=== PATIENT | male | born 1960 | race American Indian/Alaskan Native ===

== ENCOUNTER 2019-11-26 14:59 | Inpatient (IN) ==
[2019-11-26] MEDS ORDERED: cefTRIAXone 1 GM VIAL IV ONE (15:25)
[2019-11-26 15:35] LABS: POC Blood Urea Nitrogen 42 mg/dl (6-20); POC CO2 25 mmol/L (22-30); POC Calcium, Ionized 1.05 mmol/L (1.16-1.32); POC Chloride 92 mmol/L (96-108); POC Creatinine 1.2 mg/dl (0.7-1.2); POC Glucose, Random 384 mg/dL (70-105); POC Potassium 3.6 mmol/L (3.3-5.1); POC Sodium 131 mmol/L (133-145)
[2019-11-26] MEDS ORDERED: 0.9 % SODIUM CHLORIDE 1,000 ML IV ONE (15:43)
[2019-11-26] MEDS ORDERED: INSULIN REGULAR, HUMAN 1 UNIT/0.01 ML UNIT SQ ONE (16:25)
--- NOTE | 2019-11-26 16:46 | Emergency Department Note ---
Wound/Laceration HIP General Chief Complaint: Wound/Laceration Stated Complaint: "i have the chills" Time Seen by Provider: 11/26/19 15:11 Source: patient Mode of arrival: ambulatory Limitations: no limitations History of Present Illness HPI Narrative: Narrative: 59-year-old male presents with bilateral foot wounds. He was seen yesterday for the fever, chills, nausea, vomiting, and diarrhea since Tuesday, about 48 hours worth. States he has been off and on oral antibiotics without improvement. He has an appointment with Dr. deysi andino tomorrow at wound care but was feeling poor enough today that he thought he better come to ER. States the right foot is the worst and redness and swelling is getting worse and there is foul odor coming from the wounds to the palmar surface of his foot. States they are fairly new over the last couple of months but he has not been able to actually see his primary care provider in person because of COVID and so he is only been doing phone appointments and nothing is getting better. He is a diabetic. Reports his sugars have been running in the 300s which is high for him. Related Data Home Medications Medication Instructions Recorded Confirmed amlodipine 10 mg tablet 10 mg PO DAILY 11/02/18 11/26/19 aspirin 81 mg tablet,delayed 81 mg PO DAILY 11/02/18 11/26/19 release carvedilol 3.125 mg tablet 3.125 mg PO BID 11/02/18 11/26/19 duloxetine 30 mg capsule,delayed 30 mg PO BID 11/02/18 11/26/19 release lisinopril 40 mg tablet 40 mg PO BID tab 11/02/18 11/26/19 magnesium L-lactate 84 mg 84 mg PO DAILY 11/02/18 11/26/19 tablet,extended release meloxicam 15 mg tablet 7.5 mg PO BID tab 11/02/18 11/26/19 rosuvastatin 10 mg tablet 10 mg PO QHS tab 11/02/18 11/26/19 chlorthalidone 25 mg tablet 12.5 mg PO DAILY tab 11/07/18 11/26/19 insulin regular hum U-500 conc 1 dose SUB-Q TID 11/07/18 11/26/19 metformin 500 mg tablet,extended 500 mg PO BID tab 11/07/18 11/26/19 release 24 hr dorzolamide-timolol 10 ml OPHTHALMIC (EYE) BID 11/26/19 11/26/19 exenatide microspheres [Bydureon 2 mg SUBCUT Q7D 11/26/19 11/26/19 BCise] Previous Rx's Medication Instructions Recorded amoxicillin-pot clavulanate 1 tab PO Q12H #20 tab 11/25/19 [Augmentin] ciprofloxacin HCl 500 mg PO Q12H #20 tab 11/25/19 Allergies Allergy/AdvReac Type Severity Reaction Status Date / Time No Known Drug Allergies Allergy Verified 11/26/19 15:01 Review of Systems ROS ROS Narrative: Narrative: All systems ED: reviewed and negative except as stated. PFSH Narrative Patient History Narrative: Narrative: Medical/Surgical/Family History All Active Problems (Updated 11/26/19 @ 17:31 by EVERTON Marrero) Cellulitis (Acute) Phlebitis of right saphenous vein (Acute) Diabetic foot ulcer (Acute) Open wound of right foot (Acute) Diabetes (Acute) Nausea & vomiting (Acute) Myopia (Chronic) Ulcer of foot (Chronic) Hypertropia (Chronic) Macular degeneration (Chronic) Primary open angle glaucoma (Chronic) Senile cataracts of both eyes (Chronic) Regular astigmatism, bilateral (Chronic) Presbyopia (Chronic) Glaucoma (Chronic) Mild non proliferative diabetic retinopathy (Chronic) Diabetic macular edema (Chronic) Nuclear senile cataract (Chronic) Diabetic peripheral neuropathy (Chronic) Vitamin D deficiency (Chronic) Magnesium deficiency (Chronic) Diabetes mellitus type II, controlled (Chronic) Diabetic autonomic neuropathy (Chronic) Obesity (Chronic) Hypertensive disorder (Chronic) Sleep apnea (Chronic) Encounter for screening colonoscopy (Chronic) Medical History Diabetes mellitus type II, controlled (Chronic) Diabetic autonomic neuropathy (Chronic) Diabetic macular edema (Chronic) Diabetic peripheral neuropathy (Chronic) Encounter for screening colonoscopy (Chronic) Glaucoma (Chronic) Hypertensive disorder (Chronic) Hypertropia (Chronic) Macular degeneration (Chronic) Magnesium deficiency (Chronic) Mild non proliferative diabetic retinopathy (Chronic) Myopia (Chronic) Nuclear senile cataract (Chronic) Obesity (Chronic) Presbyopia (Chronic) Primary open angle glaucoma (Chronic) Regular astigmatism, bilateral (Chronic) Senile cataracts of both eyes (Chronic) Sleep apnea (Chronic) Ulcer of foot (Chronic) Vitamin D deficiency (Chronic) Surgical History History of surgery (Acute) 1998-Left knee scope No pertinent past surgical history (Inactive) Family History Brother Diabetes x2 Hypertension x2 Sister Diabetes x3 Hypertension x3 Mother Stroke Father Cancer colon cancer Social History Smoking Status: Never smoker Alcohol Intake Frequency: does not drink Substance Use: does not use Exam Narrative Narrative: Narrative: General Limitations: no limitations General appearance: alert Head Head: atraumatic and normocephalic Eye Eye: Present normal appearance; Absent conjunctival injection Chest Chest: Present normal inspection and symmetric chest wall rise Respiratory Respiratory: Present normal lung sounds bilaterally; Absent respiratory distress, rales/crackles, wheezes, stridor and accessory muscle use Extremities Extremities: Present normal capillary refill; Absent normal inspection (Palmar surfaces of feet with multiple wounds. Please see pictures uploaded to chart. Right foot is quite a bit worse than the left. There is significant edema and redness and warmth. Also purulent drainage with culture pending from the palmar surface of the right foot.) Neurological Neurological: Present alert and oriented X3 Psychiatric Psychiatric: Present normal affect and normal mood Skin Skin: Present warm and dry Course Course Course Narrative: At 1700 we did put a call into Dr. blood and are waiting for a call back. At 1730 I did speak with hospitalist, Dr. Ferreira about admitting this patient who agrees to accept. Vital Signs Vital signs: Vital Signs Temperature 98.6 F 11/26/19 14:59 Pulse Rate 108 H 11/26/19 14:59 Respiratory Rate 16 11/26/19 14:59 Blood Pressure 137/79 11/26/19 14:59 Pulse Oximetry (%) 94 11/26/19 14:59 Temperature 98.6 F 11/26/19 14:59 Pulse Rate 99 H 11/26/19 19:16 Respiratory Rate 33 H 11/26/19 19:16 Blood Pressure 103/77 11/26/19 19:16 Pulse Oximetry (%) 91 11/26/19 19:16 MDM MDM Narrative Medical decision making narrative: Narrative: Lab Data Result diagrams: 11/26/19 15:25 11/26/19 15:25 Labs: Lab Results 11/26/19 11/26/19 11/26/19 Range/Units 15:25 15:25 15:25 WBC 19.8 H (4.50-11.00) K/mcL RBC 6.08 (4.63-6.08) M/mcL Hgb 17.8 H (13.7-17.5) g/dL Hct 52.6 H (40.1-51.0) % POC Hct (41.0-55.0) % MCV 86.5 (80.0-100.0) fL MCH 29.3 (26.0-34.0) pg MCHC 33.8 (31.0-36.0) g/dL RDW 13.1 (11.5-14.5) % Plt Count 230 (140-440) K/mcL MPV 12.3 H (7.4-10.4) fL Total Counted 100 Seg Neutrophils % 89 H (38-78) % Band Neutrophils % Not Reportable Lymphocytes % 6 L (15-49) % Monocytes % (Manual) 5 (1-12) % Platelet Estimate Normal (NORMAL) RBC Morphology Normal (NORMAL) VBG Lactic Acid 2.4 H (0.5-2.0) mmol/L POC Sodium (133-145) mmol/L Sodium 129 L (133-145) mmol/L POC Potassium (3.3-5.1) mmol/L Potassium 3.6 (3.3-5.1) mmol/L POC Chloride (96-108) mmol/L Chloride 85 L (96-108) mmol/L Carbon Dioxide 24 (22-30) mmol/L POC Total CO2 (22-30) mmol/L Anion Gap 20.0 H (8-16) POC BUN (6-20) mg/dl BUN 40 H (6-20) mg/dl Creatinine 1.3 H (0.7-1.2) mg/dl POC Creatinine (0.7-1.2) mg/dl GFR Calculation 59 Glucose 396 H (70-105) mg/dL POC Glucose (70-105) mg/dL Calcium 9.6 (8.6-10.4) mg/dl POC WB Ioniz Calcium (1.16-1.32) mmol/L Total Bilirubin 1.4 H (0.0-1.0) mg/dL AST 20 (0-37) U/l ALT 17 (0-40) U/l Alkaline Phosphatase 99 (39-117) U/L Total Protein 7.9 (5.9-8.4) gm/dL Albumin 3.3 (3.2-5.2) gm/dL Globulin 4.6 H (2.2-3.7) gm/dL Albumin/Globulin Ratio 0.7 L (1.0-2.3) 11/26/19 Range/Units 15:25 WBC (4.50-11.00) K/mcL RBC (4.63-6.08) M/mcL Hgb (13.7-17.5) g/dL Hct (40.1-51.0) % POC Hct 59.0 H (41.0-55.0) % MCV (80.0-100.0) fL MCH (26.0-34.0) pg MCHC (31.0-36.0) g/dL RDW (11.5-14.5) % Plt Count (140-440) K/mcL MPV (7.4-10.4) fL Total Counted Seg Neutrophils % (38-78) % Band Neutrophils % Lymphocytes % (15-49) % Monocytes % (Manual) (1-12) % Platelet Estimate (NORMAL) RBC Morphology (NORMAL) VBG Lactic Acid (0.5-2.0) mmol/L POC Sodium 131 L (133-145) mmol/L Sodium (133-145) mmol/L POC Potassium 3.6 (3.3-5.1) mmol/L Potassium (3.3-5.1) mmol/L POC Chloride 92 L (96-108) mmol/L Chloride (96-108) mmol/L Carbon Dioxide (22-30) mmol/L POC Total CO2 25 (22-30) mmol/L Anion Gap (8-16) POC BUN 42 H (6-20) mg/dl BUN (6-20) mg/dl Creatinine (0.7-1.2) mg/dl POC Creatinine 1.2 (0.7-1.2) mg/dl GFR Calculation Glucose (70-105) mg/dL POC Glucose 384 H (70-105) mg/dL Calcium (8.6-10.4) mg/dl POC WB Ioniz Calcium 1.05 L (1.16-1.32) mmol/L Total Bilirubin (0.0-1.0) mg/dL AST (0-37) U/l ALT (0-40) U/l Alkaline Phosphatase (39-117) U/L Total Protein (5.9-8.4) gm/dL Albumin (3.2-5.2) gm/dL Globulin (2.2-3.7) gm/dL Albumin/Globulin Ratio (1.0-2.3) Discharge Plan Patient/Caregiver Discharge Instructions Pt seen by TRAINING DEVELOPMENT MANAGER/PA only: Yes Clinical Impression: Cellulitis, Open wound of right foot, Diabetes, Nausea & vomiting Patient Disposition: Xfer As Inpt ([facility]) Condition: Fair Discharge Date/Time: 11/26/19 19:20
[2019-11-26 16:53] LABS: Hematocrit 52.6 % (40.1-51.0); Hemoglobin 17.8 g/dL (13.7-17.5); Mean Cell Volume 86.5 fL (80.0-100.0); Mean Corpuscular HGB Conc 33.8 g/dL (31.0-36.0); Mean Platelet Volume 12.3 fL (7.4-10.4); Platelet Count 230 K/mcL (140-440); RBC 6.08 M/mcL (4.63-6.08); Red Cell Distribution Width 13.1 % (11.5-14.5); WBC 19.8 K/mcL (4.50-11.00)
[2019-11-26 17:11] LABS: Lymphocytes % 6 % (15-49); Monocytes % (Manual) 5 % (1-12); Platelet Estimate NORMAL (NORMAL); RBC Morphology NORMAL (NORMAL); Segmented Neutrophils % 89 % (38-78)
--- NOTE | 2019-11-26 17:11 | Magnetic Resonance Report ---
CLINICAL INFORMATION: Fifth digit wound with cellulitis and possible osteo COMPARISON: MRI 06/09/2019 TECHNIQUE: Axial T1-T2 proton-density coronal proton-density sagittal T1 bone density images were obtained of the right foot. FINDINGS: Severe diffuse cellulitis and fasciitis is seen throughout the entire foot. There are no marrow signal abnormalities just above osteomyelitis. Joint spaces are normal in width and alignment the exception of minimal degenerative change in the interphalangeal joints. Tendons and sheaths are unremarkable. IMPRESSION: Severe diffuse cellulitis and fasciitis. No evidence of osteomyelitis in the fifth toe nor the remainder foot Interpreted and Authenticated by: Smith Faye 11/26/19
[2019-11-26 17:13] LABS: ALT/SGPT 17 U/l (0-40); AST/SGOT 20 U/l (0-37); Albumin 3.3 gm/dL (3.2-5.2); Albumin/Globulin Ratio 0.7 (1.0-2.3); Alkaline Phosphatase 99 U/L (39-117); Bilirubin,Total 1.4 mg/dL (0.0-1.0); Blood Urea Nitrogen 40 mg/dl (6-20); Calcium 9.6 mg/dl (8.6-10.4); Carbon Dioxide 24 mmol/L (22-30); Chloride 85 mmol/L (96-108); Globulin 4.6 gm/dL (2.2-3.7); Glomerular Filtration Rate 59; Glucose 396 mg/dL (70-105)
[2019-11-26] MEDS ORDERED: ONDANSETRON 4 MG/2 ML VIAL IV ONE (17:29)
[2019-11-26] MEDS ORDERED: VANCOMYCIN PER PHARMACY IV ONE (17:29)
[2019-11-26] MEDS ORDERED: VANCOMYCIN 1,000 MG in 0.9 % SODIUM CHLORIDE 250 ML IV ONE (17:36)
--- NOTE | 2019-11-26 17:45 | Internal Med History&Physical ---
HPI History of Present Illness Patient information: Note initiated : 11/26/19 at 5:45 pm Service Date, if different from initiated Date: [] Patient: Navid Garcia a 59 y/o M admitted on for "I Have The Chills". Chief Complaint: [] History of present illness: Mr. Garcia is a 59 year old M who presents to the ER with increasing right lower extremity pain redness swelling over the last 48 hours. Patient has been following up with wound care for ulceration foot and has been on antibiotics recently for associated cellulitis. For the last 48 hours he has noted increasing redness, swelling and associated nausea. He was evaluated in the ER the day prior and was discharged on oral antibiotics for diabetic foot ulcer. However symptoms continued to deteriorate and he presents today. Initial work-up was consistent with white count 19.8 and elevated blood sugars at 396. Patient was started on antibiotic coverage after wound care was consulted. Cultures obtained Hospitalist service was consulted for admission At the time of my evaluation patient is alert and oriented. He was able to endorse history as above. He denies shaking chills, sweats, shortness of breath chest pain headache or photophobia. Denies diarrhea. Review of systems Negative except for as above PFSH PFSH All Active Problems (Updated 11/26/19 @ 17:31 by EVERTON Marrero) Cellulitis (Acute) Phlebitis of right saphenous vein (Acute) Diabetic foot ulcer (Acute) Open wound of right foot (Acute) Diabetes (Acute) Nausea & vomiting (Acute) Myopia (Chronic) Ulcer of foot (Chronic) Hypertropia (Chronic) Macular degeneration (Chronic) Primary open angle glaucoma (Chronic) Senile cataracts of both eyes (Chronic) Regular astigmatism, bilateral (Chronic) Presbyopia (Chronic) Glaucoma (Chronic) Mild non proliferative diabetic retinopathy (Chronic) Diabetic macular edema (Chronic) Nuclear senile cataract (Chronic) Diabetic peripheral neuropathy (Chronic) Vitamin D deficiency (Chronic) Magnesium deficiency (Chronic) Diabetes mellitus type II, controlled (Chronic) Diabetic autonomic neuropathy (Chronic) Obesity (Chronic) Hypertensive disorder (Chronic) Sleep apnea (Chronic) Encounter for screening colonoscopy (Chronic) Medical History Diabetes mellitus type II, controlled (Chronic) Diabetic autonomic neuropathy (Chronic) Diabetic macular edema (Chronic) Diabetic peripheral neuropathy (Chronic) Encounter for screening colonoscopy (Chronic) Glaucoma (Chronic) Hypertensive disorder (Chronic) Hypertropia (Chronic) Macular degeneration (Chronic) Magnesium deficiency (Chronic) Mild non proliferative diabetic retinopathy (Chronic) Myopia (Chronic) Nuclear senile cataract (Chronic) Obesity (Chronic) Presbyopia (Chronic) Primary open angle glaucoma (Chronic) Regular astigmatism, bilateral (Chronic) Senile cataracts of both eyes (Chronic) Sleep apnea (Chronic) Ulcer of foot (Chronic) Vitamin D deficiency (Chronic) Surgical History History of surgery (Acute) 1998-Left knee scope No pertinent past surgical history (Inactive) Family History Brother Diabetes x2 Hypertension x2 Sister Diabetes x3 Hypertension x3 Mother Stroke Father Cancer colon cancer Social History (Updated 11/08/18 @ 13:33 by Yao Coy MD) smoking status: Never smoker alcohol intake frequency: does not drink substance use type: does not use MEDS/ALLERGIES Home Medications and Allergies Home Medications Medication Instructions Recorded Confirmed Type amlodipine 10 mg tablet 10 mg PO DAILY 11/02/18 11/25/19 History aspirin 81 mg tablet,delayed 81 mg PO DAILY 11/02/18 11/25/19 History release carvedilol 3.125 mg tablet 3.125 mg PO BID 11/02/18 11/25/19 History duloxetine 30 mg capsule,delayed 30 mg PO BID 11/02/18 11/25/19 History release exenatide microspheres 2 mg 1 dose SUB-Q DAILY 11/02/18 11/25/19 History subcutaneous extended release suspension lisinopril 40 mg tablet 40 mg PO BID tab 11/02/18 11/25/19 History magnesium L-lactate 84 mg 84 mg PO DAILY 11/02/18 11/25/19 History tablet,extended release meloxicam 15 mg tablet 7.5 mg PO BID tab 11/02/18 11/25/19 History rosuvastatin 10 mg tablet 10 mg PO QHS tab 11/02/18 11/25/19 History chlorthalidone 25 mg tablet 25 mg PO DAILY tab 11/07/18 11/25/19 History insulin regular hum U-500 conc 1 dose SUB-Q TID 11/07/18 11/25/19 History metformin 500 mg tablet,extended 500 mg PO BID tab 11/07/18 11/25/19 History release 24 hr cephalexin 500 mg PO QID #40 cap 08/25/19 11/25/19 Rx sulfamethoxazole-trimethoprim 1 tab PO BID #20 tab 08/25/19 11/25/19 Rx amoxicillin-pot clavulanate 1 tab PO Q12H #20 tab 11/25/19 Rx [Augmentin] ciprofloxacin HCl 500 mg PO Q12H #20 tab 11/25/19 Rx Allergies Allergy/AdvReac Type Severity Reaction Status Date / Time No Known Drug Allergies Allergy Verified 11/26/19 15:01 EXAM Constitutional Vitals: Temp Pulse Resp BP Pulse Ox 98.6 F 103 H 24 H 104/63 88 L 11/26/19 14:59 11/26/19 17:17 11/26/19 17:17 11/26/19 17:16 11/26/19 17:17 Head normocephalic Oral cavity moist No ear nose discharge Eye movement symmetrical Neck supple no lymphadenopathy S1-S2 regular Nonlabored breathing Nondistended nontender abdomen Lower extremity right side redness noted from dorsum of the ankle up to medial right thigh. Ulceration at the ball of big toe 2 x 2 centimeter. No cyanosis clubbing or joint swelling Skin no suspicious lesion Psych anxious but alert cooperative Neuro normal higher function DATA Data Completed and Pending Labs: Labs from last 24 hours 11/26/19 11/26/19 11/26/19 15:25 15:25 15:25 WBC RBC Hgb Hct POC Hct 59.0 H MCV MCH MCHC RDW Plt Count MPV Total Counted Seg Neutrophils % Band Neutrophils % Lymphocytes % Monocytes % (Manual) Platelet Estimate RBC Morphology VBG Lactic Acid 2.4 H POC Sodium 131 L Sodium 129 L POC Potassium 3.6 Potassium 3.6 POC Chloride 92 L Chloride 85 L Carbon Dioxide 24 POC Total CO2 25 Anion Gap 20.0 H POC BUN 42 H BUN 40 H Creatinine 1.3 H POC Creatinine 1.2 GFR Calculation 59 Glucose 396 H POC Glucose 384 H Calcium 9.6 POC WB Ioniz Calcium 1.05 L Total Bilirubin 1.4 H AST 20 ALT 17 Alkaline Phosphatase 99 Total Protein 7.9 Albumin 3.3 Globulin 4.6 H Albumin/Globulin Ratio 0.7 L 11/26/19 15:25 WBC 19.8 H RBC 6.08 Hgb 17.8 H Hct 52.6 H POC Hct MCV 86.5 MCH 29.3 MCHC 33.8 RDW 13.1 Plt Count 230 MPV 12.3 H Total Counted 100 Seg Neutrophils % 89 H Band Neutrophils % Not Reportable Lymphocytes % 6 L Monocytes % (Manual) 5 Platelet Estimate Normal RBC Morphology Normal VBG Lactic Acid POC Sodium Sodium POC Potassium Potassium POC Chloride Chloride Carbon Dioxide POC Total CO2 Anion Gap POC BUN BUN Creatinine POC Creatinine GFR Calculation Glucose POC Glucose Calcium POC WB Ioniz Calcium Total Bilirubin AST ALT Alkaline Phosphatase Total Protein Albumin Globulin Albumin/Globulin Ratio A/P Narrative A/P Narrative: * Diabetic right lower extremity cellulitis-no evidence of osteomyelitis on imaging. Continue broad antibiotic coverage. Cultures drawn. Wound care consulted. * History of DM type II continue exenatide/prandial insulin/CC diet * History of hypertension continue amlodipine/Coreg/chlorthalidone * Anxiety disorder continue Cymbalta * Hyperlipidemia on statin * Full code Plan * Inpatient admission * Broad antibiotic coverage * Wound care consult * Pre-existing medical condition management as above * Nutrition support/PT OT Time Spent With Patient Time: Total time spent is greater than 50% in coordination of care (as documented) at patient's floor/unit and/or counseling patient:
[2019-11-26] MEDS ORDERED: POTASSIUM CHLORIDE 20 MEQ PACKET PO PRN (19:22)
[2019-11-26] MEDS ORDERED: ACETAMINOPHEN 650 MG/65 ML BOTTLE IV PRN (19:22)
[2019-11-26] MEDS ORDERED: DEXTROSE 31 GM ORAL.SUSP PO PRN (19:22)
[2019-11-26] MEDS ORDERED: ACETAMINOPHEN 325 MG TABLET PO PRN (19:22)
[2019-11-26] MEDS ORDERED: hydrALAZINE 20 MG/ML VIAL IV PRN (19:22)
[2019-11-26] MEDS ORDERED: ONDANSETRON 4 MG/2 ML VIAL IV PRN (19:22)
[2019-11-26] MEDS ORDERED: MAGNESIUM SULFATE 2 GM/50 ML BAG IV PRN (19:22)
[2019-11-26] MEDS ORDERED: VANCOMYCIN PER PHARMACY IV SCH (19:22)
[2019-11-26] MEDS ORDERED: METOPROLOL TARTRATE 5 MG/5 ML VIAL IV PRN (19:22)
[2019-11-26] MEDS ORDERED: POLYETHYLENE GLYCOL 3350 17 GM PACKET PO PRN (19:22)
[2019-11-26] MEDS ORDERED: ONDANSETRON 4 MG ODT TABLET SL PRN (19:22)
[2019-11-26] MEDS ORDERED: BISACODYL 10 MG SUPP.RECT PR PRN (19:22)
[2019-11-26] MEDS ORDERED: MELATONIN 3 MG TABLET PO PRN (19:22)
[2019-11-26] MEDS: 0.9 % SODIUM CHLORIDE 1,000 ML IV SCH (20:38)
--- NOTE | 2019-11-26 21:08 | Emergency Department Note ---
Wound/Laceration HIP General Chief Complaint: Wound/Laceration Stated Complaint: "i have the chills" Time Seen by Provider: 11/26/19 15:11 Source: patient Mode of arrival: ambulatory Limitations: no limitations History of Present Illness HPI Narrative: See dictated history and physical by EVERTON Browne. I a gree with her documentation and management. I briefly saw the patient myself and at the beginning. He did have swelling, redness and a necrotic ulcer on the plantar surface of his right foot that had dark tobar-brown necrotic strands that were adherent and did not seem to be painful to pull some of these out. Patient indicates he does have significant diabetic neuropathy but that he has had some additional discomforts suggesting that his infection has actually become more deep-seated and worse. Related Data Home Medications Medication Instructions Recorded Confirmed amlodipine 10 mg tablet 10 mg PO DAILY 11/02/18 11/26/19 aspirin 81 mg tablet,delayed 81 mg PO DAILY 11/02/18 11/26/19 release carvedilol 3.125 mg tablet 3.125 mg PO BID 11/02/18 11/26/19 duloxetine 30 mg capsule,delayed 30 mg PO BID 11/02/18 11/26/19 release lisinopril 40 mg tablet 40 mg PO BID tab 11/02/18 11/26/19 magnesium L-lactate 84 mg 84 mg PO DAILY 11/02/18 11/26/19 tablet,extended release meloxicam 15 mg tablet 7.5 mg PO BID tab 11/02/18 11/26/19 rosuvastatin 10 mg tablet 10 mg PO QHS tab 11/02/18 11/26/19 chlorthalidone 25 mg tablet 12.5 mg PO DAILY tab 11/07/18 11/26/19 insulin regular hum U-500 conc 1 dose SUB-Q TID 11/07/18 11/26/19 metformin 500 mg tablet,extended 500 mg PO BID tab 11/07/18 11/26/19 release 24 hr dorzolamide-timolol 10 ml OPHTHALMIC (EYE) BID 11/26/19 11/26/19 exenatide microspheres [Bydureon 2 mg SUBCUT Q7D 11/26/19 11/26/19 BCise] Previous Rx's Medication Instructions Recorded amoxicillin-pot clavulanate 1 tab PO Q12H #20 tab 11/25/19 [Augmentin] ciprofloxacin HCl 500 mg PO Q12H #20 tab 11/25/19 Allergies Allergy/AdvReac Type Severity Reaction Status Date / Time No Known Drug Allergies Allergy Verified 11/26/19 15:01 Review of Systems ROS ROS Narrative: Narrative: PFSH Narrative Patient History Narrative: Narrative: Medical/Surgical/Family History All Active Problems (Updated 11/26/19 @ 17:31 by EVERTON Marrero) Cellulitis (Acute) Phlebitis of right saphenous vein (Acute) Diabetic foot ulcer (Acute) Open wound of right foot (Acute) Diabetes (Acute) Nausea & vomiting (Acute) Myopia (Chronic) Ulcer of foot (Chronic) Hypertropia (Chronic) Macular degeneration (Chronic) Primary open angle glaucoma (Chronic) Senile cataracts of both eyes (Chronic) Regular astigmatism, bilateral (Chronic) Presbyopia (Chronic) Glaucoma (Chronic) Mild non proliferative diabetic retinopathy (Chronic) Diabetic macular edema (Chronic) Nuclear senile cataract (Chronic) Diabetic peripheral neuropathy (Chronic) Vitamin D deficiency (Chronic) Magnesium deficiency (Chronic) Diabetes mellitus type II, controlled (Chronic) Diabetic autonomic neuropathy (Chronic) Obesity (Chronic) Hypertensive disorder (Chronic) Sleep apnea (Chronic) Encounter for screening colonoscopy (Chronic) Medical History Diabetes mellitus type II, controlled (Chronic) Diabetic autonomic neuropathy (Chronic) Diabetic macular edema (Chronic) Diabetic peripheral neuropathy (Chronic) Encounter for screening colonoscopy (Chronic) Glaucoma (Chronic) Hypertensive disorder (Chronic) Hypertropia (Chronic) Macular degeneration (Chronic) Magnesium deficiency (Chronic) Mild non proliferative diabetic retinopathy (Chronic) Myopia (Chronic) Nuclear senile cataract (Chronic) Obesity (Chronic) Presbyopia (Chronic) Primary open angle glaucoma (Chronic) Regular astigmatism, bilateral (Chronic) Senile cataracts of both eyes (Chronic) Sleep apnea (Chronic) Ulcer of foot (Chronic) Vitamin D deficiency (Chronic) Surgical History History of surgery (Acute) 1998-Left knee scope No pertinent past surgical history (Inactive) Family History Brother Diabetes x2 Hypertension x2 Sister Diabetes x3 Hypertension x3 Mother Stroke Father Cancer colon cancer Social History Smoking Status: Never smoker Alcohol Intake Frequency: does not drink Substance Use: does not use Exam Narrative Narrative: Narrative: General Limitations: no limitations General appearance: alert Course Vital Signs Vital signs: Vital Signs Temperature 98.6 F 11/26/19 14:59 Pulse Rate 108 H 11/26/19 14:59 Respiratory Rate 16 11/26/19 14:59 Blood Pressure 137/79 11/26/19 14:59 Pulse Oximetry (%) 94 11/26/19 14:59 Temperature 98.6 F 11/26/19 14:59 Pulse Rate 99 H 11/26/19 19:16 Respiratory Rate 33 H 11/26/19 19:16 Blood Pressure 103/77 11/26/19 19:16 Pulse Oximetry (%) 91 11/26/19 19:16 MDM MDM Narrative Medical decision making narrative: Narrative: Lab Data Result diagrams: 11/26/19 15:25 11/26/19 15:25 Labs: Lab Results 11/26/19 11/26/19 11/26/19 Range/Units 15:25 15:25 15:25 WBC 19.8 H (4.50-11.00) K/mcL RBC 6.08 (4.63-6.08) M/mcL Hgb 17.8 H (13.7-17.5) g/dL Hct 52.6 H (40.1-51.0) % POC Hct (41.0-55.0) % MCV 86.5 (80.0-100.0) fL MCH 29.3 (26.0-34.0) pg MCHC 33.8 (31.0-36.0) g/dL RDW 13.1 (11.5-14.5) % Plt Count 230 (140-440) K/mcL MPV 12.3 H (7.4-10.4) fL Total Counted 100 Seg Neutrophils % 89 H (38-78) % Band Neutrophils % Not Reportable Lymphocytes % 6 L (15-49) % Monocytes % (Manual) 5 (1-12) % Platelet Estimate Normal (NORMAL) RBC Morphology Normal (NORMAL) VBG Lactic Acid 2.4 H (0.5-2.0) mmol/L POC Sodium (133-145) mmol/L Sodium 129 L (133-145) mmol/L POC Potassium (3.3-5.1) mmol/L Potassium 3.6 (3.3-5.1) mmol/L POC Chloride (96-108) mmol/L Chloride 85 L (96-108) mmol/L Carbon Dioxide 24 (22-30) mmol/L POC Total CO2 (22-30) mmol/L Anion Gap 20.0 H (8-16) POC BUN (6-20) mg/dl BUN 40 H (6-20) mg/dl Creatinine 1.3 H (0.7-1.2) mg/dl POC Creatinine (0.7-1.2) mg/dl GFR Calculation 59 Glucose 396 H (70-105) mg/dL POC Glucose (70-105) mg/dL Calcium 9.6 (8.6-10.4) mg/dl POC WB Ioniz Calcium (1.16-1.32) mmol/L Total Bilirubin 1.4 H (0.0-1.0) mg/dL AST 20 (0-37) U/l ALT 17 (0-40) U/l Alkaline Phosphatase 99 (39-117) U/L Total Protein 7.9 (5.9-8.4) gm/dL Albumin 3.3 (3.2-5.2) gm/dL Globulin 4.6 H (2.2-3.7) gm/dL Albumin/Globulin Ratio 0.7 L (1.0-2.3) 11/26/19 Range/Units 15:25 WBC (4.50-11.00) K/mcL RBC (4.63-6.08) M/mcL Hgb (13.7-17.5) g/dL Hct (40.1-51.0) % POC Hct 59.0 H (41.0-55.0) % MCV (80.0-100.0) fL MCH (26.0-34.0) pg MCHC (31.0-36.0) g/dL RDW (11.5-14.5) % Plt Count (140-440) K/mcL MPV (7.4-10.4) fL Total Counted Seg Neutrophils % (38-78) % Band Neutrophils % Lymphocytes % (15-49) % Monocytes % (Manual) (1-12) % Platelet Estimate (NORMAL) RBC Morphology (NORMAL) VBG Lactic Acid (0.5-2.0) mmol/L POC Sodium 131 L (133-145) mmol/L Sodium (133-145) mmol/L POC Potassium 3.6 (3.3-5.1) mmol/L Potassium (3.3-5.1) mmol/L POC Chloride 92 L (96-108) mmol/L Chloride (96-108) mmol/L Carbon Dioxide (22-30) mmol/L POC Total CO2 25 (22-30) mmol/L Anion Gap (8-16) POC BUN 42 H (6-20) mg/dl BUN (6-20) mg/dl Creatinine (0.7-1.2) mg/dl POC Creatinine 1.2 (0.7-1.2) mg/dl GFR Calculation Glucose (70-105) mg/dL POC Glucose 384 H (70-105) mg/dL Calcium (8.6-10.4) mg/dl POC WB Ioniz Calcium 1.05 L (1.16-1.32) mmol/L Total Bilirubin (0.0-1.0) mg/dL AST (0-37) U/l ALT (0-40) U/l Alkaline Phosphatase (39-117) U/L Total Protein (5.9-8.4) gm/dL Albumin (3.2-5.2) gm/dL Globulin (2.2-3.7) gm/dL Albumin/Globulin Ratio (1.0-2.3) Discharge Plan Patient/Caregiver Discharge Instructions Pt seen by SURGERY SPECIALIST/PA only: Yes Clinical Impression: Cellulitis, Open wound of right foot, Diabetes, Nausea & vomiting Patient Disposition: Xfer As Inpt ([facility]) Condition: Fair Discharge Date/Time: 11/26/19 19:20
[2019-11-26] MEDS: HEPARIN 5,000 UNIT/ML VIAL SQ SCH (22:09)
[2019-11-26] MEDS: SENNOSIDES/DOCUSATE SODIUM 1 TAB TABLET PO SCH (22:11)
[2019-11-26] MEDS: DOCUSATE SODIUM 100 MG CAPSULE PO SCH (22:11)
[2019-11-26] MEDS: 0.9 % SODIUM CHLORIDE 10 ML SYRINGE IV SCH (22:12)
[2019-11-26] MEDS: INSULIN LISPRO 1 UNIT/0.01 ML UNIT SQ SCH (22:17)
[2019-11-27] MEDS: INSULIN LISPRO 1 UNIT/0.01 ML UNIT SQ SCH ×6 (00:24→23:55)
[2019-11-27] MEDS: 0.9 % SODIUM CHLORIDE 10 ML SYRINGE IV SCH ×4 (04:24→22:49)
[2019-11-27 06:50] LABS: Hematocrit 47.1 % (40.1-51.0); Hemoglobin 15.7 g/dL (13.7-17.5); Mean Cell Volume 87.9 fL (80.0-100.0); Mean Corpuscular HGB Conc 33.3 g/dL (31.0-36.0); Mean Platelet Volume 11.9 fL (7.4-10.4); Platelet Count 204 K/mcL (140-440); RBC 5.36 M/mcL (4.63-6.08); Red Cell Distribution Width 12.9 % (11.5-14.5); WBC 19.2 K/mcL (4.50-11.00)
[2019-11-27 07:11] LABS: ALT/SGPT 17 U/l (0-40); Albumin 2.7 gm/dL (3.2-5.2); Alkaline Phosphatase 90 U/L (39-117); Bilirubin,Direct 0.4 mg/dL (0.0-0.3); Blood Urea Nitrogen 29 mg/dl (6-20); Calcium 8.5 mg/dl (8.6-10.4); Carbon Dioxide 24 mmol/L (22-30); Chloride 90 mmol/L (96-108); Glomerular Filtration Rate 65; Glucose 293 mg/dL (70-105); Lactate Dehydrogenase 147 U/L (94-250); Triglycerides 111 mg/dl (<150)
[2019-11-27 07:12] LABS: Albumin/Globulin Ratio 0.7 (1.0-2.3); Bilirubin,Total 0.8 mg/dL (0.0-1.0)
[2019-11-27 07:21] LABS: AST/SGOT 18 U/l (0-37); Phosphorous 2.7 mg/dL (2.7-4.5)
[2019-11-27] MEDS: cefTRIAXone 2 GM in DEXTROSE 5% IN WATER 50 ML IV SCH (08:02)
[2019-11-27] MEDS: MULTIVIT,THER IRON,CA,FA & MIN 1 TABLET PO SCH (08:05)
[2019-11-27] MEDS: sitaGLIPtin 100 MG TABLET PO SCH (08:05)
[2019-11-27] MEDS: HEPARIN 5,000 UNIT/ML VIAL SQ SCH ×2 (08:05→21:00)
[2019-11-27] MEDS: DOCUSATE SODIUM 100 MG CAPSULE PO SCH ×3 (08:06→21:03)
[2019-11-27 08:52] LABS: Band Neutrophils % 3 % (0-10); Eosinophils % (Manual) 2 % (0-7); Lymphocytes % 3 % (15-49); Metamyelocytes % 2 % (0-0); Monocytes % (Manual) 10 % (1-12); Platelet Estimate NORMAL (NORMAL); RBC Morphology NORMAL (NORMAL); Segmented Neutrophils % 80 % (38-78)
[2019-11-27] MEDS: VANCOMYCIN 1,000 MG in 0.9 % SODIUM CHLORIDE 250 ML IV SCH ×2 (09:05→21:00)
--- NOTE | 2019-11-27 09:56 | Internal Med History&Physical ---
HPI History of Present Illness Patient information: Note initiated : 11/26/19 at 22:51 pm Service Date, if different from initiated Date: [] Patient: Navid Garcia 59 y/o M admitted on 11/26/19 for "I Have The Chills". Chief Complaint: [] History of present illness: Mr. Garcia is a 59 year old M who presents to the ER with increasing right lower extremity redness swelling over the last 48 hours. Patient has been following up with wound care for ulceration Rt foot and has been on antibiotics recently for associated cellulitis. For the last 48 hours he has noted increasing redness, swelling, discharge at the fourth and fifth interphalanx face and associated nausea. He was evaluated in the ER the day prior and was discharged on oral antibiotics for diabetic foot ulcer. However symptoms continued to deteriorate and he presents today. Initial work-up was consistent with white count 19.8 and elevated blood sugars at 396. Patient was started on antibiotic coverage after wound care was consulted. Cultures obtained. At the time of my evaluation patient is alert and oriented. He was able to endorse history as above. He denies shaking chills, sweats, shortness of breath chest pain headache or photophobia. Denies diarrhea. Review of systems Negative except for as above History of present illness: Mr. Garcia is a 59 year old M [facility] All Active Problems (Updated 11/26/19 @ 17:31 by Georgia Welch, [facility]) Cellulitis (Acute) Phlebitis of right saphenous vein (Acute) Diabetic foot ulcer (Acute) Open wound of right foot (Acute) Diabetes (Acute) Nausea & vomiting (Acute) Myopia (Chronic) Ulcer of foot (Chronic) Hypertropia (Chronic) Macular degeneration (Chronic) Primary open angle glaucoma (Chronic) Senile cataracts of both eyes (Chronic) Regular astigmatism, bilateral (Chronic) Presbyopia (Chronic) Glaucoma (Chronic) Mild non proliferative diabetic retinopathy (Chronic) Diabetic macular edema (Chronic) Nuclear senile cataract (Chronic) Diabetic peripheral neuropathy (Chronic) Vitamin D deficiency (Chronic) Magnesium deficiency (Chronic) Diabetes mellitus type II, controlled (Chronic) Diabetic autonomic neuropathy (Chronic) Obesity (Chronic) Hypertensive disorder (Chronic) Sleep apnea (Chronic) Encounter for screening colonoscopy (Chronic) Medical History Diabetes mellitus type II, controlled (Chronic) Diabetic autonomic neuropathy (Chronic) Diabetic macular edema (Chronic) Diabetic peripheral neuropathy (Chronic) Encounter for screening colonoscopy (Chronic) Glaucoma (Chronic) Hypertensive disorder (Chronic) Hypertropia (Chronic) Macular degeneration (Chronic) Magnesium deficiency (Chronic) Mild non proliferative diabetic retinopathy (Chronic) Myopia (Chronic) Nuclear senile cataract (Chronic) Obesity (Chronic) Presbyopia (Chronic) Primary open angle glaucoma (Chronic) Regular astigmatism, bilateral (Chronic) Senile cataracts of both eyes (Chronic) Sleep apnea (Chronic) Ulcer of foot (Chronic) Vitamin D deficiency (Chronic) Surgical History History of surgery (Acute) 1998-Left knee scope No pertinent past surgical history (Inactive) Family History Brother Diabetes x2 Hypertension x2 Sister Diabetes x3 Hypertension x3 Mother Stroke Father Cancer colon cancer Social History (Updated 11/08/18 @ 13:33 by Yao Coy MD) smoking status: Never smoker alcohol intake frequency: does not drink substance use type: does not use MEDS/ALLERGIES Home Medications and Allergies Home Medications Medication Instructions Recorded Confirmed Type amlodipine 10 mg tablet 10 mg PO DAILY 11/02/18 11/26/19 History aspirin 81 mg tablet,delayed 81 mg PO DAILY 11/02/18 11/26/19 History release carvedilol 3.125 mg tablet 3.125 mg PO BID 11/02/18 11/26/19 History duloxetine 30 mg capsule,delayed 30 mg PO BID 11/02/18 11/26/19 History release lisinopril 40 mg tablet 40 mg PO BID tab 11/02/18 11/26/19 History magnesium L-lactate 84 mg 84 mg PO DAILY 11/02/18 11/26/19 History tablet,extended release meloxicam 15 mg tablet 7.5 mg PO BID tab 11/02/18 11/26/19 History rosuvastatin 10 mg tablet 10 mg PO QHS tab 11/02/18 11/26/19 History chlorthalidone 25 mg tablet 12.5 mg PO DAILY tab 11/07/18 11/26/19 History insulin regular hum U-500 conc 1 dose SUB-Q TID 11/07/18 11/26/19 History metformin 500 mg tablet,extended 500 mg PO BID tab 11/07/18 11/26/19 History release 24 hr amoxicillin-pot clavulanate 1 tab PO Q12H #20 tab 11/25/19 11/26/19 Rx [Augmentin] ciprofloxacin HCl 500 mg PO Q12H #20 tab 11/25/19 11/26/19 Rx dorzolamide-timolol 10 ml OPHTHALMIC (EYE) BID 11/26/19 11/26/19 History exenatide microspheres [Bydureon 2 mg SUBCUT Q7D 11/26/19 11/26/19 History BCise] Allergies Allergy/AdvReac Type Severity Reaction Status Date / Time No Known Drug Allergies Allergy Verified 11/26/19 15:01 EXAM Constitutional Vitals: Temp Pulse Resp BP Pulse Ox 99.0 F 90 20 117/73 90 11/27/19 07:24 11/27/19 07:24 11/27/19 07:24 11/27/19 07:24 11/27/19 07:24 Head normocephalic Oral cavity moist No ear nose discharge Eye movement symmetrical Neck supple no lymphadenopathy S1-S2 regular Nonlabored breathing Nondistended nontender abdomen Lower extremity right side redness noted from dorsum of the ankle up to medial right thigh. Ulceration at the ball of big toe 2 x 2 centimeter. No cyanosis clubbing or joint swelling Skin no suspicious lesion Psych anxious but alert cooperative Neuro normal higher function DATA Data Completed and Pending Labs: Labs from last 24 hours 11/27/19 11/27/19 11/26/19 05:20 05:20 15:25 WBC 19.2 H RBC 5.36 Hgb 15.7 Hct 47.1 POC Hct 59.0 H MCV 87.9 MCH 29.3 MCHC 33.3 RDW 12.9 Plt Count 204 MPV 11.9 H Total Counted 100 Seg Neutrophils % 80 H Band Neutrophils % 3 Lymphocytes % 3 L Monocytes % (Manual) 10 Eosinophils % (Manual) 2 Metamyelocytes % 2 H Platelet Estimate Normal RBC Morphology Normal VBG Lactic Acid POC Sodium 131 L Sodium 132 L POC Potassium 3.6 Potassium 3.6 POC Chloride 92 L Chloride 90 L Carbon Dioxide 24 POC Total CO2 25 Anion Gap 18.0 H POC BUN 42 H BUN 29 H Creatinine 1.2 POC Creatinine 1.2 GFR Calculation 65 Glucose 293 H POC Glucose 384 H Uric Acid 6.0 Calcium 8.5 L POC WB Ioniz Calcium 1.05 L Phosphorus 2.7 Magnesium 2.0 Total Bilirubin 0.8 Direct Bilirubin 0.4 H GGT 16 AST 18 ALT 17 Alkaline Phosphatase 90 Lactate Dehydrogenase 147 Total Protein 6.7 Albumin 2.7 L Globulin 4.0 H Albumin/Globulin Ratio 0.7 L Triglycerides 111 11/26/19 11/26/19 11/26/19 15:25 15:25 15:25 WBC 19.8 H RBC 6.08 Hgb 17.8 H Hct 52.6 H POC Hct MCV 86.5 MCH 29.3 MCHC 33.8 RDW 13.1 Plt Count 230 MPV 12.3 H Total Counted 100 Seg Neutrophils % 89 H Band Neutrophils % Not Reportable Lymphocytes % 6 L Monocytes % (Manual) 5 Eosinophils % (Manual) Metamyelocytes % Platelet Estimate Normal RBC Morphology Normal VBG Lactic Acid 2.4 H POC Sodium Sodium 129 L POC Potassium Potassium 3.6 POC Chloride Chloride 85 L Carbon Dioxide 24 POC Total CO2 Anion Gap 20.0 H POC BUN BUN 40 H Creatinine 1.3 H POC Creatinine GFR Calculation 59 Glucose 396 H POC Glucose Uric Acid Calcium 9.6 POC WB Ioniz Calcium Phosphorus Magnesium Total Bilirubin 1.4 H Direct Bilirubin GGT AST 20 ALT 17 Alkaline Phosphatase 99 Lactate Dehydrogenase Total Protein 7.9 Albumin 3.3 Globulin 4.6 H Albumin/Globulin Ratio 0.7 L Triglycerides A/P Narrative A/P Narrative: * Diabetic right lower extremity cellulitis-no evidence of osteomyelitis on imaging. Continue broad antibiotic coverage. Cultures drawn. Wound care consulted. * Sepsis secondary to above. White count 19.8. Continue broad antibiotic coverage include Rocephin/vancomycin. Continue management per guidelines. * History of DM type II continue exenatide/prandial insulin/CC diet * History of hypertension continue amlodipine/Coreg/chlorthalidone * Anxiety disorder continue Cymbalta * Hyperlipidemia on statin * Full code Plan * Inpatient admission * Broad antibiotic coverage * Wound care consult * Pre-existing medical conditions management on home medications *PT OT nutrition support Time Spent With Patient Time: Total time spent is greater than 50% in coordination of care (as documented) at patient's floor/unit and/or counseling patient: QUALITY VTE Deep Vein Thrombosis/Pulmonary Embolism Present on Admission: No
--- NOTE | 2019-11-27 10:01 | Internal Med Progress Note ---
SUBJECTIVE Subjective Patient information: Note initiated : 11/27/19 at 9:56 am Service Date, if different from initiated Date: [] Patient: Navid Garcia 59 y/o M admitted on 11/26/19 for "I Have The Chills". Chief Complaint: History of present illness: Mr. Garcia is a 59 year old M who presents to the ER with increasing right lower extremity redness swelling over the last 48 hours. Patient has been following up with wound care for ulceration Rt foot and has been on antibiotics recently for associated cellulitis. For the last 48 hours he has noted increasing redness, swelling, discharge at the fourth and fifth interphalanx face and associated nausea. He was evaluated in the ER the da y prior and was discharged on oral antibiotics for diabetic foot ulcer. However symptoms continued to deteriorate and he presents today. Initial work-up was consistent with white count 19.8 and elevated blood sugars at 396. Patient was started on antibiotic coverage after wound care was consulted. Cultures obtained. At the time of my evaluation patient is alert and oriented. He was able to endor se history as above. He denies shaking chills, sweats, shortness of breath chest pain headache or photophobia. Denies diarrhea. 11/26-worsening redness however denies pain but overnight fever at 104. White count 19.2. On Rocephin/vancomycin. Will undergo operative intervention today by wound care. Blood sugar gradually improving. Creatinine 1.2. Constitutional Vitals: Vital Signs Temp Pulse Resp BP Pulse Ox 99.0 F 90 20 117/73 90 11/27/19 07:24 11/27/19 07:24 11/27/19 07:24 11/27/19 07:24 11/27/19 07:24 Period Temp Pulse Resp BP Sys/Garcia Pulse Ox Last 24 Hr 98.2 F-100.5 F 76-108 12-37 100-137/62-90 88-98 Intake and Output 11/26/19 11/27/19 11/27/19 21:59 05:59 13:59 Intake Total 1370 1600 813 Balance 1370 1600 813 Weight 120.656 kg Morbidly obese Alert and oriented Right foot redness swelling extends up to the ankle with purulent discharge right fourth interphalangeal space Intake & Output: Intake & Output 11/26/19 11/27/19 11/27/19 21:59 05:59 13:59 Intake Total 1370 1600 813 Balance 1370 1600 813 Weight 120.656 kg Intake: IV 1250 573 Sodium Chloride 0.9% 1,000 ml @ 1000 573 50 mls/hr IV .Q20H [facility] Rx#: [id number] Vancomycin 1,000 mg In Sodium 250 Chloride 0.9% 250 ml @ 250 mls/ hr IV ONCE ONE Rx#:[id number] Oral 120 1600 240 Other: Meal Dinner Breakfast Percent of Meal Consumed 75% 50% # Voids 1 1 1 OBJ DATA Labs CBC & Chem 7: 11/27/19 05:20 11/27/19 05:20 Labs: Abnormal Lab Results 11/27/19 11/27/19 11/26/19 05:20 05:20 15:25 WBC 19.2 H Hgb Hct POC Hct 59.0 H MPV 11.9 H Seg Neutrophils % 80 H Lymphocytes % 3 L Metamyelocytes % 2 H VBG Lactic Acid POC Sodium 131 L Sodium 132 L POC Chloride 92 L Chloride 90 L Anion Gap 18.0 H POC BUN 42 H BUN 29 H Creatinine Glucose 293 H POC Glucose 384 H Calcium 8.5 L POC WB Ioniz Calcium 1.05 L Total Bilirubin Direct Bilirubin 0.4 H Albumin 2.7 L Globulin 4.0 H Albumin/Globulin Ratio 0.7 L 11/26/19 11/26/19 11/26/19 15:25 15:25 15:25 WBC 19.8 H Hgb 17.8 H Hct 52.6 H POC Hct MPV 12.3 H Seg Neutrophils % 89 H Lymphocytes % 6 L Metamyelocytes % VBG Lactic Acid 2.4 H POC Sodium Sodium 129 L POC Chloride Chloride 85 L Anion Gap 20.0 H POC BUN BUN 40 H Creatinine 1.3 H Glucose 396 H POC Glucose Calcium POC WB Ioniz Calcium Total Bilirubin 1.4 H Direct Bilirubin Albumin Globulin 4.6 H Albumin/Globulin Ratio 0.7 L Meds: Medications Acetaminophen (Tylenol) 650 mg PO Q4-6HP PRN; Protocol PRN Reason: Per Pain Protocol/Fever > 101 Last Admin: 11/27/19 03:36 Dose: 650 mg Documented by: Bisacodyl (Dulcolax) 10 mg SD Q2-3DAYS PRN PRN Reason: Constipation Dextrose (Dextrose 50%) 0 ml IV UD PRN PRN Reason: Hypoglycemia Diagnostic Test (Pha) (Accu-Chek) 1 each FS ACHS [facility] Last Admin: 11/27/19 07:28 Dose: 1 each Documented by: Docusate Sodium (Colace) 100 mg PO BID [facility] Last Admin: 11/27/19 08:06 Dose: Not Given Documented by: Glucose (Insta-Glucose) 15 gm PO PRN PRN PRN Reason: Hypoglycemia Heparin Sodium (Porcine) (Heparin) 5,000 unit SQ Q12 [facility] Last Admin: 11/27/19 08:05 Dose: 5,000 unit Documented by: Hydralazine HCl (Apresoline) 10 mg IV Q4-6HP PRN PRN Reason: Hypertension Sodium Chloride (Sodium Chloride 0.9%) 1,000 mls @ 50 mls/hr IV .Q20H [facility] Stop: 11/29/19 07:21 Last Infusion: 11/27/19 08:05 Dose: 0 mls/hr Documented by: Acetaminophen (Ofirmev) 650 mg in 65 mls @ 130 mls/hr IV Q6HP PRN; Protocol PRN Reason: Per Pain Protocol/Fever > 101 Magnesium Sulfate (Magnesium Sulfate) 2 gm in 50 mls @ 50 mls/hr IV UD PRN PRN Reason: MG = or < 1.7 Ceftriaxone Sodium 2 gm/ (Dextrose) 50 mls @ 100 mls/hr IV Q24H [facility]; Protocol Last Admin: 11/27/19 08:02 Dose: 100 mls/hr Documented by: Vancomycin HCl 1,000 mg/ (Sodium Chloride) 250 mls @ 250 mls/hr IV Q12H [facility] Last Admin: 11/27/19 09:05 Dose: 250 mls/hr Documented by: Insulin Human Lispro (Humalog) 0 unit SQ ACHS [facility]; Protocol Last Admin: 11/27/19 08:05 Dose: 4 units Documented by: Iron Carb/Multivit/[place]/Folic Acid (Multivitamin W/Minerals) 1 tab PO DAILY [facility] Last Admin: 11/27/19 08:05 Dose: 1 tab Documented by: Melatonin (Melatonin 3mg Tablet) 3 mg PO HSP PRN PRN Reason: Insomnia Metoprolol Tartrate (Lopressor) 5 mg IV Q5M PRN PRN Reason: Heart Rate > 140 bpm Ondansetron HCl (Zofran Odt) 4 mg SL Q4-6HP PRN; Protocol PRN Reason: Nausea And Vomiting Ondansetron HCl (Zofran) 4 mg IV Q4-6HP PRN; Protocol PRN Reason: Nausea And Vomiting Polyethylene Glycol (Miralax) 17 gm PO DAILYP PRN PRN Reason: Constipation Potassium Chloride (Klor-Con) 40 meq PO DAILYP PRN PRN Reason: K+ < 3.5 Senna/Docusate Sodium (Senna Plus Tablet) 1 tab PO HS [facility] Last Admin: 11/26/19 22:11 Dose: Not Given Documented by: Sitagliptin Phosphate (Januvia) 100 mg PO DAILY [facility] Last Admin: 11/27/19 08:05 Dose: 100 mg Documented by: Sodium Chloride (Saline Flush) 10 ml IV Q8 [facility] Last Admin: 11/27/19 04:24 Dose: Not Given Documented by: Vancomycin HCl (Vancomycin Per Pharmacy) 1 order IV UD [facility]; Protocol A/P Narrative A/P Narrative: * Diabetic right lower extremity cellulitis-on broad antibiotic coverage. Will undergo operative intervention today. Cultures drawn. Wound care consulted. * Sepsis secondary to above. White count improved to 19.2. Evidence of improved endorgan dysfunction. Continue broad antibiotic coverage include Rocephin/vancomycin. Continue management per guidelines. *CKD stage III. Monitor renal function * History of DM type II continue exenatide/prandial insulin/CC diet * History of hypertension continue amlodipine/Coreg/chlorthalidone * Anxiety disorder continue Cymbalta * Hyperlipidemia on statin * Full code Plan *Review postop *Continue broad antibiotic coverage * Wound care consult *Continue pre-existing medical conditions management on home medications *PT OT nutrition support Time Spent With Patient Time: Total time spent is greater than 50% in coordination of care (as documented) at patient's floor/unit and/or counseling patient: Total time spent with greater than 50% in coordination of care (as documented) at patient's floor/unit and/or counseling patient:: Greater than 35 minutes QUALITY VTE Deep Vein Thrombosis/Pulmonary Embolism Present on Admission: No
[2019-11-27] MEDS ORDERED: IPRATROPIUM/ALBUTEROL 3 ML AMPUL.NEB NEB PRN ×2 (10:16→16:02)
--- NOTE | 2019-11-27 10:37 | General Surgery Consult Note ---
HPI Data of Consult Consult date: 11/27/19 Requesting physician: Miguel Roberts Primary Care Provider: Zina Sue Family Provider: Patient seen in consultation with Cheli HE IN Patient wound care nurse. Case d/w Meryl HE I/C and Dr. Roberts hospitalist. I know this established patient at wound care center. Patient was admitted via ER last evening with SEPSIS, FEVER, CELLULITIS RIGHT FOOT and foul odorous drainage from neuropathic ulcer under RIGHT 5th toe MPJ. He has hyperglycemia, leucocytosis and lactic acidosis. He DENIES any other systemic symptoms. He knows his problem well and consents for surgery for debridement and 5th toe amputation. Consult Narrative Patient Information: Note initiated : 11/27/19 at 10:19 am Service Date, if different from initiated Date: [] Patient: Navid Garcia 59 y/o M admitted on 11/26/19 for "I Have The Chills". Chief Complaint: [] cc:: CC: Miguel Roberts Constitutional Constitutional: Present as per HPI, fever(s) and other Additional comments: Cellulitis RIGHT foot and infected neuropathic RIGHT p lantar ulcer under 5th toe MPJ with tissue necrosis and foul drainage. Endocrine Endocrine: Present as per HPI Additional comments: Hyperglycemia, thirst and h/o non bilious vomiting last evening. PFSH PFSH All Active Problems Cellulitis (Acute) Phlebitis of right saphenous vein (Acute) Diabetic foot ulcer (Acute) Open wound of right foot (Acute) Diabetes (Acute) Nausea & vomiting (Acute) Myopia (Chronic) Ulcer of foot (Chronic) Hypertropia (Chronic) Macular degeneration (Chronic) Primary open angle glaucoma (Chronic) Senile cataracts of both eyes (Chronic) Regular astigmatism, bilateral (Chronic) Presbyopia (Chronic) Glaucoma (Chronic) Mild non proliferative diabetic retinopathy (Chronic) Diabetic macular edema (Chronic) Nuclear senile cataract (Chronic) Diabetic peripheral neuropathy (Chronic) Vitamin D deficiency (Chronic) Magnesium deficiency (Chronic) Diabetes mellitus type II, controlled (Chronic) Diabetic autonomic neuropathy (Chronic) Obesity (Chronic) Hypertensive disorder (Chronic) Sleep apnea (Chronic) Encounter for screening colonoscopy (Chronic) Medical History Diabetes mellitus type II, controlled (Chronic) Diabetic autonomic neuropathy (Chronic) Diabetic macular edema (Chronic) Diabetic peripheral neuropathy (Chronic) Encounter for screening colonoscopy (Chronic) Glaucoma (Chronic) Hypertensive disorder (Chronic) Hypertropia (Chronic) Macular degeneration (Chronic) Magnesium deficiency (Chronic) Mild non proliferative diabetic retinopathy (Chronic) Myopia (Chronic) Nuclear senile cataract (Chronic) Obesity (Chronic) Presbyopia (Chronic) Primary open angle glaucoma (Chronic) Regular astigmatism, bilateral (Chronic) Senile cataracts of both eyes (Chronic) Sleep apnea (Chronic) Ulcer of foot (Chronic) Vitamin D deficiency (Chronic) Surgical History History of surgery (Acute) 1998-Left knee scope No pertinent past surgical history (Inactive) Family History Brother Diabetes x2 Hypertension x2 Sister Diabetes x3 Hypertension x3 Mother Stroke Father Cancer colon cancer Social History smoking status: Never smoker alcohol intake frequency: does not drink substance use type: does not use MEDS/ALLERGIES Home Medications and Allergies Home Medications Medication Instructions Recorded Confirmed Type amlodipine 10 mg tablet 10 mg PO DAILY 11/02/18 11/26/19 History aspirin 81 mg tablet,delayed 81 mg PO DAILY 11/02/18 11/26/19 History release carvedilol 3.125 mg tablet 3.125 mg PO BID 11/02/18 11/26/19 History duloxetine 30 mg capsule,delayed 30 mg PO BID 11/02/18 11/26/19 History release lisinopril 40 mg tablet 40 mg PO BID tab 11/02/18 11/26/19 History magnesium L-lactate 84 mg 84 mg PO DAILY 11/02/18 11/26/19 History tablet,extended release meloxicam 15 mg tablet 7.5 mg PO BID tab 11/02/18 11/26/19 History rosuvastatin 10 mg tablet 10 mg PO QHS tab 11/02/18 11/26/19 History chlorthalidone 25 mg tablet 12.5 mg PO DAILY tab 11/07/18 11/26/19 History insulin regular hum U-500 conc 1 dose SUB-Q TID 11/07/18 11/26/19 History metformin 500 mg tablet,extended 500 mg PO BID tab 11/07/18 11/26/19 History release 24 hr amoxicillin-pot clavulanate 1 tab PO Q12H #20 tab 11/25/19 11/26/19 Rx [Augmentin] ciprofloxacin HCl 500 mg PO Q12H #20 tab 11/25/19 11/26/19 Rx dorzolamide-timolol 10 ml OPHTHALMIC (EYE) BID 11/26/19 11/26/19 History exenatide microspheres [Bydureon 2 mg SUBCUT Q7D 11/26/19 11/26/19 History BCise] Allergies Allergy/AdvReac Type Severity Reaction Status Date / Time No Known Drug Allergies Allergy Verified 11/26/19 15:01 Physical Examination Vital Signs Vital signs: Temp Pulse Resp BP Pulse Ox 99.0 F 90 20 117/73 90 11/27/19 07:24 11/27/19 07:24 11/27/19 07:24 11/27/19 07:24 11/27/19 07:24 General physical appearance General physical exam: well developed, well nourished, no distress and no pain Eyes Eye exam: PERRL and normal ocular movement ENT ENT exam: normal pinna, normal nares, normal mucosa and no congestion Head Head exam IM: Present atraumatic and normocephalic Neck Neck exam: no masses, trachea midline and no venous distension Cardiovascular Cardiovascular exam IM: Present normal rate and rhythm Respiratory Respiratory exam: normal expansion and clear to percussion Abdomen Abdomen: Present soft, non tender and bowel sounds Genitourinary Genitourinary (Male): Present normal penis with no external lesions and testicles present Integumentary Integumentary: Present other (NECROTIC ULCERS PLANTAR UNDER GREAT TOE AND 5TH TOE RIGHT foot. necrotic fould drainage with undermining under 5th toe MPJ ex tending towards 4th interdigital space dorsally. Cellulitis extednding towards anterior ankle. ANKLE ROM are full. DP aplpable. Callus under LEFT foot 5th MPJ. DRY. ) Neurologic Neurologic: Present other (Diabetic peripheral neuropathy both feet. ) Musculoskeletal Musculoskeletal: Present other (Neuropathic ulcers under both feet with evolving changes of Charcot Arthropathy. ) Psychiatric Psychiatric: Present oriented to time, oriented to person, oriented to place, speech is normal and memory intact Results Labs Result diagrams: 11/27/19 05:20 11/27/19 05:20 Labs: Abnormal lab results 11/26/19 11/26/19 11/26/19 Range/Units 15:25 15:25 15:25 WBC 19.8 H (4.50-11.00) K/mcL Hgb 17.8 H (13.7-17.5) g/dL Hct 52.6 H (40.1-51.0) % POC Hct (41.0-55.0) % MPV 12.3 H (7.4-10.4) fL Seg Neutrophils % 89 H (38-78) % Lymphocytes % 6 L (15-49) % Metamyelocytes % (0-0) % VBG Lactic Acid 2.4 H (0.5-2.0) mmol/L POC Sodium (133-145) mmol/L Sodium 129 L (133-145) mmol/L POC Chloride (96-108) mmol/L Chloride 85 L (96-108) mmol/L Anion Gap 20.0 H (8-16) POC BUN (6-20) mg/dl BUN 40 H (6-20) mg/dl Creatinine 1.3 H (0.7-1.2) mg/dl Glucose 396 H (70-105) mg/dL POC Glucose (70-105) mg/dL Calcium (8.6-10.4) mg/dl POC WB Ioniz Calcium (1.16-1.32) mmol/L Total Bilirubin 1.4 H (0.0-1.0) mg/dL Direct Bilirubin (0.0-0.3) mg/dL Albumin (3.2-5.2) gm/dL Globulin 4.6 H (2.2-3.7) gm/dL Albumin/Globulin Ratio 0.7 L (1.0-2.3) 11/26/19 11/27/19 11/27/19 Range/Units 15:25 05:20 05:20 WBC 19.2 H (4.50-11.00) K/mcL Hgb (13.7-17.5) g/dL Hct (40.1-51.0) % POC Hct 59.0 H (41.0-55.0) % MPV 11.9 H (7.4-10.4) fL Seg Neutrophils % 80 H (38-78) % Lymphocytes % 3 L (15-49) % Metamyelocytes % 2 H (0-0) % VBG Lactic Acid (0.5-2.0) mmol/L POC Sodium 131 L (133-145) mmol/L Sodium 132 L (133-145) mmol/L POC Chloride 92 L (96-108) mmol/L Chloride 90 L (96-108) mmol/L Anion Gap 18.0 H (8-16) POC BUN 42 H (6-20) mg/dl BUN 29 H (6-20) mg/dl Creatinine (0.7-1.2) mg/dl Glucose 293 H (70-105) mg/dL POC Glucose 384 H (70-105) mg/dL Calcium 8.5 L (8.6-10.4) mg/dl POC WB Ioniz Calcium 1.05 L (1.16-1.32) mmol/L Total Bilirubin (0.0-1.0) mg/dL Direct Bilirubin 0.4 H (0.0-0.3) mg/dL Albumin 2.7 L (3.2-5.2) gm/dL Globulin 4.0 H (2.2-3.7) gm/dL Albumin/Globulin Ratio 0.7 L (1.0-2.3) Diabetes panel 11/26/19 11/27/19 Range/Units 15:25 05:20 Sodium 129 L 132 L (133-145) mmol/L Potassium 3.6 3.6 (3.3-5.1) mmol/L Chloride 85 L 90 L (96-108) mmol/L Carbon Dioxide 24 24 (22-30) mmol/L BUN 40 H 29 H (6-20) mg/dl Creatinine 1.3 H 1.2 (0.7-1.2) mg/dl Glucose 396 H 293 H (70-105) mg/dL Calcium 9.6 8.5 L (8.6-10.4) mg/dl AST 20 18 (0-37) U/l ALT 17 17 (0-40) U/l Alkaline Phosphatase 99 90 (39-117) U/L Total Protein 7.9 6.7 (5.9-8.4) gm/dL Albumin 3.3 2.7 L (3.2-5.2) gm/dL Triglycerides 111 (<150) mg/dl Calcium panel 11/26/19 11/27/19 Range/Units 15:25 05:20 Calcium 9.6 8.5 L (8.6-10.4) mg/dl Phosphorus 2.7 (2.7-4.5) mg/dL Albumin 3.3 2.7 L (3.2-5.2) gm/dL Pituitary panel 11/26/19 11/27/19 Range/Units 15:25 05:20 Sodium 129 L 132 L (133-145) mmol/L Potassium 3.6 3.6 (3.3-5.1) mmol/L Chloride 85 L 90 L (96-108) mmol/L Carbon Dioxide 24 24 (22-30) mmol/L BUN 40 H 29 H (6-20) mg/dl Creatinine 1.3 H 1.2 (0.7-1.2) mg/dl Glucose 396 H 293 H (70-105) mg/dL Calcium 9.6 8.5 L (8.6-10.4) mg/dl Adrenal panel 11/26/19 11/27/19 Range/Units 15:25 05:20 Sodium 129 L 132 L (133-145) mmol/L Potassium 3.6 3.6 (3.3-5.1) mmol/L Chloride 85 L 90 L (96-108) mmol/L Carbon Dioxide 24 24 (22-30) mmol/L BUN 40 H 29 H (6-20) mg/dl Creatinine 1.3 H 1.2 (0.7-1.2) mg/dl Glucose 396 H 293 H (70-105) mg/dL Calcium 9.6 8.5 L (8.6-10.4) mg/dl Total Bilirubin 1.4 H 0.8 (0.0-1.0) mg/dL AST 20 18 (0-37) U/l ALT 17 17 (0-40) U/l Alkaline Phosphatase 99 90 (39-117) U/L Total Protein 7.9 6.7 (5.9-8.4) gm/dL Albumin 3.3 2.7 L (3.2-5.2) gm/dL All other labs normal. A/P Narrative A/P Narrative: Assessment: Sepsis. CSSSI Source RIGHT foot 5th toe. See HPI above for details. Plan: Agree with ongoing pre operative treatment at this time. For OR today Debridement of ulcers both feet, RIGHT 5th toe amputation and deep tissue biopsies and cultures. Spoke with patient at length and answered all his question. He understands the plan of treatment and agrees to proceed with surgery . Time Spent With Patient Time: Total time spent is greater than 50% in coordination of care (as documented) at patient's floor/unit and/or counseling patient: Total time spent with greater than 50% in coordination of care (as documented) at patient's floor/unit and/or counseling patient:: Greater than 35 minutes
[2019-11-27] MEDS ORDERED: GENTAMICIN SULFATE 80 MG, CLINDAMYCIN 600 MG, BACITRACIN 50,000 UNIT in SODIUM CHLORIDE... IRR SCH ×2 (14:30→15:15)
[2019-11-27] MEDS ORDERED: PROPOFOL 200 MG/20 ML VIAL IV ONE (15:28)
[2019-11-27] MEDS ORDERED: GLYCOPYRROLATE 0.2 MG/ML VIAL IV ONE (15:28)
[2019-11-27] MEDS ORDERED: KETAMINE 100 MG/ML ML ONE (15:28)
[2019-11-27] MEDS ORDERED: LIDOCAINE HCL/PF 100 MG/5 ML SYRINGE IV ONE (15:28)
[2019-11-27] MEDS ORDERED: MIDAZOLAM 2 MG/2 ML VIAL ONE (15:28)
[2019-11-27] MEDS ORDERED: ONDANSETRON 4 MG/2 ML VIAL ONE (15:28)
[2019-11-27] MEDS ORDERED: DEXAMETHASONE 10 MG/ML VIAL ONE (15:28)
[2019-11-27] MEDS ORDERED: BENZOCAINE/MENTHOL 1 LOZENGE PO PRN (16:02)
[2019-11-27] MEDS ORDERED: METHOCARBAMOL 1,000 MG/10 ML VIAL IV PRN (16:02)
[2019-11-27] MEDS ORDERED: MEPERIDINE 25 MG/ML SYRINGE IV PRN (16:02)
[2019-11-27] MEDS ORDERED: fentaNYL 100 MCG/2 ML VIAL IV PRN (16:02)
[2019-11-27] MEDS ORDERED: ONDANSETRON 4 MG/2 ML VIAL IV PRN (16:02)
[2019-11-27] MEDS ORDERED: METOPROLOL TARTRATE 5 MG/5 ML VIAL IV PRN (16:02)
[2019-11-27] MEDS ORDERED: LACTATED RINGERS 1,000 ML IV SCH (16:15)
--- NOTE | 2019-11-27 16:35 | Brief Operative Note ---
Brief Operative Note Date of procedure: 11/27/19 Pre-op diagnosis: SEPSIS. Necrotizing CSSSI / Gangene Right 5th toe, Post-op diagnosis: other (SAME with Uncontrolled diabetes, Lactic acidosis, Fever) Procedure: RIGHT transmetatarsal 5th toe amputation / Open Packing. Grafts/Implants: No Anesthesia: MAC Findings: Necrotizing CSSSI RIGHT 5th toe with SEPSIS. Complications: none Surgeon: Serjio Sheffield Estimated blood loss (cc): 20 Specimens Removed/Pathology: other (Amputated toe, Necrotic tissue for aerobic and anaerobic culture, Proximal 5th metatarsal bone fragment for biopsy ) Condition: stable Disposition: PACU
[2019-11-27] MEDS ORDERED: DEXTROSE 5%-1/2NS 1,000 ML IV SCH (17:15)
[2019-11-27] MEDS ORDERED: oxyCODONE/APAP 5/325MG TABLET PO PRN (18:13)
[2019-11-27] MEDS ORDERED: ACETAMINOPHEN 1,000 MG/100 ML BOTTLE IV PRN (18:14)
[2019-11-27] MEDS: 0.9 % SODIUM CHLORIDE 1,000 ML IV SCH ×2 (20:55→21:05)
[2019-11-27] MEDS: SENNOSIDES/DOCUSATE SODIUM 1 TAB TABLET PO SCH (21:03)
[2019-11-28] MEDS ORDERED: INSULIN GLARGINE, HUMAN 1 UNIT/0.01 ML SQ ONE ×3 (02:27→17:45)
[2019-11-28] MEDS: INSULIN LISPRO 1 UNIT/0.01 ML UNIT SQ SCH ×10 (02:36→20:39)
[2019-11-28] MEDS: 0.9 % SODIUM CHLORIDE 10 ML SYRINGE IV SCH ×3 (05:56→22:20)
[2019-11-28 06:25] LABS: Mean Cell Volume 88.4 fL (80.0-100.0); Mean Corpuscular HGB Conc 32.7 g/dL (31.0-36.0); Mean Platelet Volume 11.7 fL (7.4-10.4); Platelet Count 216 K/mcL (140-440); RBC 5.54 M/mcL (4.63-6.08); Red Cell Distribution Width 12.9 % (11.5-14.5); WBC 18.1 K/mcL (4.50-11.00)
--- NOTE | 2019-11-28 06:28 | XRay Report ---
CLINICAL INFORMATION: Dyspnea COMPARISON: PA and lateral chest 11/23/2018 TECHNIQUE: PA and Lateral views FINDINGS: The heart size, mediastinum and pulmonary vessels are unremarkable. The lungs are clear. There are no effusions. The bones and soft tissues are within normal limits. IMPRESSION: Normal chest. Interpreted and Authenticated by: Smith Faye 11/28/19
[2019-11-28 06:51] LABS: C-Reactive Protein 33.6 mg/dl (0.0-0.8); Prealbumin 5.4 mg/dl (20-40)
[2019-11-28 06:55] LABS: ALT/SGPT 23 U/l (0-40); AST/SGOT 25 U/l (0-37); Albumin 2.4 gm/dL (3.2-5.2); Albumin/Globulin Ratio 0.5 (1.0-2.3); Alkaline Phosphatase 99 U/L (39-117); Bilirubin,Direct < 0.2 mg/dL (0.0-0.3); Bilirubin,Total 0.5 mg/dL (0.0-1.0); Blood Urea Nitrogen 29 mg/dl (6-20); Calcium 8.7 mg/dl (8.6-10.4); Carbon Dioxide 23 mmol/L (22-30); Chloride 92 mmol/L (96-108); Globulin 4.4 gm/dL (2.2-3.7); Glomerular Filtration Rate 73; Glucose 425 mg/dL (70-105); Lactate Dehydrogenase 175 U/L (94-250); Phosphorous 3.1 mg/dL (2.7-4.5); Triglycerides 131 mg/dl (<150); Uric Acid 6.6 mg/dL (2.5-8.0)
[2019-11-28 07:05] LABS: Estimated Average Glucose(eAG) 301 mg/dL; Hemoglobin A1C 12.1 % HGB (4.0-6.0)
--- NOTE | 2019-11-28 07:22 | Operative Note ---
DATE OF OPERATION: 11/27/2019 PREOPERATIVE DIAGNOSES: 1. Sepsis, necrotizing complicated skin and skin structure infection, gangrene, right fifth toe. 2. Uncontrolled diabetes, lactic acidosis, fever, tachycardia. POSTOPERATIVE DIAGNOSES: 1. Sepsis, necrotizing complicated skin and skin structure infection, gangrene, right fifth toe. 2. Uncontrolled diabetes, lactic acidosis, fever, tachycardia. PROCEDURE: Right transmetatarsal fifth toe amputation with open packing. ANESTHESIA: MAC. SURGEON: Serjio Sheffield MD. ESTIMATED BLOOD LOSS: 20 mL. INSTRUMENT COUNT: Count of swabs, instruments and needles was reported to be correct. SPECIMENS: Amputated toe, proximal bone fragment from the fifth metatarsal bone stump, intraoperative necrotic tissue for culture, aerobic and anaerobic bacteria. INDICATION FOR SURGERY: This patient was admitted from the emergency room with sepsis and source being a right fifth metatarsal bone infected diabetic foot ulcer. After preoperative imaging, evaluation and stabilization, he was taken to the operating room for examination under anesthesia and indicated surgical procedure. INTRAOPERATIVE FINDINGS: Necrotic skin and soft tissue infection originating at the diabetic foot ulcer plantar aspect right anterolateral, at the site of the fifth MP joint. There was foul necrotic odor with a tract extending from this ulcer to the interdigital space between the fourth and the fifth toes. There was proximal surrounding cellulitis up to the ankle region. PROCEDURE IN DETAIL: After obtaining informed consent, patient was taken to the operating room, and anesthetized uneventfully in supine position. Intravenous analgesia was given by the anesthesiologist. Under close hemodynamic monitoring and pulse oxygen saturation check, right lower extremity was widely cleaned, prepped and draped in the standard fashion. This patient has peripheral neuropathy and his foot is insensate. Pre operative photograph taken. Incision site was marked out incorporating the entire plantar ulcer, skin and subcutaneous tissue extending up to the interdigital space between the fourth and fifth toes and dorsally going beyond the obvious necrotic tissue. Incision was made with a scalpel blade and further dissection was carried out with Gutiérrez scissors. The necrotic tissue was sharply excised and the interdigital space was entered. Remnants of the necrotic fragments from the interosseous musculature were excised and separately sent for microbiology and pathology. The fifth metatarsal bone was identified and the periosteum was scored with a 15 scalpel blade and stripped proximally with the periosteal elevator. We obtained clearance of 1.5 to 2 cm of bone surface and transected the bone at this site with an oscillating saw. Additional piece of bone was obtained from the proximal bone of stump site. Step by step, all the necrotic tissue was excised down to the level of vascular pedicle between the fourth and fifth toes. This was securely ligated with [id number] sutures of 2-0 Vicryl. There were pockets extending between the plantar surface of skin and the proximal fascia and intraosseous tissues. Thorough irrigation of this field was carried out with pulse lavage irrigation using 3 liters of normal saline, 50,000 units of Bacitracin, 600 mg of gentamicin and 80 mg of gentamicin. Towards completion, the field was bright red and clean, and there was no further foul odor. We packed this wound open with Xeroform gauze placed over the wound surface and reinforced with Betadine soaked Kerlix gauze. Portions of gauze were placed between the toes and this was retained in place with a Kerlix bandage, 4 x 4 gauze, ABD pad, Coban and NAHOMI bandages respectively. Operation was well tolerated. He recovered from surgery uneventfully. He was taken to in stable condition. Postoperatively, I went out and spoke with patient's friend on med/surg floor. [id number]:[email or web address] Job ID: [id number] Doc ID: [id number] Serjio MURRAY
[2019-11-28 08:17] LABS: Lymphocytes % 11 % (15-49); Monocytes % (Manual) 6 % (1-12); Platelet Estimate NORMAL (NORMAL); RBC Morphology NORMAL (NORMAL); Segmented Neutrophils % 83 % (38-78)
[2019-11-28] MEDS ORDERED: INSULIN REGULAR HUM U SUB-Q SCH (09:00)
[2019-11-28] MEDS ORDERED: VANCOMYCIN 2,000 MG in 0.9 % SODIUM CHLORIDE 500 ML IV ONE (10:00)
--- NOTE | 2019-11-28 10:02 | Internal Med Progress Note ---
SUBJECTIVE Subjective Patient information: Note initiated : 11/28/19 at 9:57 am Service Date, if different from initiated Date: [] Patient: Navid Garcia 59 y/o M admitted on 11/26/19 for "I Have The Chills". Chief Complaint: [] Mr. Garcia is a 59 year old M who presents to the ER with increasing right lower extremity redness swelling over the last 48 hours. Patient has been following up with wound care for ulceration Rt foot and has been on antibiotics recently for associated cellulitis. For the last 48 hours he has noted increasing redness, swelling, discharge at the fourth and fifth interphalanx face and associated nausea. He was evaluated in the ER the day prior and was discharged on oral antibiotics for diabetic foot ulcer. However symptoms continued to deteriorate and he presents today. Initial work-up was consistent with white count 19.8 and elevated blood sugars at 396. Patient was started on antibiotic coverage after wound care was consulted. Cultures obtained. At the time of my evaluation patient is alert and oriented. He was able to endorse history as above. He denies shaking chills, sweats, shortness of breath chest pain headache or photophobia. Denies diarrhea. 11/26-worsening redness however denies pain but overnight fever at 104. White count 19.2. On Rocephin/vancomycin. Will undergo operative intervention today by wound care. Blood sugar gradually improving. Creatinine 1.2. 9/2-significantly elevated blood sugars over 350s overnight requiring basal prandial insulin. Uptitrate sliding scale. Continue diabetic diet. Postoperative day 1. On antibiotic coverage per ID now on Zosyn vancomycin. Cultures pending so far. White count down to 18.1 from 19.2. Creatinine downtrending from 1.2-1.1, A1c 12.1. No [facility] Constitutional Vitals: Vital Signs Temp Pulse Resp BP Pulse Ox 98.1 F 75 18 125/81 90 11/28/19 07:57 11/28/19 08:00 11/28/19 07:57 11/28/19 07:57 11/28/19 08:00 Period Temp Pulse Resp BP Sys/Garcia Pulse Ox Last 24 Hr 97.7 F-99.0 F 71-99 16-26 105-131/64-83 90-100 Intake and Output 11/27/19 11/28/19 11/28/19 21:59 05:59 13:59 Intake Total 3312 750 600 Output Total 720 1550 Balance 2592 -800 600 Weight 128.094 kg Obese Nonlabored breathing No anxiety Right foot covered in postoperative dressing, improved erythema/induration Intake & Output: Intake & Output 11/27/19 11/28/19 11/28/19 21:59 05:59 13:59 Intake Total 3312 750 600 Output Total 720 1550 Balance 2592 -800 600 Weight 128.094 kg Intake: IV 427 Sodium Chloride 0.9% 1,000 ml @ 427 50 mls/hr IV .Q20H [facility] Rx#: [id number] Oral 1785 750 600 IV - Manual Only 1100 Output: Void Amount 700 1550 Estimated Blood Loss 20 Other: Meal Dinner Percent of Meal Consumed 100% Urine Appearance Clear Clear Urine Color Bright Yellow Bright Yellow OBJ DATA Labs CBC & Chem 7: 11/28/19 05:15 11/28/19 05:15 Labs: Abnormal Lab Results 11/28/19 11/28/19 11/28/19 05:15 05:15 05:15 WBC 18.1 H Hgb Hct POC Hct MPV 11.7 H Seg Neutrophils % 83 H Lymphocytes % 11 L Metamyelocytes % VBG Lactic Acid POC Sodium Sodium 131 L POC Chloride Chloride 92 L Anion Gap POC BUN BUN 29 H Creatinine Glucose 425 H POC Glucose Hemoglobin A1c 12.1 H Calcium POC WB Ioniz Calcium Total Bilirubin Direct Bilirubin C-Reactive Protein 33.6 H Albumin 2.4 L Globulin 4.4 H Albumin/Globulin Ratio 0.5 L Prealbumin 5.4 L 11/27/19 11/27/19 11/26/19 05:20 05:20 15:25 WBC 19.2 H Hgb Hct POC Hct 59.0 H MPV 11.9 H Seg Neutrophils % 80 H Lymphocytes % 3 L Metamyelocytes % 2 H VBG Lactic Acid POC Sodium 131 L Sodium 132 L POC Chloride 92 L Chloride 90 L Anion Gap 18.0 H POC BUN 42 H BUN 29 H Creatinine Glucose 293 H POC Glucose 384 H Hemoglobin A1c Calcium 8.5 L POC WB Ioniz Calcium 1.05 L Total Bilirubin Direct Bilirubin 0.4 H C-Reactive Protein Albumin 2.7 L Globulin 4.0 H Albumin/Globulin Ratio 0.7 L Prealbumin 11/26/19 11/26/19 11/26/19 15:25 15:25 15:25 WBC 19.8 H Hgb 17.8 H Hct 52.6 H POC Hct MPV 12.3 H Seg Neutrophils % 89 H Lymphocytes % 6 L Metamyelocytes % VBG Lactic Acid 2.4 H POC Sodium Sodium 129 L POC Chloride Chloride 85 L Anion Gap 20.0 H POC BUN BUN 40 H Creatinine 1.3 H Glucose 396 H POC Glucose Hemoglobin A1c Calcium POC WB Ioniz Calcium Total Bilirubin 1.4 H Direct Bilirubin C-Reactive Protein Albumin Globulin 4.6 H Albumin/Globulin Ratio 0.7 L Prealbumin Meds: Medications Amlodipine Besylate (Norvasc) 10 mg PO DAILY [facility] Aspirin (Aspirin) 81 mg PO DAILY [facility] Atorvastatin Calcium (Lipitor) 20 mg PO HS [facility] Bisacodyl (Dulcolax) 10 mg AR Q2-3DAYS PRN PRN Reason: Constipation Carvedilol (Coreg) 3.125 mg PO BIDCC [facility] Chlorthalidone (Hygroton) 12.5 mg PO DAILY [facility] Dextrose (Dextrose 50%) 0 ml IV UD PRN PRN Reason: Hypoglycemia Diagnostic Test (Pha) (Accu-Chek) 1 each FS ACHS [facility] Last Admin: 11/28/19 06:46 Dose: 1 each Documented by: Docusate Sodium (Colace) 100 mg PO BID [facility] Last Admin: 11/27/19 21:03 Dose: Not Given Documented by: Duloxetine HCl (Cymbalta) 30 mg PO BID [facility] Glucose (Insta-Glucose) 15 gm PO PRN PRN PRN Reason: Hypoglycemia Heparin Sodium (Porcine) (Heparin) 5,000 unit SQ Q12 [facility] Last Admin: 11/27/19 21:00 Dose: 5,000 unit Documented by: Hydralazine HCl (Apresoline) 10 mg IV Q4-6HP PRN PRN Reason: Hypertension Sodium Chloride (Sodium Chloride 0.9%) 1,000 mls @ 50 mls/hr IV .Q20H [facility] Stop: 11/29/19 07:21 Last Admin: 11/27/19 21:05 Dose: 50 mls/hr Documented by: Acetaminophen (Ofirmev) 650 mg in 65 mls @ 130 mls/hr IV Q6HP PRN; Protocol PRN Reason: Per Pain Protocol/Fever > 101 Magnesium Sulfate (Magnesium Sulfate) 2 gm in 50 mls @ 50 mls/hr IV UD PRN PRN Reason: MG = or < 1.7 Vancomycin HCl 1,000 mg/ (Sodium Chloride) 250 mls @ 250 mls/hr IV Q12H [facility] Last Admin: 11/27/19 21:00 Dose: 250 mls/hr Documented by: Piperacillin Sod/Tazobactam (Sod 3.375 gm/ Dextrose) 50 mls @ 100 mls/hr IV Q6H [facility] Vancomycin HCl 2,000 mg/ (Sodium Chloride) 500 mls @ 250 mls/hr IV ONCE ONE Stop: 11/28/19 11:59 Vancomycin HCl 1,500 mg/ (Sodium Chloride) 500 mls @ 333.3 mls/hr IV Q12H [facility] Insulin Glargine (Lantus) 10 unit SQ HS [facility] Insulin Human Lispro (Humalog) 0 unit SQ ACHS [facility]; Protocol Last Admin: 11/28/19 07:41 Dose: 8 units Documented by: Iron Carb/Multivit/Bias Cutting Machine Operator/Folic Acid (Multivitamin W/Minerals) 1 tab PO DAILY [facility] Last Admin: 11/27/19 08:05 Dose: 1 tab Documented by: Lisinopril (Zestril) 40 mg PO BID [facility] Magnesium Oxide (Magnesium Oxide) 400 mg PO DAILY [facility] Melatonin (Melatonin 3mg Tablet) 3 mg PO HSP PRN PRN Reason: Insomnia Meloxicam (Mobic) 7.5 mg PO BID [facility] Metformin HCl (Glucophage) 500 mg PO BIDCC [facility] Metoprolol Tartrate (Lopressor) 5 mg IV Q5M PRN PRN Reason: Heart Rate > 140 bpm Non-Formulary Medication (Exenatide Microspheres [Bydureon Bcise]) 2 mg SUB-Q Q7D [facility] Non-Formulary Medication (Insulin Regular Hum U-500 Conc) 1 dose SUB-Q TID [facility] Ondansetron HCl (Zofran Odt) 4 mg SL Q4-6HP PRN; Protocol PRN Reason: Nausea And Vomiting Ondansetron HCl (Zofran) 4 mg IV Q4-6HP PRN; Protocol PRN Reason: Nausea And Vomiting Oxycodone/Acetaminophen (Percocet 5-325 Mg) 1 tab PO Q4HP PRN; Protocol PRN Reason: Per Pain Protocol Dorzolamide-Timolol (Eye Drops) 1 dose OU BID [facility] Polyethylene Glycol (Miralax) 17 gm PO DAILYP PRN PRN Reason: Constipation Potassium Chloride (Klor-Con) 40 meq PO DAILYP PRN PRN Reason: K+ < 3.5 Senna/Docusate Sodium (Senna Plus Tablet) 1 tab PO HS [facility] Last Admin: 11/27/19 21:03 Dose: Not Given Documented by: Sitagliptin Phosphate (Januvia) 100 mg PO DAILY [facility] Last Admin: 11/27/19 08:05 Dose: 100 mg Documented by: Sodium Chloride (Saline Flush) 10 ml IV Q8 [facility] Last Admin: 11/28/19 05:56 Dose: Not Given Documented by: Vancomycin HCl (Vancomycin Per Pharmacy) 1 order IV UD [facility]; Protocol A/P Narrative A/P Narrative: * Diabetic right lower extremity cellulitis-postoperative day 1. Continue antibiotic coverage per ID including Zosyn/vancomycin . Wound care on board * Sepsis secondary to above. White count gradually downtrending now at 18.1. Evidence of improved endorgan dysfunction. Continue broad antibiotic coverage include Zosyn/vancomycin. * JYOTHI secondary to sepsis endorgan dysfunction. Clinically improving. * History of DM type II continue exenatide/prandial insulin/CC diet, uptitrate sliding scale/basal insulin * History of hypertension continue amlodipine/Coreg/chlorthalidone * Anxiety disorder continue Cymbalta * Hyperlipidemia on statin * Full code Plan *Start basal insulin/uptitrate sliding scale *Zosyn/vancomycin per ID *Continue wound care per Dr. Sheffield *Continue pre-existing medical conditions management on home medications *PT OT nutrition support Time Spent With Patient Time: Total time spent is greater than 50% in coordination of care (as documented) at patient's floor/unit and/or counseling patient: Total time spent with greater than 50% in coordination of care (as documented) at patient's floor/unit and/or counseling patient:: Greater than 35 minutes QUALITY VTE Deep Vein Thrombosis/Pulmonary Embolism Present on Admission: No
[2019-11-28] MEDS: LISINOPRIL 20 MG TABLET PO SCH ×2 (10:16→20:36)
[2019-11-28] MEDS: DULoxetine 30 MG CAPSULE PO SCH ×2 (10:17→20:36)
[2019-11-28] MEDS: CARVEDILOL 3.125 MG TABLET PO SCH ×2 (10:17→16:56)
[2019-11-28] MEDS: sitaGLIPtin 100 MG TABLET PO SCH (10:17)
[2019-11-28] MEDS: amLODIPine 10 MG TABLET PO SCH (10:17)
[2019-11-28] MEDS: CHLORTHALIDONE 25 MG TABLET PO SCH (10:17)
[2019-11-28] MEDS: ASPIRIN 81 MG TAB.CHEW PO SCH (10:17)
[2019-11-28] MEDS: metFORMIN 500 MG TAB.XL.24H PO SCH ×2 (10:17→16:56)
[2019-11-28] MEDS: MULTIVIT,THER IRON,CA,FA & MIN 1 TABLET PO SCH (10:17)
[2019-11-28] MEDS: DOCUSATE SODIUM 100 MG CAPSULE PO SCH ×2 (10:18→20:41)
[2019-11-28] MEDS: HEPARIN 5,000 UNIT/ML VIAL SQ SCH ×2 (10:18→20:37)
[2019-11-28] MEDS: VANCOMYCIN 1,000 MG in 0.9 % SODIUM CHLORIDE 250 ML IV SCH (10:21)
[2019-11-28] MEDS: cefTRIAXone 2 GM in DEXTROSE 5% IN WATER 50 ML IV SCH (11:37)
[2019-11-28] MEDS: 0.9 % SODIUM CHLORIDE 1,000 ML IV SCH (11:37)
[2019-11-28] MEDS: PIPERACILLIN SODIUM/TAZOBACTAM 3.375 GM in DEXTROSE 5% IN WATER 50 ML IV SCH ×4 (14:38→23:24)
[2019-11-28 15:08] LABS: Appearance,Urine CLEAR; Bacteria,Urine 0 /hpf (0); Bilirubin,Urine NEG (NEG); Color,Urine YELLOW; Culture Indicated,Urine NO; Glucose,Urine (UA) >=500 mg/dL (NEG); Ketones,Urine NEG (NEG); Leukocyte Esterase,Urine NEG /uL (NEG); Mucus,Urine FEW /hpf (0); Nitrate,Urine NEG (NEG); Protein,Urine NEG (NEG); Specific Gravity,Urine 1.025 (1.000-1.035); Urine Blood 0.03 mg/dL (<0.03); Urine RBC < 1 /hpf (0-1); Urine Squamous Epithelial Cell 0 /hpf (0-4); Urine WBC < 1 /hpf (0-4); Urobilinogen,Urine NEG (NEG)
[2019-11-28] MEDS: INSULIN REGULAR, HUMAN 1 UNIT/0.01 ML UNIT SQ SCH (15:30)
--- NOTE | 2019-11-28 15:32 | General Surgery Progress Note ---
SUBJECTIVE Subjective Patient information: Note initiated : 11/28/19 at 3:28 pm Service Date, if different from initiated Date: [] Patient: Navid Garcia 59 y/o M admitted on 11/26/19 for "I Have The Chills". Chief Complaint: [] Additional PMFSH (Level 3 Only): POD # 1. Patient seen with Denise RN and Cheli RN. Wound Care Nurse. Dressing changed. Labs reviewed. Patient DENIES any specific systemic or constitutional complaints. Had an uneve ntful night. Constitutional Vitals: Vital Signs Temp Pulse Resp BP Pulse Ox 98.2 F 76 18 117/78 97 11/28/19 12:00 11/28/19 12:00 11/28/19 12:00 11/28/19 12:00 11/28/19 12:00 Period Temp Pulse Resp BP Sys/Garcia Pulse Ox Last 24 Hr 97.7 F-99.0 F 71-99 16-26 105-131/64-81 90-100 Intake and Output 11/28/19 11/28/19 11/28/19 05:59 13:59 21:59 Intake Total 1000 1390 Output Total 1550 200 Balance -550 1190 Weight 282 lb 6.4 oz Patient Weight 11/29/19 05:59 Weight 282 lb 6.4 oz Intake & Output: Intake & Output 11/28/19 11/28/19 11/28/19 05:59 13:59 21:59 Intake Total 1000 1390 Output Total 1550 200 Balance -550 1190 Weight 282 lb 6.4 oz Intake: IV 250 Vancomycin 1,000 mg In Sodium 250 Chloride 0.9% 250 ml @ 250 mls/ hr IV Q12H [facility] Rx#:[id number] Oral 750 1390 Output: Void Amount 1550 200 Other: Meal Lunch Percent of Meal Consumed 100% Feeding Ability Assist with Tray Set Up Urine Appearance Clear Urine Color Bright Yellow General appearance: cooperative and no acute distress Exam: AHBO 2.5 CARMEL x 90 minutes with air breaks per protocol - 20 treatments INDICATION; CRUSH INJURY with Compartment Syndrome s/p Decompression fasciotomy Extremities Exam Additional comments: L/E: RIGHT forefoot: Open wound with patches of necrosis surrounded by pink granulating tissue. NO crepitus. NO foul odor. Exposed tendon and muscle in wound bed. Labs reviewed. Downtrending WBC, Creatinine. Blood sugars elevation persists. A/P Narrative A/P Narrative: Assessment: Satisfactory post surgical progress. Small areas of demarcating necrosis <5% . Edematous tissues. Resolving post surgical changes. Concern for Necrosis. Plan: Continue current treatment. Adjuvant HBOT as soon as authorized by insurance, I D consult for antibiotic recommendations, Time Spent With Patient Time: Total time spent is greater than 50% in coordination of care (as docu mented) at patient's floor/unit and/or counseling patient: Total time spent with greater than 50% in coordination of care (as documented) at patient's floor/unit and/or counseling patient:: 25 - 35 minutes
[2019-11-28] MEDS: ATORVASTATIN 20 MG TABLET PO SCH (20:36)
[2019-11-28] MEDS: MELOXICAM 7.5 MG TABLET PO SCH (20:37)
[2019-11-28] MEDS: SENNOSIDES/DOCUSATE SODIUM 1 TAB TABLET PO SCH (20:40)
[2019-11-28] MEDS ORDERED: INSULIN GLARGINE, HUMAN 1 UNIT/0.01 ML SQ SCH (21:00)
[2019-11-28] MEDS: VANCOMYCIN 1,500 MG in 0.9 % SODIUM CHLORIDE 500 ML IV SCH (21:17)
[2019-11-29] MEDS: 0.9 % SODIUM CHLORIDE 10 ML SYRINGE IV SCH ×3 (05:48→21:28)
[2019-11-29] MEDS: PIPERACILLIN SODIUM/TAZOBACTAM 3.375 GM in DEXTROSE 5% IN WATER 50 ML IV SCH ×4 (05:48→23:42)
[2019-11-29 06:43] LABS: Hematocrit 46.4 % (40.1-51.0); Hemoglobin 15.3 g/dL (13.7-17.5); Mean Cell Volume 87.4 fL (80.0-100.0); Mean Platelet Volume 11.4 fL (7.4-10.4); Platelet Count 266 K/mcL (140-440); RBC 5.31 M/mcL (4.63-6.08); Red Cell Distribution Width 12.8 % (11.5-14.5); WBC 17.6 K/mcL (4.50-11.00)
[2019-11-29 07:08] LABS: ALT/SGPT 27 U/l (0-40); AST/SGOT 29 U/l (0-37); Albumin 2.5 gm/dL (3.2-5.2); Albumin/Globulin Ratio 0.7 (1.0-2.3); Alkaline Phosphatase 75 U/L (39-117); Bilirubin,Direct < 0.2 mg/dL (0.0-0.3); Bilirubin,Total 0.4 mg/dL (0.0-1.0); Blood Urea Nitrogen 29 mg/dl (6-20); Calcium 8.9 mg/dl (8.6-10.4); Carbon Dioxide 25 mmol/L (22-30); Chloride 96 mmol/L (96-108); Globulin 3.6 gm/dL (2.2-3.7); Glomerular Filtration Rate 97; Glucose 151 mg/dL (70-105); Lactate Dehydrogenase 159 U/L (94-250); Phosphorous 2.9 mg/dL (2.7-4.5); Triglycerides 154 mg/dl (<150)
[2019-11-29] MEDS ORDERED: INSULIN REGULAR, HUMAN 1 UNIT/0.01 ML UNIT SQ SCH ×2 (08:00→12:00)
[2019-11-29] MEDS: metFORMIN 500 MG TAB.XL.24H PO SCH ×2 (08:02→17:40)
[2019-11-29] MEDS: CARVEDILOL 3.125 MG TABLET PO SCH ×2 (08:02→17:40)
[2019-11-29] MEDS: INSULIN LISPRO 1 UNIT/0.01 ML UNIT SQ SCH ×4 (08:13→21:26)
[2019-11-29 08:50] LABS: Eosinophils % (Manual) 1 % (0-7); Lymphocytes % 14 % (15-49); Monocytes % (Manual) 6 % (1-12); Platelet Estimate NORMAL (NORMAL); RBC Morphology NORMAL (NORMAL); Segmented Neutrophils % 79 % (38-78)
[2019-11-29] MEDS: sitaGLIPtin 100 MG TABLET PO SCH (08:59)
[2019-11-29] MEDS: MAGNESIUM OXIDE 400 MG TABLET PO SCH (08:59)
[2019-11-29] MEDS: amLODIPine 10 MG TABLET PO SCH (09:00)
[2019-11-29] MEDS: LISINOPRIL 20 MG TABLET PO SCH ×2 (09:00→21:25)
[2019-11-29] MEDS: DULoxetine 30 MG CAPSULE PO SCH ×2 (09:01→21:25)
[2019-11-29] MEDS: MULTIVIT,THER IRON,CA,FA & MIN 1 TABLET PO SCH (09:01)
[2019-11-29] MEDS: CHLORTHALIDONE 25 MG TABLET PO SCH (09:01)
[2019-11-29] MEDS: MELOXICAM 7.5 MG TABLET PO SCH ×2 (09:01→21:25)
[2019-11-29] MEDS: DOCUSATE SODIUM 100 MG CAPSULE PO SCH ×2 (09:01→21:25)
[2019-11-29] MEDS: ASPIRIN 81 MG TAB.CHEW PO SCH (09:01)
[2019-11-29] MEDS: HEPARIN 5,000 UNIT/ML VIAL SQ SCH ×2 (09:02→21:24)
[2019-11-29] MEDS: VANCOMYCIN 1,500 MG in 0.9 % SODIUM CHLORIDE 500 ML IV SCH ×2 (10:12→21:27)
[2019-11-29] MEDS: GENTAMICIN SULFATE 40 MG, CLINDAMYCIN 300 MG, BACITRACIN 25,000 UNIT in SODIUM CHLORIDE... IRR SCH ×2 (15:08→21:26)
--- NOTE | 2019-11-29 16:54 | General Surgery Progress Note ---
SUBJECTIVE Subjective Patient information: Note initiated : 11/29/19 at 4:47 pm Service Date, if different from initiated Date: [] Patient: Navid Garcia 59 y/o M admitted on 11/26/19 for "I Have The Chills". Chief Complaint: [] Additional PMFSH (Level 3 Only): Patient seen several times during the day. RIGHT foot wound examined. Still NOT able to get authorization for HBOT. Constitutional Vitals: Vital Signs Temp Pulse Resp BP Pulse Ox 97.4 F 79 18 127/81 95 11/29/19 16:00 11/29/19 16:00 11/29/19 16:00 11/29/19 16:00 11/29/19 16:00 Period Temp Pulse Resp BP Sys/Garcia Pulse Ox Last 24 Hr 97.3 F-97.9 F 58-79 18-24 112-143/67-88 92-97 Intake and Output 11/29/19 11/29/19 11/29/19 05:59 13:59 21:59 Intake Total 1375 1530 Output Total 2100 1325 Balance -725 205 Weight 285 lb Intake & Output: Intake & Output 11/29/19 11/29/19 11/29/19 05:59 13:59 21:59 Intake Total 1375 1530 Output Total 2100 1325 Balance -725 205 Weight 285 lb Intake: IV 550 550 Zosyn 3.375 gm In Dextrose 5% 50 50 in Water 50 ml @ 100 mls/hr IV Q6H [facility] Rx#:[id number] Vancomycin 1,500 mg In Sodium 500 500 Chloride 0.9% 500 ml @ 333.3 mls/hr IV Q12H [facility] Rx#: [id number] Oral 825 980 Output: Void Amount 2100 1325 Other: Meal Lunch Percent of Meal Consumed 100% Feeding Ability Independent Urine Appearance Clear Clear Urine Color Pale Pale Urine Odor Normal General appearance: cooperative and no acute distress Exam: AVSS. No changes ANGELA. Right foot wound with pocket of purulence washed out at bed side. MIST treatment given. Labs reviewed. Creatinine normal WBC still elevated but trending down. Local wound care is ongoing. A/P Narrative A/P Narrative: Assessment: No changes ANGELA. On going demarcation of viable tissue vs necrosis. LOCAL wound care is ongoing. IV antibiotics per ID. Plan: Monitor wound status closely. Possible repeat OR debridement if indicated. NOT ready for wound VAC at this time. Time Spent With Patient Time: Total time spent is greater than 50% in coordination of care (as documented) at patient's floor/unit and/or counseling patient: Total time spent with greater than 50% in coordination of care (as documented) at patient's floor/unit and/or counseling patient:: 25 - 35 minutes
[2019-11-29] MEDS: INSULIN REGULAR, HUMAN 1 UNIT/0.01 ML UNIT SQ SCH (17:40)
--- NOTE | 2019-11-29 20:00 | Internal Med Progress Note ---
SUBJECTIVE Subjective Patient information: Note initiated : 11/29/19 at 7:58 pm Service Date, if different from initiated Date: [] Patient: Navid Garcia 59 y/o M admitted on 11/26/19 for "I Have The Chills". Chief Complaint: Mr. Garcia is a 59 year old M who presents to the ER with increasing right lower extremity redness swelling over the last 48 hours. Patient has been following up with wound care for ulceration Rt foot and has been on antibiotics recently for associated cellulitis. For the last 48 hours he has noted increasing redness, swelling, discharge at the fourth and fifth interphalanx face and associated nausea. He was evaluated in the ER the day prior and was discharged on oral antibiotics for diabetic foot ulcer. However symptoms continued to deteriorate and he presents today. Initial work-up was consistent with white count 19.8 and elevated blood sugars at 396. Patient was started on antibiotic coverage after wound care was consulted. Cultures obtained. At the time of my evaluation patient is alert and oriented. He was able to endorse history as above. He denies shaking chills, sweats, shortness of breath chest pain headache or photophobia. Denies diarrhea. 11/26-worsening redness however denies pain but overnight fever at 104. White count 19.2. On Rocephin/vancomycin. Will undergo operative intervention today by wound care. Blood sugar gradually improving. Creatinine 1.2. 2-significantly elevated blood sugars over 350s overnight requiring basal prandial insulin. Uptitrate sliding scale. Continue diabetic diet. Postoperative day 1. On antibiotic coverage per ID now on Zosyn vancomycin. Cultures pending so far. White count down to 18.1 from 19.2. Creatinine downtrending from 1.2-1.1, A1c 12.1. No overnight events or concerns per nu ing staff. 11/28-White count gradually downtrending now at 17.6. Improving blood sugars now at goal. No overnight fever chills. Postop day 2. Wound care on board will likely undergo wound VAC placement. Stable hemodynamics. On antibiotic coverage per ID. Constitutional Vitals: Vital Signs Temp Pulse Resp BP Pulse Ox 97.7 F 80 24 H 126/78 94 11/29/19 19:20 11/29/19 19:20 11/29/19 19:20 11/29/19 19:20 11/29/19 19:20 Period Temp Pulse Resp BP Sys/Garcia Pulse Ox Last 24 Hr 97.3 F-97.9 F 58-80 18-24 112-143/67-88 92-97 Intake and Output 11/29/19 11/29/19 11/29/19 05:59 13:59 21:59 Intake Total 1375 1580 480 Output Total 2100 1325 Balance -725 255 480 Weight 129.274 kg Alert and respond to commands No anxiety Nonlabored breathing Right foot wound covered in dressing Intake & Output: Intake & Output 11/29/19 11/29/19 11/29/19 05:59 13:59 21:59 Intake Total 1375 1580 480 Output Total 2100 1325 Balance -725 255 480 Weight 129.274 kg Intake: IV 550 600 Zosyn 3.375 gm In Dextrose 5% 50 100 in Water 50 ml @ 100 mls/hr IV Q6H [facility] Rx#:[id number] Vancomycin 1,500 mg In Sodium 500 500 Chloride 0.9% 500 ml @ 333.3 mls/hr IV Q12H [facility] Rx#: [id number] Oral 825 980 480 Output: Void Amount 2100 1325 Other: Meal Lunch Dinner Percent of Meal Consumed 100% 100% Feeding Ability Independent Independent Urine Appearance Clear Clear Urine Color Pale Pale Urine Odor Normal OBJ DATA Labs CBC & Chem 7: 11/30/19 05:50 11/30/19 05:50 Labs: Abnormal Lab Results 11/29/19 11/29/19 11/28/19 05:30 05:30 13:16 WBC 17.6 H MPV 11.4 H Seg Neutrophils % 79 H Lymphocytes % 14 L Metamyelocytes % Sodium 132 L Chloride Anion Gap BUN 29 H Glucose 151 H Hemoglobin A1c Calcium Direct Bilirubin C-Reactive Protein Albumin 2.5 L Globulin Albumin/Globulin Ratio 0.7 L Prealbumin Triglycerides 154 H Urine Glucose (UA) >=500 A Urine Occult Blood 0.03 A 11/28/19 11/28/19 11/28/19 05:15 05:15 05:15 WBC 18.1 H MPV 11.7 H Seg Neutrophils % 83 H Lymphocytes % 11 L Metamyelocytes % Sodium 131 L Chloride 92 L Anion Gap BUN 29 H Glucose 425 H Hemoglobin A1c 12.1 H Calcium Direct Bilirubin C-Reactive Protein 33.6 H Albumin 2.4 L Globulin 4.4 H Albumin/Globulin Ratio 0.5 L Prealbumin 5.4 L Triglycerides Urine Glucose (UA) Urine Occult Blood 11/27/19 11/27/19 05:20 05:20 WBC 19.2 H MPV 11.9 H Seg Neutrophils % 80 H Lymphocytes % 3 L Metamyelocytes % 2 H Sodium 132 L Chloride 90 L Anion Gap 18.0 H BUN 29 H Glucose 293 H Hemoglobin A1c Calcium 8.5 L Direct Bilirubin 0.4 H C-Reactive Protein Albumin 2.7 L Globulin 4.0 H Albumin/Globulin Ratio 0.7 L Prealbumin Triglycerides Urine Glucose (UA) Urine Occult Blood Meds: Medications Amlodipine Besylate (Norvasc) 10 mg PO DAILY [facility] Last Admin: 11/29/19 09:00 Dose: 10 mg Documented by: Aspirin (Aspirin) 81 mg PO DAILY [facility] Last Admin: 11/29/19 09:01 Dose: 81 mg Documented by: Atorvastatin Calcium (Lipitor) 20 mg PO HS [facility] Last Admin: 11/28/19 20:36 Dose: 20 mg Documented by: Bisacodyl (Dulcolax) 10 mg GA Q2-3DAYS PRN PRN Reason: Constipation Carvedilol (Coreg) 3.125 mg PO BIDCC [facility] Last Admin: 11/29/19 17:40 Dose: 3.125 mg Documented by: Chlorthalidone (Hygroton) 12.5 mg PO DAILY [facility] Last Admin: 11/29/19 09:01 Dose: 12.5 mg Documented by: Dextrose (Dextrose 50%) 0 ml IV UD PRN PRN Reason: Hypoglycemia Diagnostic Test (Pha) (Accu-Chek) 1 each FS ACHS [facility] Last Admin: 11/29/19 16:55 Dose: 1 each Documented by: Docusate Sodium (Colace) 100 mg PO BID [facility] Last Admin: 11/29/19 09:01 Dose: 100 mg Documented by: Duloxetine HCl (Cymbalta) 30 mg PO BID [facility] Last Admin: 11/29/19 09:01 Dose: 30 mg Documented by: Glucose (Insta-Glucose) 15 gm PO PRN PRN PRN Reason: Hypoglycemia Heparin Sodium (Porcine) (Heparin) 5,000 unit SQ Q12 [facility] Last Admin: 11/29/19 09:02 Dose: 5,000 unit Documented by: Hydralazine HCl (Apresoline) 10 mg IV Q4-6HP PRN PRN Reason: Hypertension Acetaminophen (Ofirmev) 650 mg in 65 mls @ 130 mls/hr IV Q6HP PRN; Protocol PRN Reason: Per Pain Protocol/Fever > 101 Magnesium Sulfate (Magnesium Sulfate) 2 gm in 50 mls @ 50 mls/hr IV UD PRN PRN Reason: MG = or < 1.7 Piperacillin Sod/Tazobactam (Sod 3.375 gm/ Dextrose) 50 mls @ 100 mls/hr IV Q6H [facility] Last Admin: 11/29/19 17:40 Dose: 100 mls/hr Documented by: Vancomycin HCl 1,500 mg/ (Sodium Chloride) 500 mls @ 333.3 mls/hr IV Q12H [facility] Last Infusion: 11/29/19 11:43 Dose: Infused Documented by: Gentamicin Sulfate 40 mg/Clindamycin Phosphate 300 mg/Bacitracin 25,000 unit/ Sodium Chloride 503 mls @ 0 mls/hr IRR QSHIFT [facility] Last Admin: 11/29/19 15:08 Dose: 250 mls/hr Documented by: Insulin Human Lispro (Humalog) 0 unit SQ ACHS [facility]; Protocol Last Admin: 11/29/19 17:31 Dose: Not Given Documented by: Insulin Human Regular (Humulin R) 40 unit SQ QACBREAK [facility] Last Admin: 11/29/19 09:02 Dose: 40 units Documented by: Insulin Human Regular (Humulin R) 50 unit SQ QACLUNCH [facility] Last Admin: 11/29/19 12:17 Dose: 50 units Documented by: Insulin Human Regular (Humulin R) 70 unit SQ QACDINNER [facility] Last Admin: 11/29/19 17:40 Dose: 70 units Documented by: Iron Carb/Multivit/Front End Application [employer]/Folic Acid (Multivitamin W/Minerals) 1 tab PO DAILY [facility] Last Admin: 11/29/19 09:01 Dose: 1 tab Documented by: Lisinopril (Zestril) 40 mg PO BID [facility] Last Admin: 11/29/19 09:00 Dose: 40 mg Documented by: Magnesium Oxide (Magnesium Oxide) 400 mg PO DAILY [facility] Last Admin: 11/29/19 08:59 Dose: 400 mg Documented by: Melatonin (Melatonin 3mg Tablet) 3 mg PO HSP PRN PRN Reason: Insomnia Meloxicam (Mobic) 7.5 mg PO BID [facility] Last Admin: 11/29/19 09:01 Dose: 7.5 mg Documented by: Metformin HCl (Glucophage) 500 mg PO BIDCC [facility] Last Admin: 11/29/19 17:40 Dose: 500 mg Documented by: Metoprolol Tartrate (Lopressor) 5 mg IV Q5M PRN PRN Reason: Heart Rate > 140 bpm Ondansetron HCl (Zofran Odt) 4 mg SL Q4-6HP PRN; Protocol PRN Reason: Nausea And Vomiting Ondansetron HCl (Zofran) 4 mg IV Q4-6HP PRN; Protocol PRN Reason: Nausea And Vomiting Oxycodone/Acetaminophen (Percocet 5-325 Mg) 1 tab PO Q4HP PRN; Protocol PRN Reason: Per Pain Protocol Dorzolamide-Timolol (Eye Drops) 1 dose OU BID [facility] Last Admin: 11/29/19 09:09 Dose: Not Given Documented by: Exenatide Microspheres [ Phil Rasheed] 2 Mg Syringe 1 dose SUB-Q Meyers@0900 [facility] Polyethylene Glycol (Miralax) 17 gm PO DAILYP PRN PRN Reason: Constipation Potassium Chloride (Klor-Con) 40 meq PO DAILYP PRN PRN Reason: K+ < 3.5 Senna/Docusate Sodium (Senna Plus Tablet) 1 tab PO HS [facility] Last Admin: 11/28/19 20:40 Dose: Not Given Documented by: Sitagliptin Phosphate (Januvia) 100 mg PO DAILY [facility] Last Admin: 11/29/19 08:59 Dose: 100 mg Documented by: Sodium Chloride (Saline Flush) 10 ml IV Q8 [facility] Last Admin: 11/29/19 15:08 Dose: Not Given Documented by: Vancomycin HCl (Vancomycin Per Pharmacy) 1 order IV UD [facility]; Protocol A/P Narrative A/P Narrative: * Diabetic right lower extremity gangrenous cellulitis-postoperative day 2. Ongoing care per wound care physician. On Zosyn/vancomycin per ID recommendations. Wound care on board * Sepsis secondary to above. White count gradually downtrending now at 17.6. Improving endorgan dysfunction. On Zosyn/vancomycin. * JYOTHI secondary to sepsis endorgan dysfunction. Creatinine now at baseline 0.8 * History of DM type II continue exenatide/prandial insulin/CC diet, uptitrate sliding scale/basal insulin * History of hypertension continue amlodipine/Coreg/chlorthalidone * Anxiety disorder continue Cymbalta * Hyperlipidemia on statin * Full code Plan *Continue wound care per Dr. Sheffield *Zosyn/vancomycin per ID *Continue pre-existing medical conditions management on home medications *PT OT nutrition support *Discharge planning per case management* Time Spent With Patient Time: Total time spent is greater than 50% in coordination of care (as documented) at patient's floor/unit and/or counseling patient: QUALITY VTE Deep Vein Thrombosis/Pulmonary Embolism Present on Admission: No
[2019-11-29] MEDS: ATORVASTATIN 20 MG TABLET PO SCH (21:25)
[2019-11-29] MEDS: SENNOSIDES/DOCUSATE SODIUM 1 TAB TABLET PO SCH (21:25)
[2019-11-29] MEDS: DEXTROSE 50% 50 ML VIAL IV PRN (23:54)
[2019-11-30] MEDS: PIPERACILLIN SODIUM/TAZOBACTAM 3.375 GM in DEXTROSE 5% IN WATER 50 ML IV SCH ×4 (05:33→23:26)
[2019-11-30] MEDS: 0.9 % SODIUM CHLORIDE 10 ML SYRINGE IV SCH ×3 (05:34→20:58)
[2019-11-30 06:36] LABS: Hematocrit 47.4 % (40.1-51.0); Hemoglobin 15.8 g/dL (13.7-17.5); Mean Cell Volume 86.5 fL (80.0-100.0); Mean Corpuscular HGB Conc 33.3 g/dL (31.0-36.0); Mean Platelet Volume 11.2 fL (7.4-10.4); Platelet Count 298 K/mcL (140-440); RBC 5.48 M/mcL (4.63-6.08); Red Cell Distribution Width 12.9 % (11.5-14.5); WBC 14.5 K/mcL (4.50-11.00)
[2019-11-30 06:53] LABS: ALT/SGPT 40 U/l (0-40); AST/SGOT 40 U/l (0-37); Albumin 2.5 gm/dL (3.2-5.2); Albumin/Globulin Ratio 0.7 (1.0-2.3); Alkaline Phosphatase 65 U/L (39-117); Bilirubin,Direct < 0.2 mg/dL (0.0-0.3); Bilirubin,Total 0.3 mg/dL (0.0-1.0); Blood Urea Nitrogen 21 mg/dl (6-20); Carbon Dioxide 27 mmol/L (22-30); Chloride 95 mmol/L (96-108); Globulin 3.8 gm/dL (2.2-3.7); Glomerular Filtration Rate 97; Glucose 72 mg/dL (70-105); Lactate Dehydrogenase 140 U/L (94-250); Phosphorous 4.2 mg/dL (2.7-4.5); Triglycerides 118 mg/dl (<150); Uric Acid 2.9 mg/dL (2.5-8.0)
[2019-11-30] MEDS: INSULIN LISPRO 1 UNIT/0.01 ML UNIT SQ SCH ×4 (07:23→20:57)
[2019-11-30] MEDS: LISINOPRIL 20 MG TABLET PO SCH ×2 (08:18→20:57)
[2019-11-30] MEDS: CARVEDILOL 3.125 MG TABLET PO SCH ×2 (08:18→16:48)
[2019-11-30] MEDS: HEPARIN 5,000 UNIT/ML VIAL SQ SCH ×2 (08:18→20:57)
[2019-11-30] MEDS: ASPIRIN 81 MG TAB.CHEW PO SCH (08:19)
[2019-11-30] MEDS: sitaGLIPtin 100 MG TABLET PO SCH (08:19)
[2019-11-30] MEDS: MELOXICAM 7.5 MG TABLET PO SCH ×2 (08:19→20:56)
[2019-11-30] MEDS: MAGNESIUM OXIDE 400 MG TABLET PO SCH (08:19)
[2019-11-30] MEDS: metFORMIN 500 MG TAB.XL.24H PO SCH ×2 (08:20→16:48)
[2019-11-30] MEDS: amLODIPine 10 MG TABLET PO SCH (08:20)
[2019-11-30] MEDS: MULTIVIT,THER IRON,CA,FA & MIN 1 TABLET PO SCH (08:20)
[2019-11-30] MEDS: CHLORTHALIDONE 25 MG TABLET PO SCH (08:20)
[2019-11-30] MEDS: DULoxetine 30 MG CAPSULE PO SCH ×2 (08:20→20:57)
[2019-11-30] MEDS: DOCUSATE SODIUM 100 MG CAPSULE PO SCH ×2 (08:20→20:56)
[2019-11-30] MEDS: VANCOMYCIN 1,500 MG in 0.9 % SODIUM CHLORIDE 500 ML IV SCH ×2 (08:21→20:57)
[2019-11-30 09:42] LABS: Eosinophils % (Manual) 1 % (0-7); Lymphocytes % 26 % (15-49); Monocytes % (Manual) 14 % (1-12); Platelet Estimate NORMAL (NORMAL); RBC Morphology NORMAL (NORMAL); Segmented Neutrophils % 59 % (38-78)
[2019-11-30] MEDS: GENTAMICIN SULFATE 40 MG, CLINDAMYCIN 300 MG, BACITRACIN 25,000 UNIT in SODIUM CHLORIDE... IRR SCH ×2 (11:03→20:56)
--- NOTE | 2019-11-30 11:11 | Internal Med Progress Note ---
SUBJECTIVE Subjective Patient information: Note initiated : 11/30/19 at 11:08 am Service Date, if different from initiated Date: [] Patient: Navid Garcia 59 y/o M admitted on 11/26/19 for "I Have The Chills". Chief Complaint: [] Mr. Garcia is a 59 year old M who presents to the ER with increasing right lower extremity redness swelling over the last 48 hours. Patient has been following up with wound care for ulceration Rt foot and has been on antibiotics recently for associated cellulitis. For the last 48 hours he has noted increasing redness, swelling, discharge at the fourth and fifth interphalanx face and associated nausea. He was evaluated in the ER the day prior and was discharged on oral antibiotics for diabetic foot ulcer. However symptoms continued to deteriorate and he presents today. Initial work-up was consistent with white count 19.8 and elevated blood sugars at 396. Patient was started on antibiotic coverage after wound care was consulted. Cultures obtained. At the time of my evaluation patient is alert and oriented. He was able to endorse history as above. He denies shaking chills, sweats, shortness of breath chest pain headache or photophobia. Denies diarrhea. 11/26-worsening redness however denies pain but overnight fever at 104. White count 19.2. On Rocephin/vancomycin. Will undergo operative intervention today by wound care. Blood sugar gradually improving. Creatinine 1.2. 11/27-significantly elevated blood sugars over 350s overnight requiring basal prandial insulin. Uptitrate sliding scale. Continue diabetic diet. Postoperative day 1. On antibiotic coverage per ID now on Zosyn vancomycin. Cultures pending so far. White count down to 18.1 from 19.2. Creatinine downtrending from 1.2-1.1, A1c 12.1. No overnight events or concerns per nursing staff. 11/28-White count gradually downtrending now at 17.6. Improving blood sugars now at goal. No overnight fever chills. Postop day 2. Wound care on board will likely undergo wound VAC placement. Stable hemodynamics. On antibiotic coverage per ID. 11/29-patient clinically improving. Improved redness swelling erythema. Postop day 3. Ongoing antibiotic coverage. Blood sugars down to 60s. Discontinue basal insulin. Continue patient is on home regime/CC diet. Weightbearing as per wound care physician recommendations. Ongoing PT OT. Constitutional Vitals: Vital Signs Temp Pulse Resp BP Pulse Ox 98.4 F 74 16 123/76 97 11/30/19 07:31 11/30/19 08:00 11/30/19 08:00 11/30/19 07:31 11/30/19 08:00 Period Temp Pulse Resp BP Sys/Garcia Pulse Ox Last 24 Hr 97.4 F-98.4 F 65-80 16-24 105-143/58-88 92-97 Intake and Output 11/29/19 11/30/19 11/30/19 21:59 05:59 13:59 Intake Total 530 1190 290 Output Total 400 3000 1500 Balance 130 -1810 -1210 Weight 127.641 kg Alert nonlabored breathing No anxiety Improving redness and erythema around right lower extremity operative site Intake & Output: Intake & Output 11/29/19 11/30/19 11/30/19 21:59 05:59 13:59 Intake Total 530 1190 290 Output Total 400 3000 1500 Balance 130 -1810 -1210 Weight 127.641 kg Intake: IV 50 550 50 Zosyn 3.375 gm In Dextrose 5% 50 50 50 in Water 50 ml @ 100 mls/hr IV Q6H [facility] Rx#:[id number] Vancomycin 1,500 mg In Sodium 500 Chloride 0.9% 500 ml @ 333.3 mls/hr IV Q12H [facility] Rx#: [id number] Oral 480 640 240 Output: Void Amount 400 3000 1500 Other: Meal Dinner Breakfast Percent of Meal Consumed 100% 100% Feeding Ability Independent Independent Urine Appearance Clear Clear Urine Color Bright Yellow Pale Pale Urine Odor Normal Normal Stool Size Small Moderate Stool Color Brown Brown Stool Consistency [place] Soft Formed # Bowel Movements 1 OBJ DATA Labs CBC & Chem 7: 11/30/19 05:50 11/30/19 05:50 Labs: Abnormal Lab Results 11/30/19 11/30/19 11/29/19 05:50 05:50 05:30 WBC 14.5 H MPV 11.2 H Seg Neutrophils % Lymphocytes % Monocytes % (Manual) 14 H Sodium 132 L Potassium 3.2 L Chloride 95 L BUN 21 H 29 H Glucose 151 H Hemoglobin A1c AST 40 H C-Reactive Protein Albumin 2.5 L 2.5 L Globulin 3.8 H Albumin/Globulin Ratio 0.7 L 0.7 L Prealbumin Triglycerides 154 H Urine Glucose (UA) Urine Occult Blood 11/29/19 11/28/19 11/28/19 05:30 13:16 05:15 WBC 17.6 H MPV 11.4 H Seg Neutrophils % 79 H Lymphocytes % 14 L Monocytes % (Manual) Sodium Potassium Chloride BUN Glucose Hemoglobin A1c 12.1 H AST C-Reactive Protein 33.6 H Albumin Globulin Albumin/Globulin Ratio Prealbumin 5.4 L Triglycerides Urine Glucose (UA) >=500 A Urine Occult Blood 0.03 A 11/28/19 11/28/19 05:15 05:15 WBC 18.1 H MPV 11.7 H Seg Neutrophils % 83 H Lymphocytes % 11 L Monocytes % (Manual) Sodium 131 L Potassium Chloride 92 L BUN 29 H Glucose 425 H Hemoglobin A1c AST C-Reactive Protein Albumin 2.4 L Globulin 4.4 H Albumin/Globulin Ratio 0.5 L Prealbumin Triglycerides Urine Glucose (UA) Urine Occult Blood Meds: Medications Amlodipine Besylate (Norvasc) 10 mg PO DAILY [facility] Last Admin: 11/30/19 08:20 Dose: 10 mg Documented by: Aspirin (Aspirin) 81 mg PO DAILY [facility] Last Admin: 11/30/19 08:19 Dose: 81 mg Documented by: Atorvastatin Calcium (Lipitor) 20 mg PO [facility] Last Admin: 11/29/19 21:25 Dose: 20 mg Documented by: Bisacodyl (Dulcolax) 10 mg RI Q2-3DAYS PRN PRN Reason: Constipation [facility] Admin: 11/30/19 08:18 Dose: 3.125 mg Documented by: Chlorthalidone (Hygroton) 12.5 mg PO DAILY [facility] Last Admin: 11/30/19 08:20 Dose: 12.5 mg Documented by: Dextrose (Dextrose 50%) 0 ml IV UD PRN PRN Reason: Hypoglycemia Last Admin: 11/29/19 23:54 Dose: 50 ml Documented by: Diagnostic Test (Pha) (Accu-Chek) 1 each FS ACHS [facility] Last Admin: 11/30/19 11:04 Dose: 1 each Documented by: Docusate Sodium (Colace) 100 mg PO BID [facility] Last Admin: 11/30/19 08:20 Dose: 100 mg Documented by: Duloxetine HCl (Cymbalta) 30 mg PO BID [facility] Last Admin: 11/30/19 08:20 Dose: 30 mg Documented by: Glucose (Insta-Glucose) 15 gm PO PRN PRN PRN Reason: Hypoglycemia Last Admin: 11/29/19 23:53 Dose: 15 gm Documented by: Heparin Sodium (Porcine) (Heparin) 5,000 unit SQ Q12 [facility] Last Admin: 11/30/19 08:18 Dose: 5,000 unit Documented by: Hydralazine HCl (Apresoline) 10 mg IV Q4-6HP PRN PRN Reason: Hypertension Acetaminophen (Ofirmev) 650 mg in 65 mls @ 130 mls/hr IV Q6HP PRN; Protocol PRN Reason: Per Pain Protocol/Fever > 101 Magnesium Sulfate (Magnesium Sulfate) 2 gm in 50 mls @ 50 mls/hr IV UD PRN PRN Reason: MG = or < 1.7 Piperacillin Sod/Tazobactam (Sod 3.375 gm/ Dextrose) 50 mls @ 100 mls/hr IV Q6H [facility] Last Infusion: 11/30/19 06:15 Dose: Infused Documented by: Vancomycin HCl 1,500 mg/ (Sodium Chloride) 500 mls @ 333.3 mls/hr IV Q12H [facility] Last Admin: 11/30/19 08:21 Dose: 333 mls/hr Documented by: Gentamicin Sulfate 40 mg/Clindamycin Phosphate 300 mg/Bacitracin 25,000 unit/ Sodium Chloride 503 mls @ 0 mls/hr IRR QSHIFT [facility] Last Admin: 11/30/19 11:03 Dose: 250 mls/hr Documented by: Insulin Human Lispro (Humalog) 0 unit SQ ACHS [facility]; Protocol Last Admin: 11/30/19 07:23 Dose: Not Given Documented by: Insulin Human Regular (Humulin R) 40 unit SQ QACBREAK [facility] Last Admin: 11/29/19 09:02 Dose: 40 units Documented by: Insulin Human Regular (Humulin R) 50 unit SQ QACLUNCH [facility] Last Admin: 11/29/19 12:17 Dose: 50 units Documented by: Insulin Human Regular (Humulin R) 70 unit SQ QACDINNER [facility] Last Admin: 11/29/19 17:40 Dose: 70 units Documented by: Iron Carb/Multivit/[place]/Folic Acid (Multivitamin W/Minerals) 1 tab PO DAILY [facility] Last Admin: 11/30/19 08:20 Dose: 1 tab Documented by: Lisinopril (Zestril) 40 mg PO BID [facility] Last Admin: 11/30/19 08:18 Dose: 40 mg Documented by: Magnesium Oxide (Magnesium Oxide) 400 mg PO DAILY [facility] Last Admin: 11/30/19 08:19 Dose: 400 mg Documented by: Melatonin (Melatonin 3mg Tablet) 3 mg PO HSP PRN PRN Reason: Insomnia Meloxicam (Mobic) 7.5 mg PO BID [facility] Last Admin: 11/30/19 08:19 Dose: 7.5 mg Documented by: [facility] Admin: 11/30/19 08:20 Dose: 500 mg Documented by: Metoprolol Tartrate (Lopressor) 5 mg IV Q5M PRN PRN Reason: Heart Rate > 140 bpm Ondansetron HCl (Zofran Odt) 4 mg SL Q4-6HP PRN; Protocol PRN Reason: Nausea And Vomiting Ondansetron HCl (Zofran) 4 mg IV Q4-6HP PRN; Protocol PRN Reason: Nausea And Vomiting Oxycodone/Acetaminophen (Percocet 5-325 Mg) 1 tab PO Q4HP PRN; Protocol PRN Reason: Per Pain Protocol Dorzolamide-Timolol (Eye Drops) 1 dose OU BID [facility] Last Admin: 11/30/19 08:21 Dose: Not Given Documented by: Exenatide Microspheres [ [place] Rasheed] 2 Mg Syringe 1 dose SUB-Q Meyers@0900 [facility] Polyethylene Glycol (Miralax) 17 gm PO DAILYP PRN PRN Reason: Constipation Potassium Chloride (Klor-Con) 40 meq PO DAILYP PRN PRN Reason: K+ < 3.5 Senna/Docusate Sodium (Senna Plus Tablet) 1 tab PO HS [facility] Last Admin: 11/29/19 21:25 Dose: 1 tab Documented by: Sitagliptin Phosphate (Januvia) 100 mg PO DAILY [facility] Last Admin: 11/30/19 08:19 Dose: 100 mg Documented by: Sodium Chloride (Saline Flush) 10 ml IV Q8 [facility] Last Admin: 11/30/19 05:34 Dose: 10 ml Documented by: Vancomycin HCl (Vancomycin Per Pharmacy) 1 order IV UD [facility]; Protocol A/P Narrative A/P Narrative: * Diabetic right lower extremity gangrenous cellulitis-POD 3. Continue wound care per Dr. Sheffield. On Zosyn/vancomycin per ID recommendations. * Sepsis secondary to above. WBC down to 14. Improving endorgan dysfunction. Continue Zosyn/vancomycin. * JYOTHI secondary to sepsis endorgan dysfunction. Creatinine now at baseline 0.8 * History of DM type II continue exenatide/prandial insulin/CC diet, uptitrate sliding scale/basal insulin * History of hypertension continue amlodipine/Coreg/chlorthalidone * Anxiety disorder continue Cymbalta * Hyperlipidemia on statin * Full code Plan *Continue wound care per Dr. Sheffield *Continue Zosyn/vancomycin per ID *Continue pre-existing medical conditions management on home medications *PT OT nutrition support *Discharge planning per case management likely Tuesday Time Spent With Patient Time: Total time spent is greater than 50% in coordination of care (as documented) at patient's floor/unit and/or counseling patient: QUALITY VTE Deep Vein Thrombosis/Pulmonary Embolism Present on Admission: No
--- NOTE | 2019-11-30 13:47 | Internal Med Progress Note ---
SUBJECTIVE Subjective Patient information: Note initiated : 11/30/19 at 1:43 pm Service Date, if different from initiated Date: [] Patient: Navid Garcia 59 y/o M admitted on 11/26/19 for "I Have The Chills". Chief Complaint: [] Interval history: Mr. Garcia is a 59 year old M who presents to the ER with increasing right lower extremity redness swelling over the last 48 hours. Patient has been following up with wound care for ulceration Rt foot and has been on antibiotics recently for associated cellulitis. For the last 48 hours he has noted increasing redness, swelling, discharge at the fourth and fifth interphalanx face and associated nausea. He was evaluated in the ER the day prior and was discharged on oral antibiotics for diabetic foot ulcer. However symptoms continued to deteriorate and he presents today. Initial work-up was consistent with white count 19.8 and elevated blood sugars at 396. Patient was started on antibiotic coverage after wound care was consulted. Cultures obtained. At the time of my evaluation patient is alert and oriented. He was able to endorse history as above. He denies shaking chills, sweats, shortness of breath chest pain headache or photophobia. Denies diarrhea. 11/26-worsening redness however denies pain but overnight fever at 104. White count 19.2. On Rocephin/vancomycin. Will undergo operative intervention today by wound care. Blood sugar gradually improving. Creatinine 1.2. 11/27-significantly elevated blood sugars over 350s overnight requiring basal prandial insulin. Uptitrate sliding scale. Continue diabetic diet. Postoperative day 1. On antibiotic coverage per ID now on Zosyn vancomycin. Cultures pending so far. White count down to 18.1 from 19.2. Creatinine downtrending from 1.2-1.1, A1c 12.1. No overnight events or concerns per nursing staff. 11/28-White count gradually downtrending now at 17.6. Improving blood sugars now at goal. No overnight fever chills. Postop day 2. Wound care on board will likely undergo wound VAC placement. Stable hemodynamics. On antibiotic coverage per ID. 11/29-patient clinically improving. Improved redness swelling erythema. Postop day 3. Ongoing antibiotic coverage. Blood sugars down to 60s. Discontinue basal insulin. Continue patient is on home regime/CC diet. Weightbearing as per wound care physician recommendations. Ongoing PT OT. 11/30 Constitutional Vitals: Vital Signs Temp Pulse Resp BP Pulse Ox 98.4 F 80 16 132/73 94 11/30/19 12:00 11/30/19 12:00 11/30/19 12:00 11/30/19 12:00 11/30/19 12:00 Period Temp Pulse Resp BP Sys/Garcia Pulse Ox Last 24 Hr 97.4 F-98.4 F 65-80 16-24 105-132/58-87 92-97 Intake and Output 11/29/19 11/30/19 11/30/19 21:59 05:59 13:59 Intake Total 530 1190 290 Output Total 400 3000 2075 Balance 130 -1810 -1785 Weight 127.641 kg Intake & Output: Intake & Output 11/29/19 11/30/19 11/30/19 21:59 05:59 13:59 Intake Total 530 1190 290 Output Total 400 3000 2075 Balance 130 -1810 -1785 Weight 127.641 kg Intake: IV 50 550 50 Zosyn 3.375 gm In Dextrose 5% 50 50 50 in Water 50 ml @ 100 mls/hr IV Q6H [facility] Rx#:[id number] Vancomycin 1,500 mg In Sodium 500 Chloride 0.9% 500 ml @ 333.3 mls/hr IV Q12H [facility] Rx#: [id number] Oral 480 640 240 Output: Void Amount 400 3000 2075 Other: Meal Dinner Breakfast Percent of Meal Consumed 100% 100% Feeding Ability Independent Independent Urine Appearance Clear Clear Urine Color Bright Yellow Pale Bright Yellow Urine Odor Normal Normal Stool Size Small Moderate Stool Color Brown Brown Stool Consistency [place] Soft Formed # Bowel Movements 1 Exam: General: Alert, Awake, No acute Distress, obese Eyes/N/T: EOMI, Head/Neck: neck supple, CV: RRR, No murmurs, Pulm: Clear b/l, no wheezing/rhonchi/rales Abd: soft, nontender, +BS x4 Ext: no clubbing/cyanosis/edema with exception of RLE -erythema and edema Neuro: Alert, no focal deficits, moves all extremities, Skin: warm/dry OBJ DATA Labs CBC & Chem 7: 11/30/19 05:50 11/30/19 05:50 Labs: Abnormal Lab Results 11/30/19 11/30/19 11/29/19 05:50 05:50 05:30 WBC 14.5 H MPV 11.2 H Seg Neutrophils % Lymphocytes % Monocytes % (Manual) 14 H Sodium 132 L Potassium 3.2 L Chloride 95 L BUN 21 H 29 H Glucose 151 H Hemoglobin A1c AST 40 H C-Reactive Protein Albumin 2.5 L 2.5 L Globulin 3.8 H Albumin/Globulin Ratio 0.7 L 0.7 L Prealbumin Triglycerides 154 H Urine Glucose (UA) Urine Occult Blood 11/29/19 11/28/19 11/28/19 05:30 13:16 05:15 WBC 17.6 H MPV 11.4 H Seg Neutrophils % 79 H Lymphocytes % 14 L Monocytes % (Manual) Sodium Potassium Chloride BUN Glucose Hemoglobin A1c 12.1 H AST C-Reactive Protein 33.6 H Albumin Globulin Albumin/Globulin Ratio Prealbumin 5.4 L Triglycerides Urine Glucose (UA) >=500 A Urine Occult Blood 0.03 A 11/28/19 11/28/19 05:15 05:15 WBC 18.1 H MPV 11.7 H Seg Neutrophils % 83 H Lymphocytes % 11 L Monocytes % (Manual) Sodium 131 L Potassium Chloride 92 L BUN 29 H Glucose 425 H Hemoglobin A1c AST C-Reactive Protein Albumin 2.4 L Globulin 4.4 H Albumin/Globulin Ratio 0.5 L Prealbumin Triglycerides Urine Glucose (UA) Urine Occult Blood Meds: Medications Amlodipine Besylate (Norvasc) 10 mg PO DAILY [facility] Last Admin: 11/30/19 08:20 Dose: 10 mg Documented by: Aspirin (Aspirin) 81 mg PO DAILY [facility] Last Admin: 11/30/19 08:19 Dose: 81 mg Documented by: Atorvastatin Calcium (Lipitor) 20 mg PO [facility] Last Admin: 11/29/19 21:25 Dose: 20 mg Documented by: Bisacodyl (Dulcolax) 10 mg VA Q2-3DAYS PRN PRN Reason: Constipation [facility] ([facility]) [facility] Last Admin: 11/30/19 08:18 Dose: 3.125 mg Documented by: Chlorthalidone (Hygroton) 12.5 mg PO DAILY [facility] Last Admin: 11/30/19 08:20 Dose: 12.5 mg Documented by: Dextrose (Dextrose 50%) 0 ml IV UD PRN PRN Reason: Hypoglycemia Last Admin: 11/29/19 23:54 Dose: 50 ml Documented by: Diagnostic Test (Pha) (Accu-Chek) 1 each FS ACHS [facility] Last Admin: 11/30/19 11:04 Dose: 1 each Documented by: Docusate Sodium (Colace) 100 mg PO BID [facility] Last Admin: 11/30/19 08:20 Dose: 100 mg Documented by: Duloxetine HCl (Cymbalta) 30 mg PO BID [facility] Last Admin: 11/30/19 08:20 Dose: 30 mg Documented by: Glucose (Insta-Glucose) 15 gm PO PRN PRN PRN Reason: Hypoglycemia Last Admin: 11/29/19 23:53 Dose: 15 gm Documented by: Heparin Sodium (Porcine) (Heparin) 5,000 unit SQ Q12 [facility] Last Admin: 11/30/19 08:18 Dose: 5,000 unit Documented by: Hydralazine HCl (Apresoline) 10 mg IV Q4-6HP PRN PRN Reason: Hypertension Acetaminophen (Ofirmev) 650 mg in 65 mls @ 130 mls/hr IV Q6HP PRN; Protocol PRN Reason: Per Pain Protocol/Fever > 101 Magnesium Sulfate (Magnesium Sulfate) 2 gm in 50 mls @ 50 mls/hr IV UD PRN PRN Reason: MG = or < 1.7 Piperacillin Sod/Tazobactam (Sod 3.375 gm/ Dextrose) 50 mls @ 100 mls/hr IV Q6H [facility] Last Admin: 11/30/19 13:16 Dose: 100 mls/hr Documented by: Vancomycin HCl 1,500 mg/ (Sodium Chloride) 500 mls @ 333.3 mls/hr IV Q12H [facility] Last Admin: 11/30/19 08:21 Dose: 333 mls/hr Documented by: Gentamicin Sulfate 40 mg/Clindamycin Phosphate 300 mg/Bacitracin 25,000 unit/ Sodium Chloride 503 mls @ 0 mls/hr IRR QSHIFT [facility] Last Admin: 11/30/19 11:03 Dose: 250 mls/hr Documented by: Insulin Human Lispro (Humalog) 0 unit SQ ACHS [facility]; Protocol Last Admin: 11/30/19 07:23 Dose: Not Given Documented by: Insulin Human Regular (Humulin R) 40 unit SQ QACBREAK [facility] Last Admin: 11/29/19 09:02 Dose: 40 units Documented by: Insulin Human Regular (Humulin R) 50 unit SQ QACLUNCH [facility] Last Admin: 11/29/19 12:17 Dose: 50 units Documented by: Insulin Human Regular (Humulin R) 70 unit SQ QACDINNER [facility] Last Admin: 11/29/19 17:40 Dose: 70 units Documented by: Iron Carb/Multivit/[place]/Folic Acid (Multivitamin W/Minerals) 1 tab PO DAILY [facility] Last Admin: 11/30/19 08:20 Dose: 1 tab Documented by: Lisinopril (Zestril) 40 mg PO BID [facility] Last Admin: 11/30/19 08:18 Dose: 40 mg Documented by: Magnesium Oxide (Magnesium Oxide) 400 mg PO DAILY [facility] Last Admin: 11/30/19 08:19 Dose: 400 mg Documented by: Melatonin (Melatonin 3mg Tablet) 3 mg PO HSP PRN PRN Reason: Insomnia Meloxicam (Mobic) 7.5 mg PO BID [facility] Last Admin: 11/30/19 08:19 Dose: 7.5 mg Documented by: Metformin HCl (Glucophage) 500 mg PO BIDCC [facility] Last Admin: 11/30/19 08:20 Dose: 500 mg Documented by: Metoprolol Tartrate (Lopressor) 5 mg IV Q5M PRN PRN Reason: Heart Rate > 140 bpm Ondansetron HCl (Zofran Odt) 4 mg SL Q4-6HP PRN; Protocol PRN Reason: Nausea And Vomiting Ondansetron HCl (Zofran) 4 mg IV Q4-6HP PRN; Protocol PRN Reason: Nausea And Vomiting Oxycodone/Acetaminophen (Percocet 5-325 Mg) 1 tab PO Q4HP PRN; Protocol PRN Reason: Per Pain Protocol Dorzolamide-Timolol (Eye Drops) 1 dose OU BID [facility] Last Admin: 11/30/19 08:21 Dose: Not Given Documented by: Exenatide Microspheres [ Byrohanredamaris Bci] 2 Mg Syringe 1 dose SUB-Q Meyers@0900 [facility] Polyethylene Glycol (Miralax) 17 gm PO DAILYP PRN PRN Reason: Constipation Potassium Chloride (Klor-Con) 40 meq PO DAILYP PRN PRN Reason: K+ < 3.5 Senna/Docusate Sodium (Senna Plus Tablet) 1 tab PO HS [facility] Last Admin: 11/29/19 21:25 Dose: 1 tab Documented by: Sitagliptin Phosphate (Januvia) 100 mg PO DAILY [facility] Last Admin: 11/30/19 08:19 Dose: 100 mg Documented by: Sodium Chloride (Saline Flush) 10 ml IV Q8 [facility] Last Admin: 11/30/19 05:34 Dose: 10 ml Documented by: Vancomycin HCl (Vancomycin Per Pharmacy) 1 order IV UD [facility]; Protocol A/P Narrative A/P Narrative: A: *Diabetic RLE gangrenous cellulitis: s/p I&D (11/27) *Sepsis: 2/2 above *JYOTHI: 2/2 above *DM type II: *HTN: home meds amlodipine/Coreg/chlorthalidone *Anxiety disorder: continue Cymbalta *HLD: on statin *Obesity: Plan: -Continue wound care per Dr. Sheffield -Continue Zosyn/vancomycin per ID -continue exenatide/prandial insulin/CC diet, uptitrate sliding scale/basal insulin -PT OT nutrition support -Discharge planning per case management likely Tuesday -ppx: heparin Full code Time Spent With Patient Time: Total time spent is greater than 50% in coordination of care (as documented) at patient's floor/unit and/or counseling patient: QUALITY VTE Deep Vein Thrombosis/Pulmonary Embolism Present on Admission: No
--- NOTE | 2019-11-30 14:34 | Surgical Pathology Report ---
HISTOLOGY SPECIMEN MICROSCOPIC DIAGNOSIS SPECIMEN A - EXTREMITY, RIGHT LATERAL FOOT AND RIGHT FIFTH TOE, AMPUTATION: -- GANGRENOUS ULCER WITH UNDERLYING ABSCESS AND ACUTE OSTEOMYELITIS. -- NECROTIC SOFT TISSUE EXTENDS TO THE MEDIAL RESECTION MARGIN. -- BONE MARGIN FREE OF OSTEOMYELITIS. SPECIMEN B - BONE, RIGHT PROXIMAL FRAGMENT, BIOPSY: -- FRAGMENT OF VIABLE BONE AND SOFT TISSUE WITHOUT ASSOCIATED OSTEOMYELITIS. (DMT:adj) PROCEDURAL IMPRESSION Gangrene. GROSS DESCRIPTION Specimen A: Received in formalin labeled right fifth toe gangrene, is a 7.5 x 4.5 x 3.9 cm skin and soft tissue fragment with an attached 3 x 2 x 1.7 cm digit corresponding to the lateral aspect of the foot with fifth toe. The toenail is intact, 0.7 x 0.4 cm and up to 0.3 cm thick. On the plantar aspect, 0.3 cm from the nearest soft tissue margin, is a 2 x 1.4 cm ulceration with associated red-brown underlying tissue. The nearest bone margin to the ulcer is 2 cm. The medial margin opposite the area of ulceration appears necrotic. Priest sections are submitted following decalcification as follows: A1-A2 - composite cross section of ulcer with underlying bone and medial and lateral soft tissue margins; A3 - additional cross section of ulcer; A4 - bone margin. Specimen B: Received in formalin labeled right proximal bone fragment, are two jha-white gritty fragments of possible bone, 0.3 and 0.6 cm in greatest dimension. Entirely submitted in one cassette following decalcification. (DMT:sln) Electronically Signed by: Raza Tang M.D.
--- NOTE | 2019-11-30 15:56 | General Surgery Progress Note ---
SUBJECTIVE Subjective Patient information: Note initiated : 11/30/19 at 3:53 pm Service Date, if different from initiated Date: [] Patient: Navid Garcia 59 y/o M admitted on 11/26/19 for "I Have The Chills". Chief Complaint: [] Additional PMFSH (Level 3 Only): Patient seen multiple times during the day. Bedside repeat debridement carried out. Constitutional Vitals: Vital Signs Temp Pulse Resp BP Pulse Ox 98.5 F 78 20 142/86 94 11/30/19 15:33 11/30/19 15:33 11/30/19 15:33 11/30/19 15:33 11/30/19 15:33 Period Temp Pulse Resp BP Sys/Garcia Pulse Ox Last 24 Hr 97.4 F-98.5 F 65-80 16-24 105-142/58-87 92-97 Intake and Output 11/30/19 11/30/19 11/30/19 05:59 13:59 21:59 Intake Total 1190 340 Output Total 3000 2075 Balance -1810 -1735 Intake & Output: Intake & Output 11/30/19 11/30/19 11/30/19 05:59 13:59 21:59 Intake Total 1190 340 Output Total 3000 2075 Balance -1810 -1735 Intake: IV 550 100 Zosyn 3.375 gm In Dextrose 5% 50 100 in Water 50 ml @ 100 mls/hr IV Q6H [facility] Rx#:[id number] Vancomycin 1,500 mg In Sodium 500 Chloride 0.9% 500 ml @ 333.3 mls/hr IV Q12H [facility] Rx#: [id number] Oral 640 240 Output: Void Amount 3000 2075 Other: Meal Breakfast Percent of Meal Consumed 100% Feeding Ability Independent Urine Appearance Clear Clear Urine Color Pale Bright Yellow Urine Odor Normal Normal Stool Size Moderate Stool Color Brown Stool Consistency Soft Formed Exam: AVSS. No changes ANGELA. Blood sugars improving. Downtrending WBC. Creatinine is normal. Pathology report noted. ACUTE osteomyelitis. Proximal bone biopsy free of osteomyelitis. Further demarcation of necrosis of wound surface. Debrided at bedside. A/P Narrative A/P Narrative: Assessment: Gradual improvement. Local wound care ongoing. NO word about HBOT authorization. Plan: Await developments and continue ongoing treatment. Time Spent With Patient Time: Total time spent is greater than 50% in coordination of care (as documented) at patient's floor/unit and/or counseling patient: Total time spent with greater than 50% in coordination of care (as documented) at patient's floor/unit and/or counseling patient:: Greater than 35 minutes
--- NOTE | 2019-11-30 16:11 | Brief Operative Note ---
Brief Operative Note Date of procedure: 11/30/19 Pre-op diagnosis: Open post surgical wound RIGHT foot. s/p 5th toe amputation Post-op diagnosis: same Procedure: Bedside wound debridement on Med Surg floor. Grafts/Implants: No Anesthesia: none Findings: Gradual improvement. Demarcating necrotic eschar excision. Complications: none Surgeon: Serjio Sheffield Estimated blood loss (cc): 0 Specimens Removed/Pathology: none sent Condition: stable Disposition: floor
[2019-11-30] MEDS: INSULIN REGULAR, HUMAN 1 UNIT/0.01 ML UNIT SQ SCH (17:00)
[2019-11-30] MEDS: SENNOSIDES/DOCUSATE SODIUM 1 TAB TABLET PO SCH (20:57)
[2019-11-30] MEDS: ATORVASTATIN 20 MG TABLET PO SCH (20:57)
[2019-12-01] MEDS: PIPERACILLIN SODIUM/TAZOBACTAM 3.375 GM in DEXTROSE 5% IN WATER 50 ML IV SCH ×3 (06:01→17:22)
[2019-12-01] MEDS: 0.9 % SODIUM CHLORIDE 10 ML SYRINGE IV SCH ×3 (06:06→21:23)
[2019-12-01 06:44] LABS: Hematocrit 48.6 % (40.1-51.0); Hemoglobin 16.3 g/dL (13.7-17.5); Mean Cell Volume 86.9 fL (80.0-100.0); Mean Corpuscular HGB Conc 33.5 g/dL (31.0-36.0); Mean Platelet Volume 11.1 fL (7.4-10.4); Platelet Count 302 K/mcL (140-440); RBC 5.59 M/mcL (4.63-6.08); WBC 14.9 K/mcL (4.50-11.00)
[2019-12-01 07:01] LABS: Bilirubin,Direct < 0.2 mg/dL (0.0-0.3)
[2019-12-01 07:04] LABS: ALT/SGPT 35 U/l (0-40); AST/SGOT 29 U/l (0-37); Albumin 2.5 gm/dL (3.2-5.2); Albumin/Globulin Ratio 0.6 (1.0-2.3); Alkaline Phosphatase 68 U/L (39-117); Bilirubin,Total 0.5 mg/dL (0.0-1.0); Blood Urea Nitrogen 19 mg/dl (6-20); Calcium 9.4 mg/dl (8.6-10.4); Carbon Dioxide 28 mmol/L (22-30); Chloride 93 mmol/L (96-108); Globulin 4.1 gm/dL (2.2-3.7); Glomerular Filtration Rate 103; Glucose 152 mg/dL (70-105); Lactate Dehydrogenase 216 U/L (94-250); Phosphorous 4.2 mg/dL (2.7-4.5); Triglycerides 90 mg/dl (<150); Uric Acid 3.1 mg/dL (2.5-8.0)
[2019-12-01] MEDS: VANCOMYCIN 1,500 MG in 0.9 % SODIUM CHLORIDE 500 ML IV SCH (08:00)
[2019-12-01] MEDS: metFORMIN 500 MG TAB.XL.24H PO SCH ×2 (08:02→16:58)
[2019-12-01] MEDS: CARVEDILOL 3.125 MG TABLET PO SCH ×2 (08:02→16:58)
[2019-12-01] MEDS: INSULIN REGULAR, HUMAN 1 UNIT/0.01 ML UNIT SQ SCH ×3 (08:11→17:01)
[2019-12-01] MEDS: INSULIN LISPRO 1 UNIT/0.01 ML UNIT SQ SCH ×4 (08:12→21:21)
[2019-12-01] MEDS: ASPIRIN 81 MG TAB.CHEW PO SCH (08:13)
[2019-12-01] MEDS: DOCUSATE SODIUM 100 MG CAPSULE PO SCH ×2 (08:13→21:22)
[2019-12-01] MEDS: MULTIVIT,THER IRON,CA,FA & MIN 1 TABLET PO SCH (08:13)
[2019-12-01] MEDS: DULoxetine 30 MG CAPSULE PO SCH ×2 (08:14→21:22)
[2019-12-01] MEDS: amLODIPine 10 MG TABLET PO SCH (08:14)
[2019-12-01] MEDS: sitaGLIPtin 100 MG TABLET PO SCH (08:14)
[2019-12-01] MEDS: MELOXICAM 7.5 MG TABLET PO SCH ×2 (08:14→21:22)
[2019-12-01] MEDS: MAGNESIUM OXIDE 400 MG TABLET PO SCH (08:14)
[2019-12-01] MEDS: CHLORTHALIDONE 25 MG TABLET PO SCH (08:15)
[2019-12-01] MEDS: LISINOPRIL 20 MG TABLET PO SCH ×2 (08:16→21:21)
[2019-12-01] MEDS: HEPARIN 5,000 UNIT/ML VIAL SQ SCH ×2 (08:17→21:22)
--- NOTE | 2019-12-01 08:43 | Internal Med Progress Note ---
SUBJECTIVE Subjective Patient information: Note initiated : 12/01/19 at 8:39 am Service Date, if different from initiated Date: [] Patient: Navid Garcia 59 y/o M admitted on 11/26/19 for "I Have The Chills". Chief Complaint: [] Interval history: Mr. Garcia is a 59 year old M who presents to the ER with increasing right lower extremity redness swelling over the last 48 hours. Patient has been following up with wound care for ulceration Rt foot and has been on antibiotics recently for associated cellulitis. For the last 48 hours he has noted increasing redness, swelling, discharge at the fourth and fifth interphalanx face and associated nausea. He was evaluated in the ER the day prior and was discharged on oral antibiotics for diabetic foot ulcer. However symptoms continued to deteriorate and he presents today. Initial work-up was consistent with white count 19.8 and elevated blood sugars at 396. Patient was started on antibiotic coverage after wound care was consulted. Cultures obtained. At the time of my evaluation patient is alert and oriented. He was able to endorse history as above. He denies shaking chills, sweats, shortness of breath chest pain headache or photophobia. Denies diarrhea. 11/26-worsening redness however denies pain but overnight fever at 104. White count 19.2. On Rocephin/vancomycin. Will undergo operative intervention today by wound care. Blood sugar gradually improving. Creatinine 1.2. 11/27-significantly elevated blood sugars over 350s overnight requiring basal prandial insulin. Uptitrate sliding scale. Continue diabetic diet. Postoperative day 1. On antibiotic coverage per ID now on Zosyn vancomycin. Cultures pending so far. White count down to 18.1 from 19.2. Creatinine downtrending from 1.2-1.1, A1c 12.1. No overnight events or concerns per nursing staff. 11/28-White count gradually downtrending now at 17.6. Improving blood sugars now at goal. No overnight fever chills. Postop day 2. Wound care on board will likely undergo wound VAC placement. Stable hemodynamics. On antibiotic coverage per ID. 11/29-patient clinically improving. Improved redness swelling erythema. Postop day 3. Ongoing antibiotic coverage. Blood sugars down to 60s. Discontinue basal insulin. Continue patient is on home regime/CC diet. Weightbearing as per wound care physician recommendations. Ongoing PT OT. 11/30 No overnight event or new complaints. Patient doing well. Per discussion with wound care surgeon, patient will likely go further I&D on Tuesday. Review of Systems: denies headache/fever/chills/nausea/vomiting/chest or abdominal pain/cough/dyspnea/diarrhea. Otherwise see above. Constitutional Vitals: Vital Signs Temp Pulse Resp BP Pulse Ox 98.0 F 73 16 117/79 97 12/01/19 07:20 12/01/19 07:20 12/01/19 07:20 12/01/19 07:20 12/01/19 07:20 Period Temp Pulse Resp BP Sys/Garcia Pulse Ox Last 24 Hr 97.8 F-99.1 F 73-89 16-20 116-155/73-88 92-99 Intake and Output 11/30/19 12/01/19 12/01/19 21:59 05:59 13:59 Intake Total 1660 600 50 Output Total 2425 1200 825 Balance -765 -600 -775 Weight 124.919 kg Intake & Output: Intake & Output 11/30/19 12/01/19 12/01/19 21:59 05:59 13:59 Intake Total 1660 600 50 Output Total 2425 1200 825 Balance -765 -600 -775 Weight 124.919 kg Intake: IV 600 50 Zosyn 3.375 gm In Dextrose 5% 100 50 in Water 50 ml @ 100 mls/hr IV Q6H [facility] Rx#:[id number] Vancomycin 1,500 mg In Sodium 500 Chloride 0.9% 500 ml @ 333.3 mls/hr IV Q12H [facility] Rx#: [id number] Oral 1660 Output: Void Amount 2425 1200 825 Other: Meal Dinner Percent of Meal Consumed 100% Urine Appearance Clear Clear Clear Urine Color Pale Pale Urine Odor Normal Exam: General: Alert, Awake, No acute Distress, obese Eyes/N/T: EOMI, Head/Neck: neck supple, CV: RRR, No murmurs, Pulm: Clear b/l, no wheezing/rhonchi/rales Abd: soft, nontender, +BS x4 Ext: no clubbing/cyanosis/edema with exception of RLE which is in dressings Neuro: Alert, no focal deficits, moves all extremities, chronic b/l LE decreased sensations Skin: warm/dry OBJ DATA Labs CBC & Chem 7: 12/01/19 05:30 12/01/19 05:30 Labs: Abnormal Lab Results 12/01/19 12/01/19 11/30/19 05:30 05:30 05:50 WBC 14.9 H MPV 11.1 H Seg Neutrophils % Lymphocytes % Monocytes % (Manual) Sodium Potassium 3.2 L Chloride 93 L 95 L BUN 21 H Glucose 152 H AST 40 H Albumin 2.5 L 2.5 L Globulin 4.1 H 3.8 H Albumin/Globulin Ratio 0.6 L 0.7 L Triglycerides Urine Glucose (UA) Urine Occult Blood 11/30/19 11/29/19 11/29/19 05:50 05:30 05:30 WBC 14.5 H 17.6 H MPV 11.2 H 11.4 H Seg Neutrophils % 79 H Lymphocytes % 14 L Monocytes % (Manual) 14 H Sodium 132 L Potassium Chloride BUN 29 H Glucose 151 H AST Albumin 2.5 L Globulin Albumin/Globulin Ratio 0.7 L Triglycerides 154 H Urine Glucose (UA) Urine Occult Blood 11/28/19 13:16 WBC MPV Seg Neutrophils % Lymphocytes % Monocytes % (Manual) Sodium Potassium Chloride BUN Glucose AST Albumin Globulin Albumin/Globulin Ratio Triglycerides Urine Glucose (UA) >=500 A Urine Occult Blood 0.03 A Meds: Medications Amlodipine Besylate (Norvasc) 10 mg PO DAILY [facility] Last Admin: 12/01/19 08:14 Dose: 10 mg Documented by: Aspirin (Aspirin) 81 mg PO DAILY [facility] Last Admin: 12/01/19 08:13 Dose: 81 mg Documented by: Atorvastatin Calcium (Lipitor) 20 mg PO [facility] Last Admin: 11/30/19 20:57 Dose: 20 mg Documented by: Bisacodyl (Dulcolax) 10 mg ME Q2-3DAYS PRN PRN Reason: Constipation [facility] Last Admin: 12/01/19 08:02 Dose: 3.125 mg Documented by: Chlorthalidone (Hygroton) 12.5 mg PO DAILY [facility] Last Admin: 12/01/19 08:15 Dose: 12.5 mg Documented by: Dextrose (Dextrose 50%) 0 ml IV UD PRN PRN Reason: Hypoglycemia Last Admin: 11/29/19 23:54 Dose: 50 ml Documented by: Diagnostic Test (Pha) (Accu-Chek) 1 each FS ACHS [facility] Last Admin: 12/01/19 08:10 Dose: 1 each Documented by: Docusate Sodium (Colace) 100 mg PO BID [facility] Last Admin: 12/01/19 08:13 Dose: 100 mg Documented by: Duloxetine HCl (Cymbalta) 30 mg PO BID [facility] Last Admin: 12/01/19 08:14 Dose: 30 mg Documented by: Glucose (Insta-Glucose) 15 gm PO PRN PRN PRN Reason: Hypoglycemia Last Admin: 11/29/19 23:53 Dose: 15 gm Documented by: Heparin Sodium (Porcine) (Heparin) 5,000 unit SQ Q12 [facility] Last Admin: 12/01/19 08:17 Dose: 5,000 unit Documented by: Hydralazine HCl (Apresoline) 10 mg IV Q4-6HP PRN PRN Reason: Hypertension Acetaminophen (Ofirmev) 650 mg in 65 mls @ 130 mls/hr IV Q6HP PRN; Protocol PRN Reason: Per Pain Protocol/Fever > 101 Magnesium Sulfate (Magnesium Sulfate) 2 gm in 50 mls @ 50 mls/hr IV UD PRN PRN Reason: MG = or < 1.7 Piperacillin Sod/Tazobactam (Sod 3.375 gm/ Dextrose) 50 mls @ 100 mls/hr IV Q6H [facility] Last Infusion: 12/01/19 06:35 Dose: Infused Documented by: Vancomycin HCl 1,500 mg/ (Sodium Chloride) 500 mls @ 333.3 mls/hr IV Q12H [facility] Last Admin: 12/01/19 08:00 Dose: 333.3 mls/hr Documented by: Gentamicin Sulfate 40 mg/Clindamycin Phosphate 300 mg/Bacitracin 25,000 unit/ Sodium Chloride 503 mls @ 0 mls/hr IRR QSHIFT [facility] Last Admin: 11/30/19 20:56 Dose: Not Given Documented by: Insulin Human Lispro (Humalog) 0 unit SQ ACHS [facility]; Protocol Last Admin: 12/01/19 08:12 Dose: Not Given Documented by: Insulin Human Regular (Humulin R) 0 unit SQ TIDAC [facility] Last Admin: 09/05/20 08:11 Dose: 50 units Documented by: Iron Carb/Multivit/[place]/Folic Acid (Multivitamin W/Minerals) 1 tab PO DAILY [facility] Last Admin: 12/01/19 08:13 Dose: 1 tab Documented by: Lisinopril (Zestril) 40 mg PO BID [facility] Last Admin: 12/01/19 08:16 Dose: 40 mg Documented by: Magnesium Oxide (Magnesium Oxide) 400 mg PO DAILY [facility] Last Admin: 12/01/19 08:14 Dose: 400 mg Documented by: Melatonin (Melatonin 3mg Tablet) 3 mg PO HSP PRN PRN Reason: Insomnia Meloxicam (Mobic) 7.5 mg PO BID [facility] Last Admin: 12/01/19 08:14 Dose: 7.5 mg Documented by: Metformin HCl (Glucophage) 500 mg PO BIDCC [facility] Last Admin: 12/01/19 08:02 Dose: 500 mg Documented by: Metoprolol Tartrate (Lopressor) 5 mg IV Q5M PRN PRN Reason: Heart Rate > 140 bpm Ondansetron HCl (Zofran Odt) 4 mg SL Q4-6HP PRN; Protocol PRN Reason: Nausea And Vomiting Ondansetron HCl (Zofran) 4 mg IV Q4-6HP PRN; Protocol PRN Reason: Nausea And Vomiting Oxycodone/Acetaminophen (Percocet 5-325 Mg) 1 tab PO Q4HP PRN; Protocol PRN Reason: Per Pain Protocol Dorzolamide-Timolol (Eye Drops) 1 dose OU BID [facility] Last Admin: 12/01/19 08:18 Dose: Not Given Documented by: Exenatide Microspheres [ Phil Rasheed] 2 Mg Syringe 1 dose SUB-Q Meyers@0900 [facility] Polyethylene Glycol (Miralax) 17 gm PO DAILYP PRN PRN Reason: Constipation Potassium Chloride (Klor-Con) 40 meq PO DAILYP PRN PRN Reason: K+ < 3.5 Senna/Docusate Sodium (Senna Plus Tablet) 1 tab PO HS [facility] Last Admin: 11/30/19 20:57 Dose: 1 tab Documented by: Sitagliptin Phosphate (Januvia) 100 mg PO DAILY [facility] Last Admin: 12/01/19 08:14 Dose: 100 mg Documented by: Sodium Chloride (Saline Flush) 10 ml IV Q8 [facility] Last Admin: 12/01/19 06:06 Dose: 10 ml Documented by: Vancomycin HCl (Vancomycin Per Pharmacy) 1 order IV UD [facility]; Protocol A/P Narrative A/P Narrative: A: *Diabetic RLE gangrenous cellulitis: s/p I&D (11/27) -wound cx with Strep constellatus & E. coli *Sepsis: 2/2 above -leukocytosis persistent, no bandemia -BC neg *JYOTHI: 2/2 above *DM type II: *HTN: home meds amlodipine/Coreg/chlorthalidone *Anxiety disorder: continue Cymbalta *HLD: on statin *Obesity: Plan: -Continue wound care per Dr. Sheffield, likely repeat I&D on Tuesday -Continue Zosyn/vancomycin(d/c) -deescalate pending final cx -continue exenatide/prandial insulin/CC diet, sliding scale/basal insulin -PT OT nutrition support -Discharge planning per case management likely Tuesday -ppx: heparin Full code Time Spent With Patient Time: Total time spent is greater than 50% in coordination of care (as documented) at patient's floor/unit and/or counseling patient: QUALITY VTE Deep Vein Thrombosis/Pulmonary Embolism Present on Admission: No
[2019-12-01 09:27] LABS: Basophils % (Manual) 1 % (0-2); Eosinophils % (Manual) 2 % (0-7); Lymphocytes % 13 % (15-49); Metamyelocytes % 2 % (0-0); Monocytes % (Manual) 4 % (1-12); Platelet Estimate NORMAL (NORMAL); RBC Morphology NORMAL (NORMAL); Reactive Lymphocytes 13 % (0-2); Segmented Neutrophils % 65 % (38-78)
[2019-12-01] MEDS: GENTAMICIN SULFATE 40 MG, CLINDAMYCIN 300 MG, BACITRACIN 25,000 UNIT in SODIUM CHLORIDE... IRR SCH ×2 (10:53→19:51)
--- NOTE | 2019-12-01 11:17 | General Surgery Progress Note ---
SUBJECTIVE Subjective Patient information: Note initiated : 12/01/19 at 11:07 am Service Date, if different from initiated Date: [] Patient: Navid Garcia 59 y/o M admitted on 11/26/19 for "I Have The Chills". Chief Complaint: [] Additional PMFSH (Level 3 Only): Patient seen on rounds with nursing staff. RIGHT foot wound examined. Constitutional Vitals: Vital Signs Temp Pulse Resp BP Pulse Ox 98.0 F 73 16 117/79 97 12/01/19 07:20 12/01/19 07:20 12/01/19 07:20 12/01/19 07:20 12/01/19 07:20 Period Temp Pulse Resp BP Sys/Garcia Pulse Ox Last 24 Hr 97.8 F-99.1 F 73-89 16-20 116-155/73-88 92-99 Intake and Output 11/30/19 12/01/19 12/01/19 21:59 05:59 13:59 Intake Total 5808 513 3317 Output Total 2425 1200 1700 Balance -765 -600 -170 Weight 275 lb 6.4 oz Intake & Output: Intake & Output 11/30/19 12/01/19 12/01/19 21:59 05:59 13:59 Intake Total 3126 965 6453 Output Total 2425 1200 1700 Balance -765 -600 -170 Weight 275 lb 6.4 oz Intake: IV 600 550 Zosyn 3.375 gm In Dextrose 5% 100 50 in Water 50 ml @ 100 mls/hr IV Q6H [facility] Rx#:[id number] Vancomycin 1,500 mg In Sodium 500 500 Chloride 0.9% 500 ml @ 333.3 mls/hr IV Q12H [facility] Rx#: [id number] Oral 1660 980 Output: Void Amount 2425 1200 1700 Other: Meal Dinner Breakfast Percent of Meal Consumed 100% 100% Urine Appearance Clear Clear Clear Urine Color Pale Pale Bright Yellow Urine Odor Normal Exam: AVSS. No changes in ANGELA. RIGHT foot open surgical wound: Gradual separation / demarcation of non viable debris around edges and under plantar flap. NEEDS repeat surgical debridement and pulse lavage irrigation in OR . Planning same for Tuesday12/03/2019 @ 9 AM. Discussed with Alta HE, Mechanical Designer. Labs: HPYO proteinemia ( Prealbumin of < 6 ) Start patient on OXANDRIN at 5 mg P O BID. Wound c/s E Coli Alvarez sensitive. Patient on CIPRO at this time. WILL continue. Topical GCB solution dressings to continue. A/P Narrative A/P Narrative: Assessment: OPEN post surgical wound RIGHT foot. E Coli Sepsis with CSSSI, improving. Hypo proteinemia ( Pre Albumin < 6 ) Demarcating slough from wound surface and edges, NEEDS repeat surgical debridement and pulse lavage irrigation. Plan: Reviewed with Dr. Lu. Hospitalist Physician. Time Spent With Patient Time: Total time spent is greater than 50% in coordination of care (as documented) at patient's floor/unit and/or counseling patient: Total time spent with greater than 50% in coordination of care (as documented) at patient's floor/unit and/or counseling patient:: 25 - 35 minutes
[2019-12-01] MEDS ORDERED: OXANDROLONE 2.5 MG TABLET PO SCH (21:00)
[2019-12-01] MEDS: LACTOBACILLUS 1 CAPSULE PO SCH (21:21)
[2019-12-01] MEDS: OXANDROLONE 2.5 MG TABLET PO SCH (21:21)
[2019-12-01] MEDS: SENNOSIDES/DOCUSATE SODIUM 1 TAB TABLET PO SCH (21:21)
[2019-12-01] MEDS: ATORVASTATIN 20 MG TABLET PO SCH (21:22)
[2019-12-02] MEDS: PIPERACILLIN SODIUM/TAZOBACTAM 3.375 GM in DEXTROSE 5% IN WATER 50 ML IV SCH ×5 (00:56→23:33)
[2019-12-02] MEDS: 0.9 % SODIUM CHLORIDE 10 ML SYRINGE IV SCH ×3 (05:26→21:25)
[2019-12-02 06:54] LABS: Basophils # (Auto) 0.17 K/mcL (0.00-0.30); Basophils % (Auto) 0.9 % (0.0-2.0); Eosinophils # (Auto) 0.47 K/mcL (0.00-0.70); Eosinophils % (Auto) 2.4 % (0.0-7.0); Granulocytes % (Auto) 76.8 % (38.0-78.0); Hematocrit 52.3 % (40.1-51.0); Hemoglobin 16.8 g/dL (13.7-17.5); Lymphocytes # (Auto) 2.63 K/mcL (1.50-4.80); Lymphocytes % (Auto) 13.5 % (15.5-49.0); Mean Cell Volume 89.6 fL (80.0-100.0); Mean Corpuscular HGB Conc 32.1 g/dL (31.0-36.0); Monocytes # (Auto) 1.25 K/mcL (0.10-0.90); Monocytes % (Auto) 6.4 % (1.0-12.0); Platelet Count 343 K/mcL (140-440); RBC 5.84 M/mcL (4.63-6.08); Red Cell Distribution Width 13.2 % (11.5-14.5); WBC 19.5 K/mcL (4.50-11.00)
[2019-12-02 07:18] LABS: Blood Urea Nitrogen 20 mg/dl (6-20); C-Reactive Protein 11.4 mg/dl (0.0-0.8); Calcium 9.7 mg/dl (8.6-10.4); Carbon Dioxide 30 mmol/L (22-30); Chloride 96 mmol/L (96-108); Glomerular Filtration Rate 81; Glucose 51 mg/dL (70-105)
[2019-12-02] MEDS: INSULIN LISPRO 1 UNIT/0.01 ML UNIT SQ SCH ×4 (07:34→21:23)
[2019-12-02] MEDS: INSULIN REGULAR, HUMAN 1 UNIT/0.01 ML UNIT SQ SCH ×3 (07:35→17:10)
--- NOTE | 2019-12-02 07:55 | Internal Med Progress Note ---
SUBJECTIVE Subjective Patient information: Note initiated : 12/02/19 at 7:54 am Service Date, if different from initiated Date: [] Patient: Navid Garcia 59 y/o M admitted on 11/26/19 for "I Have The Chills". Chief Complaint: [] Interval history: Mr. Garcia is a 59 year old M who presents to the ER with increasing right lower extremity redness swelling over the last 48 hours. Patient has been following up with wound care for ulceration Rt foot and has been on antibiotics recently for associated cellulitis. For the last 48 hours he has noted increasing redness, swelling, discharge at the fourth and fifth interphalanx face and associated nausea. He was evaluated in the ER the day prior and was discharged on oral antibiotics for diabetic foot ulcer. However symptoms continued to deteriorate and he presents today. Initial work-up was consistent with white count 19.8 and elevated blood sugars at 396. Patient was started on antibiotic coverage after wound care was consulted. Cultures obtained. At the time of my evaluation patient is alert and oriented. He was able to endorse history as above. He denies shaking chills, sweats, shortness of breath chest pain headache or photophobia. Denies diarrhea. 11/26-worsening redness however denies pain but overnight fever at 104. White count 19.2. On Rocephin/vancomycin. Will undergo operative intervention today by wound care. Blood sugar gradually improving. Creatinine 1.2. 11/27-significantly elevated blood sugars over 350s overnight requiring basal prandial insulin. Uptitrate sliding scale. Continue diabetic diet. Postoperative day 1. On antibiotic coverage per ID now on Zosyn vancomycin. Cultures pending so far. White count down to 18.1 from 19.2. Creatinine downtrending from 1.2-1.1, A1c 12.1. No overnight events or concerns per nursing staff. 11/28-White count gradually downtrending now at 17.6. Improving blood sugars now at goal. No overnight fever chills. Postop day 2. Wound care on board will likely undergo wound VAC placement. Stable hemodynamics. On antibiotic coverage per ID. 11/29-patient clinically improving. Improved redness swelling erythema. Postop day 3. Ongoing antibiotic coverage. Blood sugars down to 60s. Discontinue basal insulin. Continue patient is on home regime/CC diet. Weightbearing as per wound care physician recommendations. Ongoing PT OT. 11/30 No overnight event or new complaints. Patient doing well. Per discussion with wound care surgeon, patient will likely go further I&D on Tuesday. 12/01 White blood cell count did elevate overnight without bandemia. He is afebrile. Patient does not appear toxic or feel any worse. Scheduled to undergo further I&D tomorrow. Review of Systems: denies headache/fever/chills/nausea/vomiting/chest or abdominal pain/cough/dyspnea/diarrhea. Otherwise see above. Constitutional Vitals: Vital Signs Temp Pulse Resp BP Pulse Ox 98.2 F 61 16 119/77 96 12/02/19 03:44 12/02/19 03:44 12/02/19 03:44 12/02/19 03:44 12/02/19 03:44 Period Temp Pulse Resp BP Sys/Garcia Pulse Ox Last 24 Hr 97.4 F-98.6 F 61-94 16-18 119-148/75-97 92-97 Intake and Output 12/01/19 12/02/19 12/02/19 21:59 05:59 13:59 Intake Total 1300 100 Output Total 1725 2400 Balance -425 -2300 Weight 124.284 kg Intake & Output: Intake & Output 12/01/19 12/02/19 12/02/19 21:59 05:59 13:59 Intake Total 1300 100 Output Total 1725 2400 Balance -425 -2300 Weight 124.284 kg Intake: IV 100 50 Zosyn 3.375 gm In Dextrose 5% 50 50 in Water 50 ml @ 100 mls/hr IV Q6H [facility] Rx#:[id number] Oral 1200 50 Output: Void Amount 1725 2400 Other: Urine Appearance Clear Urine Color Bright Yellow Urine Odor Normal Stool Size Large Stool Color Brown Green Black Stool Consistency Formed Exam: General: Alert, Awake, No acute Distress, obese Eyes/N/T: EOMI, Head/Neck: neck supple, CV: RRR, No murmurs, Pulm: Clear b/l, no wheezing/rhonchi/rales Abd: soft, nontender, +BS x4 Ext: no clubbing/cyanosis/edema with exception of RLE which is in dressings Neuro: Alert, no focal deficits, moves all extremities, chronic b/l LE decreased sensations Skin: warm/dry OBJ DATA Labs CBC & Chem 7: 12/02/19 05:30 12/02/19 05:30 Labs: Abnormal Lab Results 12/02/19 12/02/19 12/01/19 05:30 05:30 05:30 WBC 19.5 H Hct 52.3 H MPV 11.0 H Lymph % (Auto) 13.5 L Gran # 14.96 H Mclennan # (Auto) 1.25 H Seg Neutrophils % Lymphocytes % Monocytes % (Manual) Metamyelocytes % Reactive Lymphocytes Potassium Chloride 93 L BUN Glucose 51 L 152 H AST C-Reactive Protein 11.4 H Albumin 2.5 L Globulin 4.1 H Albumin/Globulin Ratio 0.6 L 12/01/19 11/30/19 11/30/19 05:30 05:50 05:50 WBC 14.9 H 14.5 H Hct MPV 11.1 H 11.2 H Lymph % (Auto) Gran # Mclennan # (Auto) Seg Neutrophils % Lymphocytes % 13 L Monocytes % (Manual) 14 H Metamyelocytes % 2 H Reactive Lymphocytes 13 H Potassium 3.2 L Chloride 95 L BUN 21 H Glucose AST 40 H C-Reactive Protein Albumin 2.5 L Globulin 3.8 H Albumin/Globulin Ratio 0.7 L 11/29/19 05:30 WBC Hct MPV Lymph % (Auto) Gran # Mclennan # (Auto) Seg Neutrophils % 79 H Lymphocytes % 14 L Monocytes % (Manual) Metamyelocytes % Reactive Lymphocytes Potassium Chloride BUN Glucose AST C-Reactive Protein Albumin Globulin Albumin/Globulin Ratio Meds: Medications Amlodipine Besylate (Norvasc) 10 mg PO DAILY [facility] Last Admin: 12/01/19 08:14 Dose: 10 mg Documented by: Aspirin (Aspirin) 81 mg PO DAILY [facility] Last Admin: 12/01/19 08:13 Dose: 81 mg Documented by: Atorvastatin Calcium (Lipitor) 20 mg PO HS [facility] Last Admin: 12/01/19 21:22 Dose: 20 mg Documented by: Bisacodyl (Dulcolax) 10 mg MT Q2-3DAYS PRN PRN Reason: Constipation Carvedilol (Coreg) 3.125 mg PO BIDCC [facility] Last Admin: 12/01/19 16:58 Dose: 3.125 mg Documented by: Chlorthalidone (Hygroton) 12.5 mg PO DAILY [facility] Last Admin: 12/01/19 08:15 Dose: 12.5 mg Documented by: Dextrose (Dextrose 50%) 0 ml IV UD PRN PRN Reason: Hypoglycemia Last Admin: 11/29/19 23:54 Dose: 50 ml Documented by: Diagnostic Test (Pha) (Accu-Chek) 1 each FS ACHS [facility] Last Admin: 12/02/19 07:32 Dose: 1 each Documented by: Docusate Sodium (Colace) 100 mg PO BID [facility] Last Admin: 12/01/19 21:22 Dose: 100 mg Documented by: Duloxetine HCl (Cymbalta) 30 mg PO BID [facility] Last Admin: 12/01/19 21:22 Dose: 30 mg Documented by: Glucose (Insta-Glucose) 15 gm PO PRN PRN PRN Reason: Hypoglycemia Last Admin: 11/29/19 23:53 Dose: 15 gm Documented by: Heparin Sodium (Porcine) (Heparin) 5,000 unit SQ Q12 [facility] Last Admin: 12/01/19 21:22 Dose: 5,000 unit Documented by: Hydralazine HCl (Apresoline) 10 mg IV Q4-6HP PRN PRN Reason: Hypertension Acetaminophen (Ofirmev) 650 mg in 65 mls @ 130 mls/hr IV Q6HP PRN; Protocol PRN Reason: Per Pain Protocol/Fever > 101 Magnesium Sulfate (Magnesium Sulfate) 2 gm in 50 mls @ 50 mls/hr IV UD PRN PRN Reason: MG = or < 1.7 Last Infusion: 12/01/19 21:00 Dose: Infused Documented by: Piperacillin Sod/Tazobactam (Sod 3.375 gm/ Dextrose) 50 mls @ 100 mls/hr IV Q6H [facility] Last Admin: 12/02/19 05:26 Dose: 100 mls/hr Documented by: Gentamicin Sulfate 40 mg/Clindamycin Phosphate 300 mg/Bacitracin 25,000 unit/ Sodium Chloride 503 mls @ 0 mls/hr IRR QSHIFT [facility] Last Admin: 12/01/19 19:51 Dose: Not Given Documented by: Insulin Human Lispro (Humalog) 0 unit SQ ACHS [facility]; Protocol Last Admin: 12/02/19 07:34 Dose: Not Given Documented by: Insulin Human Regular (Humulin R) 0 unit SQ TIDAC [facility] Last Admin: 12/02/19 07:35 Dose: Not Given Documented by: Iron Carb/Multivit/[place]/Folic Acid (Multivitamin W/Minerals) 1 tab PO DAILY [facility] Last Admin: 12/01/19 08:13 Dose: 1 tab Documented by: Lactobacillus Rhamnosus (Culturelle) 1 cap PO BID [facility] Last Admin: 12/01/19 21:21 Dose: 1 cap Documented by: Lisinopril (Zestril) 40 mg PO BID [facility] Last Admin: 12/01/19 21:21 Dose: 40 mg Documented by: Magnesium Oxide (Magnesium Oxide) 400 mg PO DAILY [facility] Last Admin: 12/01/19 08:14 Dose: 400 mg Documented by: Melatonin (Melatonin 3mg Tablet) 3 mg PO HSP PRN PRN Reason: Insomnia Meloxicam (Mobic) 7.5 mg PO BID [facility] Last Admin: 12/01/19 21:22 Dose: 7.5 mg Documented by: [facility] Last Admin: 12/01/19 16:58 Dose: 500 mg Documented by: Metoprolol Tartrate (Lopressor) 5 mg IV Q5M PRN PRN Reason: Heart Rate > 140 bpm Ondansetron HCl (Zofran Odt) 4 mg SL Q4-6HP PRN; Protocol PRN Reason: Nausea And Vomiting Ondansetron HCl (Zofran) 4 mg IV Q4-6HP PRN; Protocol PRN Reason: Nausea And Vomiting Oxandrolone (Oxandrin) 5 mg PO BID [facility] Last Admin: 12/01/19 21:21 Dose: 5 mg Documented by: Oxycodone/Acetaminophen (Percocet 5-325 Mg) 1 tab PO Q4HP PRN; Protocol PRN Reason: Per Pain Protocol Dorzolamide-Timolol (Eye Drops) 1 dose OU BID [facility] Last Admin: 12/01/19 21:23 Dose: Not Given Documented by: Exenatide Microspheres [ [place] Rasheed] 2 Mg Syringe 1 dose SUB-Q Meyers@0900 [facility] Polyethylene Glycol (Miralax) 17 gm PO DAILYP PRN PRN Reason: Constipation Potassium Chloride (Klor-Con) 40 meq PO DAILYP PRN PRN Reason: K+ < 3.5 Senna/Docusate Sodium (Senna Plus Tablet) 1 tab PO HS [facility] Last Admin: 12/01/19 21:21 Dose: 1 tab Documented by: Sitagliptin Phosphate (Januvia) 100 mg PO DAILY [facility] Last Admin: 12/01/19 08:14 Dose: 100 mg Documented by: Sodium Chloride (Saline Flush) 10 ml IV Q8 [facility] Last Admin: 12/02/19 05:26 Dose: 10 ml Documented by: A/P Narrative A/P Narrative: A: *Diabetic RLE gangrenous cellulitis: s/p I&D (11/27) -wound cx with Strep constellatus & E. coli *Sepsis: 2/2 above -leukocytosis persistent, no bandemia, afebrile -BC neg *JYOTHI: 2/2 above *DM type II: *HTN: home meds amlodipine/Coreg/chlorthalidone *Anxiety disorder: continue Cymbalta *HLD: on statin *Obesity: Plan: -Continue wound care per Dr. Sheffield, I&D on Tuesday -Continue Zosyn/vancomycin(d/c) -deescalate pending final cx -continue exenatide/prandial insulin/CC diet, sliding scale/basal insulin -peripheral smear -PT OT nutrition support -Discharge planning per case management likely Tuesday -ppx: heparin Full code Time Spent With Patient Time: Total time spent is greater than 50% in coordination of care (as documented) at patient's floor/unit and/or counseling patient: QUALITY VTE Deep Vein Thrombosis/Pulmonary Embolism Present on Admission: No
[2019-12-02] MEDS: metFORMIN 500 MG TAB.XL.24H PO SCH ×2 (08:49→17:56)
[2019-12-02] MEDS: MAGNESIUM OXIDE 400 MG TABLET PO SCH (08:49)
[2019-12-02] MEDS: LACTOBACILLUS 1 CAPSULE PO SCH ×2 (08:49→21:23)
[2019-12-02] MEDS: DULoxetine 30 MG CAPSULE PO SCH ×2 (08:49→21:24)
[2019-12-02] MEDS: amLODIPine 10 MG TABLET PO SCH (08:50)
[2019-12-02] MEDS: MULTIVIT,THER IRON,CA,FA & MIN 1 TABLET PO SCH (08:50)
[2019-12-02] MEDS: CARVEDILOL 3.125 MG TABLET PO SCH ×2 (08:50→17:56)
[2019-12-02] MEDS: ASPIRIN 81 MG TAB.CHEW PO SCH (08:50)
[2019-12-02] MEDS: CHLORTHALIDONE 25 MG TABLET PO SCH (08:50)
[2019-12-02] MEDS: sitaGLIPtin 100 MG TABLET PO SCH (08:50)
[2019-12-02] MEDS: MELOXICAM 7.5 MG TABLET PO SCH ×2 (08:50→21:23)
[2019-12-02] MEDS: DOCUSATE SODIUM 100 MG CAPSULE PO SCH ×2 (08:50→21:24)
[2019-12-02] MEDS: LISINOPRIL 20 MG TABLET PO SCH ×2 (08:51→21:23)
[2019-12-02] MEDS: HEPARIN 5,000 UNIT/ML VIAL SQ SCH ×2 (08:54→21:24)
[2019-12-02] MEDS ORDERED: EXENATIDE MICROSPHERES 2 MG SUB-Q SCH (09:00)
[2019-12-02] MEDS: OXANDROLONE 2.5 MG TABLET PO SCH ×2 (09:05→21:23)
[2019-12-02 09:19] LABS: Basophils % (Manual) 1 % (0-2); Eosinophils % (Manual) 3 % (0-7); Lymphocytes % 12 % (15-49); Metamyelocytes % 2 % (0-0); Monocytes % (Manual) 7 % (1-12); Platelet Estimate NORMAL (NORMAL); RBC Morphology NORMAL (NORMAL); Reactive Lymphocytes 3 % (0-2); Segmented Neutrophils % 72 % (38-78)
[2019-12-02 10:03] LABS: Erythrocyte Sedimentation Rate 33 mm/hr (0-15)
--- NOTE | 2019-12-02 11:45 | General Surgery Progress Note ---
SUBJECTIVE Subjective Patient information: Note initiated : 12/02/19 at 11:40 am Service Date, if different from initiated Date: [] Patient: Navid Garcia 59 y/o M admitted on 11/26/19 for "I Have The Chills". Chief Complaint: [] Additional PMFSH (Level 3 Only): No changes ANGELA. Patient had an uneventful night. Constitutional Vitals: Vital Signs Temp Pulse Resp BP Pulse Ox 97.9 F 72 18 124/89 95 12/02/19 08:00 12/02/19 08:00 12/02/19 08:00 12/02/19 08:00 12/02/19 08:00 Period Temp Pulse Resp BP Sys/Garcia Pulse Ox Last 24 Hr 97.4 F-98.6 F 61-94 16-18 119-148/75-97 92-97 Intake and Output 12/01/19 12/02/19 12/02/19 21:59 05:59 13:59 Intake Total 1300 100 50 Output Total 1725 2400 Balance -425 -2300 50 Weight 274 lb Intake & Output: Intake & Output 12/01/19 12/02/19 12/02/19 21:59 05:59 13:59 Intake Total 1300 100 50 Output Total 1725 2400 Balance -425 -2300 50 Weight 274 lb Intake: IV 100 50 50 Zosyn 3.375 gm In Dextrose 5% 50 50 50 in Water 50 ml @ 100 mls/hr IV Q6H [facility] Rx#:[id number] Oral 1200 50 Output: Void Amount 1725 2400 Other: Urine Appearance Clear Clear Urine Color Bright Yellow Bright Yellow Urine Odor Normal Normal Stool Size Large Stool Color Brown Green Black Stool Consistency Formed Exam: AVSS. No changes ANGELA Local wound care is ongoing. WBC trending up. CRP is downtrending. On Oxandrin for hypoproteinemia. Will order REPEAT MRI of right foot for interval changes. Provisionally on schedule for REPEAT debridement on 12/03/2019 A/P Narrative A/P Narrative: Assessment: Post surgical open wound RIGHT foot. NEEDS repeat debridement. plan: On schedule for surgery tomorrow. Will await REPEAT MRI of foot . Time Spent With Patient Time: Total time spent is greater than 50% in coordination of care (as documented) at patient's floor/unit and/or counseling patient: Total time spent with greater than 50% in coordination of care (as documented) at patient's floor/unit and/or counseling patient:: less than 15 minutes
[2019-12-02] MEDS: GENTAMICIN SULFATE 40 MG, CLINDAMYCIN 300 MG, BACITRACIN 25,000 UNIT in SODIUM CHLORIDE... IRR SCH ×2 (17:32→21:22)
--- NOTE | 2019-12-02 17:36 | Cat Scan Report ---
CLINICAL INFORMATION: Preop. Evaluate for osteomyelitis. TECHNIQUE: 0.625 mm helical slices were obtained through the right foot and ankle. Following reconstruction, 2.5 m sagittal, axial coronal reformatted images were processed and reviewed in bone and soft tissue windows. COMPARISON: Right foot MRI 11/26/2019 FINDINGS: Since the foot MRI exam, one week prior the right fifth ray has been resected at the mid metatarsal diaphyseal level. Typical postoperative appearance. There is no CT evidence for osteomyelitis throughout throughout the foot or ankle. Three a 5 mm remote avulsion fracture off the plantar surface of the second proximal phalangeal base. Minor spurring projecting from the dorsal neck of the talus and the adjacent anterior tibial plafond may predispose to anterior impingement dorsiflexion. Minor ossification of plantar and Achilles tendon insertion on the calcaneus. There is marked diffuse cellulitis and fasciitis and/or edema. No evidence of abscess. The joint spaces are normal in width and alignment without arthritic change IMPRESSION: 1. Status post fifth ray resection at the mid metatarsal level. Typical postoperative appearance. 2. No CT evidence for osteomyelitis. 3. Moderate diffuse edema and/or fasciitis and cellulitis. 4. 5 mm remote avulsion fracture second proximal phalangeal base. Interpreted and Authenticated by: Smith Faye 12/02/19
[2019-12-02] MEDS: ATORVASTATIN 20 MG TABLET PO SCH (21:24)
[2019-12-02] MEDS: SENNOSIDES/DOCUSATE SODIUM 1 TAB TABLET PO SCH (21:24)
[2019-12-03] MEDS: DEXTROSE 50% 50 ML VIAL IV PRN ×2 (03:21→05:38)
[2019-12-03] MEDS: PIPERACILLIN SODIUM/TAZOBACTAM 3.375 GM in DEXTROSE 5% IN WATER 50 ML IV SCH ×4 (05:39→23:41)
[2019-12-03] MEDS: 0.9 % SODIUM CHLORIDE 10 ML SYRINGE IV SCH ×3 (05:39→21:58)
[2019-12-03] MEDS ORDERED: IPRATROPIUM/ALBUTEROL 3 ML AMPUL.NEB NEB PRN ×2 (07:00→09:11)
[2019-12-03] MEDS ORDERED: SCOPOLAMINE 1 PATCH PATCH TOPICAL PRN (07:00)
[2019-12-03] MEDS: INSULIN LISPRO 1 UNIT/0.01 ML UNIT SQ SCH ×4 (07:09→21:56)
[2019-12-03] MEDS: CARVEDILOL 3.125 MG TABLET PO SCH ×2 (07:23→17:18)
[2019-12-03] MEDS: CHLORTHALIDONE 25 MG TABLET PO SCH (07:23)
[2019-12-03] MEDS: DULoxetine 30 MG CAPSULE PO SCH ×2 (07:24→21:54)
[2019-12-03] MEDS: amLODIPine 10 MG TABLET PO SCH (07:25)
[2019-12-03] MEDS: LISINOPRIL 20 MG TABLET PO SCH ×2 (07:25→21:54)
[2019-12-03] MEDS: INSULIN REGULAR, HUMAN 1 UNIT/0.01 ML UNIT SQ SCH ×3 (07:28→17:20)
[2019-12-03] MEDS ORDERED: DEXTROSE 50% 50 ML VIAL IV ONE (08:51)
[2019-12-03] MEDS ORDERED: KETAMINE 100 MG/ML ML ONE (08:58)
[2019-12-03] MEDS ORDERED: DEXAMETHASONE 10 MG/ML VIAL ONE (08:58)
[2019-12-03] MEDS ORDERED: ONDANSETRON 4 MG/2 ML VIAL ONE (08:58)
[2019-12-03] MEDS ORDERED: PROPOFOL 200 MG/20 ML VIAL IV ONE (08:58)
[2019-12-03] MEDS ORDERED: MIDAZOLAM 2 MG/2 ML VIAL ONE (08:58)
[2019-12-03] MEDS ORDERED: GLYCOPYRROLATE 0.2 MG/ML VIAL IV ONE (08:58)
[2019-12-03] MEDS ORDERED: LIDOCAINE HCL/PF 100 MG/5 ML SYRINGE IV ONE (08:58)
[2019-12-03] MEDS ORDERED: fentaNYL 100 MCG/2 ML VIAL IV ONE (08:58)
[2019-12-03] MEDS ORDERED: PHENYLEPHRINE 10 MG/ML VIAL ONE (08:58)
[2019-12-03] MEDS ORDERED: EXENATIDE MICROSPHERES 2 MG SUB-Q SCH (09:00)
--- NOTE | 2019-12-03 09:03 | Internal Med Progress Note ---
SUBJECTIVE Subjective Patient information: Note initiated : 12/03/19 at 9:00 am Service Date, if different from initiated Date: [] Patient: Navid Garcia 59 y/o M admitted on 11/26/19 for "I Have The Chills". Chief Complaint: [] Interval history: Mr. Garcia is a 59 year old M who presents to the ER with increasing right lower extremity redness swelling over the last 48 hours. Patient has been following up with wound care for ulceration Rt foot and has been on antibiotics recently for associated cellulitis. For the last 48 hours he has noted increasing redness, swelling, discharge at the fourth and fifth interphalanx face and associated nausea. He was evaluated in the ER the day prior and was discharged on oral antibiotics for diabetic foot ulcer. However symptoms continued to deteriorate and he presents today. Initial work-up was consistent with white count 19.8 and elevated blood sugars at 396. Patient was started on antibiotic coverage after wound care was consulted. Cultures obtained. At the time of my evaluation patient is alert and oriented. He was able to endorse history as above. He denies shaking chills, sweats, shortness of breath chest pain headache or photophobia. Denies diarrhea. 11/26-worsening redness however denies pain but overnight fever at 104. White count 19.2. On Rocephin/vancomycin. Will undergo operative intervention today by wound care. Blood sugar gradually improving. Creatinine 1.2. 11/27-significantly elevated blood sugars over 350s overnight requiring basal prandial insulin. Uptitrate sliding scale. Continue diabetic diet. Postoperative day 1. On antibiotic coverage per ID now on Zosyn vancomycin. Cultures pending so far. White count down to 18.1 from 19.2. Creatinine downtrending from 1.2-1.1, A1c 12.1. No overnight events or concerns per nursing staff. 11/28-White count gradually downtrending now at 17.6. Improving blood sugars now at goal. No overnight fever chills. Postop day 2. Wound care on board will likely undergo wound VAC placement. Stable hemodynamics. On antibiotic coverage per ID. 11/29-patient clinically improving. Improved redness swelling erythema. Postop day 3. Ongoing antibiotic coverage. Blood sugars down to 60s. Discontinue basal insulin. Continue patient is on home regime/CC diet. Weightbearing as per wound care physician recommendations. Ongoing PT OT. 11/30 No overnight event or new complaints. Patient doing well. Per discussion with wound care surgeon, patient will likely go further I&D on Tuesday. 12/01 White blood cell count did elevate overnight without bandemia. He is afebrile. Patient does not appear toxic or feel any worse. Scheduled to undergo further I&D tomorrow. 12/02 Well and he had further I&D this morning with Dr. poole. Review of Systems: denies headache/fever/chills/nausea/vomiting/chest or abdominal pain/cough/dyspnea/diarrhea. Otherwise see above. Constitutional Vitals: Vital Signs Temp Pulse Resp BP Pulse Ox 97.9 F 70 18 126/83 94 12/03/19 06:56 12/03/19 06:56 12/03/19 06:56 12/03/19 06:56 12/03/19 06:56 Period Temp Pulse Resp BP Sys/Garcia Pulse Ox Last 24 Hr 97.8 F-98.3 F 70-86 16-18 116-136/76-90 94-96 Intake and Output 12/02/19 12/03/19 12/03/19 21:59 05:59 13:59 Intake Total 290 750 50 Output Total 2200 Balance 290 -1450 50 Weight 121.761 kg Intake & Output: Intake & Output 12/02/19 12/03/19 12/03/19 21:59 05:59 13:59 Intake Total 290 750 50 Output Total 2200 Balance 290 -1450 50 Weight 121.761 kg Intake: IV 50 50 50 Zosyn 3.375 gm In Dextrose 5% 50 50 50 in Water 50 ml @ 100 mls/hr IV Q6H [facility] Rx#:[id number] Oral 240 700 Output: Void Amount 2200 Other: Meal Lunch Percent of Meal Consumed 100% Urine Appearance Clear Urine Color Pale Bright Yellow Urine Odor Normal Stool Size Large Stool Color Brown Stool Consistency Formed # Voids 4 # Bowel Movements 1 Exam: General: Alert, Awake, No acute Distress, obese Eyes/N/T: EOMI, Head/Neck: neck supple, CV: RRR, No murmurs, Pulm: Clear b/l, no wheezing/rhonchi/rales Abd: soft, nontender, +BS x4 Ext: no clubbing/cyanosis/edema with exception of RLE which is in dressings Neuro: Alert, no focal deficits, moves all extremities, chronic b/l LE decreased sensations Skin: warm/dry OBJ DATA Labs CBC & Chem 7: 12/03/19 10:33 12/02/19 05:30 Labs: Abnormal Lab Results 12/02/19 12/02/19 12/02/19 05:30 05:30 05:30 WBC 19.5 H Hct 52.3 H MPV 11.0 H Lymph % (Auto) 13.5 L Gran # 14.96 H [place] # (Auto) 1.25 H Lymphocytes % 12 L Monocytes % (Manual) Metamyelocytes % 2 H Reactive Lymphocytes 3 H ESR 33 H Chloride Glucose 51 L C-Reactive Protein 11.4 H Albumin Globulin Albumin/Globulin Ratio 12/01/19 12/01/19 11/30/19 05:30 05:30 05:50 WBC 14.9 H Hct MPV 11.1 H Lymph % (Auto) Gran # [place] # (Auto) Lymphocytes % 13 L Monocytes % (Manual) 14 H Metamyelocytes % 2 H Reactive Lymphocytes 13 H ESR Chloride 93 L Glucose 152 H C-Reactive Protein Albumin 2.5 L Globulin 4.1 H Albumin/Globulin Ratio 0.6 L Meds: Medications Albuterol/Ipratropium (Duoneb) 3 ml NEB ONCE PRN PRN Reason: Shortness Of Breath Stop: 12/03/19 13:00 Amlodipine Besylate (Norvasc) 10 mg PO DAILY [facility] Last Admin: 12/03/19 07:25 Dose: 10 mg Documented by: Aspirin (Aspirin) 81 mg PO DAILY [facility] Last Admin: 12/02/19 08:50 Dose: 81 mg Documented by: Atorvastatin Calcium (Lipitor) 20 mg PO HS [facility] Last Admin: 12/02/19 21:24 Dose: 20 mg Documented by: Bisacodyl (Dulcolax) 10 mg DC Q2-3DAYS PRN PRN Reason: Constipation [facility] Last Admin: 12/03/19 07:23 Dose: 3.125 mg Documented by: Chlorthalidone (Hygroton) 12.5 mg PO DAILY [facility] Last Admin: 12/03/19 07:23 Dose: 12.5 mg Documented by: Dextrose (Dextrose 50%) 0 ml IV UD PRN PRN Reason: Hypoglycemia Last Admin: 12/03/19 05:38 Dose: 25 ml Documented by: Diagnostic Test (Pha) (Accu-Chek) 1 each FS ACHS [facility] Last Admin: 12/03/19 07:20 Dose: 1 each Documented by: Docusate Sodium (Colace) 100 mg PO BID [facility] Last Admin: 12/02/19 21:24 Dose: 100 mg Documented by: Duloxetine HCl (Cymbalta) 30 mg PO BID [facility] Last Admin: 12/03/19 07:24 Dose: 30 mg Documented by: Glucose (Insta-Glucose) 15 gm PO PRN PRN PRN Reason: Hypoglycemia Last Admin: 11/29/19 23:53 Dose: 15 gm Documented by: Heparin Sodium (Porcine) (Heparin) 5,000 unit SQ Q12 [facility] Last Admin: 12/02/19 21:24 Dose: 5,000 unit Documented by: Hydralazine HCl (Apresoline) 10 mg IV Q4-6HP PRN PRN Reason: Hypertension Acetaminophen (Ofirmev) 650 mg in 65 mls @ 130 mls/hr IV Q6HP PRN; Protocol PRN Reason: Per Pain Protocol/Fever > 101 Magnesium Sulfate (Magnesium Sulfate) 2 gm in 50 mls @ 50 mls/hr IV UD PRN PRN Reason: MG = or < 1.7 Last Infusion: 12/01/19 21:00 Dose: Infused Documented by: Piperacillin Sod/Tazobactam (Sod 3.375 gm/ Dextrose) 50 mls @ 100 mls/hr IV Q6H [facility] Last Infusion: 12/03/19 06:10 Dose: Infused Documented by: Gentamicin Sulfate 40 mg/Clindamycin Phosphate 300 mg/Bacitracin 25,000 unit/ Sodium Chloride 503 mls @ 0 mls/hr IRR QSHIFT [facility] Last Admin: 12/02/19 21:22 Dose: 1 mls/hr Documented by: Insulin Human Lispro (Humalog) 0 unit SQ ACHS [facility]; Protocol Last Admin: 12/03/19 07:09 Dose: Not Given Documented by: Insulin Human Regular (Humulin R) 0 unit SQ TIDAC [facility] Last Admin: 12/03/19 07:28 Dose: Not Given Documented by: Iron Carb/Multivit/[employer] Machine Feeder/Folic Acid (Multivitamin W/Minerals) 1 tab PO DAILY [facility] Last Admin: 12/02/19 08:50 Dose: 1 tab Documented by: Lactobacillus Rhamnosus (Culturelle) 1 cap PO BID [facility] Last Admin: 12/02/19 21:23 Dose: 1 cap Documented by: Lisinopril (Zestril) 40 mg PO BID [facility] Last Admin: 12/03/19 07:25 Dose: 40 mg Documented by: Magnesium Oxide (Magnesium Oxide) 400 mg PO DAILY [facility] Last Admin: 12/02/19 08:49 Dose: 400 mg Documented by: Melatonin (Melatonin 3mg Tablet) 3 mg PO HSP PRN PRN Reason: Insomnia Meloxicam (Mobic) 7.5 mg PO BID [facility] Last Admin: 12/02/19 21:23 Dose: 7.5 mg Documented by: Metformin [facility] (Glucophage) [facility] Last Admin: 12/02/19 17:56 Dose: 500 mg Documented by: Metoprolol Tartrate (Lopressor) 5 mg IV Q5M PRN PRN Reason: Heart Rate > 140 bpm Ondansetron HCl (Zofran Odt) 4 mg SL Q4-6HP PRN; Protocol PRN Reason: Nausea And Vomiting Ondansetron HCl (Zofran) 4 mg IV Q4-6HP PRN; Protocol PRN Reason: Nausea And Vomiting Oxandrolone (Oxandrin) 5 mg PO BID [facility] Last Admin: 12/02/19 21:23 Dose: 5 mg Documented by: Oxycodone/Acetaminophen (Percocet 5-325 Mg) 1 tab PO Q4HP PRN; Protocol PRN Reason: Per Pain Protocol Dorzolamide-Timolol (Eye Drops) 1 dose OU BID [facility] Last Admin: 12/02/19 21:24 Dose: Not Given Documented by: Exenatide Microspheres [ Bydureon Bci] 2 Mg Syringe 1 dose SUB-Q Mo@0900 [facility] Polyethylene Glycol (Miralax) 17 gm PO DAILYP PRN PRN Reason: Constipation Potassium Chloride (Klor-Con) 40 meq PO DAILYP PRN PRN Reason: K+ < 3.5 Scopolamine (Transderm-Scop) 1 patch TOPICAL PREOP PRN PRN Reason: Nausea And Vomiting Stop: 12/03/19 13:00 Senna/Docusate Sodium (Senna Plus Tablet) 1 tab PO HS [facility] Last Admin: 12/02/19 21:24 Dose: 1 tab Documented by: Sitagliptin Phosphate (Januvia) 100 mg PO DAILY [facility] Last Admin: 12/02/19 08:50 Dose: 100 mg Documented by: Sodium Chloride (Saline Flush) 10 ml IV Q8 [facility] Last Admin: 12/03/19 05:39 Dose: 10 ml Documented by: A/P Narrative A/P Narrative: A: *Diabetic RLE gangrenous cellulitis: s/p I&D (11/27) -wound cx with Strep constellatus & E. coli *Sepsis: 2/2 above -leukocytosis persistent, no bandemia, afebrile -old labs wiht persitent leukocytosis as well, smear nonspecific, did have further I&D to for necrotic pocket - perhaps with improve now -BC neg *JYOTHI: 2/2 above *DM type II: *HTN: home meds amlodipine/Coreg/chlorthalidone *Anxiety disorder: continue Cymbalta *HLD: on statin *Obesity: Plan: -Continue wound care per Dr. Sheffield, I&D today -Continue Zosyn -deescalate pending final cx -continue exenatide/prandial insulin/CC diet, sliding scale/basal insulin -PT OT nutrition support -Discharge planning per case management -ppx: heparin Full code Time Spent With Patient Time: Total time spent is greater than 50% in coordination of care (as documented) at patient's floor/unit and/or counseling patient: QUALITY VTE Deep Vein Thrombosis/Pulmonary Embolism Present on Admission: No
[2019-12-03] MEDS ORDERED: fentaNYL 100 MCG/2 ML VIAL IV PRN (09:11)
[2019-12-03] MEDS ORDERED: ONDANSETRON 4 MG/2 ML VIAL IV PRN (09:11)
[2019-12-03] MEDS ORDERED: MEPERIDINE 25 MG/ML SYRINGE IV PRN (09:11)
[2019-12-03] MEDS ORDERED: LACTATED RINGERS 1,000 ML IV SCH (09:15)
[2019-12-03] MEDS ORDERED: GENTAMICIN SULFATE 800 MG/20 ML VIAL IR ONE (09:18)
--- NOTE | 2019-12-03 09:45 | Brief Operative Note ---
Brief Operative Note Date of procedure: 12/03/19 Pre-op diagnosis: open post surgical wound RIGHT lateral foot Post-op diagnosis: same Procedure: Surgical debridement, Tissue for culture, Mattress sutures to stabilize wound edges. Wound dimension 7 x 5 x 2.5 CM Undermining 1 to 4 [place] for 2.5 CM. Grafts/Implants: No Anesthesia: GLMA Findings: Plantar pocket between the skin, sub q fat and the overlying muscles around metatarsal bone. NO odor and NO abscesses/ loculated collections. Complications: none Surgeon: Serjio Sheffield Estimated blood loss (cc): 15 Specimens Removed/Pathology: other (Tissue for c/s) Condition: stable Disposition: PACU
[2019-12-03] MEDS: GENTAMICIN SULFATE 40 MG, CLINDAMYCIN 300 MG, BACITRACIN 25,000 UNIT in SODIUM CHLORIDE... IRR SCH ×2 (10:16→21:56)
[2019-12-03 11:02] LABS: Hematocrit 47.8 % (40.1-51.0); Hemoglobin 15.4 g/dL (13.7-17.5); Mean Cell Volume 89.7 fL (80.0-100.0); Mean Corpuscular HGB Conc 32.2 g/dL (31.0-36.0); Mean Platelet Volume 10.5 fL (7.4-10.4); Platelet Count 343 K/mcL (140-440); RBC 5.33 M/mcL (4.63-6.08); Red Cell Distribution Width 13.4 % (11.5-14.5)
[2019-12-03 11:23] LABS: Blood Urea Nitrogen 18 mg/dl (6-20); Calcium 9.5 mg/dl (8.6-10.4); Carbon Dioxide 31 mmol/L (22-30); Chloride 98 mmol/L (96-108); Glomerular Filtration Rate 73; Glucose 95 mg/dL (70-105)
[2019-12-03] MEDS: MELOXICAM 7.5 MG TABLET PO SCH ×2 (11:30→21:54)
[2019-12-03] MEDS: MULTIVIT,THER IRON,CA,FA & MIN 1 TABLET PO SCH (11:30)
[2019-12-03] MEDS: LACTOBACILLUS 1 CAPSULE PO SCH ×2 (11:31→21:54)
[2019-12-03] MEDS: ASPIRIN 81 MG TAB.CHEW PO SCH (11:32)
[2019-12-03] MEDS: sitaGLIPtin 100 MG TABLET PO SCH (11:32)
[2019-12-03] MEDS: metFORMIN 500 MG TAB.XL.24H PO SCH ×2 (11:32→17:22)
[2019-12-03] MEDS: DOCUSATE SODIUM 100 MG CAPSULE PO SCH ×2 (11:32→21:54)
[2019-12-03] MEDS: MAGNESIUM OXIDE 400 MG TABLET PO SCH (11:33)
[2019-12-03] MEDS: HEPARIN 5,000 UNIT/ML VIAL SQ SCH ×2 (11:34→21:58)
[2019-12-03] MEDS: OXANDROLONE 2.5 MG TABLET PO SCH ×2 (11:47→23:44)
[2019-12-03 12:08] LABS: Eosinophils % (Manual) 1 % (0-7); Lymphocytes % 8 % (15-49); Metamyelocytes % 1 % (0-0); Monocytes % (Manual) 3 % (1-12); Myelocytes % 1 % (0-0); Platelet Estimate NORMAL (NORMAL); RBC Morphology NORMAL (NORMAL); Reactive Lymphocytes 2 % (0-2); Segmented Neutrophils % 84 % (38-78)
[2019-12-03] MEDS: SENNOSIDES/DOCUSATE SODIUM 1 TAB TABLET PO SCH (21:54)
[2019-12-03] MEDS: ATORVASTATIN 20 MG TABLET PO SCH (21:54)
[2019-12-04] MEDS: PIPERACILLIN SODIUM/TAZOBACTAM 3.375 GM in DEXTROSE 5% IN WATER 50 ML IV SCH (05:55)
[2019-12-04] MEDS: 0.9 % SODIUM CHLORIDE 10 ML SYRINGE IV SCH ×2 (05:55→12:14)
[2019-12-04 06:57] LABS: Basophils # (Auto) 0.05 K/mcL (0.00-0.30); Basophils % (Auto) 0.3 % (0.0-2.0); Eosinophils # (Auto) 0.02 K/mcL (0.00-0.70); Eosinophils % (Auto) 0.1 % (0.0-7.0); Granulocytes % (Auto) 84.1 % (38.0-78.0); Hematocrit 49.8 % (40.1-51.0); Lymphocytes # (Auto) 1.98 K/mcL (1.50-4.80); Lymphocytes % (Auto) 11.1 % (15.5-49.0); Mean Cell Volume 88.5 fL (80.0-100.0); Mean Corpuscular HGB Conc 32.1 g/dL (31.0-36.0); Mean Platelet Volume 10.9 fL (7.4-10.4); Monocytes # (Auto) 0.79 K/mcL (0.10-0.90); Monocytes % (Auto) 4.4 % (1.0-12.0); Platelet Count 370 K/mcL (140-440); RBC 5.63 M/mcL (4.63-6.08); Red Cell Distribution Width 13.3 % (11.5-14.5); WBC 17.9 K/mcL (4.50-11.00)
[2019-12-04] MEDS: INSULIN LISPRO 1 UNIT/0.01 ML UNIT SQ SCH ×2 (07:25→12:14)
[2019-12-04] MEDS: INSULIN REGULAR, HUMAN 1 UNIT/0.01 ML UNIT SQ SCH ×2 (07:26→12:14)
[2019-12-04 07:36] LABS: ALT/SGPT 31 U/l (0-40); AST/SGOT 21 U/l (0-37); Albumin/Globulin Ratio 0.7 (1.0-2.3); Alkaline Phosphatase 52 U/L (39-117); Bilirubin,Direct < 0.2 mg/dL (0.0-0.3); Bilirubin,Total 0.3 mg/dL (0.0-1.0); Calcium 9.3 mg/dl (8.6-10.4); Carbon Dioxide 27 mmol/L (22-30); Chloride 96 mmol/L (96-108); Globulin 4.4 gm/dL (2.2-3.7); Glomerular Filtration Rate 73; Glucose 222 mg/dL (70-105); Lactate Dehydrogenase 166 U/L (94-250); Phosphorous 3.2 mg/dL (2.7-4.5); Triglycerides 105 mg/dl (<150); Uric Acid 3.9 mg/dL (2.5-8.0)
[2019-12-04 07:39] LABS: Blood Urea Nitrogen 27 mg/dl (6-20)
--- NOTE | 2019-12-04 07:43 | Internal Med Progress Note ---
SUBJECTIVE Subjective Patient information: Note initiated : 12/04/19 at 7:39 am Service Date, if different from initiated Date: [] Patient: Navid Garcia 59 y/o M admitted on 11/26/19 for "I Have The Chills". Chief Complaint: [] Interval history: Mr. Garcia is a 59 year old M who presents to the ER with increasing right lower extremity redness swelling over the last 48 hours. Patient has been following up with wound care for ulceration Rt foot and has been on antibiotics recently for associated cellulitis. For the last 48 hours he has noted increasing redness, swelling, discharge at the fourth and fifth interphalanx face and associated nausea. He was evaluated in the ER the day prior and was discharged on oral antibiotics for diabetic foot ulcer. However symptoms continued to deteriorate and he presents today. Initial work-up was consistent with white count 19.8 and elevated blood sugars at 396. Patient was started on antibiotic coverage after wound care was consulted. Cultures obtained. At the time of my evaluation patient is alert and oriented. He was able to endorse history as above. He denies shaking chills, sweats, shortness of breath chest pain headache or photophobia. Denies diarrhea. 11/26-worsening redness however denies pain but overnight fever at 104. White count 19.2. On Rocephin/vancomycin. Will undergo operative intervention today by wound care. Blood sugar gradually improving. Creatinine 1.2. 11/27-significantly elevated blood sugars over 350s overnight requiring basal prandial insulin. Uptitrate sliding scale. Continue diabetic diet. Postoperative day 1. On antibiotic coverage per ID now on Zosyn vancomycin. Cultures pending so far. White count down to 18.1 from 19.2. Creatinine downtrending from 1.2-1.1, A1c 12.1. No overnight events or concerns per nursing staff. 11/28-White count gradually downtrending now at 17.6. Improving blood sugars now at goal. No overnight fever chills. Postop day 2. Wound care on board will likely undergo wound VAC placement. Stable hemodynamics. On antibiotic coverage per ID. 11/29-patient clinically improving. Improved redness swelling erythema. Postop day 3. Ongoing antibiotic coverage. Blood sugars down to 60s. Discontinue basal insulin. Continue patient is on home regime/CC diet. Weightbearing as per wound care physician recommendations. Ongoing PT OT. 11/30 No overnight event or new complaints. Patient doing well. Per discussion with wound care surgeon, patient will likely go further I&D on Tuesday. 12/01 White blood cell count did elevate overnight without bandemia. He is afebrile. Patient does not appear toxic or feel any worse. Scheduled to undergo further I&D tomorrow. 12/02 Well and he had further I&D this morning with Dr. poole. 12/03 Doing well. I&D yesterday. Awaiting wound VAC and then discharge. Review of Systems: denies headache/fever/chills/nausea/vomiting/chest or abdominal pain/cough/dyspnea/diarrhea. Otherwise see above. Constitutional Vitals: Vital Signs Temp Pulse Resp BP Pulse Ox 97.5 F 80 20 131/87 95 12/04/19 04:08 12/04/19 04:08 12/04/19 04:08 12/04/19 04:08 12/04/19 04:08 Period Temp Pulse Resp BP Sys/Garcia Pulse Ox Last 24 Hr 97.3 F-98.0 F 64-92 14-24 84-147/53-87 91-100 Intake and Output 12/03/19 12/04/19 12/04/19 21:59 05:59 13:59 Intake Total 290 1025 50 Output Total 1025 2325 Balance -735 -1300 50 Weight 125.101 kg Intake & Output: Intake & Output 12/03/19 12/04/19 12/04/19 21:59 05:59 13:59 Intake Total 290 1025 50 Output Total 1025 2325 Balance -735 -1300 50 Weight 125.101 kg Intake: IV 50 50 50 Zosyn 3.375 gm In Dextrose 5% 50 50 50 in Water 50 ml @ 100 mls/hr IV Q6H [facility] Rx#:[id number] Oral 240 975 Output: Void Amount 1025 2325 Other: Urine Appearance Clear Urine Color Straw Pale Urine Odor Normal Exam: General: Alert, Awake, No acute Distress, obese Eyes/N/T: EOMI, Head/Neck: neck supple, CV: RRR, No murmurs, Pulm: Clear b/l, no wheezing/rhonchi/rales Abd: soft, nontender, +BS x4 Ext: no clubbing/cyanosis/edema with exception of RLE which is in dressings Neuro: Alert, no focal deficits, moves all extremities, chronic b/l LE decreased sensations Skin: warm/dry OBJ DATA Labs CBC & Chem 7: 12/04/19 05:53 12/04/19 05:53 Labs: Abnormal Lab Results 12/04/19 12/04/19 12/03/19 05:53 05:53 10:33 WBC 17.9 H Hct MPV 10.9 H Gran % 84.1 H Lymph % (Auto) 11.1 L Gran # 15.03 H [place] # (Auto) Seg Neutrophils % Lymphocytes % Metamyelocytes % Myelocytes % Reactive Lymphocytes ESR Carbon Dioxide 31 H Glucose 222 H C-Reactive Protein Albumin 3.0 L Globulin 4.4 H Albumin/Globulin Ratio 0.7 L 12/03/19 12/02/19 12/02/19 10:33 05:30 05:30 WBC 17.0 H Hct MPV 10.5 H Gran % Lymph % (Auto) Gran # [place] # (Auto) Seg Neutrophils % 84 H Lymphocytes % 8 L 12 L Metamyelocytes % 1 H 2 H Myelocytes % 1 H Reactive Lymphocytes 3 H ESR 33 H Carbon Dioxide Glucose 51 L C-Reactive Protein 11.4 H Albumin Globulin Albumin/Globulin Ratio 12/02/19 12/01/19 05:30 05:30 WBC 19.5 H Hct 52.3 H MPV 11.0 H Gran % Lymph % (Auto) 13.5 L Gran # 14.96 H [place] # (Auto) 1.25 H Seg Neutrophils % Lymphocytes % 13 L Metamyelocytes % 2 H Myelocytes % Reactive Lymphocytes 13 H ESR Carbon Dioxide Glucose C-Reactive Protein Albumin Globulin Albumin/Globulin Ratio Meds: Medications Amlodipine Besylate (Norvasc) 10 mg PO DAILY [facility] Last Admin: 12/03/19 07:25 Dose: 10 mg Documented by: Aspirin (Aspirin) 81 mg PO DAILY [facility] Last Admin: 12/03/19 11:32 Dose: 81 mg Documented by: Atorvastatin Calcium (Lipitor) 20 mg PO HS [facility] Last Admin: 12/03/19 21:54 Dose: 20 mg Documented by: Bisacodyl (Dulcolax) 10 mg SD Q2-3DAYS PRN PRN Reason: Constipation [facility] Last Admin: 12/03/19 17:18 Dose: 3.125 mg Documented by: Chlorthalidone (Hygroton) 12.5 mg PO DAILY [facility] Last Admin: 12/03/19 07:23 Dose: 12.5 mg Documented by: Dextrose (Dextrose 50%) 0 ml IV UD PRN PRN Reason: Hypoglycemia Last Admin: 12/03/19 05:38 Dose: 25 ml Documented by: Diagnostic Test (Pha) (Accu-Chek) 1 each FS ACHS [facility] Last Admin: 12/04/19 07:24 Dose: 1 each Documented by: Docusate Sodium (Colace) 100 mg PO BID [facility] Last Admin: 12/03/19 21:54 Dose: 100 mg Documented by: Duloxetine HCl (Cymbalta) 30 mg PO BID [facility] Last Admin: 12/03/19 21:54 Dose: 30 mg Documented by: Glucose (Insta-Glucose) 15 gm PO PRN PRN PRN Reason: Hypoglycemia Last Admin: 11/29/19 23:53 Dose: 15 gm Documented by: Heparin Sodium (Porcine) (Heparin) 5,000 unit SQ Q12 [facility] Last Admin: 12/03/19 21:58 Dose: 5,000 unit Documented by: Hydralazine HCl (Apresoline) 10 mg IV Q4-6HP PRN PRN Reason: Hypertension Acetaminophen (Ofirmev) 650 mg in 65 mls @ 130 mls/hr IV Q6HP PRN; Protocol PRN Reason: Per Pain Protocol/Fever > 101 Magnesium Sulfate (Magnesium Sulfate) 2 gm in 50 mls @ 50 mls/hr IV UD PRN PRN Reason: MG = or < 1.7 Last Infusion: 12/01/19 21:00 Dose: Infused Documented by: Piperacillin Sod/Tazobactam (Sod 3.375 gm/ Dextrose) 50 mls @ 100 mls/hr IV Q6H [facility] Last Infusion: 12/04/19 06:25 Dose: Infused Documented by: Gentamicin Sulfate 40 mg/Clindamycin Phosphate 300 mg/Bacitracin 25,000 unit/ Sodium Chloride 503 mls @ 0 mls/hr IRR QSHIFT [facility] Last Admin: 12/03/19 21:56 Dose: Not Given Documented by: Insulin Human Lispro (Humalog) 0 unit SQ ACHS [facility]; Protocol Last Admin: 12/04/19 07:25 Dose: Not Given Documented by: Insulin Human Regular (Humulin R) 0 unit SQ TIDAC [facility] Last Admin: 12/04/19 07:26 Dose: 55 units Documented by: Iron Carb/Multivit/Pulp Beater/Folic Acid (Multivitamin W/Minerals) 1 tab PO DAILY [facility] Last Admin: 12/03/19 11:30 Dose: 1 tab Documented by: Lactobacillus Rhamnosus (Culturelle) 1 cap PO BID [facility] Last Admin: 12/03/19 21:54 Dose: 1 cap Documented by: Lisinopril (Zestril) 40 mg PO BID [facility] Last Admin: 12/03/19 21:54 Dose: 40 mg Documented by: Magnesium Oxide (Magnesium Oxide) 400 mg PO DAILY [facility] Last Admin: 12/03/19 11:33 Dose: 400 mg Documented by: Melatonin (Melatonin 3mg Tablet) 3 mg PO HSP PRN PRN Reason: Insomnia Meloxicam (Mobic) 7.5 mg PO BID [facility] Last Admin: 12/03/19 21:54 Dose: 7.5 mg Documented by: Metformin HCl (Glucophage) 500 mg PO BIDCC [facility] Last Admin: 12/03/19 17:22 Dose: 500 mg Documented by: Metoprolol Tartrate (Lopressor) 5 mg IV Q5M PRN PRN Reason: Heart Rate > 140 bpm Ondansetron HCl (Zofran Odt) 4 mg SL Q4-6HP PRN; Protocol PRN Reason: Nausea And Vomiting Ondansetron HCl (Zofran) 4 mg IV Q4-6HP PRN; Protocol PRN Reason: Nausea And Vomiting Oxandrolone (Oxandrin) 5 mg PO BID [facility] Last Admin: 12/03/19 23:44 Dose: 5 mg Documented by: Oxycodone/Acetaminophen (Percocet 5-325 Mg) 1 tab PO Q4HP PRN; Protocol PRN Reason: Per Pain Protocol Dorzolamide-Timolol (Eye Drops) 1 dose OU BID [facility] Last Admin: 12/03/19 21:58 Dose: Not Given Documented by: Exenatide Microspheres [ Bydureon Bci] 2 Mg Syringe 1 dose SUB-Q Mo@0900 [facility] Last Admin: 12/03/19 12:00 Dose: 1 dose Documented by: Polyethylene Glycol (Miralax) 17 gm PO DAILYP PRN PRN Reason: Constipation Potassium Chloride (Klor-Con) 40 meq PO DAILYP PRN PRN Reason: K+ < 3.5 Senna/Docusate Sodium (Senna Plus Tablet) 1 tab PO HS [facility] Last Admin: 12/03/19 21:54 Dose: 1 tab Documented by: Sitagliptin Phosphate (Januvia) 100 mg PO DAILY [facility] Last Admin: 12/03/19 11:32 Dose: 100 mg Documented by: Sodium Chloride (Saline Flush) 10 ml IV Q8 [facility] Last Admin: 12/04/19 05:55 Dose: 10 ml Documented by: A/P Narrative A/P Narrative: A: *Diabetic RLE gangrenous cellulitis: s/p I&D (11/27) with repeat I&D (12/02) -wound cx with Strep constellatus & E. coli *Sepsis: 2/2 above -leukocytosis persistent, no bandemia, afebrile, not at all toxic appearing -BC neg *JYOTHI: 2/2 above, resolved *DM type II: *HTN: home meds amlodipine/Coreg/chlorthalidone *Anxiety disorder: continue Cymbalta *HLD: on statin *Obesity: Plan: -Continue wound care per Dr. Sheffield, -Continue Zosyn - deescalate to levaquin -continue exenatide/prandial insulin/CC diet, sliding scale/basal insulin -PT OT nutrition support -Discharge planning per case management -ppx: heparin Full code Time Spent With Patient Time: Total time spent is greater than 50% in coordination of care (as documented) at patient's floor/unit and/or counseling patient: QUALITY VTE Deep Vein Thrombosis/Pulmonary Embolism Present on Admission: No
--- NOTE | 2019-12-04 07:55 | Operative Note ---
DATE OF OPERATION: 11/30/2019 PREOPERATIVE DIAGNOSES: 1. Open postsurgical wound, right anterior lateral foot. 2. 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 POSTOPERATIVE DIAGNOSIS: Same. OPERATION: Bedside debridement of necrotic eschar. ESTIMATED BLOOD LOSS: 0 mL. INSTRUMENT COUNT: Count of all swabs, instruments and needles were reported to be correct. PROCEDURE IN DETAIL: This is an ongoing wound care management at the bedside. After obtaining verbal consent, the right foot was widely cleaned, prepped and draped in a standard fashion. The wound site was copiously washed and cleaned with wash solution. Using pickup and scissors, the necrotic surface around the margins and all the skin flap was sharply excised. A limited digital exploration of the wound and spaces between the flap and the bone was carried out. No further operations were noted. The wound was again cleaned thoroughly with normal saline and washed solution. MIST treatment was given. The wound surface was treated with antibiotic soaked GCB wet dry dressings. VD:gonsalo Job ID: [id number] Doc ID: [id number] Serjio MURRAY
--- NOTE | 2019-12-04 09:25 | Operative Note ---
DATE OF OPERATION: 12/03/2019 PREOPERATIVE DIAGNOSIS: Open postsurgical wound, right lateral foot. POSTOPERATIVE DIAGNOSIS: Open postsurgical wound, right lateral foot. OPERATION: 1. Repeat surgical debridement. 2. Tissue for culture. 3. Mattress sutures to stabilize the wound edges. SURGEON: Serjio Sheffield M.D. FINAL WOUND DIMENSIONS: 7 x 5 x 2.5 cm. Undermining between 1 o'clock and 4 o'clock for 2.5 cm. ANESTHESIA: General laryngeal mask airway. ANESTHESIOLOGIST: Yolanda Henderson M.D. BLOOD LOSS: About 15 mL. COUNTS: Count of swabs, instruments, and needles was reported to be correct. INDICATION FOR SURGERY: This patient has been in the hospital since initial operation on 11/27/2019. He underwent emergency ray amputation of the right fifth toe for complicated skin and skin structure infection, sepsis, and gangrene. Postoperatively, the patient's wound has stalled, and there was evidence of an elevated white count yesterday with necrosis around the skin edges. It was, therefore, decided to take him to the operating room for repeat excision debridement and other indicated procedure. PROCEDURE NOTE IN DETAIL: After obtaining informed consent, patient was taken to the operating room and anesthetized uneventfully in supine position using laryngeal mask airway. Time out was called. He was already on intravenous antibiotics. Preoperative photograph was taken. The right foot, heel, and leg was cleaned, prepped, and draped in a standard fashion. First, digital exploration of the wound was carried out. The retaining sutures were removed. There was no evidence of any loculated collection. However, there was undermining between 1 o'clock and 4 o'clock for 2.5 cm. This was a space between the skin and subcutaneous fat and the overlying soft tissue surrounding the bones. Necrotic tissue from this site was further sharply debrided and specimen sent for cultures and sensitivity. The wound edges were excised and refreshed. Copious irrigation of the field was carried out initially with 3 liters of normal saline using pulse lavage irrigation. The second bag of irrigation consisted of 3 liters of normal saline with 800 mg of gentamicin. Towards completion, the wound field was clean, pink, and there was no further evidence of any bleeding or drainage. I stabilized the wound edges with mattress sutures of #1 nylon. This was carried out to obliterate the space between the muscle component and plantar skin and subcutaneous region. The wound itself was covered with Betadine-soaked gauze, retained in place with Xeroform gauze and reinforced with 4 x 4 gauze, Kerlix, Coban, and Blu respectively. Operation was well tolerated. He recovered from anesthesia. He was taken to PACU and then to MED/SURG floor in stable condition. VD:naomi Job ID: [id number] Doc ID: [id number] Serjio MURRAY
[2019-12-04] MEDS ORDERED: cefTRIAXone 2 GM in DEXTROSE 5% IN WATER 50 ML IV SCH (09:30)
[2019-12-04] MEDS: metFORMIN 500 MG TAB.XL.24H PO SCH (09:47)
[2019-12-04] MEDS: MAGNESIUM OXIDE 400 MG TABLET PO SCH (09:48)
[2019-12-04] MEDS: amLODIPine 10 MG TABLET PO SCH (09:48)
[2019-12-04] MEDS: LACTOBACILLUS 1 CAPSULE PO SCH (09:48)
[2019-12-04] MEDS: sitaGLIPtin 100 MG TABLET PO SCH (09:48)
[2019-12-04] MEDS: MELOXICAM 7.5 MG TABLET PO SCH (09:48)
[2019-12-04] MEDS: DULoxetine 30 MG CAPSULE PO SCH (09:49)
[2019-12-04] MEDS: CHLORTHALIDONE 25 MG TABLET PO SCH (09:49)
[2019-12-04] MEDS: LISINOPRIL 20 MG TABLET PO SCH (09:49)
[2019-12-04] MEDS: DOCUSATE SODIUM 100 MG CAPSULE PO SCH (09:50)
[2019-12-04] MEDS: ASPIRIN 81 MG TAB.CHEW PO SCH (09:50)
[2019-12-04] MEDS: CARVEDILOL 3.125 MG TABLET PO SCH (09:50)
[2019-12-04] MEDS: HEPARIN 5,000 UNIT/ML VIAL SQ SCH ×3 (09:51→10:16)
[2019-12-04] MEDS: MULTIVIT,THER IRON,CA,FA & MIN 1 TABLET PO SCH (09:51)
[2019-12-04] MEDS: GENTAMICIN SULFATE 40 MG, CLINDAMYCIN 300 MG, BACITRACIN 25,000 UNIT in SODIUM CHLORIDE... IRR SCH (09:53)
[2019-12-04] MEDS: OXANDROLONE 2.5 MG TABLET PO SCH (10:03)
--- NOTE | 2019-12-04 11:33 | Discharge Summary ---
Discharge Provider Provider Patient information: Note initiated : 12/04/19 at 11:31 am Service Date, if different from initiated Date: [] Patient: Navid Garcia 59 y/o M admitted on 11/26/19 for "I Have The Chills". Chief Complaint: [] Date of admission: 11/26/19 19:20 Discharge date: 12/04/19 Primary care physician: Zina Sue Consults: 11/26/19 Consult to Physician [CONS] Stat Comment: Consulting Provider: Miguel oRberts Reason For Exam: Physician to Consult 11/27/19 08:06 Consult to Physician [CONS] Routine Comment: Consulting Provider: Serjio Sheffield Reason For Exam: Physician to Consult 11/29/19 13:15 Consult to Physician [CONS] Routine Comment: Consulting Provider: Smith Darnell Reason For Exam: Physician to Consult Discharge Meds Discharge Medications Home Medications amlodipine 10 mg tablet 10 mg PO DAILY 11/02/18 [History Confirmed 11/26/19 Last Taken Unknown] aspirin 81 mg tablet,delayed release 81 mg PO DAILY 11/02/18 [History Confirmed 11/26/19 Last Taken 08/24/19 81 mg] carvedilol 3.125 mg tablet 3.125 mg PO BID 11/02/18 [History Confirmed 11/26/19 Last Taken 08/24/19 3.125 mg] duloxetine 30 mg capsule,delayed release 30 mg PO BID 11/02/18 [History Confirmed 11/26/19 Last Taken 08/24/19 30 mg] lisinopril 40 mg tablet 40 mg PO BID tab 11/02/18 [History Confirmed 11/26/19 Last Taken 08/24/19 40 mg] magnesium L-lactate 84 mg tablet,extended release 84 mg PO DAILY 11/02/18 [History Confirmed 11/26/19 Last Taken 08/24/19 84 mg] meloxicam 15 mg tablet 7.5 mg PO BID tab 11/02/18 [History Confirmed 11/26/19 Last Taken 08/24/19 7.5 mg] rosuvastatin 10 mg tablet 10 mg PO QHS tab 11/02/18 [History Confirmed 11/26/19 Last Taken 08/24/19 10 mg] chlorthalidone 25 mg tablet 12.5 mg PO DAILY tab 11/07/18 [History Confirmed 11/26/19 Last Taken 08/24/19 25 mg] insulin regular hum U-500 conc 1 dose SUB-Q TID 11/07/18 [History Confirmed 11/26/19 Last Taken 08/24/19 Sliding Scale] metformin 500 mg tablet,extended release 24 hr 500 mg PO BID tab 11/07/18 [History Confirmed 11/26/19 Last Taken 08/24/19 500 mg] Bydureon BCise 2 mg SUBCUT Q7D 11/26/19 [History Confirmed 11/26/19 Last Taken Unknown] dorzolamide-timolol 10 ml OPHTHALMIC (EYE) BID 11/26/19 [History Confirmed 11/26/19 Last Taken Unknown] ceftriaxone 2 g IV DAILY #1 each 12/04/19 [Rx Last Taken Unknown] COURSE Hospital Course [facility] [address] [place] [address] AvenueDOB: 1960 [address]Service Date:11/26/19 Admit Date: 11/26/19 [place], [place] [id number] # [id number] Denny Lu D.O. MR #: [id number] Internal Med Progress Note Signed with Addenda ADDENDUM Discussed case with Dr. Renteria. Will discharge on IV ceftriaxone. He will need a total of 2 weeks of antibiotics. He may finish course with oral antibiotics (augmentin) the last 7 days but this can be determined by surgeon. Amended By: Denny Lu D.O. 12/04/19 1131 1131 12/04/19 1131 SUBJECTIVE Subjective Patient information: Note initiated : 12/04/19 at 7:39 am Service Date, if different from initiated Date: [] Patient: Navid Garcia 59 y/o M admitted on 11/26/19 for "I Have The Chills". Chief Complaint: [] Interval history: Mr. Garcia is a 59 year old M who presents to the ER with increasing right lower extremity redness swelling over the last 48 hours. Patient has been following up with wound care for ulceration Rt foot and has been on antibiotics recently for associated cellulitis. For the last 48 hours he has noted increasing redness, swelling, discharge at the fourth and fifth interphalanx face and associated nausea. He was evaluated in the ER the day prior and was discharged on oral antibiotics for diabetic foot ulcer. However symptoms continued to deteriorate and he presents today. Initial work-up was consistent with white count 19.8 and elevated blood sugars at 396. Patient was started on antibiotic coverage after wound care was consulted. Cultures obtained. At the time of my evaluation patient is alert and oriented. He was able to endor se history as above. He denies shaking chills, sweats, shortness of breath chest pain headache or photophobia. Denies diarrhea. 11/26-worsening redness however denies pain but overnight fever at 104. White count 19.2. On Rocephin/vancomycin. Will undergo operative intervention today by wound care. Blood sugar gradually improving. Creatinine 1.2. 11/27-significantly elevated blood sugars over 350s overnight requiring basal prandial insulin. Uptitrate sliding scale. Continue diabetic diet. Postoperative day 1. On antibiotic coverage per ID now on Zosyn vancomycin. Cultures pending so far. White count down to 18.1 from 19.2. Creatinine downtrending from 1.2-1.1, A1c 12.1. No overnight events or concerns per nursing staff. 11/28-White count gradually downtrending now at 17.6. Improving blood sugars now at goal. No overnight fever chills. Postop day 2. Wound care on board will likely undergo wound VAC placement. Stable hemodynamics. On antibiotic coverage per ID. 11/29-patient clinically improving. Improved redness swelling erythema. Postop day 3. Ongoing antibiotic coverage. Blood sugars down to 60s. Discontinue basal insulin. Continue patient is on home regime/CC diet. Weightbearing as per wound care physician recommendations. Ongoing PT OT. 11/30 No overnight event or new complaints. Patient doing well. Per discussion with wound care surgeon, patient will likely go further I&D on Tuesday. 12/01 White blood cell count did elevate overnight without bandemia. He is afebrile. Patient does not appear toxic or feel any worse. Scheduled to undergo further I&D tomorrow. 12/02 Well and he had further I&D this morning with Dr. poole. 12/03 Doing well. I&D yesterday. Awaiting wound VAC and then discharge. *Discussed case with Dr. Renteria. Will discharge on IV ceftriaxone. He will need a total of 2 weeks of antibiotics. He may finish course with oral antibiotics (augmentin) the last 7 days but this can be determined by surgeon. A: *Diabetic RLE gangrenous cellulitis: s/p I&D (11/27) with repeat I&D (12/02) -wound cx with Strep constellatus & E. coli *Sepsis: 2/2 above -leukocytosis persistent, no bandemia, afebrile, not at all toxic appearing -BC neg *JYOTHI: 2/2 above, resolved *DM type II: *HTN: home meds amlodipine/Coreg/chlorthalidone *Anxiety disorder: continue Cymbalta *HLD: on statin *Obesity: Discharge diagnosis: Diabetic wound cellulitis and gangrenous E. coli and Streptococcus Secondary discharge diagnosis: Sepsis acute kidney injury diabetes hypertension anxiety obesity upper lipidemia Time Spent with Patient Time attestation: Total time spent providing and/or coordinating discharge services: Time spent: Greater than 30 minutes EXAM Constitutional Vitals: Temp Pulse Resp BP Pulse Ox 97.3 F 74 20 121/75 90 12/04/19 07:54 12/04/19 07:54 12/04/19 07:54 12/04/19 07:54 12/04/19 07:54 Discharge Data Data Completed and Pending Labs on day of discharge: Labs from last 24 hours 12/04/19 12/04/19 12/03/19 05:53 05:53 10:33 WBC 17.9 H RBC 5.63 Hgb 16.0 Hct 49.8 MCV 88.5 MCH 28.4 MCHC 32.1 RDW 13.3 Plt Count 370 MPV 10.9 H Gran % 84.1 H Lymph % (Auto) 11.1 L Preston % (Auto) 4.4 Eos % (Auto) 0.1 Baso % (Auto) 0.3 Gran # 15.03 H Lymph # (Auto) 1.98 Preston # (Auto) 0.79 Eos # (Auto) 0.02 Baso # (Auto) 0.05 Total Counted 100 Seg Neutrophils % 84 H Lymphocytes % 8 L Monocytes % (Manual) 3 Eosinophils % (Manual) 1 Metamyelocytes % 1 H Myelocytes % 1 H Reactive Lymphocytes 2 Platelet Estimate Normal RBC Morphology Normal Sodium 134 Potassium 4.1 Chloride 96 Carbon Dioxide 27 Anion Gap 11.0 BUN 27 H Creatinine 1.1 GFR Calculation 73 Glucose 222 H Uric Acid 3.9 Calcium 9.3 Phosphorus 3.2 Magnesium 2.0 Total Bilirubin 0.3 Direct Bilirubin < 0.2 GGT 15 AST 21 ALT 31 Alkaline Phosphatase 52 Lactate Dehydrogenase 166 Total Protein 7.4 Albumin 3.0 L Globulin 4.4 H Albumin/Globulin Ratio 0.7 L Triglycerides 105 Preliminary micro results at discharge 12/03/19 11:06 Wound Culture - Preliminary Foot - Right Discharge Plan Patient/Caregiver Discharge Instructions Activity: increase activity as tolerated Diet: Consistent Carbohydrate Prescriptions: New ceftriaxone 2 gram Recon Soln 2 g IV DAILY Qty: 1 RF: 0 Continued amlodipine 10 mg tablet 10 mg PO DAILY RF: 0 aspirin 81 mg tablet,delayed release (DR/EC) 81 mg PO DAILY RF: 0 carvedilol 3.125 mg tablet 3.125 mg PO BID RF: 0 duloxetine 30 mg capsule,delayed release(DR/EC) 30 mg PO BID RF: 0 lisinopril 40 mg tablet 40 mg PO BID RF: 0 magnesium L-lactate 84 mg tablet extended release 84 mg PO DAILY RF: 0 meloxicam 15 mg tablet 7.5 mg PO BID RF: 0 rosuvastatin 10 mg tablet 10 mg PO QHS RF: 0 chlorthalidone 25 mg tablet 12.5 mg PO DAILY RF: 0 metformin 500 mg tablet extended release 24 hr 500 mg PO BID RF: 0 insulin regular hum U-500 conc 1 dose SUB-Q TID RF: 0 dorzolamide-timolol 22.3-6.8 mg/mL Drops 10 ml OPHTHALMIC (EYE) BID RF: 0 Bydureon BCise 2 mg/0.85 mL Auto-Injector 2 mg SUBCUT Q7D RF: 0 Discontinued amoxicillin-pot clavulanate [Augmentin] 875-125 mg tablet 1 tab PO Q12H Qty: 20 RF: 0 ciprofloxacin HCl 500 mg tablet 500 mg PO Q12H Qty: 20 RF: 0 Other Ambulatory Orders: Complete Blood Count (Routine) Timeframe: 1 Week Facility: [facility] - Location: Laboratory Ordered By: Denny Lu Comprehensive Metabolic Panel (Routine) Timeframe: 1 Week Facility: [facility] - Location: Laboratory Ordered By: Denny Nathaniel K[place]oth C-Reactive Protein (Routine) Timeframe: 1 Week Facility: [facility] - Location: Laboratory Ordered By: Denny Lu Erythrocyte Sedimentation Rate (Routine) Timeframe: 1 Week Facility: [facility] - Location: Laboratory Ordered By: Denny Lu Follow Up Plan Follow up with: Serjio Sheffield MD [Physician] - Zina Sue MD [Primary Care Provider] - Patient Disposition: Xfer SNF Prognosis: Fair Rehab Potential: Fair I certify that the patient requires SNF services: Yes Overall status at discharge: patient is progressing back to baseline Discharge Orders: Discharge Order (Routine); Ordered 12/04/19 Ordered By: Denny Lu QUALITY VTE Deep Vein Thrombosis/Pulmonary Embolism Present on Admission: No
[2019-12-04] MEDS ORDERED: FLU VACC QS2020-21(6MOS UP)/PF 60 MCG/0.5 ML SYRINGE IM ONE (16:31)
== END 2019-12-04 17:20 | DRG 853 ==
LOC: ED 14:59 → MEDSUR 19:20
PROVIDERS: ADMIT Internal Medicine; ATTEND Internal Medicine

== ENCOUNTER 2020-05-12 10:21 | Inpatient (IN) ==
[2020-05-12] MEDS ORDERED: PIPERACILLIN SODIUM/TAZOBACTAM 3.375 GM in DEXTROSE 5% IN WATER 50 ML IV SCH (10:45)
--- NOTE | 2020-05-12 11:09 | Emergency Department Note ---
HPI General Chief complaint: Wound/Laceration Stated complaint: right foot wound, worsening Time Seen by Provider: 05/12/20 10:28 Source: patient Mode of arrival: ambulatory Limitations: no limitations History of Present Illness HPI Narrative: This is a 59-year-old male patient of Dr. Sheffield (wound clinic) who underwent a right lateral foot full-thickness skin graft on 04/23/2020 with a left upper arm donor site. He did well up until last Tuesday (05/09) when he developed a fever to 101 Fahrenheit. He presented to the emergency department and was given IV ceftriaxone and sent home with oral Keflex. He has not had any fevers or chills since then, but woke up this morning with a red, hot and swollen foot including his toes of which was a new presentation. He is also having some serosanguineous weeping from the wound. He was seen in the wound clinic this morning and Dr. Sheffield has asked us to evaluate him for wound infection and sepsis, and is planning for admission for IV antibiotics and an I&D of the wound. Patient's vital signs are within normal limits. He is not tachycardic. Last Covid test was prior to his procedure on 04/23. He denies viral symptoms. He is a diabetic currently on Trulicity and regular insulin 3 times a day. Last A1c was 7.3. Wound cultures from 05/09 show staph aureus and gram-negative bacilli. Sensitivities are still pending. Related Data Home Medications Medication Instructions Recorded Confirmed amlodipine 10 mg tablet 10 mg PO DAILY 11/02/18 05/12/20 aspirin 81 mg tablet,delayed 81 mg PO DAILY 11/02/18 05/12/20 release carvedilol 3.125 mg tablet 3.125 mg PO BID 11/02/18 05/12/20 duloxetine 30 mg capsule,delayed 30 mg PO BID 11/02/18 05/12/20 release lisinopril 40 mg tablet 40 mg PO BID tab 11/02/18 05/12/20 magnesium L-lactate 84 mg 84 mg PO DAILY 11/02/18 05/12/20 tablet,extended release meloxicam 15 mg tablet 7.5 mg PO BID tab 11/02/18 05/12/20 rosuvastatin 10 mg tablet 10 mg PO QHS tab 11/02/18 05/12/20 chlorthalidone 25 mg tablet 12.5 mg PO DAILY tab 11/07/18 05/12/20 metformin 500 mg tablet,extended 500 mg PO BID tab 11/07/18 05/12/20 release 24 hr dulaglutide [Trulicity] 0.75 mg SUBCUT WEEKLY 04/17/20 05/12/20 insulin regular hum U-500 conc 100 unit SUBCUT TID 04/17/20 05/12/20 [Humulin R U-500 (Conc) Kwikpen] Allergies Allergy/AdvReac Type Severity Reaction Status Date / Time hydrocodone AdvReac Mild Vomiting Verified 05/09/20 22:20 Review of Systems ROS ROS Narrative: Narrative: All systems ED: reviewed and negative except as stated. PFS Narrative Patient History Narrative: Narrative: Medical/Surgical/Family History All Active Problems (Updated 05/12/20 @ 14:43 by Georgia Cárdenas PA-C) Diabetic foot infection (Acute) Osteomyelitis (Acute) Status post full thickness skin graft (Acute) Wound cellulitis after surgery (Acute) Cellulitis (Acute) Phlebitis of right saphenous vein (Acute) Diabetic foot ulcer (Acute) Open wound of right foot (Acute) Diabetes (Acute) Nausea & vomiting (Acute) Myopia (Chronic) Ulcer of foot (Chronic) Hypertropia (Chronic) Macular degeneration (Chronic) Primary open angle glaucoma (Chronic) Senile cataracts of both eyes (Chronic) Regular astigmatism, bilateral (Chronic) Presbyopia (Chronic) Glaucoma (Chronic) Mild non proliferative diabetic retinopathy (Chronic) Diabetic macular edema (Chronic) Nuclear senile cataract (Chronic) Diabetic peripheral neuropathy (Chronic) Vitamin D deficiency (Chronic) Magnesium deficiency (Chronic) Diabetes mellitus type II, controlled (Chronic) Diabetic autonomic neuropathy (Chronic) Obesity (Chronic) Hypertensive disorder (Chronic) Sleep apnea (Chronic) Encounter for screening colonoscopy (Chronic) Medical History Diabetes mellitus type II, controlled (Chronic) Diabetic autonomic neuropathy (Chronic) Diabetic macular edema (Chronic) Diabetic peripheral neuropathy (Chronic) Encounter for screening colonoscopy (Chronic) Glaucoma (Chronic) Hypertensive disorder (Chronic) Hypertropia (Chronic) Macular degeneration (Chronic) Magnesium deficiency (Chronic) Mild non proliferative diabetic retinopathy (Chronic) Myopia (Chronic) Nuclear senile cataract (Chronic) Obesity (Chronic) Presbyopia (Chronic) Primary open angle glaucoma (Chronic) Regular astigmatism, bilateral (Chronic) Senile cataracts of both eyes (Chronic) Sleep apnea (Chronic) Ulcer of foot (Chronic) Vitamin D deficiency (Chronic) Surgical History History of surgery (Acute) 1998-Left knee scope No pertinent past surgical history (Inactive) Family History Brother Diabetes x2 Hypertension x2 Sister Diabetes x3 Hypertension x3 Mother Stroke Father Cancer colon cancer Social History Smoking Status: Never smoker Alcohol Intake Frequency: does not drink Substance Use: does not use Exam Narrative Narrative: General: AOx3, NAD, nontoxic appearing. Pleasant and conversant. HEENT: PERRLA, EOMI, normocephalic. Moist mucous membranes. Normal facies and normal dentition. Chest: Symmetric, no pain to palpation Respiratory: Lungs clear to auscultation bilaterally. No respiratory distress. Unlabored breathing. Heart: Regular rate and rhythm, no murmurs/clicks/rubs. Abdomen: Non-tender, Non distended Extremities: Warm and well perfused. No edema. Neuro: No focal deficits. Cranial nerves II-XII normal. Skin: Warm dry, no rashes or lesions, no cyanosis. Psych: Normal mood and affect Heme/Lymph: No bruising General Limitations: no limitations Expanded Upper Extremity Arm: Present other (There is a healing approximately 4 inch wound closure noted to the medial aspect of the right upper extremity. There is no erythema, no fluctuance, no drainage.) Expanded Lower Extremity Foot/toe: Present swelling and erythema (Noted along the dorsum of the foot up to the talus joint. Extends to the remaining 4 toes. No fluctuance. There is serosanguineous drainage from the wound site. The skin graft appears to be well-healed.) Top foot image: 1. Course Course Course Narrative: 59-year-old diabetic male presents with infected full- thickness skin graft wound to the right foot after an FTSG on 04/23/[address] Yarbrough. Reevaluation(s) Reevaluation #1: Obtain basic labs, CBC with manual differential, CRP, CMP, lactic acid Per Dr. Rivera's request order MRI without contrast of the foot/ankle/foot right lower extremity Start broad-spectrum antibiotics with Zosyn, will cover for Pseudomonas in the setting of GNB Patient does not appear septic or with SIRS at this time as his vital signs are within normal limits and he is nontoxic-appearing. He has been on antibiotics for over a week, and I think blood cultures will yield little value and will not obtain at this time. Reevaluation #2: CBC with white blood cell count of 12.4, CRP is significantly elevated at 12.8, lactic acid is normal, CMP with elevated blood glucose of 231. MRI of the right lower extremity shows osteomyelitis of the fourth metatarsal. Vital Signs Vital signs: Vital Signs Temperature 97.2 F 05/12/20 10:22 Pulse Rate 84 05/12/20 10:22 Respiratory Rate 20 05/12/20 10:22 Blood Pressure 129/80 05/12/20 10:22 Pulse Oximetry (%) 97 05/12/20 10:22 Temperature 97.2 F 05/12/20 10:22 Pulse Rate 72 05/12/20 14:31 Respiratory Rate 20 05/12/20 13:21 Blood Pressure 125/85 05/12/20 14:31 Pulse Oximetry (%) 94 05/12/20 14:31 MDM MDM Narrative Medical decision making narrative: Diabetic foot wound infection Osteomyelitis of the fourth metatarsal Status post full-thickness skin graft to the right foot Diabetes Patient is being admitted after failure of outpatient antibiotic therapies for diabetic wound infection and osteomyelitis of the fourth metatarsal status post FTSG to the right foot. He will likely need debridement and we will keep him n.p.o. for now. Patient has been signed out to Dr. Lu, hospitalist. Dr. Sheffield's office has been made aware of the results of the MRI. Lab Data Result diagrams: 05/12/20 10:56 05/12/20 10:56 Labs: Lab Results 05/12/20 05/12/20 05/12/20 Range/Units 10:56 10:56 10:56 WBC 12.4 H (4.5-11.0) K/mcL RBC 5.55 (4.50-5.90) M/mcL Hgb 16.0 (13.5-16.5) g/dL Hct 48.0 (41.0-55.0) % MCV 86.5 (80.0-100.0) fL MCH 28.8 (26.0-34.0) pg MCHC 33.3 (31.0-36.0) g/dL RDW 12.9 (11.5-14.5) % Plt Count 226 (140-440) K/mcL MPV 11.8 H (7.4-10.4) fL Seg Neutrophils % 70 (38-78) % Lymphocytes % 19 (15-49) % Monocytes % (Manual) 6 (1-12) % Eosinophils % (Manual) 3 (0-7) % Basophils % (Manual) 2 (0-2) % Platelet Estimate Normal (Normal) RBC Morphology Normal (Normal) ESR 36 H (0-15) mm/hr VBG Lactic Acid 1.6 (0.5-2.0) mmol/L Sodium 134 (133-145) mmol/L Potassium 3.9 (3.3-5.1) mmol/L Chloride 96 (96-108) mmol/L Carbon Dioxide 28 (22-30) mmol/L Anion Gap 10.0 (8.0-16.0) BUN 23 H (6-20) mg/dL Creatinine 1.1 (0.7-1.2) mg/dL GFR Calculation 72 Glucose 231 H (70-105) mg/dL Calcium 8.9 (8.6-10.4) mg/dL Total Bilirubin 0.6 (0.1-1.0) mg/dL AST 18 (<40) U/L ALT 17 (<40) U/L Alkaline Phosphatase 65 (39-117) U/L C-Reactive Protein 12.80 H (0.03-0.80) mg/dL Total Protein 7.7 (5.9-8.4) gm/dL Albumin 3.6 (3.2-5.2) gm/dL Globulin 4.1 H (2.2-3.7) gm/dL Albumin/Globulin Ratio 0.9 L (1.0-2.3) Discharge Plan Patient/Caregiver Discharge Instructions Pt seen by CONTROL SYSTEMS TECHNICIAN/PA only: Yes Clinical Impression: Diabetic foot infection, Osteomyelitis, Status post full thickness skin graft Patient Disposition: Xfer As Inpt ([facility]) Condition: Fair Follow up with: Kaushik Coy MD [Primary Care Provider] - Prescriptions: No Action amlodipine 10 mg tablet 10 mg PO DAILY RF: 0 aspirin 81 mg tablet,delayed release (DR/EC) 81 mg PO DAILY RF: 0 carvedilol 3.125 mg tablet 3.125 mg PO BID RF: 0 duloxetine 30 mg capsule,delayed release(DR/EC) 30 mg PO BID RF: 0 lisinopril 40 mg tablet 40 mg PO BID RF: 0 magnesium L-lactate 84 mg tablet extended release 84 mg PO DAILY RF: 0 meloxicam 15 mg tablet 7.5 mg PO BID RF: 0 rosuvastatin 10 mg tablet 10 mg PO QHS RF: 0 chlorthalidone 25 mg tablet 12.5 mg PO DAILY RF: 0 metformin 500 mg tablet extended release 24 hr 500 mg PO BID RF: 0 Trulicity 0.75 mg/0.5 mL Pen Injector 0.75 mg SUBCUT WEEKLY RF: 0 Humulin R U-500 (Conc) Kwikpen 500 unit/mL (3 mL) Insulin Pen 100 unit SUBCUT TID RF: 0
[2020-05-12 11:54] LABS: Mean Cell Volume 86.5 fL (80.0-100.0); Mean Corpuscular HGB Conc 33.3 g/dL (31.0-36.0); Mean Platelet Volume 11.8 fL (7.4-10.4); Platelet Count 226 K/mcL (140-440); RBC 5.55 M/mcL (4.50-5.90); Red Cell Distribution Width 12.9 % (11.5-14.5); WBC 12.4 K/mcL (4.5-11.0)
[2020-05-12 12:12] LABS: ALT/SGPT 17 U/L (<40); AST/SGOT 18 U/L (<40); Albumin 3.6 gm/dL (3.2-5.2); Albumin/Globulin Ratio 0.9 (1.0-2.3); Alkaline Phosphatase 65 U/L (39-117); Bilirubin,Total 0.6 mg/dL (0.1-1.0); Blood Urea Nitrogen 23 mg/dL (6-20); Calcium 8.9 mg/dL (8.6-10.4); Carbon Dioxide 28 mmol/L (22-30); Chloride 96 mmol/L (96-108); Globulin 4.1 gm/dL (2.2-3.7); Glomerular Filtration Rate 72; Glucose 231 mg/dL (70-105)
[2020-05-12 12:31] LABS: Basophils % (Manual) 2 % (0-2); Eosinophils % (Manual) 3 % (0-7); Lymphocytes % 19 % (15-49); Monocytes % (Manual) 6 % (1-12); Platelet Estimate NORMAL (Normal); RBC Morphology NORMAL (Normal); Segmented Neutrophils % 70 % (38-78)
[2020-05-12 13:05] LABS: Erythrocyte Sedimentation Rate 36 mm/hr (0-15)
--- NOTE | 2020-05-12 13:59 | Magnetic Resonance Report ---
CLINICAL INFORMATION: History of diabetes and right lateral foot pain. Fever and redness. COMPARISON: 11/26/2019 TECHNIQUE: Axial T1-T2 proton-density, coronal proton density and sagittal T1 proton-density images were acquired FINDINGS: Fifth ray amputation at the mid metatarsal level is appreciated. No abnormality seen within the metatarsal stump. There is, however, an 11 mm region of increased signal in the fourth metatarsal head extending into the distal fourth metatarsal metaphysis and diaphysis which is new from the prior MRI. It is compatible with osteomyelitis. Vague increased signal in the adjacent fourth proximal phalangeal base is also compatible with mild osteomyelitis. No other marrow signal abnormalities. Joint spaces are normal in width and alignment without arthritic change. Tendons and sheaths are normal. There is diffuse fasciitis throughout the forefoot and midfoot - most severe in the plantar midfoot region. No evidence of soft tissue abscess. Diffuse cellulitis in the subcutaneous fat noted in the midfoot IMPRESSION: 1. 11 mm region of osteomyelitis in the fourth metatarsal head with extension into the metatarsal neck. There is also increased signal in the adjacent fourth proximal phalangeal base compatible with osteomyelitis. 2. Marked fasciitis throughout the forefoot and midfoot - most prominent in the plantar midfoot region. No evidence of soft tissue abscess. Diffuse cellulitis and subcutaneous fat noted within the midfoot and forefoot 3. 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 Interpreted and Authenticated by: Smith Faye 05/12/20
--- NOTE | 2020-05-12 14:25 | Internal Med History&Physical ---
HPI History of Present Illness Patient information: Note initiated : 05/12/20 at 2:21 pm Service Date, if different from initiated Date: [] Patient: Navid Garcia a 59 y/o M admitted on for right foot wound, worsening. Chief Complaint: [] History of present illness: Mr. Garcia is a 59 year old M Presents to the ED with infection of a right foot with recent skin grafting to that foot. He was seen in the wound care clinic today and sent over the ED for admission as he needed IV antibiotics and debridement. He states that since Tuesday is at increased and redness but no pain as he does have neuropathy in the feet. He denies any swelling but does say he has had a drainage of a clearish yellow fluid. Did go to the ER 3 days ago and the him some IV antibiotics and cultured it and it is growing Enterobacter and Staphylococcus. Did have a temperature of 101.5 at the ED visit but has not had any fever since then. Feels relatively well. He has a mild leukocytosis. No other pains or complaints. Has been on oral antibiotics recently. Review of Systems: Pertinent positives as above. Denies headache/chills/nausea/vomiting/chest or abdominal pain/cough/dyspnea/diarrhea. Many 10 point review of system reviewed negative PFSH PFSH All Active Problems Wound cellulitis after surgery (Acute) Cellulitis (Acute) Phlebitis of right saphenous vein (Acute) Diabetic foot ulcer (Acute) Open wound of right foot (Acute) Diabetes (Acute) Nausea & vomiting (Acute) Myopia (Chronic) Ulcer of foot (Chronic) Hypertropia (Chronic) Macular degeneration (Chronic) Primary open angle glaucoma (Chronic) Senile cataracts of both eyes (Chronic) Regular astigmatism, bilateral (Chronic) Presbyopia (Chronic) Glaucoma (Chronic) Mild non proliferative diabetic retinopathy (Chronic) Diabetic macular edema (Chronic) Nuclear senile cataract (Chronic) Diabetic peripheral neuropathy (Chronic) Vitamin D deficiency (Chronic) Magnesium deficiency (Chronic) Diabetes mellitus type II, controlled (Chronic) Diabetic autonomic neuropathy (Chronic) Obesity (Chronic) Hypertensive disorder (Chronic) Sleep apnea (Chronic) Encounter for screening colonoscopy (Chronic) Medical History Diabetes mellitus type II, controlled (Chronic) Diabetic autonomic neuropathy (Chronic) Diabetic macular edema (Chronic) Diabetic peripheral neuropathy (Chronic) Encounter for screening colonoscopy (Chronic) Glaucoma (Chronic) Hypertensive disorder (Chronic) Hypertropia (Chronic) Macular degeneration (Chronic) Magnesium deficiency (Chronic) Mild non proliferative diabetic retinopathy (Chronic) Myopia (Chronic) Nuclear senile cataract (Chronic) Obesity (Chronic) Presbyopia (Chronic) Primary open angle glaucoma (Chronic) Regular astigmatism, bilateral (Chronic) Senile cataracts of both eyes (Chronic) Sleep apnea (Chronic) Ulcer of foot (Chronic) Vitamin D deficiency (Chronic) Surgical History History of surgery (Acute) 1998-Left knee scope No pertinent past surgical history (Inactive) Family History Brother Diabetes x2 Hypertension x2 Sister Diabetes x3 Hypertension x3 Mother Stroke Father Cancer colon cancer Social History smoking status: Never smoker alcohol intake frequency: does not drink substance use type: does not use MEDS/ALLERGIES Home Medications and Allergies Home Medications Medication Instructions Recorded Confirmed Type amlodipine 10 mg tablet 10 mg PO DAILY 11/02/18 05/12/20 History aspirin 81 mg tablet,delayed 81 mg PO DAILY 11/02/18 05/12/20 History release carvedilol 3.125 mg tablet 3.125 mg PO BID 11/02/18 05/12/20 History duloxetine 30 mg capsule,delayed 30 mg PO BID 11/02/18 05/12/20 History release lisinopril 40 mg tablet 40 mg PO BID tab 11/02/18 05/12/20 History magnesium L-lactate 84 mg 84 mg PO DAILY 11/02/18 05/12/20 History tablet,extended release meloxicam 15 mg tablet 7.5 mg PO BID tab 11/02/18 05/12/20 History rosuvastatin 10 mg tablet 10 mg PO QHS tab 11/02/18 05/12/20 History chlorthalidone 25 mg tablet 12.5 mg PO DAILY tab 11/07/18 05/12/20 History metformin 500 mg tablet,extended 500 mg PO BID tab 11/07/18 05/12/20 History release 24 hr dulaglutide [Trulicity] 0.75 mg SUBCUT WEEKLY 04/17/20 05/12/20 History insulin regular hum U-500 conc 100 unit SUBCUT TID 04/17/20 05/12/20 History [Humulin R U-500 (Conc) Kwikpen] Allergies Allergy/AdvReac Type Severity Reaction Status Date / Time hydrocodone AdvReac Mild Vomiting Verified 05/09/20 22:20 EXAM Constitutional Vitals: Temp Pulse Resp BP Pulse Ox 97.2 F 70 20 132/83 93 05/12/20 10:22 05/12/20 14:01 05/12/20 13:21 05/12/20 14:01 05/12/20 14:01 Exam: General: Alert, Awake, No acute Distress, obese Eyes/N/T: EOMI, PERRL, Head/Neck: neck supple, normocephalic atraumatic CV: RRR, No murmurs, normal s1/s2 Pulm: Clear b/l, no wheezing/rhonchi/rales Abd: soft, nontender, +BS x4 Ext: no clubbing/cyanosis/edema exception of right foot which is erythematous/serosanguineous drainage Neuro: Alert, no focal deficits, moves all extremities, CN 2-12 grossly intact, symmetrical strength b/l upper/lower, chronic b/l LE decreased sensations Skin: warm/dry DATA Data Completed and Pending Labs: Labs from last 24 hours 05/12/20 05/12/20 05/12/20 10:56 10:56 10:56 WBC 12.4 H RBC 5.55 Hgb 16.0 Hct 48.0 MCV 86.5 MCH 28.8 MCHC 33.3 RDW 12.9 Plt Count 226 MPV 11.8 H Seg Neutrophils % 70 Lymphocytes % 19 Monocytes % (Manual) 6 Eosinophils % (Manual) 3 Basophils % (Manual) 2 Platelet Estimate Normal RBC Morphology Normal ESR 36 H VBG Lactic Acid 1.6 Sodium 134 Potassium 3.9 Chloride 96 Carbon Dioxide 28 Anion Gap 10.0 BUN 23 H Creatinine 1.1 GFR Calculation 72 Glucose 231 H Calcium 8.9 Total Bilirubin 0.6 AST 18 ALT 17 Alkaline Phosphatase 65 C-Reactive Protein 12.80 H Total Protein 7.7 Albumin 3.6 Globulin 4.1 H Albumin/Globulin Ratio 0.9 L A/P Narrative A/P Narrative: A: *Diabetic Right Foot infection w/recent grafting & Osteo 4th MT: -recent wound cx with Staph aureus and Enterobacter *SIRS: 2/2 above *DM II w/neuropathy: *CKD II: *HTN: home meds amlodipine/Coreg/chlorthalidone *Obesity: Plan: -Continue wound care per Dr. Sheffield -Continue Zosyn/vanco -final WC pending -continue exenatide/prandial insulin/CC diet, sliding scale/basal insulin -PT OT nutrition support -Discharge planning per case management -ppx: heparin full code Time Spent With Patient Time: Total time spent is greater than 50% in coordination of care (as documented) at patient's floor/unit and/or counseling patient:
[2020-05-12] MEDS ORDERED: ACETAMINOPHEN 325 MG TABLET PO PRN (15:43)
[2020-05-12] MEDS ORDERED: MAGNESIUM SULFATE 2 GM/50 ML BAG IV PRN (15:43)
[2020-05-12] MEDS ORDERED: POLYETHYLENE GLYCOL 3350 17 GM PACKET PO PRN (15:43)
[2020-05-12] MEDS ORDERED: SENNOSIDES 1 TABLET PO PRN (15:43)
[2020-05-12] MEDS ORDERED: HYDROcodone/APAP 5/325MG TABLET PO PRN (15:43)
[2020-05-12] MEDS ORDERED: POTASSIUM CHLORIDE 20 MEQ TABLET PO PRN ×2 (15:43)
[2020-05-12] MEDS ORDERED: ONDANSETRON 4 MG/2 ML VIAL IV PRN (15:43)
[2020-05-12] MEDS ORDERED: POTASSIUM CHLORIDE 40 MEQ in DEXTROSE 5% IN WATER 500 ML IV PRN (15:43)
[2020-05-12] MEDS ORDERED: VANCOMYCIN PER PHARMACY IV SCH (15:43)
[2020-05-12] MEDS ORDERED: INSULIN REGULAR HUM U SUB-Q SCH (15:43)
[2020-05-12] MEDS ORDERED: MELOXICAM 7.5 MG TABLET PO PRN (16:11)
--- NOTE | 2020-05-12 16:52 | General Surgery Consult Note ---
HPI Data of Consult Consult date: 05/12/20 Requesting physician: Denny Lu Primary Care Provider: Kaushik Talamantes Provider: 05/12/2020 59 / M patient admitted from the emergency room with sepsis, cellulitis, soft tissue necrosis infection and osteomyelitis fourth toe bones adjacent to the amputated fifth toe sites. Consult Narrative Patient Information: Note initiated : 05/12/20 at 4:42 pm Service Date, if different from initiated Date: [] Patient: Navid Garcia 59 y/o M admitted on 05/12/20 for right foot wound, worsening. Chief Complaint: [] Reason for consult: This is an established patient to the wound care center. He has longstanding history of peripheral neuropathy and insensate feet. He underwent right fifth toe amputation. Subsequently he required skin graft. Wound had shown improvement but again there was an area of skin grafted site which had loss of graft. He needed repeat debridement and skin grafting undercover of antibiotics. Subsequently treated with adjuvant hyperbaric oxygen therapy. There was interval change in his wound over the last 3 days. He developed sepsis and increased signs of infection with osteomyelitis involving the adjacent fourth toe metatarsal and phalangeal bones. cc:: CC: [facility] All Active Problems Diabetic foot infection (Acute) Osteomyelitis (Acute) Status post full thickness skin graft (Acute) Wound cellulitis after surgery (Acute) Cellulitis (Acute) Phlebitis of right saphenous vein (Acute) Diabetic foot ulcer (Acute) Open wound of right foot (Acute) Diabetes (Acute) Nausea & vomiting (Acute) Myopia (Chronic) Ulcer of foot (Chronic) Hypertropia (Chronic) Macular degeneration (Chronic) Primary open angle glaucoma (Chronic) Senile cataracts of both eyes (Chronic) Regular astigmatism, bilateral (Chronic) Presbyopia (Chronic) Glaucoma (Chronic) Mild non proliferative diabetic retinopathy (Chronic) Diabetic macular edema (Chronic) Nuclear senile cataract (Chronic) Diabetic peripheral neuropathy (Chronic) Vitamin D deficiency (Chronic) Magnesium deficiency (Chronic) Diabetes mellitus type II, controlled (Chronic) Diabetic autonomic neuropathy (Chronic) Obesity (Chronic) Hypertensive disorder (Chronic) Sleep apnea (Chronic) Encounter for screening colonoscopy (Chronic) Medical History Diabetes mellitus type II, controlled (Chronic) Diabetic autonomic neuropathy (Chronic) Diabetic macular edema (Chronic) Diabetic peripheral neuropathy (Chronic) Encounter for screening colonoscopy (Chronic) Glaucoma (Chronic) Hypertensive disorder (Chronic) Hypertropia (Chronic) Macular degeneration (Chronic) Magnesium deficiency (Chronic) Mild non proliferative diabetic retinopathy (Chronic) Myopia (Chronic) Nuclear senile cataract (Chronic) Obesity (Chronic) Presbyopia (Chronic) Primary open angle glaucoma (Chronic) Regular astigmatism, bilateral (Chronic) Senile cataracts of both eyes (Chronic) Sleep apnea (Chronic) Ulcer of foot (Chronic) Vitamin D deficiency (Chronic) Surgical History History of surgery (Acute) 1999-Left knee scope No pertinent past surgical history (Inactive) Family History Brother Diabetes x2 Hypertension x2 Sister Diabetes x3 Hypertension x3 Mother Stroke Father Cancer colon cancer Social History smoking status: Never smoker alcohol intake frequency: does not drink substance use type: does not use MEDS/ALLERGIES Home Medications and Allergies Home Medications Medication Instructions Recorded Confirmed Type amlodipine 10 mg tablet 10 mg PO DAILY 11/02/18 05/12/20 History aspirin 81 mg tablet,delayed 81 mg PO DAILY 11/02/18 05/12/20 History release carvedilol 3.125 mg tablet 3.125 mg PO BID 11/02/18 05/12/20 History duloxetine 30 mg capsule,delayed 30 mg PO BID 11/02/18 05/12/20 History release lisinopril 40 mg tablet 40 mg PO BID tab 11/02/18 05/12/20 History magnesium L-lactate 84 mg 84 mg PO DAILY 11/02/18 05/12/20 History tablet,extended release meloxicam 15 mg tablet 7.5 mg PO BID tab 11/02/18 05/12/20 History rosuvastatin 10 mg tablet 10 mg PO QHS tab 11/02/18 05/12/20 History chlorthalidone 25 mg tablet 12.5 mg PO DAILY tab 11/07/18 05/12/20 History metformin 500 mg tablet,extended 500 mg PO BID tab 11/07/18 05/12/20 History release 24 hr dulaglutide [Trulicity] 0.75 mg SUBCUT WEEKLY 04/17/20 05/12/20 History insulin regular hum U-500 conc 100 unit SUBCUT TID 04/17/20 05/12/20 History [Humulin R U-500 (Conc) Kwikpen] Allergies Allergy/AdvReac Type Severity Reaction Status Date / Time hydrocodone AdvReac Mild Vomiting Verified 05/09/20 22:20 Physical Examination Vital Signs Vital signs: Temp Pulse Resp BP Pulse Ox 97.5 F 74 20 129/84 91 05/12/20 15:40 05/12/20 15:40 05/12/20 15:40 05/12/20 15:40 05/12/20 15:40 General physical appearance General physical exam: well developed, well nourished and no distress Eyes Eye exam: PERRL and normal ocular movement ENT ENT exam: normal pinna, normal nares, normal mucosa and no congestion Head Head exam IM: Present atraumatic, normal inspection and normocephalic Neck Neck exam: no masses and no venous distension Cardiovascular Cardiovascular exam IM: Present normal rate and rhythm Respiratory Respiratory exam: normal expansion, normal respiratory effort and clear to auscultation Abdomen Abdomen: Present soft, non tender and bowel sounds Integumentary Integumentary: Present other (Skin graft site has opened again. The graft has come off its base. There is purulent drainage and 2 open areas which probes to the underlying bone. There is surrounding periwound edema and erythema acute inflammation cellulitis extending up to the anterior ankle region.) Neurologic Neurologic: Present other (Peripheral diabetic neuropathy of both feet ankles and lower legs.) Musculoskeletal Musculoskeletal: Present other (Status post right fifth toe amputation. He has onychomycosis of toenails both feet.) Psychiatric Psychiatric: Present oriented to time, oriented to person, oriented to place, speech is normal and memory intact Results Labs Result diagrams: 05/13/20 05:31 05/13/20 05:31 Labs: Abnormal lab results 05/12/20 05/12/20 Range/Units 10:56 10:56 WBC 12.4 H (4.5-11.0) K/mcL MPV 11.8 H (7.4-10.4) fL ESR 36 H (0-15) mm/hr BUN 23 H (6-20) mg/dL Glucose 231 H (70-105) mg/dL C-Reactive Protein 12.80 H (0.03-0.80) mg/dL Globulin 4.1 H (2.2-3.7) gm/dL Albumin/Globulin Ratio 0.9 L (1.0-2.3) Diabetes panel 05/12/20 Range/Units 10:56 Sodium 134 (133-145) mmol/L Potassium 3.9 (3.3-5.1) mmol/L Chloride 96 (96-108) mmol/L Carbon Dioxide 28 (22-30) mmol/L BUN 23 H (6-20) mg/dL Creatinine 1.1 (0.7-1.2) mg/dL Glucose 231 H (70-105) mg/dL Calcium 8.9 (8.6-10.4) mg/dL AST 18 (<40) U/L ALT 17 (<40) U/L Alkaline Phosphatase 65 (39-117) U/L Total Protein 7.7 (5.9-8.4) gm/dL Albumin 3.6 (3.2-5.2) gm/dL Calcium panel 05/12/20 Range/Units 10:56 Calcium 8.9 (8.6-10.4) mg/dL Albumin 3.6 (3.2-5.2) gm/dL Pituitary panel 05/12/20 Range/Units 10:56 Sodium 134 (133-145) mmol/L Potassium 3.9 (3.3-5.1) mmol/L Chloride 96 (96-108) mmol/L Carbon Dioxide 28 (22-30) mmol/L BUN 23 H (6-20) mg/dL Creatinine 1.1 (0.7-1.2) mg/dL Glucose 231 H (70-105) mg/dL Calcium 8.9 (8.6-10.4) mg/dL Adrenal panel 05/12/20 Range/Units 10:56 Sodium 134 (133-145) mmol/L Potassium 3.9 (3.3-5.1) mmol/L Chloride 96 (96-108) mmol/L Carbon Dioxide 28 (22-30) mmol/L BUN 23 H (6-20) mg/dL Creatinine 1.1 (0.7-1.2) mg/dL Glucose 231 H (70-105) mg/dL Calcium 8.9 (8.6-10.4) mg/dL Total Bilirubin 0.6 (0.1-1.0) mg/dL AST 18 (<40) U/L ALT 17 (<40) U/L Alkaline Phosphatase 65 (39-117) U/L Total Protein 7.7 (5.9-8.4) gm/dL Albumin 3.6 (3.2-5.2) gm/dL All other labs normal. A/P Narrative A/P Narrative: Assessment: sepsis syndrome. #1 Necrotizing soft tissue infection right fifth toe amputation site. #2 osteomyelitis right fourth toe meta tarsal and proximal phalangeal regions. Plan: Await input from Dr. Raza romeo infectious disease specialist. Patient will need IV antibiotics and aggressive local wound care with missed debridement and topical GCB solution wet-to-dry dressing changes. I will reassess his progress and later schedule operating room surgical de bridement as necessary. Spoke with patient at length about the underlying problems and plan of tr eatment. He has clear understanding and agrees with ongoing management. Time Spent With Patient Time: Total time spent is greater than 50% in coordination of care (as documented) at patient's floor/unit and/or counseling patient: Total time spent with greater than 50% in coordination of care (as documented) at patient's floor/unit and/or counseling patient:: Greater than 35 minutes
[2020-05-12] MEDS ORDERED: VANCOMYCIN 2,000 MG in 0.9 % SODIUM CHLORIDE 500 ML IV ONE (17:00)
[2020-05-12] MEDS: INSULIN LISPRO 1 UNIT/0.01 ML UNIT SQ SCH ×2 (17:35→20:53)
[2020-05-12] MEDS: PIPERACILLIN SODIUM/TAZOBACTAM 3.375 GM in DEXTROSE 5% IN WATER 50 ML IV SCH ×2 (17:36→23:35)
[2020-05-12] MEDS: CARVEDILOL 3.125 MG TABLET PO SCH (17:37)
[2020-05-12] MEDS: metFORMIN 500 MG TAB.XL.24H PO SCH (17:37)
[2020-05-12] MEDS: GENTAMICIN SULFATE 40 MG, CLINDAMYCIN 300 MG, BACITRACIN 25,000 UNIT in SODIUM CHLORIDE... IRR SCH (19:04)
[2020-05-12] MEDS: LISINOPRIL 20 MG TABLET PO SCH (20:51)
[2020-05-12] MEDS: DULoxetine 30 MG CAPSULE PO SCH (20:51)
[2020-05-12] MEDS: ATORVASTATIN 20 MG TABLET PO SCH (20:51)
[2020-05-12] MEDS: HEPARIN 5,000 UNIT/ML VIAL SQ SCH (20:51)
[2020-05-12] MEDS: DOCUSATE SODIUM 100 MG CAPSULE PO SCH (20:53)
[2020-05-12] MEDS: 0.9 % SODIUM CHLORIDE 10 ML SYRINGE IV SCH (21:17)
[2020-05-13] MEDS: 0.9 % SODIUM CHLORIDE 10 ML SYRINGE IV SCH ×3 (05:28→21:07)
[2020-05-13] MEDS: PIPERACILLIN SODIUM/TAZOBACTAM 3.375 GM in DEXTROSE 5% IN WATER 50 ML IV SCH ×4 (05:28→23:31)
[2020-05-13 06:58] LABS: Basophils # (Auto) 0.06 K/mcL (0.00-0.20); Basophils % (Auto) 0.6 % (0.0-2.0); Eosinophils # (Auto) 0.52 K/mcL (0.00-0.70); Hematocrit 47.1 % (41.0-55.0); Hemoglobin 15.6 g/dL (13.5-16.5); Lymphocytes # (Auto) 2.19 K/mcL (1.50-4.80); Lymphocytes % (Auto) 21.2 % (15.0-49.0); Mean Cell Volume 85.6 fL (80.0-100.0); Mean Corpuscular HGB Conc 33.1 g/dL (31.0-36.0); Mean Platelet Volume 11.5 fL (7.4-10.4); Monocytes # (Auto) 0.74 K/mcL (0.10-0.90); Monocytes % (Auto) 7.2 % (1.0-12.0); Platelet Count 269 K/mcL (140-440); Red Cell Distribution Width 12.6 % (11.5-14.5); WBC 10.3 K/mcL (4.5-11.0)
[2020-05-13 07:09] LABS: ALT/SGPT 14 U/L (<40); AST/SGOT 16 U/L (<40); Albumin 3.1 gm/dL (3.2-5.2); Albumin/Globulin Ratio 0.7 (1.0-2.3); Alkaline Phosphatase 63 U/L (39-117); Bilirubin,Direct < 0.2 mg/dL (<0.3); Bilirubin,Total 0.5 mg/dL (0.1-1.0); Blood Urea Nitrogen 15 mg/dL (6-20); Calcium 9.3 mg/dL (8.6-10.4); Carbon Dioxide 29 mmol/L (22-30); Chloride 97 mmol/L (96-108); Globulin 4.6 gm/dL (2.2-3.7); Glomerular Filtration Rate 92; Glucose 86 mg/dL (70-105); Lactate Dehydrogenase 176 U/L (135-225); Triglycerides 93 mg/dL (<150); Uric Acid 4.9 mg/dL (2.5-8.0)
[2020-05-13] MEDS ORDERED: PATIENTS OWN MEDICATION 1 DOSE MISCELL SC SCH (07:30)
--- NOTE | 2020-05-13 07:40 | Internal Med Progress Note ---
SUBJECTIVE Subjective Patient information: Note initiated : 05/13/20 at 7:33 am Service Date, if different from initiated Date: [] Patient: Navid Garcia 59 y/o M admitted on 05/12/20 for right foot wound, worsening. Chief Complaint: [] Interval history: Mr. Garcia is a 59 year old M Presents to the ED with infection of a right foot with recent skin grafting to that foot. He was seen in the wound care clinic today and sent over the ED for admission as he needed IV antibiotics and debridement. He states that since Tuesday is at increased and redness but no pain as he does have neuropathy in the feet. He denies any swelling but does say he has had a drainage of a clearish yellow fluid. Did go to the ER 3 days ago and the him some IV antibiotics and cultured it and it is growing Enterobacter and Staphylococcus. Did have a temperature of 101.5 at the ED visit but has not had any fever since then. Feels relatively well. He has a mild leukocytosis. No other pains or complaints. Has been on oral antibiotics recently. 05/13 No overnight event or new complaints. Patient feeling well. Continue IV antibiotics and will likely undergo debridement by Dr. Stuart soon. Review of Systems: denies headache/fever/chills/nausea/vomiting/chest or abdominal pain/cough/dyspnea/diarrhea. Otherwise see above. Constitutional Vitals: Vital Signs Temp Pulse Resp BP Pulse Ox 98.2 F 73 18 123/78 93 05/13/20 06:35 05/13/20 06:35 05/13/20 06:35 05/13/20 06:35 05/13/20 06:35 Period Temp Pulse Resp BP Sys/Garcia Pulse Ox Last 24 Hr 97.2 F-99.4 F 64-87 16-20 116-148/77-91 91-99 Intake and Output 05/12/20 05/13/20 05/13/20 21:59 05:59 13:59 Intake Total 50 840 Output Total 1625 1550 Balance -1575 -710 Weight 126.008 kg Intake & Output: Intake & Output 05/12/20 05/13/20 05/13/20 21:59 05:59 13:59 Intake Total 50 840 Output Total 1625 1550 Balance -1575 -710 Weight 126.008 kg Intake: IV 50 600 Zosyn 3.375 gm In Dextrose 5% 50 100 in Water 50 ml @ 100 mls/hr IV Q6H [facility] Rx#:[id number] Vancomycin 2,000 mg In Sodium 500 Chloride 0.9% 500 ml @ 250 mls/ hr IV ONCE ONE Rx#:[id number] Oral 240 Output: Void Amount 1625 1550 Other: Meal Cheese stick, OJx2 Percent of Meal Consumed 100% Feeding Ability Independent Urine Appearance Clear Clear Urine Color Bright Yellow Pale Urine Odor Normal Exam: General: Alert, Awake, No acute Distress, obese Eyes/N/T: EOMI,, Head/Neck: neck supple, CV: RRR, No murmurs, Pulm: Clear b/l, no wheezing/rhonchi/rales Abd: soft, nontender, +BS x4 Ext: no clubbing/cyanosis/edema exception of right foot which is erythematous/serosanguineous drainage Neuro: Alert, no focal deficits, moves all extremities, Skin: warm/dry OBJ DATA Labs CBC & Chem 7: 05/13/20 05:31 05/13/20 05:31 Labs: Abnormal Lab Results 05/13/20 05/13/20 05/12/20 05:31 05:31 10:56 WBC 12.4 H MPV 11.5 H 11.8 H ESR 36 H BUN Glucose C-Reactive Protein Albumin 3.1 L Globulin 4.6 H Albumin/Globulin Ratio 0.7 L 05/12/20 10:56 WBC MPV ESR BUN 23 H Glucose 231 H C-Reactive Protein 12.80 H Albumin Globulin 4.1 H Albumin/Globulin Ratio 0.9 L Meds: Medications Acetaminophen (Tylenol) 650 mg PO Q6HP PRN PRN Reason: PAIN/FEVER > 101 Hydrocodone Bitart/Acetaminophen ([place] 5/325mg) 1 tab PO Q4HP PRN PRN Reason: PAIN LEVEL 3-6 Amlodipine Besylate (Norvasc) 10 mg PO DAILY [facility] Aspirin (Aspirin) 81 mg PO DAILY [facility] Atorvastatin Calcium (Lipitor) 20 mg PO HS [facility] Last Admin: 05/12/20 20:51 Dose: 20 mg Documented by: Carvedilol (Coreg) 3.125 mg PO BIDCC [facility] Last Admin: 05/12/20 17:37 Dose: 3.125 mg Documented by: Chlorthalidone (Hygroton) 12.5 mg PO DAILY [facility] Diagnostic Test (Pha) (Accu-Chek) 1 each FS ACHS [facility] Last Admin: 05/13/20 04:06 Dose: 1 each Documented by: Docusate Sodium (Colace) 100 mg PO BID [facility] Last Admin: 05/12/20 20:53 Dose: Not Given Documented by: Duloxetine HCl (Cymbalta) 30 mg PO BID [facility] Last Admin: 05/12/20 20:51 Dose: 30 mg Documented by: Heparin Sodium (Porcine) (Heparin) 5,000 unit SQ Q12 [facility] Last Admin: 05/12/20 20:51 Dose: 5,000 unit Documented by: Potassium Chloride 40 meq/ (Dextrose) 520 mls @ 130 mls/hr IV UD PRN PRN Reason: Potassium < 3 Magnesium Sulfate (Magnesium Sulfate) 2 gm in 50 mls @ 50 mls/hr IV UD PRN PRN Reason: Magnesium </= 1.6 Piperacillin Sod/Tazobactam (Sod 3.375 gm/ Dextrose) 50 mls @ 100 mls/hr IV Q6H [facility]; Protocol Last Infusion: 05/13/20 05:58 Dose: Infused Documented by: Vancomycin HCl 1,500 mg/ (Sodium Chloride) 500 mls @ 333.3 mls/hr IV Q12H [facility] Gentamicin Sulfate 40 mg/Clindamycin Phosphate 300 mg/Bacitracin 25,000 unit/ Sodium Chloride 503 mls @ 0 mls/hr IRR BID [facility] Last Admin: 05/12/20 19:04 Dose: 1 mls/hr Documented by: Lisinopril (Zestril) 40 mg PO BID [facility] Last Admin: 05/12/20 20:51 Dose: 40 mg Documented by: Magnesium Oxide (Magnesium Oxide) 400 mg PO DAILY [facility] Meloxicam (Mobic) 7.5 mg PO BIDP PRN PRN Reason: pain Metformin HCl (Glucophage) 500 mg PO BIDCC [facility] Last Admin: 05/12/20 17:37 Dose: 500 mg Documented by: Ondansetron HCl (Zofran) 4 mg IV Q4HP PRN PRN Reason: Nausea And Vomiting Dulaglutide [ Trulicity] 0.75 Mg Injection 1 dose SUB-Q Meyers@0900 [facility] Patient Own Medication () 1 dose SC TIDAC [facility] Polyethylene Glycol (Miralax) 17 gm PO DAILYP PRN PRN Reason: Constipation Potassium Chloride (Kdur) 40 meq PO UD PRN PRN Reason: Potssium is 3-3.5 Potassium Chloride (Kdur) 40 meq PO UD PRN PRN Reason: Potassium < 3 Senna (Senokot) 2 tab PO DAILYP PRN PRN Reason: Constipation Sodium Chloride (Saline Flush) 10 ml IV Q8 [facility] Last Admin: 05/13/20 05:28 Dose: 10 ml Documented by: Vancomycin HCl (Vancomycin Per Pharmacy) 1 order IV UD [facility]; Protocol A/P Narrative A/P Narrative: A: *Diabetic Right Foot cellulitis/Osteo 4th MT w/recent grafting: -recent wound cx (05/09) with MSSA & Enterobacter Cloacae *SIRS: 2/2 above, improved. 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 Sheffield -Continue Zosyn pending final WC, d/c vanco -continue exenatide/prandial insulin/CC diet, sliding scale/basal insulin -PT OT nutrition support -Discharge planning per case management -ppx: heparin full code Time Spent With Patient Time: Total time spent is greater than 50% in coordination of care (as docu mented) at patient's floor/unit and/or counseling patient:
[2020-05-13] MEDS: metFORMIN 500 MG TAB.XL.24H PO SCH ×2 (07:58→18:04)
[2020-05-13] MEDS: DOCUSATE SODIUM 100 MG CAPSULE PO SCH ×2 (07:59→21:03)
[2020-05-13] MEDS: HEPARIN 5,000 UNIT/ML VIAL SQ SCH ×2 (07:59→21:05)
[2020-05-13] MEDS: LISINOPRIL 20 MG TABLET PO SCH ×2 (07:59→21:04)
[2020-05-13] MEDS: VANCOMYCIN 1,500 MG in 0.9 % SODIUM CHLORIDE 500 ML IV SCH ×2 (07:59→16:17)
[2020-05-13] MEDS: CARVEDILOL 3.125 MG TABLET PO SCH ×2 (07:59→18:04)
[2020-05-13] MEDS: ASPIRIN 81 MG TAB.CHEW PO SCH (07:59)
[2020-05-13] MEDS: amLODIPine 10 MG TABLET PO SCH (07:59)
[2020-05-13] MEDS: DULoxetine 30 MG CAPSULE PO SCH ×2 (07:59→21:04)
[2020-05-13] MEDS: CHLORTHALIDONE 25 MG TABLET PO SCH (07:59)
[2020-05-13] MEDS: MAGNESIUM OXIDE 400 MG TABLET PO SCH (07:59)
[2020-05-13] MEDS: INSULIN REGULAR, HUMAN 1 UNIT/0.01 ML UNIT SQ SCH ×3 (09:48→17:54)
[2020-05-13] MEDS: GENTAMICIN SULFATE 40 MG, CLINDAMYCIN 300 MG, BACITRACIN 25,000 UNIT in SODIUM CHLORIDE... IRR SCH ×2 (09:49→21:04)
[2020-05-13] MEDS ORDERED: 0.9 % SODIUM CHLORIDE 10 ML SYRINGE IV PRN (11:57)
--- NOTE | 2020-05-13 12:09 | Infectious Disease Consult ---
HPI Data of Consult Primary Care Provider: Kaushik Coy Consult Narrative Patient Information: Note initiated : 05/13/20 at 12:03 pm Service Date, if different from initiated Date: [] Patient: Navid Garcia 59 y/o M admitted on 05/12/20 for right foot wound, worsening. Chief Complaint: [Randy is a 59-year-old man whom I previously seen in consultation. I last saw on March 31. He has a previous history of right fifth toe partial ray resection approximately 5 months ago. At my last visit on March 31 he was off antibiotics. I did not recommend any further antibiotics at that time. I have not seen him since then. He has a previous history of wound cultures positive for Enterobacter and MRSE. He has a previous history of skin grafting. He visited the emergency department on May 09. He was provided a dose of Rocephin followed by oral Keflex for wound cellulitis. He recently had skin grafting completed April 23. A wound culture April 25 revealed MSSA. May 02, anaerobic gram-positive cocci, and May 09 the most recent culture a Clinda resistant MSSA and and Enterobacter. Sensitivities on Enterobacter pending. He was admitted in the hospital yesterday. He is currently on IV Vanco and Zosyn. MRI has shown fourth metatarsal and proximal phalangeal osteomyelitis. I have reviewed with Dr. Rasheed who confirms osteomyelitis. He plans to take him to the operating room tomorrow for further debridement. Yesterday, white count 12.4 with a sed rate of 36 and creatinine 1.1. Today white count 10.3 and creatinine 0.9. He has been completing hyperbaric oxygen for the past 10 days as well. He felt like he recently had a fever to 101.5. Increased redness over this past weekend on his right foot. He recognized that the skin graft did not take from the . It was taken from his left arm. Dr. Smas asked for consultation to assist with antibiotic recommendations. No history of MRSA.] cc:: CC: Denny Lu Review of Systems Review of systems: Generally: 1 recorded temperature 1-1.5. No current fevers or chills. HEENT: No headaches or sore throat. No neck complaints. Pulmonary: No cough or shortness of breath. Cardiac: No chest pain. GI: No abdominal pain or diarrhea. no dysuria. Skin no complaints of rash. Musculoskeletal: No complaints of joint pain. Extremities: He denies right foot pain. He feels that redness has improved from Tuesday. PFSH PFSH All Active Problems (Updated 05/13/20 @ 12:20 by Raza Bentley MD) Diabetic foot infection (Acute) Osteomyelitis (Acute) Status post full thickness skin graft (Acute) Wound cellulitis after surgery (Acute) Cellulitis (Acute) Phlebitis of right saphenous vein (Acute) Diabetic foot ulcer (Acute) Open wound of right foot (Acute) Diabetes (Acute) Nausea & vomiting (Acute) Myopia (Chronic) Ulcer of foot (Chronic) Hypertropia (Chronic) Macular degeneration (Chronic) Primary open angle glaucoma (Chronic) Senile cataracts of both eyes (Chronic) Regular astigmatism, bilateral (Chronic) Presbyopia (Chronic) Glaucoma (Chronic) Mild non proliferative diabetic retinopathy (Chronic) Diabetic macular edema (Chronic) Nuclear senile cataract (Chronic) Diabetic peripheral neuropathy (Chronic) Vitamin D deficiency (Chronic) Magnesium deficiency (Chronic) Diabetes mellitus type II, controlled (Chronic) Diabetic autonomic neuropathy (Chronic) Obesity (Chronic) Hypertensive disorder (Chronic) Sleep apnea (Chronic) Encounter for screening colonoscopy (Chronic) Medical History Diabetes mellitus type II, controlled (Chronic) Diabetic autonomic neuropathy (Chronic) Diabetic macular edema (Chronic) Diabetic peripheral neuropathy (Chronic) Encounter for screening colonoscopy (Chronic) Glaucoma (Chronic) Hypertensive disorder (Chronic) Hypertropia (Chronic) Macular degeneration (Chronic) Magnesium deficiency (Chronic) Mild non proliferative diabetic retinopathy (Chronic) Myopia (Chronic) Nuclear senile cataract (Chronic) Obesity (Chronic) Presbyopia (Chronic) Primary open angle glaucoma (Chronic) Regular astigmatism, bilateral (Chronic) Senile cataracts of both eyes (Chronic) Sleep apnea (Chronic) Ulcer of foot (Chronic) Vitamin D deficiency (Chronic) Surgical History History of surgery (Acute) 1999-Left knee scope No pertinent past surgical history (Inactive) Family History Brother Diabetes x2 Hypertension x2 Sister Diabetes x3 Hypertension x3 Mother Stroke Father Cancer colon cancer Social History smoking status: Never smoker alcohol intake frequency: does not drink substance use type: does not use MEDS/ALLERGIES Home Medications and Allergies Home Medications Medication Instructions Recorded Confirmed Type amlodipine 10 mg tablet 10 mg PO DAILY 11/02/18 05/12/20 History aspirin 81 mg tablet,delayed 81 mg PO DAILY 11/02/18 05/12/20 History release carvedilol 3.125 mg tablet 3.125 mg PO BID 11/02/18 05/12/20 History duloxetine 30 mg capsule,delayed 30 mg PO BID 11/02/18 05/12/20 History release lisinopril 40 mg tablet 40 mg PO BID tab 11/02/18 05/12/20 History magnesium L-lactate 84 mg 84 mg PO DAILY 11/02/18 05/12/20 History tablet,extended release meloxicam 15 mg tablet 7.5 mg PO BID tab 11/02/18 05/12/20 History rosuvastatin 10 mg tablet 10 mg PO QHS tab 11/02/18 05/12/20 History chlorthalidone 25 mg tablet 12.5 mg PO DAILY tab 11/07/18 05/12/20 History metformin 500 mg tablet,extended 500 mg PO BID tab 11/07/18 05/12/20 History release 24 hr dulaglutide [Trulicity] 0.75 mg SUBCUT WEEKLY 04/17/20 05/12/20 History insulin regular hum U-500 conc 100 unit SUBCUT TID 04/17/20 05/12/20 History [Humulin R U-500 (Conc) Kwikpen] Allergies Allergy/AdvReac Type Severity Reaction Status Date / Time hydrocodone AdvReac Mild Vomiting Verified 05/09/20 22:20 Physical Examination Vital Signs Vital signs: Temp Pulse Resp BP Pulse Ox 98.2 F 73 18 123/78 93 05/13/20 06:35 05/13/20 06:35 05/13/20 06:35 05/13/20 06:35 05/13/20 06:35 Additional Exam Additional exam: General: He is laying comfortably in bed. Talkative. No acute distress. HEENT: EOMI PERRL sclera anicteric. Neck is supple. Lungs: Without wheezing. Heart regular. Abdomen: Soft nontender obese. Extremities: Right foot 1+ edema. Erythema over second third and fourth toes. Nontender. I did not completely remove the dressing. Skin without rash. Results Laboratory Findings CBC and BMP: 05/13/20 05:31 05/13/20 05:31 Abnormal lab findings: Abnormal Labs 05/12/20 05/12/20 05/13/20 10:56 10:56 05:31 WBC 12.4 H MPV 11.8 H 11.5 H ESR 36 H BUN 23 H Glucose 231 H C-Reactive Protein 12.80 H Albumin Globulin 4.1 H Albumin/Globulin Ratio 0.9 L 05/13/20 05:31 WBC MPV ESR BUN Glucose C-Reactive Protein Albumin 3.1 L Globulin 4.6 H Albumin/Globulin Ratio 0.7 L A/P Assessment and plan (1) Osteomyelitis: Status: Acute Comment: Randy is a 59-year old man with diabetes and peripheral neuropathy. He has a previous history of right fifth toe amputation. He recently had skin graft for chronic wound on the right lateral fifth toe amputation site. It did not take. He now has findings consistent with osteomyelitis of the right fourth metatarsal head and right fourth proximal phalanx. His most recent cultures obtained May 09 reveal Enterobacter and a Clinda resistant MSSA. Zosyn should be sufficient. DC vancomycin. Follow-up on sensitivities of the Enterobacter. Dr. Rasheed plans to take him to the operating room tomorrow for further fourth metatarsal wound debridement. I am expecting 4 to 6 weeks of IV antibiotic therapy. (2) Open wound of right foot: Status: Acute Comment: Nonhealing wound of the right foot over previous operative site of fifth toe amputation. (3) Diabetes: Status: Acute Comment: Creatinine today 0.9. (4) Diabetic peripheral neuropathy: Status: Chronic Comment: Patient denies pain in the right foot. Recommendations: #1. Place PICC line. 2. DC Vanco. 3. Continue Zosyn. 4. Follow-up on Enterobacter susceptibilities. 5. Follow-up on intraoperative cultures for tomorrow's debridement. 6. I would be happy to see him in follow-up in clinic. Weekly labs anticipated to include CBC CMP sed rate and CRP. Antibiotic may be adjusted based on intraoperative specimen obtained tomorrow. Thank you very much For allowing me to be involved in his consultative care. Time Spent With Patient Time: Total time spent is greater than 50% in coordination of care (as documented) at patient's floor/unit and/or counseling patient:
--- NOTE | 2020-05-13 13:12 | General Surgery Progress Note ---
SUBJECTIVE Subjective Patient information: Note initiated : 05/13/20 at 1:08 pm Service Date, if different from initiated Date: [] Patient: Navid Garcia 59 y/o M admitted on 05/12/20 for right foot wound, worsening. Chief Complaint: [] Additional PMFSH (Level 3 Only): Patient seen with Judy HE this morning. WOUND examined. Patient had an uneventful night. Reviewed ID input. Appreciate recommendations. Constitutional Vitals: Vital Signs Temp Pulse Resp BP Pulse Ox 97.7 F 82 20 116/79 93 05/13/20 12:00 05/13/20 12:00 05/13/20 12:00 05/13/20 12:00 05/13/20 12:00 Period Temp Pulse Resp BP Sys/Garcia Pulse Ox Last 24 Hr 97.2 F-99.4 F 64-87 16-20 116-148/78-91 91-96 Intake and Output 05/12/20 05/13/20 05/13/20 21:59 05:59 13:59 Intake Total 50 840 240 Output Total 1625 1550 975 Balance -1575 710 -735 Weight 277 lb 12.8 oz Intake & Output: Intake & Output 05/12/20 05/13/20 05/13/20 21:59 05:59 13:59 Intake Total 50 840 240 Output Total 1625 1550 975 Balance -1575 -710 -735 Weight 277 lb 12.8 oz Intake: IV 50 600 Zosyn 3.375 gm In Dextrose 5% 50 100 in Water 50 ml @ 100 mls/hr IV Q6H [facility] Rx#:[id number] Vancomycin 2,000 mg In Sodium 500 Chloride 0.9% 500 ml @ 250 mls/ hr IV ONCE ONE Rx#:[id number] Oral 240 240 Output: Void Amount 1625 1550 975 Other: Meal Cheese stick, OJx2 Breakfast Percent of Meal Consumed 100% 100% Feeding Ability Independent Independent Urine Appearance Clear Clear Clear Urine Color Bright Yellow Pale Bright Yellow Urine Odor Normal Normal Exam: AVSS. No changes ANGELA. L/E: Improving / Resolving soft tissue edema, erythema and acute inflammatory changes. NO crepitus. NO huyen purulence. RESPONDING to local wound care. MIST / GCB. MONITOR for now. Hold off on OR debridement for now. Reassess agin this evening and tomorrow AM. A/P Narrative A/P Narrative: Assessment: Acute inflammatory changes RIGHT forefoot and osteomyelitis of adjacent 4th toe bones. 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 Will do debridement at bedside tomorrow for tissue c/s Await PICC line and IV antibiotics. Time Spent With Patient Time: Total time spent is greater than 50% in coordination of care (as documented) at patient's floor/unit and/or counseling patient: Total time spent with greater than 50% in coordination of care (as documented) at patient's floor/unit and/or counseling patient:: Greater than 35 minutes
--- NOTE | 2020-05-13 17:39 | XRay Report ---
CLINICAL INFORMATION: PICC PLACEMENT COMPARISON: 04/17/2020 FINDINGS: Right PICC line tip overlies the SVC. The heart is normal for portable technique and position. Mediastinum and pulmonary vessels are unremarkable. Lungs are clear. No effusion. IMPRESSION: No acute disease. PICC line tip overlies the SVC left brachiocephalic junction. The nurses were instructed to advance the line 5 cm. Interpreted and Authenticated by: Smith Faye 05/13/20
[2020-05-13] MEDS: ATORVASTATIN 20 MG TABLET PO SCH (21:04)
[2020-05-14] MEDS: 0.9 % SODIUM CHLORIDE 10 ML SYRINGE IV SCH ×6 (01:44→21:17)
[2020-05-14] MEDS: PIPERACILLIN SODIUM/TAZOBACTAM 3.375 GM in DEXTROSE 5% IN WATER 50 ML IV SCH ×4 (05:45→23:38)
--- NOTE | 2020-05-14 06:49 | Internal Med Progress Note ---
SUBJECTIVE Subjective Patient information: Note initiated : 05/14/20 at 6:46 am Service Date, if different from initiated Date: [] Patient: Navid Garcia 59 y/o M admitted on 05/12/20 for right foot wound, worsening. Chief Complaint: [] Interval history: Mr. Garcia is a 59 year old M Presents to the ED with infection of a right foot with recent skin grafting to that foot. He was seen in the wound care clinic today and sent over the ED for admission as he needed IV antibiotics and debridement. He states that since Tuesday is at increased and redness but no pain as he does have neuropathy in the feet. He denies any swelling but does say he has had a drainage of a clearish yellow fluid. Did go to the ER 3 days ago and the him some IV antibiotics and cultured it and it is growing Enterobacter and Staphylococcus. Did have a temperature of 101.5 at the ED visit but has not had any fever since then. Feels relatively well. He has a mild leukocytosis. No other pains or complaints. Has been on oral antibiotics recently. 05/13 No overnight event or new complaints. Patient feeling well. Continue IV antibiotics and will likely undergo debridement by Dr. Narciso montero. 05/14 No new complaints or issues overnight. Seen by Dr. Bentley. Likely to undergo debridement by Dr. Stuart soon. Leukocytosis improved and CRP improved Review of Systems: denies headache/fever/chills/nausea/vomiting/chest or abdominal pain/cough/dyspnea/diarrhea. Otherwise see above. Constitutional Vitals: Vital Signs Temp Pulse Resp BP Pulse Ox 98.5 F 68 16 126/85 96 05/14/20 04:00 05/14/20 04:00 05/14/20 04:00 05/14/20 04:00 05/14/20 04:00 Period Temp Pulse Resp BP Sys/Garcia Pulse Ox Last 24 Hr 97.2 F-98.5 F 68-88 16-20 104-152/67-85 93-97 Intake and Output 05/13/20 05/14/20 05/14/20 21:59 05:59 13:59 Intake Total 2250 540 50 Output Total 800 1225 325 Balance 1450 -755 -275 Weight 126.507 kg Intake & Output: Intake & Output 05/13/20 05/14/2005/14/21 21:59 05:59 13:59 Intake Total 2250 540 50 Output Total 800 1225 325 Balance 3065 -174 -420 Weight 126.507 kg Intake: IV 100 50 Zosyn 3.375 gm In Dextrose 5% 100 50 in Water 50 ml @ 100 mls/hr IV Q6H [facility] Rx#:[id number] Oral 2250 440 Output: Urine Catheter Amount 400 Void Amount 400 1225 325 Other: Meal HS Snack-fruit,2 cheese sticks,grahams 1 pk Snack Percent of Meal Consumed 100% 100% Feeding Ability Independent Independent Nourishment/Supplement name 2 OJ,2 cheese sticks,2 pks Grahams after his own Accu-check of 94 Urine Appearance Clear Clear Clear Urine Color Bright Yellow Bright Yellow Bright Yellow Urine Odor Normal Normal Normal Stool Size Moderate Stool Color Brown Stool Consistency Dry and Hard # Bowel Movements 1 Exam: General: Alert, Awake, No acute Distress, obese Eyes/N/T: EOMI,, Head/Neck: neck supple, CV: RRR, No murmurs, Pulm: Clear b/l, no wheezing/rhonchi/rales Abd: soft, nontender, +BS x4 Ext: no clubbing/cyanosis/edema exception of right foot which is dressings Neuro: Alert, no focal deficits, moves all extremities, Skin: warm/dry OBJ DATA Labs CBC & Chem 7: 05/13/20 05:31 05/14/20 05:24 Labs: Abnormal Lab Results 05/13/20 05/13/20 05/12/20 05:31 05:31 10:56 WBC 12.4 H MPV 11.5 H 11.8 H ESR 36 H BUN Glucose C-Reactive Protein Albumin 3.1 L Globulin 4.6 H Albumin/Globulin Ratio 0.7 L 05/12/20 10:56 WBC MPV ESR BUN 23 H Glucose 231 H C-Reactive Protein 12.80 H Albumin Globulin 4.1 H Albumin/Globulin Ratio 0.9 L Meds: Medications Acetaminophen (Tylenol) 650 mg PO Q6HP PRN PRN Reason: PAIN/FEVER > 101 Hydrocodone Bitart/Acetaminophen ([employer] 5/325mg) 1 tab PO Q4HP PRN PRN Reason: PAIN LEVEL 3-6 Amlodipine Besylate (Norvasc) 10 mg PO DAILY [facility] Last Admin: 05/13/20 07:59 Dose: 10 mg Documented by: Aspirin (Aspirin) 81 mg PO DAILY [facility] Last Admin: 05/13/20 07:59 Dose: 81 mg Documented by: Atorvastatin Calcium (Lipitor) 20 mg PO HS [facility] Last Admin: 05/13/20 21:04 Dose: 20 mg Documented by: Carvedilol (Coreg) 3.125 mg PO BIDCC [facility] Last Admin: 05/13/20 18:04 Dose: 3.125 mg Documented by: Chlorthalidone (Hygroton) 12.5 mg PO DAILY [facility] Last Admin: 05/13/20 07:59 Dose: 12.5 mg Documented by: Diagnostic Test (Pha) (Accu-Chek) 1 each FS ACHS [facility] Last Admin: 05/13/20 21:03 Dose: 1 each Documented by: Docusate Sodium (Colace) 100 mg PO BID [facility] Last Admin: 05/13/20 21:03 Dose: 100 mg Documented by: Duloxetine HCl (Cymbalta) 30 mg PO BID [facility] Last Admin: 05/13/20 21:04 Dose: 30 mg Documented by: Heparin Sodium (Porcine) (Heparin) 5,000 unit SQ Q12 [facility] Last Admin: 05/13/20 21:05 Dose: 5,000 unit Documented by: Heparin Sodium (Porcine) (Heparin 10 Units/Ml Flush) 2 ml IV Q12 [facility] Last Admin: 05/13/20 21:06 Dose: 2 ml Documented by: Potassium Chloride 40 meq/ (Dextrose) 520 mls @ 130 mls/hr IV UD PRN PRN Reason: Potassium < 3 Magnesium Sulfate (Magnesium Sulfate) 2 gm in 50 mls @ 50 mls/hr IV UD PRN PRN Reason: Magnesium </= 1.6 Piperacillin Sod/Tazobactam (Sod 3.375 gm/ Dextrose) 50 mls @ 100 mls/hr IV Q6H [facility]; Protocol Last Infusion: 05/14/20 06:19 Dose: Infused Documented by: Gentamicin Sulfate 40 mg/Clindamycin Phosphate 300 mg/Bacitracin 25,000 unit/ Sodium Chloride 503 mls @ 0 mls/hr IRR BID [facility] Last Admin: 05/13/20 21:04 Dose: 10 mls/hr Documented by: Insulin Human Regular (Humulin R) 0 unit SQ TIDAC [facility] Last Admin: 05/13/20 17:54 Dose: Not Given Documented by: Lisinopril (Zestril) 40 mg PO BID [facility] Last Admin: 05/13/20 21:04 Dose: 40 mg Documented by: Magnesium Oxide (Magnesium Oxide) 400 mg PO DAILY [facility] Last Admin: 05/13/20 07:59 Dose: 400 mg Documented by: Meloxicam (Mobic) 7.5 mg PO BIDP PRN PRN Reason: pain Metformin HCl (Glucophage) 500 mg PO BIDCC [facility] Last Admin: 05/13/20 18:04 Dose: 500 mg Documented by: Ondansetron HCl (Zofran) 4 mg IV Q4HP PRN PRN Reason: Nausea And Vomiting Dulaglutide [ Trulicity] 0.75 Mg Injection 1 dose SUB-Q Meyers@0900 [facility] Polyethylene Glycol (Miralax) 17 gm PO DAILYP PRN PRN Reason: Constipation Potassium Chloride (Kdur) 40 meq PO UD PRN PRN Reason: Potssium is 3-3.5 Potassium Chloride (Kdur) 40 meq PO UD PRN PRN Reason: Potassium < 3 Senna (Senokot) 2 tab PO DAILYP PRN PRN Reason: Constipation Sodium Chloride (Saline Flush) 10 ml IV Q8 [facility] Last Admin: 05/14/20 05:45 Dose: 10 ml Documented by: Sodium Chloride (Saline Flush) 10 ml IV UD PRN PRN Reason: FLUSH Sodium Chloride (Saline Flush) 10 ml IV Q12 [facility] Last Admin: 05/13/20 21:07 Dose: Not Given Documented by: A/P Narrative A/P Narrative: A: *Diabetic Right Foot cellulitis/Osteo 4th MT w/recent grafting: -recent wound cx (05/09) with MSSA & Enterobacter Cloacae *SIRS: 2/2 above, improved. 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 Sheffield, pending debridement -Continue Zosyn pending final WC -continue exenatide/prandial insulin/CC diet, sliding scale/basal insulin -PT OT nutrition support -Discharge planning per case management -ppx: heparin full code Time Spent With Patient Time: Total time spent is greater than 50% in coordination of care (as documented) at patient's floor/unit and/or counseling patient:
[2020-05-14 06:56] LABS: Blood Urea Nitrogen 19 mg/dL (6-20); Calcium 9.2 mg/dL (8.6-10.4); Carbon Dioxide 26 mmol/L (22-30); Chloride 98 mmol/L (96-108); Glomerular Filtration Rate 92; Glucose 141 mg/dL (70-105)
[2020-05-14] MEDS: INSULIN REGULAR, HUMAN 1 UNIT/0.01 ML UNIT SQ SCH ×4 (07:22→17:12)
[2020-05-14] MEDS: metFORMIN 500 MG TAB.XL.24H PO SCH ×3 (09:05→17:06)
[2020-05-14] MEDS: DULoxetine 30 MG CAPSULE PO SCH ×2 (10:32→21:15)
[2020-05-14] MEDS: DOCUSATE SODIUM 100 MG CAPSULE PO SCH ×2 (10:32→21:15)
[2020-05-14] MEDS: HEPARIN 5,000 UNIT/ML VIAL SQ SCH ×2 (10:32→21:15)
[2020-05-14] MEDS: LISINOPRIL 20 MG TABLET PO SCH ×2 (10:33→21:15)
[2020-05-14] MEDS: amLODIPine 10 MG TABLET PO SCH (10:34)
[2020-05-14] MEDS: MAGNESIUM OXIDE 400 MG TABLET PO SCH (10:34)
[2020-05-14] MEDS: CHLORTHALIDONE 25 MG TABLET PO SCH (10:34)
[2020-05-14] MEDS: ASPIRIN 81 MG TAB.CHEW PO SCH (10:34)
[2020-05-14] MEDS: CARVEDILOL 3.125 MG TABLET PO SCH ×2 (10:34→17:06)
--- NOTE | 2020-05-14 10:35 | Discharge Summary ---
Discharge Provider Provider Patient information: Note initiated : 05/14/20 at 10:33 am Service Date, if different from initiated Date: [] Patient: Navid Garcia 59 y/o M admitted on 05/12/20 for right foot wound, worsening. Chief Complaint: [] Date of admission: 05/12/20 15:11 Discharge date: 05/15/20 Primary care physician: Kaushik Coy Consults: 05/12/20 15:43 Consult to Physician [CONS] Urgent Comment: Consulting Provider: Serjio Sheffield Reason For Exam: Physician to Consult 05/13/20 07:34 Consult to Physician [CONS] Routine Comment: Consulting Provider: Denny Lu Reason For Exam: Physician to Consult 05/13/20 11:21 Consult to Physician [CONS] Routine Comment: Consulting Provider: Raza Bentley Reason For Exam: Physician to Consult Discharge Meds Discharge Medications Home Medications amlodipine 10 mg tablet 10 mg PO DAILY 11/02/18 [History Confirmed 05/12/20 Last Taken 05/12/20 08:00] aspirin 81 mg tablet,delayed release 81 mg PO DAILY 11/02/18 [History Confirmed 05/12/20 Last Taken 05/11/20 21:00] carvedilol 3.125 mg tablet 3.125 mg PO BID 11/02/18 [History Confirmed 05/12/20 Last Taken 05/12/20 08:00] duloxetine 30 mg capsule,delayed release 30 mg PO BID 11/02/18 [History Confirmed 05/12/20 Last Taken 05/12/20 08:00] lisinopril 40 mg tablet 40 mg PO BID tab 11/02/18 [History Confirmed 05/12/20 Last Taken 05/12/20 08:00] magnesium L-lactate 84 mg tablet,extended release 84 mg PO DAILY 11/02/18 [History Confirmed 05/12/20 Last Taken 05/12/20 08:00] meloxicam 15 mg tablet 7.5 mg PO BID tab 11/02/18 [History Confirmed 05/12/20 Last Taken 05/12/20 08:00] rosuvastatin 10 mg tablet 10 mg PO QHS tab 11/02/18 [History Confirmed 05/12/20 Last Taken 05/11/20 21:00] chlorthalidone 25 mg tablet 12.5 mg PO DAILY tab 11/07/18 [History Confirmed 05/12/20 Last Taken 05/12/20 08:00] metformin 500 mg tablet,extended release 24 hr 500 mg PO BID tab 11/07/18 [History Confirmed 05/12/20 Last Taken 05/12/20 08:00] Humulin R U-500 (Conc) Kwikpen 100 unit SUBCUT TID 04/17/20 [History Confirmed 05/12/20 Last Taken 05/11/20 21:00] Trulicity 0.75 mg SUBCUT WEEKLY 04/17/20 [History Confirmed 05/12/20 Last Taken 05/11/20] ertapenem 1 g IM Q24H #39 each 05/15/20 [Rx Last Taken Unknown] COURSE Hospital Course Hospital course: Mr. Garcia is a 59 year old M Presents to the ED with infection of a right foot with recent skin grafting to that foot. He was seen in the wound care clinic today and sent over the ED for admission as he needed IV antibiotics and debridement. He states that since Tuesday is at increased and redness but no pain as he does have neuropathy in the feet. He denies any swelling but does say he has had a drainage of a clearish yellow fluid. Did go to the ER 3 days ago and the him some IV antibiotics and cultured it and it is growing Enterobacter and Staphylococcus. Did have a temperature of 101.5 at the ED visit but has not had any fever since then. Feels relatively well. He has a mild leukocytosis. No other pains or complaints. Has been on oral antibiotics recently. 05/13 No overnight event or new complaints. Patient feeling well. Continue IV antibiotics and will likely undergo debridement by Dr. Stuart soon. 05/14 No new complaints or issues overnight. Seen by Dr. Bentley. Likely to undergo debridement by Dr. Stuart soon. Leukocytosis improved and CRP improved 05/15 Doing well. No overnight event or new complaints. Underwent bedside debridement yesterday by Dr. Sheffield. Patient will go home on Invanz and will be followed by Dr. Bentley. A: *Diabetic Right Foot cellulitis/Osteo 4th MT w/recent grafting: -recent wound cx (05/09) with MSSA & Enterobacter Cloacae *SIRS: 2/2 above, improved. 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 *CKD II: *HTN: home meds amlodipine/Coreg/chlorthalidone *Obesity: Discharge diagnosis: Diabetic right foot cellulitis and osteo Secondary discharge diagnosis: Diabetes chronic kidney disease hypertension obesity Time Spent with Patient Time attestation: Total time spent providing and/or coordinating discharge services: Time spent: Greater than 30 minutes EXAM Constitutional Vitals: Temp Pulse Resp BP Pulse Ox 98.0 F 77 18 110/78 95 05/14/20 08:00 05/14/20 08:00 05/14/20 08:00 05/14/20 08:00 05/14/20 08:00 Discharge Data Data Completed and Pending Labs on day of discharge: Labs from last 24 hours 05/14/20 05:24 Sodium 136 Potassium 3.6 Chloride 98 Carbon Dioxide 26 Anion Gap 12.0 BUN 19 Creatinine 0.9 GFR Calculation 92 Glucose 141 H Calcium 9.2 C-Reactive Protein 4.90 H Discharge Plan Patient/Caregiver Discharge Instructions Activity: increase activity as tolerated Diet: Consistent Carbohydrate Activity Restrictions/Additional Instructions: weekly cbc/cmp/esr/crp while on IV Abx, send to Dr. Bentley. PICC line care until antibiotics finished on 06/23/2020. 6-week course of Invanz stop date 06/23/2020 Prescriptions: New ertapenem 1 gram recon soln 1 g IM Q24H Qty: 39 RF: 0 Continued amlodipine 10 mg tablet 10 mg PO DAILY RF: 0 aspirin 81 mg tablet,delayed release (DR/EC) 81 mg PO DAILY RF: 0 carvedilol 3.125 mg tablet 3.125 mg PO BID RF: 0 duloxetine 30 mg capsule,delayed release(DR/EC) 30 mg PO BID RF: 0 lisinopril 40 mg tablet 40 mg PO BID RF: 0 magnesium L-lactate 84 mg tablet extended release 84 mg PO DAILY RF: 0 meloxicam 15 mg tablet 7.5 mg PO BID RF: 0 rosuvastatin 10 mg tablet 10 mg PO QHS RF: 0 chlorthalidone 25 mg tablet 12.5 mg PO DAILY RF: 0 metformin 500 mg tablet extended release 24 hr 500 mg PO BID RF: 0 Trulicity 0.75 mg/0.5 mL Pen Injector 0.75 mg SUBCUT WEEKLY RF: 0 Humulin R U-500 (Conc) Kwikpen 500 unit/mL (3 mL) Insulin Pen 100 unit SUBCUT TID RF: 0 Follow Up Plan Follow up with: Serjio Sheffield MD [Physician] - Kaushik Coy MD [Primary Care Provider] - Raza Bentley MD [Physician] - Patient Disposition: Home, Self-Care Prognosis: Fair Overall status at discharge: patient is progressing back to baseline Discharge Orders: Discharge Order (Routine); Ordered 05/15/20 Ordered By: Denny Lu
[2020-05-14] MEDS: GENTAMICIN SULFATE 40 MG, CLINDAMYCIN 300 MG, BACITRACIN 25,000 UNIT in SODIUM CHLORIDE... IRR SCH ×2 (10:38→21:16)
--- NOTE | 2020-05-14 12:47 | General Surgery Progress Note ---
SUBJECTIVE Subjective Patient information: Note initiated : 05/14/20 at 12:40 pm Service Date, if different from initiated Date: [] Patient: Navid Garcia 59 y/o M admitted on 05/12/20 for right foot wound, worsening. Chief Complaint: [] Additional PMFSH (Level 3 Only): Patient seen on morning rounds with [facility]. Wound Care Nurse. DENIES any new symptoms. Had an uneventful night. PICC line inserted. Constitutional Vitals: Vital Signs Temp Pulse Resp BP Pulse Ox 98.5 F 76 18 117/79 95 05/14/20 12:00 05/14/20 12:00 05/14/20 12:00 05/14/20 12:00 05/14/20 12:00 Period Temp Pulse Resp BP Sys/Garcia Pulse Ox Last 24 Hr 97.2 F-98.5 F 68-88 16-18 104-152/67-85 93-97 Intake and Output 05/13/20 05/14/20 05/14/20 21:59 05:59 13:59 Intake Total 2250 540 340 Output Total 800 1225 850 Balance 1450 -685 -510 Weight 278 lb 14.4 oz Intake & Output: Intake & Output 05/13/20 05/14/20 05/14/20 21:59 05:59 13:59 Intake Total 2250 540 340 Output Total 800 1225 850 Balance 1450 -685 -510 Weight 278 lb 14.4 oz Intake: IV 100 100 Zosyn 3.375 gm In Dextrose 5% 100 100 in Water 50 ml @ 100 mls/hr IV Q6H [facility] Rx#:[id number] Oral 2250 440 240 Output: Urine Catheter Amount 400 Void Amount 400 1225 850 Other: Meal HS Snack-fruit,2 cheese sticks,grahams 1 pk Snack breakfast/lunch had late Percent of Meal Consumed 100% 100% 100% Feeding Ability Independent Independent Independent Nourishment/Supplement name 2 OJ,2 cheese sticks,2 pks Grahams after his own Accu-check of 94 Urine Appearance Clear Clear Clear Urine Color Bright Yellow Bright Yellow Light Yaa Urine Odor Normal Normal Strong Stool Size Moderate Moderate Stool Color Brown Brown Stool Consistency Dry and Hard Formed # Bowel Movements 1 1 General appearance: cooperative and no acute distress Exam: AVSS. Comfortable. Had regular BM. Labs reviewed. RIGHT lateral foot wound examined. Proceeded to carry out beside debridement . Specimen obtained for C/S. Discharge planning discussed with patient and Dr. Lu, Hospitalist. Patient wants to be home with his daughter in [facility]. He wants to come to Hospital daily for IV antibiotics and MIST treatment. He has tested NEGATIVE for Covid. He does NOT want to be vaccinated for COVID at this time. A/P Narrative A/P Narrative: Assessment: Satisfactory post surgical progress and resolution of cellulitis. Acute osteomyelitis of RIGHT 4th metatarsal bone and proximal phalanx. On Local wound care and IV antibiotics. Plan: Continue present treatment. If D/C follow up at wound center. Time Spent With Patient Time: Total time spent is greater than 50% in coordination of care (as d ocumented) at patient's floor/unit and/or counseling patient: Total time spent with greater than 50% in coordination of care (as documented) at patient's floor/unit and/or counseling patient:: Greater than 35 minutes
--- NOTE | 2020-05-14 12:49 | Brief Operative Note ---
Brief Operative Note Date of procedure: 05/14/20 Pre-op diagnosis: Open wound Right lateral foot : 5th Toe amputation site. Post-op diagnosis: same Procedure: Bedside debridement and deep soft tissue specimen for c/s. Grafts/Implants: No Anesthesia: none Findings: Beth 4 DFU. Probes to bone. Complications: none Surgeon: Serjio Sheffield Estimated blood loss (cc): 0 Specimens Removed/Pathology: other (Wound bse tissue for c/s Aerobic and Anaerobic. ) Condition: stable Disposition: floor
--- NOTE | 2020-05-14 13:13 | Operative Note ---
DATE OF OPERATION: 05/14/2020 PREOPERATIVE DIAGNOSES: 1. Open wound, right anterior lateral status post previous ray amputation of fifth toe. 2. Osteomyelitis of a distant fourth metatarsal bone and proximal phalanx. POSTOPERATIVE DIAGNOSES: 1. Open wound, right anterior lateral status post previous ray amputation of fifth toe. 2. Osteomyelitis of a distant fourth metatarsal bone and proximal phalanx. OPERATION: 1. Local wound care with MIST treatment and GCB application. 2. Bedside debridement of wound and wound base tissue specimen for culture and sensitivity. SURGEON: Serjio Sheffield M.D. WOUND DIMENSIONS: 2.5 x 2 x 0.5 cm wound. PROCEDURE NOTE: After obtaining verbal informed consent, I proceeded to clean this patient's wound with the help of nursing staff. Using sterile precautions, the area was cleaned with chlorhexidine swab. The patient is insensate at this site due to diabetic neuropathy. A #5 sharp curette was used. The wound was selectively, carefully debrided. Deep tissue specimen obtained for culture and sensitivity. Hemostasis achieved with pressure and elevation. Dressings consisted of GCB soaked wet-to-dry dressings reinforced with a Kerlix bandage, Coban, and Blu. Procedure was well tolerated. VD:naomi Job ID: [id number] Doc ID: [id number] Serjio Sheffield MD
[2020-05-14] MEDS: ATORVASTATIN 20 MG TABLET PO SCH (21:15)
[2020-05-15] MEDS: PIPERACILLIN SODIUM/TAZOBACTAM 3.375 GM in DEXTROSE 5% IN WATER 50 ML IV SCH ×2 (05:47→11:59)
[2020-05-15] MEDS: 0.9 % SODIUM CHLORIDE 10 ML SYRINGE IV SCH ×3 (05:47→11:59)
--- NOTE | 2020-05-15 07:33 | Internal Med Progress Note ---
SUBJECTIVE Subjective Patient information: Note initiated : 05/15/20 at 7:31 am Service Date, if different from initiated Date: [] Patient: Navid Garcia 59 y/o M admitted on 05/12/20 for right foot wound, worsening. Chief Complaint: [] Interval history: Mr. Garcia is a 59 year old M Presents to the ED with infection of a right foot with recent skin grafting to that foot. He was seen in the wound care clinic today and sent over the ED for admission as he needed IV antibiotics and debridement. He states that since Tuesday is at increased and redness but no pain as he does have neuropathy in the feet. He denies any swelling but does say he has had a drainage of a clearish yellow fluid. Did go to the ER 3 days ago and the him some IV antibiotics and cultured it and it is growing Enterobacter and Staphylococcus. Did have a temperature of 101.5 at the ED visit but has not had any fever since then. Feels relatively well. He has a mild leukocytosis. No other pains or complaints. Has been on oral antibiotics recently. 05/13 No overnight event or new complaints. Patient feeling well. Continue IV antibiotics and will likely undergo debridement by Dr. Stuart soon. 05/14 No new complaints or issues overnight. Seen by Dr. Bentley. Likely to undergo debridement by Dr. Stuart soon. Leukocytosis improved and CRP improved 05/15 Doing well. No overnight event or new complaints. Underwent bedside debridement yesterday by Dr. Sheffield. Awaiting final cultures. Review of Systems: denies headache/fever/chills/nausea/vomiting/chest or abdominal pain/cough/dyspnea/diarrhea. Otherwise see above. Constitutional Vitals: Vital Signs Temp Pulse Resp BP Pulse Ox 97.8 F 70 15 115/75 97 05/15/20 03:40 05/15/20 03:40 05/15/20 03:40 05/15/20 03:40 05/15/20 03:40 Period Temp Pulse Resp BP Sys/Garcia Pulse Ox Last 24 Hr 97.8 F-98.8 F 68-89 15-20 110-130/75-85 92-97 Intake and Output 05/14/20 05/15/20 05/15/20 21:59 05:59 13:59 Intake Total 990 1750 Output Total 1700 1400 Balance -710 350 Weight 125.781 kg Intake & Output: Intake & Output 05/14/20 05/15/20 05/15/20 21:59 05:59 13:59 Intake Total 990 1750 Output Total 1700 1400 Balance -710 350 Weight 125.781 kg Intake: IV 50 50 Zosyn 3.375 gm In Dextrose 5% 50 50 in Water 50 ml @ 100 mls/hr IV Q6H [facility] Rx#:[id number] Oral 940 1700 Output: Void Amount 1700 1400 Other: Meal Lunch 2 cheese sticks, orange juice, tuna salad dip Percent of Meal Consumed 100% 100% Feeding Ability Independent Independent Urine Appearance Clear Clear Urine Color Bright Yellow Bright Yellow Urine Odor Normal Normal Exam: General: Alert, Awake, No acute Distress, obese Eyes/N/T: EOMI,, Head/Neck: neck supple, CV: RRR, No murmurs, Pulm: Clear b/l, no wheezing/rhonchi/rales Abd: soft, nontender, +BS x4 Ext: no clubbing/cyanosis/edema exception of right foot which is dressings Neuro: Alert, no focal deficits, moves all extremities, Skin: warm/dry OBJ DATA Labs CBC & Chem 7: 05/13/20 05:31 05/14/20 05:24 Labs: Abnormal Lab Results 05/14/20 05/13/20 05/13/20 05:24 05:31 05:31 WBC MPV 11.5 H ESR BUN Glucose 141 H C-Reactive Protein 4.90 H Albumin 3.1 L Globulin 4.6 H Albumin/Globulin Ratio 0.7 L 05/12/20 05/12/20 10:56 10:56 WBC 12.4 H MPV 11.8 H ESR 36 H BUN 23 H Glucose 231 H C-Reactive Protein 12.80 H Albumin Globulin 4.1 H Albumin/Globulin Ratio 0.9 L Meds: Medications Acetaminophen (Tylenol) 650 mg PO Q6HP PRN PRN Reason: PAIN/FEVER > 101 Hydrocodone Bitart/Acetaminophen ([place] 5/325mg) 1 tab PO Q4HP PRN PRN Reason: PAIN LEVEL 3-6 Amlodipine Besylate (Norvasc) 10 mg PO DAILY [facility] Last Admin: 05/14/20 10:34 Dose: 10 mg Documented by: Aspirin (Aspirin) 81 mg PO DAILY [facility] Last Admin: 05/14/20 10:34 Dose: 81 mg Documented by: Atorvastatin Calcium (Lipitor) 20 mg PO HS [facility] Last Admin: 05/14/20 21:15 Dose: 20 mg Documented by: Carvedilol (Coreg) 3.125 mg PO BIDCC [facility] Last Admin: 05/14/20 17:06 Dose: 3.125 mg Documented by: Chlorthalidone (Hygroton) 12.5 mg PO DAILY [facility] Last Admin: 05/14/20 10:34 Dose: 12.5 mg Documented by: Diagnostic Test (Pha) (Accu-Chek) 1 each FS ACHS [facility] Last Admin: 05/15/20 07:12 Dose: 1 each Documented by: Docusate Sodium (Colace) 100 mg PO BID [facility] Last Admin: 05/14/20 21:15 Dose: 100 mg Documented by: Duloxetine HCl (Cymbalta) 30 mg PO BID [facility] Last Admin: 05/14/20 21:15 Dose: 30 mg Documented by: Heparin Sodium (Porcine) (Heparin) 5,000 unit SQ Q12 [facility] Last Admin: 05/14/20 21:15 Dose: 5,000 unit Documented by: Heparin Sodium (Porcine) (Heparin 10 Units/Ml Flush) 2 ml IV Q12 [facility] Last Admin: 05/14/20 21:16 Dose: 2 ml Documented by: Potassium Chloride 40 meq/ (Dextrose) 520 mls @ 130 mls/hr IV UD PRN PRN Reason: Potassium < 3 Magnesium Sulfate (Magnesium Sulfate) 2 gm in 50 mls @ 50 mls/hr IV UD PRN PRN Reason: Magnesium </= 1.6 Piperacillin Sod/Tazobactam (Sod 3.375 gm/ Dextrose) 50 mls @ 100 mls/hr IV Q6H [facility]; Protocol Last Admin: 05/15/20 05:47 Dose: 100 mls/hr Documented by: Gentamicin Sulfate 40 mg/Clindamycin Phosphate 300 mg/Bacitracin 25,000 unit/ Sodium Chloride 503 mls @ 0 mls/hr IRR BID [facility] Last Admin: 05/14/20 21:16 Dose: 10 mls/hr Documented by: Insulin Human Regular (Humulin R) 0 unit SQ TIDAC [facility] Last Admin: 05/14/20 17:12 Dose: 35 unit Documented by: Lisinopril (Zestril) 40 mg PO BID [facility] Last Admin: 05/14/20 21:15 Dose: 40 mg Documented by: Magnesium Oxide (Magnesium Oxide) 400 mg PO DAILY [facility] Last Admin: 05/14/20 10:34 Dose: 400 mg Documented by: Meloxicam (Mobic) 7.5 mg PO BIDP PRN PRN Reason: pain Metformin HCl (Glucophage) 500 mg PO BIDCC [facility] Last Admin: 05/14/20 17:06 Dose: 500 mg Documented by: Ondansetron HCl (Zofran) 4 mg IV Q4HP PRN PRN Reason: Nausea And Vomiting Dulaglutide [ Trulicity] 0.75 Mg Injection 1 dose SUB-Q Meyers@0900 [facility] Polyethylene Glycol (Miralax) 17 gm PO DAILYP PRN PRN Reason: Constipation Potassium Chloride (Kdur) 40 meq PO UD PRN PRN Reason: Potssium is 3-3.5 Potassium Chloride (Kdur) 40 meq PO UD PRN PRN Reason: Potassium < 3 Senna (Senokot) 2 tab PO DAILYP PRN PRN Reason: Constipation Sodium Chloride (Saline Flush) 10 ml IV Q8 [facility] Last Admin: 05/15/20 05:47 Dose: 10 ml Documented by: Sodium Chloride (Saline Flush) 10 ml IV UD PRN PRN Reason: FLUSH Sodium Chloride (Saline Flush) 10 ml IV Q12 [facility] Last Admin: 05/14/20 21:17 Dose: 10 ml Documented by: A/P Narrative A/P Narrative: A: *Diabetic Right Foot cellulitis/Osteo 4th MT w/recent grafting: s/p beside maria isabel ridement (05/14) -recent wound cx (05/09) with MSSA & Enterobacter Cloacae *SIRS: 2/2 above, improved. 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 Sheffield -Continue Zosyn per ID, final recs pending -continue exenatide/prandial insulin/CC diet, sliding scale/basal insulin -PT OT nutrition support -Discharge planning per case management -ppx: heparin full code Time Spent With Patient Time: Total time spent is greater than 50% in coordination of care (as documented) at patient's floor/unit and/or counseling patient:
[2020-05-15] MEDS: HEPARIN 5,000 UNIT/ML VIAL SQ SCH (07:56)
[2020-05-15] MEDS: CHLORTHALIDONE 25 MG TABLET PO SCH (07:57)
[2020-05-15] MEDS: metFORMIN 500 MG TAB.XL.24H PO SCH (07:57)
[2020-05-15] MEDS: ASPIRIN 81 MG TAB.CHEW PO SCH (07:57)
[2020-05-15] MEDS: MAGNESIUM OXIDE 400 MG TABLET PO SCH (07:57)
[2020-05-15] MEDS: LISINOPRIL 20 MG TABLET PO SCH (07:57)
[2020-05-15] MEDS: CARVEDILOL 3.125 MG TABLET PO SCH (07:57)
[2020-05-15] MEDS: DULoxetine 30 MG CAPSULE PO SCH (07:58)
[2020-05-15] MEDS: INSULIN REGULAR, HUMAN 1 UNIT/0.01 ML UNIT SQ SCH ×2 (07:58→11:59)
[2020-05-15] MEDS: amLODIPine 10 MG TABLET PO SCH (07:58)
[2020-05-15] MEDS: DOCUSATE SODIUM 100 MG CAPSULE PO SCH (07:58)
[2020-05-15] MEDS: GENTAMICIN SULFATE 40 MG, CLINDAMYCIN 300 MG, BACITRACIN 25,000 UNIT in SODIUM CHLORIDE... IRR SCH (11:21)
[2020-05-18] MEDS ORDERED: DULAGLUTIDE 0.75 MG SUB-Q SCH (09:00)
== END 2020-05-15 16:15 | disposition home or self-care (01) | DRG 637 ==
LOC: ED 10:21 → MEDSUR 15:11
PROVIDERS: ADMIT Internal Medicine; ATTEND Internal Medicine

== ENCOUNTER 2022-01-20 14:21 | Inpatient (IN) ==
[2022-01-20] MEDS ORDERED: 0.9 % SODIUM CHLORIDE 1,000 ML IV ONE (14:30)
[2022-01-20 14:53] LABS: POC Calcium, Ionized 0.97 (1.16-1.32); POC Creatinine 1.3 (0.6-1.2)
[2022-01-20] MEDS ORDERED: SODIUM CHLORIDE IV ONE (15:11)
[2022-01-20] MEDS ORDERED: PIPERACILLIN SODIUM/TAZOBACTAM 3.375 GM in DEXTROSE 5% IN WATER 50 ML IV ONE (15:22)
[2022-01-20] MEDS ORDERED: VANCOMYCIN PER PHARMACY IV ONE (15:22)
--- NOTE | 2022-01-20 15:24 | XRay Report ---
INDICATION: tachycardia TECHNIQUE: AP portable semiupright chest x-ray COMPARISON: Previous chest x-rays dated 05/14/2021, 04/29/2021, 10/31/2020 FINDINGS: Lungs:Lungs are negative. No focal pulmonary parenchymal infiltrate or mass Heart, vascular:No significant cardiomegaly. Pulmonary vascularity is normal. No pulmonary edema or pulmonary congestion Mediastinum, lavelle:No mediastinal widening. No hilar mass Pleura:No pleural fluid. No pleural-based mass or calcification Skeletal:Negative. IMPRESSION: Negative AP chest x-ray Interpreted and Authenticated by: Smith Michelle 01/20/22
--- NOTE | 2022-01-20 15:26 | Emergency Department Note ---
Wound/Laceration HIP General Chief Complaint: Wound/Laceration Stated Complaint: Weakness Time Seen by Provider: 01/20/22 14:23 Source: patient Mode of arrival: ambulatory Limitations: no limitations History of Present Illness HPI Narrative: Narrative: Patient presents ED with complaints of worsening right foot wound infection over the past 3 days. He states that the areas become more red and he has noticed more drainage. He also reports fever T-max of 103. He states is also felt weak. He feels like he is septic. Patient denies nausea, vomiting, diarrhea, cardiac chest pain, shortness of breath, hemoptysis, hematemesis. Patient states he has neuropathy in his feet and he cannot feel them. He denies any other alleviating or aggravating factors. Related Data Home Medications Medication Instructions Recorded Confirmed amlodipine 10 mg tablet 10 mg PO DAILY 11/02/18 05/28/21 aspirin 81 mg tablet,delayed 81 mg PO HS 11/02/18 05/28/21 release carvedilol 3.125 mg tablet 3.125 mg PO BID 11/02/18 05/28/21 duloxetine 30 mg capsule,delayed 30 mg PO BID 11/02/18 05/28/21 release lisinopril 40 mg tablet 40 mg PO BID 11/02/18 05/28/21 magnesium L-lactate 84 mg 84 mg PO DAILY 11/02/18 05/28/21 tablet,extended release meloxicam 15 mg tablet 7.5 mg PO BID 11/02/18 05/28/21 rosuvastatin 10 mg tablet 10 mg PO QHS 11/02/18 05/28/21 chlorthalidone 25 mg tablet 12.5 mg PO DAILY 11/07/18 05/28/21 metformin 500 mg tablet,extended 500 mg PO BID 11/07/18 05/28/21 release 24 hr dulaglutide 0.75 mg/0.5 mL 0.75 mg subcut WEEKLY 04/17/20 05/28/21 subcutaneous pen injector (Trulicity) insulin regular hum U-500 conc 500 0 unit subcut TID 04/17/20 05/28/21 unit/mL(3 mL) subcut pen (Humulin R U-500 (Conc) Insulin Kwikpen) daptomycin 500 mg intravenous 500 mg IV Q24H 05/13/21 05/28/21 solution Allergies Allergy/AdvReac Type Severity Reaction Status Date / Time hydrocodone AdvReac Mild Vomiting Verified 01/20/22 14:27 Review of Systems ROS ROS Narrative: Narrative: All systems ED: reviewed and negative except as stated. [facility], [facility] Narrative Patient History Narrative: Narrative: Medical/Surgical/Family History All Active Problems (Updated 01/20/22 @ 17:14 by Rey Bray DO) Wound of foot (Acute) Wound of left foot (Acute) Sepsis (Acute) Ulcer of foot (Acute) Cellulitis of foot, right (Acute) Acute osteomyelitis of right foot (Acute) Diabetic foot infection (Acute) Osteomyelitis (Acute) Status post full thickness skin graft (Acute) Wound cellulitis after surgery (Acute) Cellulitis (Acute) Phlebitis of right saphenous vein (Acute) Diabetic foot ulcer (Acute) Open wound of right foot (Acute) Diabetes (Acute) Nausea & vomiting (Acute) Myopia (Chronic) Ulcer of foot (Chronic) Hypertropia (Chronic) Macular degeneration (Chronic) Primary open angle glaucoma (Chronic) Senile cataracts of both eyes (Chronic) Regular astigmatism, bilateral (Chronic) Presbyopia (Chronic) Glaucoma (Chronic) Mild non proliferative diabetic retinopathy (Chronic) Diabetic macular edema (Chronic) Nuclear senile cataract (Chronic) Diabetic peripheral neuropathy (Chronic) Vitamin D deficiency (Chronic) Magnesium deficiency (Chronic) Diabetes mellitus type II, controlled (Chronic) Diabetic autonomic neuropathy (Chronic) Obesity (Chronic) Hypertensive disorder (Chronic) Sleep apnea (Chronic) Encounter for screening colonoscopy (Chronic) Medical History (Updated 01/20/22 @ 17:14 by Rey Bray DO) Diabetes mellitus type II, controlled Diabetic autonomic neuropathy Diabetic macular edema Diabetic peripheral neuropathy Patient denies pain in the right foot. Recommendations: #1. Place PICC line. 2. DC Vanco. 3. Continue Zosyn. 4. Follow-up on Enterobacter susceptibilities. 5. Follow-up on intraoperative cultures for tomorrow's debridement. 6. I would be happy to see him in follow-up in clinic. Weekly labs anticipated to include CBC CMP sed rate and CRP. Antibiotic may be adjusted based on intraoperative specimen obtained tomorrow. Thank you very much For allowing me to be involved in his consultative care. Encounter for screening colonoscopy Glaucoma Hypertensive disorder Hypertropia Macular degeneration Magnesium deficiency Mild non proliferative diabetic retinopathy Myopia Nuclear senile cataract Obesity Presbyopia Primary open angle glaucoma Regular astigmatism, bilateral Senile cataracts of both eyes Sleep apnea Ulcer of foot Vitamin D deficiency Surgical History History of surgery 1998-Left knee scope No pertinent past surgical history Family History Brother Diabetes x2 Hypertension x2 Sister Diabetes x3 Hypertension x3 Mother Stroke Father Cancer colon cancer Social History Smoking Status: Never smoker Alcohol Intake Frequency: does not drink Substance Use: does not use Exam Narrative Narrative: Narrative: General Limitations: no limitations General appearance: Present alert Respiratory Respiratory: Present normal lung sounds bilaterally and other (Tachypnea); Absent respiratory distress Cardiovascular Cardiovascular: Present normal rhythm and tachycardia Expanded Lower Extremity Ankle: Present normal inspection and full ROM Foot/toe: Present tenderness, swelling and erythema Bottom foot image: 1. Erythema, tenderness but no obvious fluctuance 2. Open wound purulent discharge 3. Amputation Neurological Neurological: Present alert and oriented X3 Psychiatric Psychiatric: Present normal affect and normal mood Skin Skin: Present warm (WNL) and intact Course Course Course Narrative: Patient was evaluated for complaints of worsening wound infection on his right foot. Physical exam showed that patient had redness on half of his foot and drainage from the wound at the bottom of his foot. Patient was tachycardic and tachypneic upon arrival. So he did meet sepsis criteria. Labs show that he had elevated white cell count, procalcitonin and lactic acid. Blood cultures were obtained. Patient was bolused IV fluids 30 mL/kg. He was given IV Zosyn and vancomycin. EKG shows sinus tachycardia. X-rays of the right foot were co ncerning for fourth metatarsal osteomyelitis. Case was discussed with wound care physician Dr. Stuart who has been caring for patient's wound who recommend that patient be admitted to the hospitalist service and that Dr. Ledesma be consulted from podiatry for surgical washout. Case was discussed with hospitalist who has agreed to admit the patient. Plan was discussed with patient and his and expressed verbal understanding and agreement of plan. Consultations Consultation #1: Case discussed with Dr. Anderson, retail beauty specialist, who recommend the patient be admitted to the hospital service and consult Dr. Ledesma, podiatry, for surgical wound debridement. Time: 16:44 Consultation #2: Case discussed with hospitalist who has agreed to admit the patient. Time: 17:01 Vital Signs Vital signs: Vital Signs Temperature 97.3 F 01/20/22 14:25 Pulse Rate 124 H 01/20/22 14:25 Respiratory Rate 20 01/20/22 14:25 Blood Pressure 107/70 01/20/22 14:25 Pulse Oximetry (%) 98 01/20/22 14:25 Oxygen Delivery Method 01/20/22 14:25 Temperature 97.3 F 01/20/22 14:25 Pulse Rate 105 H 01/20/22 17:11 Respiratory Rate 26 H 01/20/22 17:11 Blood Pressure 100/42 01/20/22 17:11 Pulse Oximetry (%) 88 L 01/20/22 17:11 Oxygen Delivery Method 01/20/22 14:25 MDM MDM Narrative Medical decision making narrative: Narrative: Differential Diagnosis Differential Diagnosis: Sepsis, osteomyelitis, wound infection Medical Records Medical records reviewed: Yes I reviewed the patient's medical records. Lab Data Lab results reviewed: Yes I reviewed the patient's lab results. Result diagrams: 01/20/22 14:43 Labs: Lab Results 01/20/22 01/20/22 01/20/22 Range/Units 14:43 14:43 14:43 WBC 17.3 H (4.5-11.0) K/mcL RBC 6.14 H (4.63-6.08) M/mcL Hgb 18.4 H (13.7-17.5) g/dL Hct 52.5 H (40.1-51.0) % POC Hct (41-55) MCV 85.5 (80.0-100.0) fL MCH 30.0 (26.0-34.0) pg MCHC 35.0 (31.0-36.0) g/dL RDW 13.4 (11.5-14.5) % Plt Count 220 (140-440) K/mcL MPV 11.7 (8.8-12.5) fL Immature Gran % (Auto) 0.8 H (0.0-0.5) % Neut % (Auto) 84.4 H (38.0-78.0) % Lymph % (Auto) 5.7 L (15.5-49.0) % Kaufman % (Auto) 8.5 (1.0-12.0) % Eos % (Auto) 0.3 (0.0-7.0) % Baso % (Auto) 0.3 (0.0-2.0) % Lymph # (Auto) 0.98 L (1.50-4.80) K/mcL Kaufman # (Auto) 1.48 H (0.10-0.90) K/mcL Eos # (Auto) 0.05 (0.00-0.70) K/mcL Baso # (Auto) 0.05 (0.00-0.30) K/mcL Immature Gran # 0.13 H (0.00-0.05) K/mcl Absolute Neutrophils 14.62 H (1.80-8.00) K/mcL POC VBG pH (7.32-7.42) POC VBG pCO2 at Temp (41-51) POC VBG pO2 (25-40) POC VBG HCO3 (24-28) POC VBG Total CO2 (25-29) POC Venous O2 Sat (40-70) POC VBG Base Excess (-2-2) VBG Lactic Acid (0.5-2) POC Sodium (133-145) POC Potassium (3.3-5.1) POC Chloride (96-108) POC Total CO2 (22-30) POC BUN (6-20) POC Creatinine (0.6-1.2) POC Glucose (70-105) POC WB Ioniz Calcium (1.16-1.32) Total Bilirubin 0.7 (0.1-1.0) mg/dL Direct Bilirubin 0.3 H (<0.3) mg/dL AST 36 (<40) U/L ALT 19 (<40) U/L Alkaline Phosphatase 78 (39-117) U/L C-Reactive Protein (0.03-0.80) mg/dL Total Protein 8.3 (5.9-8.4) gm/dL Albumin 3.4 (3.2-5.2) gm/dL Globulin 4.9 H (2.2-3.7) gm/dL Procalcitonin 3.20 H (<0.10) ng/mL 01/20/22 01/20/22 01/20/22 Range/Units 14:43 14:49 14:49 WBC (4.5-11.0) K/mcL RBC (4.63-6.08) M/mcL Hgb (13.7-17.5) g/dL Hct (40.1-51.0) % POC Hct 59.0 H (41-55) MCV (80.0-100.0) fL MCH (26.0-34.0) pg MCHC (31.0-36.0) g/dL RDW (11.5-14.5) % Plt Count (140-440) K/mcL MPV (8.8-12.5) fL Immature Gran % (Auto) (0.0-0.5) % Neut % (Auto) (38.0-78.0) % Lymph % (Auto) (15.5-49.0) % Kaufman % (Auto) (1.0-12.0) % Eos % (Auto) (0.0-7.0) % Baso % (Auto) (0.0-2.0) % Lymph # (Auto) (1.50-4.80) K/mcL [place]aufman # (Auto) (0.10-0.90) K/mcL Eos # (Auto) (0.00-0.70) K/mcL Baso # (Auto) (0.00-0.30) K/mcL Immature Gran # (0.00-0.05) K/mcl Absolute Neutrophils (1.80-8.00) K/mcL POC VBG pH 7.44 H (7.32-7.42) POC VBG pCO2 at Temp 38.0 L (41-51) POC VBG pO2 22 L (25-40) POC VBG HCO3 26.0 (24-28) POC VBG Total CO2 27.0 (25-29) POC Venous O2 Sat 41.0 (40-70) POC VBG Base Excess 2.0 (-2-2) VBG Lactic Acid 2.7 H (0.5-2) POC Sodium 128 L (133-145) POC Potassium 4.0 (3.3-5.1) POC Chloride 90 L (96-108) POC Total CO2 25.0 (22-30) POC BUN 30 H (6-20) POC Creatinine 1.3 H (0.6-1.2) POC Glucose 287 H (70-105) POC WB Ioniz Calcium 0.97 L (1.16-1.32) Total Bilirubin (0.1-1.0) mg/dL Direct Bilirubin (<0.3) mg/dL AST (<40) U/L ALT (<40) U/L Alkaline Phosphatase (39-117) U/L C-Reactive Protein 22.20 H (0.03-0.80) mg/dL Total Protein (5.9-8.4) gm/dL Albumin (3.2-5.2) gm/dL Globulin (2.2-3.7) gm/dL Procalcitonin (<0.10) ng/mL ED POC Tests ED POC Tests: ELEN - Influenza A Negative ELEN - Influenza B Negative ELEN - SARS Antigen Negative EKG Data EKG #1: EKG attestation: Yes I reviewed and interpreted this EKG. EKG shows normal: sinus rhythm Rate: tachycardia Rhythm: NSR [place]/QRS: LBBB Heart block present: None ST segment elevation in: None ST segment depression in: None QTc: normal QRS morphology: Present normal Interpretation: no acute changes Core Measures AMI Core Measures Followed: Yes Discharge Plan Patient/Caregiver Discharge Instructions Pt seen by [facility]/PA only: No Clinical Impression: Sepsis, Ulcer of foot, Cellulitis of foot, right, Acute osteomyelitis of right foot Patient Disposition: Xfer As Outpt/Obs ([facility]) Condition: Fair Follow up with: Kaushik Coy MD [Primary Care Provider] - Prescriptions: No Action amlodipine 10 mg tablet 10 mg PO DAILY aspirin 81 mg tablet,delayed release (DR/EC) 81 mg PO HS carvedilol 3.125 mg tablet 3.125 mg PO BID duloxetine 30 mg capsule,delayed release(DR/EC) 30 mg PO BID lisinopril 40 mg tablet 40 mg PO BID magnesium L-lactate 84 mg tablet extended release 84 mg PO DAILY meloxicam 15 mg tablet 7.5 mg PO BID rosuvastatin 10 mg tablet 10 mg PO QHS chlorthalidone 25 mg tablet 12.5 mg PO DAILY metformin 500 mg tablet extended release 24 hr 500 mg PO BID Trulicity 0.75 mg/0.5 mL Pen Injector 0.75 mg SUBCUT WEEKLY Rx Instructions: Taken on Tuesday Humulin R U-500 (Conc) Kwikpen 500 unit/mL (3 mL) Insulin Pen 0 unit SUBCUT TID Rx Instructions: SLIDING SCALE 71-130 40 units 131-180 45 units 181-230 50 units 231-280 55 units 281-330 60 units 330 greater call daptomycin 500 mg Recon Soln 500 mg IV Q24H Rx Instructions: administer over 30 mins
[2022-01-20] MEDS ORDERED: VANCOMYCIN 1,500 MG in 0.9 % SODIUM CHLORIDE 500 ML IV ONE (15:45)
--- NOTE | 2022-01-20 15:53 | XRay Report ---
INDICATION: cellulitis, r/o osteo TECHNIQUE: AP, oblique, lateral right foot COMPARISON: Previous examination dated 05/11/2021 FINDINGS: There is a large wound involving the lateral midfoot and forefoot. Patient has undergone previous transmetatarsal amputation of the fourth and fifth digits. Partial bone destruction involving the residual right fourth metatarsal consistent with osteomyelitis. No definite fifth metatarsal osteomyelitis. There is a lucency projected over the distal portion of the fifth metatarsal on AP and oblique views. This is probably related to underlying plantar ulcer. Exposed bone is not excluded. IMPRESSION: 1. Large soft tissue wound and focal ulcer 2. 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 Probable right fourth metatarsal osteomyelitis Interpreted and Authenticated by: Smith Michelle 01/20/22
[2022-01-20 15:59] LABS: Basophils # (Auto) 0.05 K/mcL (0.00-0.30); Basophils % (Auto) 0.3 % (0.0-2.0); Eosinophils # (Auto) 0.05 K/mcL (0.00-0.70); Eosinophils % (Auto) 0.3 % (0.0-7.0); Hematocrit 52.5 % (40.1-51.0); Hemoglobin 18.4 g/dL (13.7-17.5); Lymphocytes # (Auto) 0.98 K/mcL (1.50-4.80); Lymphocytes % (Auto) 5.7 % (15.5-49.0); Mean Cell Volume 85.5 fL (80.0-100.0); Mean Platelet Volume 11.7 fL (8.8-12.5); Monocytes # (Auto) 1.48 K/mcL (0.10-0.90); Monocytes % (Auto) 8.5 % (1.0-12.0); Neutrophils % (Auto) 84.4 % (38.0-78.0); Platelet Count 220 K/mcL (140-440); RBC 6.14 M/mcL (4.63-6.08); Red Cell Distribution Width 13.4 % (11.5-14.5); WBC 17.3 K/mcL (4.5-11.0)
[2022-01-20 16:51] LABS: ALT/SGPT 19 U/L (<40); AST/SGOT 36 U/L (<40); Albumin 3.4 gm/dL (3.2-5.2); Alkaline Phosphatase 78 U/L (39-117); Bilirubin,Direct 0.3 mg/dL (<0.3); Bilirubin,Total 0.7 mg/dL (0.1-1.0); Globulin 4.9 gm/dL (2.2-3.7)
--- NOTE | 2022-01-20 18:12 | Internal Med History&Physical ---
HPI History of Present Illness Patient information: Note initiated : 01/20/22 at 5:50 pm Service Date, if different from initiated Date: [] Patient: Navid Garcia a 61 y/o M admitted on for Weakness. Chief Complaint: [left foot redness and swelling] Chief complaint: left foot redness and swelling History of present illness: Mr. Garcia is a 61 year old M history of type 2 diabetes mellitus with diabetic neuropathy, status post right fourth and fifth told amputations, essential hypertensions, presenting with 2-day history of right foot redness and swelling. He got his right fourth and fifth told surgically amputated 3 and 2 years ago, respectively. He has noticed redness and swelling of his left foot since yesterday. He denies any pain but stated that he could not feel any pain in his feet anyway due to his diabetic neuropathy. He denies any new trauma or injury to the regions. He denies any systemic symptoms such as fever, chills, or diaphoresis. He denies any change in his appetite. Due to the changes he was seen in his right foot, he decided to come to our ED for further evaluations. Vital signs at ED presentation significant for tachycardia and tachypnea. Labs significant for leukocytosis with a WBC 17.3. Serum sodium level 128 with corrected sodium for glucose 132. Glucose level at 287. Lactic acid 2.7, repeat lactic acid 2.1. CRP 22.2, procalcitonin level 3.20. Right foot x-ray showing large soft tissue wound and focal ulcer. It also shows a previous transmetatarsal amputations of the right fourth and fifth metatarsals. Probable right fourth metatarsal osteomyelitis. Constitutional Constitutional: Absent chills, excessive sweating, fatigue, fever(s) or weakness EENT Eyes: Absent blurry vision, change in vision, loss of vision or other visual disturbances Ears: Absent decreased hearing or tinnitus Nose, mouth and throat: Absent abnormal hearing, dry mouth, headache(s), nasal congestion or sore throat Cardiovascular Cardiovascular: Absent chest pain, chest pain at rest, edema, irregular heart rhythm or palpatations Respiratory Respiratory: Absent cough, dyspnea or wheezing Gastrointestinal Gastrointestinal: Absent abdominal pain, constipation, diarrhea, nausea or vomiting Musculoskeletal Musculoskeletal: Absent back pain, deformity, limited range of motion, muscle cramps, muscle weakness or numbness Additional comments: Right foot swelling and redness as per HPI. Integumentary Integumentary: Present wounds; Absent lesions or rash Additional comments: Right foot swelling and redness as per HPI. Neurological Neurological: Absent focal weakness, headache(s) or numbness Psychiatric Psychiatric: Absent anxiety, depression or hallucinations PFSH PFSH All Active Problems (Updated 01/20/22 @ 18:07 by Saul Gibbs MD) Essential hypertension (Acute) Stage 1 acute kidney injury (Acute) Diabetic foot ulcer with osteomyelitis (Acute) Diabetic foot ulcer associated with type 2 diabetes mellitus (Acute) Wound of foot (Acute) Wound of left foot (Acute) Sepsis (Acute) Ulcer of foot (Acute) Cellulitis of foot, right (Acute) Acute osteomyelitis of right foot (Acute) Diabetic foot infection (Acute) Osteomyelitis (Acute) Status post full thickness skin graft (Acute) Wound cellulitis after surgery (Acute) Cellulitis (Acute) Phlebitis of right saphenous vein (Acute) Diabetic foot ulcer (Acute) Open wound of right foot (Acute) Diabetes (Acute) Nausea & vomiting (Acute) Myopia (Chronic) Ulcer of foot (Chronic) Hypertropia (Chronic) Macular degeneration (Chronic) Primary open angle glaucoma (Chronic) Senile cataracts of both eyes (Chronic) Regular astigmatism, bilateral (Chronic) Presbyopia (Chronic) Glaucoma (Chronic) Mild non proliferative diabetic retinopathy (Chronic) Diabetic macular edema (Chronic) Nuclear senile cataract (Chronic) Diabetic peripheral neuropathy (Chronic) Vitamin D deficiency (Chronic) Magnesium deficiency (Chronic) Diabetes mellitus type II, controlled (Chronic) Diabetic autonomic neuropathy (Chronic) Obesity (Chronic) Hypertensive disorder (Chronic) Sleep apnea (Chronic) Encounter for screening colonoscopy (Chronic) Medical History (Updated 01/20/22 @ 18:07 by Saul Gibbs MD) Diabetes mellitus type II, controlled Diabetic autonomic neuropathy Diabetic macular edema Diabetic peripheral neuropathy Patient denies pain in the right foot. Recommendations: #1. Place PICC line. 2. DC Vanco. 3. Continue Zosyn. 4. Follow-up on Enterobacter susceptibilities. 5. Follow-up on intraoperative cultures for tomorrow's debridement. 6. I would be happy to see him in follow-up in clinic. Weekly labs anticipated to include CBC CMP sed rate and CRP. Antibiotic may be adjusted based on intraoperative specimen obtained tomorrow. Thank you very much For allowing me to be involved in his consultative care. Encounter for screening colonoscopy Glaucoma Hypertensive disorder Hypertropia Macular degeneration Magnesium deficiency Mild non proliferative diabetic retinopathy Myopia Nuclear senile cataract Obesity Presbyopia Primary open angle glaucoma Regular astigmatism, bilateral Senile cataracts of both eyes Sleep apnea Ulcer of foot Vitamin D deficiency Surgical History History of surgery 1998-Left knee scope No pertinent past surgical history Family History Brother Diabetes x2 Hypertension x2 Sister Diabetes x3 Hypertension x3 Mother Stroke Father Cancer colon cancer Social History smoking status: Never smoker alcohol intake frequency: does not drink substance use type: does not use MEDS/ALLERGIES Home Medications and Allergies Home Medications Medication Instructions Recorded Confirmed Type amlodipine 10 mg tablet 10 mg PO DAILY 11/02/18 05/28/21 History aspirin 81 mg tablet,delayed 81 mg PO HS 11/02/18 05/28/21 History release carvedilol 3.125 mg tablet 3.125 mg PO BID 11/02/18 05/28/21 History duloxetine 30 mg capsule,delayed 30 mg PO BID 11/02/18 05/28/21 History release lisinopril 40 mg tablet 40 mg PO BID 11/02/18 05/28/21 History magnesium L-lactate 84 mg 84 mg PO DAILY 11/02/18 05/28/21 History tablet,extended release meloxicam 15 mg tablet 7.5 mg PO BID 11/02/18 05/28/21 History rosuvastatin 10 mg tablet 10 mg PO QHS 11/02/18 05/28/21 History chlorthalidone 25 mg tablet 12.5 mg PO DAILY 11/07/18 05/28/21 History metformin 500 mg tablet,extended 500 mg PO BID 11/07/18 05/28/21 History release 24 hr dulaglutide 0.75 mg/0.5 mL 0.75 mg subcut WEEKLY 04/17/20 05/28/21 History subcutaneous pen injector (Trulicity) insulin regular hum U-500 conc 500 0 unit subcut TID 04/17/20 05/28/21 History unit/mL(3 mL) subcut pen (Humulin R U-500 (Conc) Insulin Kwikpen) daptomycin 500 mg intravenous 500 mg IV Q24H 05/13/21 05/28/21 History solution Allergies Allergy/AdvReac Type Severity Reaction Status Date / Time hydrocodone AdvReac Mild Vomiting Verified 01/20/22 14:27 EXAM Constitutional Vitals: Temp Pulse Resp BP Pulse Ox O2 Del Method 36.3 C 105 H 26 H 100/42 88 L 01/20/22 14:25 01/20/22 17:11 01/20/22 17:11 01/20/22 17:11 01/20/22 17:11 01/20/22 14:25 General appearance: cooperative and no acute distress Head Head exam: Present atraumatic and normocephalic Eye Eye exam: Present EOMI and PERRL ENT ENT exam: Present mucous membranes moist, normal exam and normal external ear exam Neck Neck exam: Present normal inspection; Absent lymphadenopathy, tenderness or thyromegaly Respiratory Respiratory exam: Absent accessory muscle use, respiratory distress or wheezes Cardiovascular Cardiovascular exam: Present normal rate and rhythm; Absent JVD GI/Abdominal GI/Abdominal exam: Present normal bowel sounds and soft; Absent organomegaly or tenderness Rectal Rectal exam: Present deferred Extremities Exam Extremities exam: Present full ROM and normal capillary refill; Absent normal inspection or tenderness Additional comments: Right foot swelling and redness as per HPI. Right 4th and 5th toe surgically amputated Neurological Exam Neurological exam: Present alert, CN II-XII intact and oriented X3; Absent motor sensory deficit Psychiatric Psychiatric exam: Present normal affect and normal mood; Absent anxious or depressed Skin Skin exam: Present dry; Absent intact Additional comments: Right foot swelling and erythema. Right lateral foot covered by wound dressing DATA Data Completed and Pending Labs: Labs from last 24 hours 01/20/22 01/20/22 01/20/22 17:20 14:49 14:49 WBC RBC Hgb Hct POC Hct 59.0 H MCV MCH MCHC RDW Plt Count MPV Immature Gran % (Auto) Neut % (Auto) Lymph % (Auto) [place] % (Auto) Eos % (Auto) Baso % (Auto) Lymph # (Auto) [place] # (Auto) Eos # (Auto) Baso # (Auto) Immature Gran # Absolute Neutrophils POC VBG pH 7.42 7.44 H POC VBG pCO2 at Temp 40.8 L 38.0 L POC VBG pO2 21 L 22 L POC VBG HCO3 26.3 26.0 POC VBG Total CO2 28.0 27.0 POC Venous O2 Sat 34.0 L 41.0 POC VBG Base Excess 2.0 2.0 VBG Lactic Acid 2.1 H 2.7 H POC Sodium 128 L POC Potassium 4.0 POC Chloride 90 L POC Total CO2 25.0 POC BUN 30 H POC Creatinine 1.3 H POC Glucose 287 H POC WB Ioniz Calcium 0.97 L Total Bilirubin Direct Bilirubin AST ALT Alkaline Phosphatase C-Reactive Protein Total Protein Albumin Globulin Procalcitonin 01/20/22 01/20/22 01/20/22 14:43 14:43 14:43 WBC RBC Hgb Hct POC Hct MCV MCH MCHC RDW Plt Count MPV Immature Gran % (Auto) Neut % (Auto) Lymph % (Auto) [place] % (Auto) Eos % (Auto) Baso % (Auto) Lymph # (Auto) [place] # (Auto) Eos # (Auto) Baso # (Auto) Immature Gran # Absolute Neutrophils POC VBG pH POC VBG pCO2 at Temp POC VBG pO2 POC VBG HCO3 POC VBG Total CO2 POC Venous O2 Sat POC VBG Base Excess VBG Lactic Acid POC Sodium POC Potassium POC Chloride POC Total CO2 POC BUN POC Creatinine POC Glucose POC WB Ioniz Calcium Total Bilirubin 0.7 Direct Bilirubin 0.3 H AST 36 ALT 19 Alkaline Phosphatase 78 C-Reactive Protein 22.20 H Total Protein 8.3 Albumin 3.4 Globulin 4.9 H Procalcitonin 3.20 H 01/20/22 14:43 WBC 17.3 H RBC 6.14 H Hgb 18.4 H Hct 52.5 H POC Hct MCV 85.5 MCH 30.0 MCHC 35.0 RDW 13.4 Plt Count 220 MPV 11.7 Immature Gran % (Auto) 0.8 H Neut % (Auto) 84.4 H Lymph % (Auto) 5.7 L [place] % (Auto) 8.5 Eos % (Auto) 0.3 Baso % (Auto) 0.3 Lymph # (Auto) 0.98 L [place] # (Auto) 1.48 H Eos # (Auto) 0.05 Baso # (Auto) 0.05 Immature Gran # 0.13 H Absolute Neutrophils 14.62 H POC VBG pH POC VBG pCO2 at Temp POC VBG pO2 POC VBG HCO3 POC VBG Total CO2 POC Venous O2 Sat POC VBG Base Excess VBG Lactic Acid POC Sodium POC Potassium POC Chloride POC Total CO2 POC BUN POC Creatinine POC Glucose POC WB Ioniz Calcium Total Bilirubin Direct Bilirubin AST ALT Alkaline Phosphatase C-Reactive Protein Total Protein Albumin Globulin Procalcitonin A/P Assessment and plan (1) Cellulitis of foot, right: Status: Acute (2) Diabetic foot ulcer associated with type 2 diabetes mellitus: Status: Acute (3) Diabetic foot ulcer with osteomyelitis: Status: Acute (4) Stage 1 acute kidney injury: Status: Acute (5) Essential hypertension: Status: Acute (6) Diabetic autonomic neuropathy: Status: Chronic Narrative A/P Narrative: Assessment and Plans: 1. Diabetic foot ulcer with right 4th metatarsal osteomyelitis associated with T2DM and diabetic neuropathy: Inpatient med surg Consult Dr. Sheffiled, recs. appreciated Consult parts sales advisor Dr. Ledesma, recs. appreciated Serial lactic acid Daily ESR/CRP Wound culture Blood culture cbc w/ auto diff in the morning to trend WBC MRSA screening Physical therapy NS@100cc/hr Vancomycin Zosyn HgA1c Hold oral hypoglycemics Lantus 10 unit HS High dose insulin Lispro SSI AC HS Accu Check AC HS Hypoglycemia protocol Diabetic diet 2. Stage 1 acute kidney injury: Avoid nephrotoxic agents NS@100cc/hr CMP in the morning to trend kidney functions 3. Essential hypertension: Currently borderline low blood pressure Hold diuretics Chlorthalidone from home regimen Hold oral antihypertensives (Amlodipine/Coreg/Lisinopril) from home regimen GI ppx: not currently indicated DVT ppx: SCDs Code status: Full Prognosis: guarded Disposition: inpatient med surg; PT Time Spent With Patient Time: Total time spent is greater than 50% in coordination of care (as documented) at patient's floor/unit and/or counseling patient: Total time spent with greater than 50% in coordination of care (as documented) at patient's floor/unit and/or counseling patient:: 50 - 70 minutes
[2022-01-20] MEDS ORDERED: VANCOMYCIN PER PHARMACY IV SCH (19:36)
[2022-01-20] MEDS ORDERED: traZODone HCL 50 MG TABLET PO PRN (19:36)
[2022-01-20] MEDS ORDERED: DEXTROSE 31 GM ORAL.SUSP PO PRN (19:36)
[2022-01-20] MEDS ORDERED: ONDANSETRON 4 MG/2 ML VIAL IV PRN (19:36)
[2022-01-20] MEDS ORDERED: DEXTROSE 50% 50 ML VIAL IV PRN (19:36)
[2022-01-20] MEDS ORDERED: ACETAMINOPHEN 325 MG TABLET PO PRN (19:36)
[2022-01-20] MEDS ORDERED: IPRATROPIUM/ALBUTEROL 3 ML AMPUL.NEB NEB PRN (19:36)
[2022-01-20] MEDS: 0.9 % SODIUM CHLORIDE 1,000 ML IV SCH (20:02)
[2022-01-20] MEDS ORDERED: ONDANSETRON 4 MG/2 ML VIAL ONE (20:11)
[2022-01-20] MEDS: INSULIN LISPRO 1 UNIT/0.01 ML UNIT SQ SCH (21:08)
[2022-01-20] MEDS: ASPIRIN 81 MG TAB.CHEW PO SCH (21:16)
[2022-01-20] MEDS: DOCUSATE SODIUM 100 MG CAPSULE PO SCH (21:16)
[2022-01-20] MEDS: MELOXICAM 7.5 MG TABLET PO SCH (21:17)
[2022-01-20] MEDS: INSULIN GLARGINE, HUMAN 1 UNIT/0.01 ML SQ SCH (21:17)
[2022-01-20] MEDS: SENNOSIDES 1 TABLET PO SCH (21:17)
[2022-01-20] MEDS: DULoxetine 30 MG CAPSULE PO SCH (21:17)
[2022-01-20] MEDS: ATORVASTATIN 20 MG TABLET PO SCH (21:17)
[2022-01-20] MEDS: 0.9 % SODIUM CHLORIDE 10 ML SYRINGE IV SCH (21:18)
[2022-01-20] MEDS: PIPERACILLIN SODIUM/TAZOBACTAM 3.375 GM in DEXTROSE 5% IN WATER 50 ML IV SCH (23:34)
[2022-01-20 23:51] LABS: Estimated Average Glucose(eAG) 197 mg/dL; Hemoglobin A1C 8.5 % Hgb (4.0-6.0)
[2022-01-21] MEDS: VANCOMYCIN 1,500 MG in 0.9 % SODIUM CHLORIDE 500 ML IV SCH ×3 (03:38→20:49)
[2022-01-21] MEDS: 0.9 % SODIUM CHLORIDE 10 ML SYRINGE IV SCH ×4 (04:37→20:03)
[2022-01-21] MEDS: PIPERACILLIN SODIUM/TAZOBACTAM 3.375 GM in DEXTROSE 5% IN WATER 50 ML IV SCH ×3 (05:32→20:01)
[2022-01-21] MEDS: 0.9 % SODIUM CHLORIDE 1,000 ML IV SCH ×4 (05:37→20:02)
[2022-01-21 06:25] LABS: Basophils # (Auto) 0.03 K/mcL (0.00-0.30); Basophils % (Auto) 0.2 % (0.0-2.0); Eosinophils # (Auto) 0.01 K/mcL (0.00-0.70); Eosinophils % (Auto) 0.1 % (0.0-7.0); Hematocrit 47.6 % (40.1-51.0); Hemoglobin 16.4 g/dL (13.7-17.5); Lymphocytes # (Auto) 1.11 K/mcL (1.50-4.80); Mean Cell Volume 85.3 fL (80.0-100.0); Mean Corpuscular HGB Conc 34.5 g/dL (31.0-36.0); Mean Platelet Volume 11.4 fL (8.8-12.5); Monocytes # (Auto) 1.27 K/mcL (0.10-0.90); Monocytes % (Auto) 8.1 % (1.0-12.0); Platelet Count 214 K/mcL (140-440); RBC 5.58 M/mcL (4.63-6.08); WBC 15.8 K/mcL (4.5-11.0)
[2022-01-21 06:42] LABS: Erythrocyte Sedimentation Rate 26 mm/hr (0-20)
[2022-01-21 07:00] LABS: ALT/SGPT 18 U/L (<40); AST/SGOT 39 U/L (<40); Albumin/Globulin Ratio 0.8 (1.0-2.3); Alkaline Phosphatase 74 U/L (39-117); Bilirubin,Total 0.8 mg/dL (0.1-1.0); Blood Urea Nitrogen 26 mg/dL (8-23); Calcium 8.4 mg/dL (8.6-10.4); Carbon Dioxide 27 mmol/L (22-30); Chloride 93 mmol/L (96-108); Globulin 3.6 gm/dL (2.2-3.7); Glomerular Filtration Rate 45; Glucose 122 mg/dL (70-105)
[2022-01-21] MEDS: INSULIN LISPRO 1 UNIT/0.01 ML UNIT SQ SCH ×4 (07:32→20:39)
[2022-01-21] MEDS: MELOXICAM 7.5 MG TABLET PO SCH ×2 (07:54→20:48)
[2022-01-21] MEDS: DULoxetine 30 MG CAPSULE PO SCH ×2 (07:54→20:48)
[2022-01-21] MEDS: MAGNESIUM OXIDE 400 MG TABLET PO SCH (07:54)
[2022-01-21] MEDS: DOCUSATE SODIUM 100 MG CAPSULE PO SCH ×2 (08:40→20:03)
--- NOTE | 2022-01-21 09:17 | Internal Med Progress Note ---
SUBJECTIVE Subjective Patient information: Note initiated : 01/21/22 at 9:08 am Service Date, if different from initiated Date: [] Patient: Navid Garcia 61 y/o M admitted on 01/20/22 for Weakness. Chief Complaint: [] Interval history: Mr. Garcia is a 61 year old M history of type 2 diabetes mellitus with diabetic neuropathy, status post right fourth and fifth told amputations, essential hypertensions, presenting with 2-day history of right foot redness and swelling. He got his right fourth and fifth told surgically amputated 3 and 2 years ago, respectively. He has noticed redness and swelling of his left foot since yesterday. He denies any pain but stated that he could not feel any pain in his feet anyway due to his diabetic neuropathy. He denies any new trauma or injury to the regions. He denies any systemic symptoms such as fever, chills, or diaphoresis. He denies any change in his appetite. Due to the changes he was seen in his right foot, he decided to come to our ED for further evaluations. Vital signs at ED presentation significant for tachycardia and tachypnea. Labs significant for leukocytosis with a WBC 17.3. Serum sodium level 128 with corrected sodium for glucose 132. Glucose level at 287. Lactic acid 2.7, repeat lactic acid 2.1. CRP 22.2, procalcitonin level 3.20. Right foot x-ray showing large soft tissue wound and focal ulcer. It also shows a previous transmetatarsal amputations of the right fourth and fifth metatarsals. Probable right fourth metatarsal osteomyelitis. 01/21: Fever with T-max 38.1 overnight and this morning. Blood culture growing gram- positive cocci/bacillus in both sets. MRSA screening negative. WBC 15.8 this morning. Fasting glucose 122 this morning. Patient's declines any right foot pain but he could not feel his feet anyway due to diabetic neuropathy. Continue empiric antibiotics Vancomycin and Zosyn while monitoring culture results. Repeat blood cultures X2 on 01/22. 2D echocardiogram. Consulting Dr. Ledesma for possible amputation. Consulting Dr. Sheffield for wound care management. Continue to provide insulin Lantus plus Lispro SSI for glycemic coverage. Physical therapy evaluation and treatment. Constitutional Vitals: Vital Signs Temp Pulse Resp BP Pulse Ox O2 Del Method O2 Flow Rate 38.1 C H 100 H 22 108/69 96 0 01/21/22 07:56 01/21/22 07:56 01/21/22 07:56 01/21/22 07:56 01/21/22 07:56 01/21/22 07:56 01/21/22 03:52 Period Temp Pulse Resp BP Sys/Garcia Pulse Ox O2 Del Method O2 Flow Rate Last 24 Hr 36.3 C-38.1 C 90-124 14-40 97-128/42-87 88-100 Room Air-Room Air 0-0 Intake and Output 01/20/22 01/21/22 01/21/22 21:59 05:59 13:59 Intake Total 3945 900 550 Output Total 252 Balance 3945 648 550 Weight 127.459 kg Intake & Output: Intake & Output 01/20/22 01/21/22 01/21/22 21:59 05:59 13:59 Intake Total 3945 900 550 Output Total 252 Balance 3945 648 550 Weight 127.459 kg Intake: IV 3945 50 550 Sodium Chloride 0.9% 2,395 ml @ 3395 4790 mls/hr IV .Q30M [facility] Rx#: [id number] Zosyn 3.375 gm In Dextrose 5% 50 50 50 in Water 50 ml @ 100 mls/hr IV Q6H [facility] Rx#:[id number] Vancomycin 1,500 mg In Sodium 500 500 Chloride 0.9% 500 ml @ 333.3 mls/hr IV Q12H [facility] Rx#: [id number] Oral 850 Output: Void Amount 150 # of times incontinent of urine 2 Emesis 100 Other: Urine Appearance Clear Clear Urine Color Dark Yellow Dark Yellow Urine Odor Normal Normal Stool Size Moderate Stool Color Brown Stool Consistency Soft # Voids 1 # Bowel Movements 1 # of times incontinent of 1 Bowels # Emeses 4 Head Head exam: Present atraumatic and normal inspection Eye Eye exam: Present normal appearance ENT ENT exam: Present mucous membranes moist, normal exam and normal external ear exam Neck Neck exam: Present normal inspection Respiratory Respiratory exam: Present normal respiratory exam Cardiovascular Cardiovascular exam: Present normal rate and rhythm GI/Abdominal GI/Abdominal exam: Present normal bowel sounds Extremities Exam Extremities exam: Present full ROM; Absent normal inspection Additional comments: Right foot swelling and redness as per HPI Back Exam Back exam: Present normal inspection Neurological Exam Neurological exam: Present alert and oriented X3 Skin Skin exam: Present warm; Absent intact Additional comments: Right foot swelling and redness as per HPI. OBJ DATA Labs CBC & Chem 7: 01/21/22 05:40 01/21/22 05:40 Labs: Abnormal Lab Results 01/21/22 01/21/22 01/20/22 05:40 05:40 19:56 WBC 15.8 H RBC Hgb Hct POC Hct Immature Gran % (Auto) 0.6 H Neut % (Auto) 84.0 H Lymph % (Auto) 7.0 L Lymph # (Auto) 1.11 L [place] # (Auto) 1.27 H Immature Gran # 0.09 H Absolute Neutrophils 13.26 H ESR 26 H POC VBG pH POC VBG pCO2 at Temp POC VBG pO2 POC Venous O2 Sat VBG Lactic Acid 2.3 H POC Sodium Sodium 130 L POC Chloride Chloride 93 L POC BUN BUN 26 H Creatinine 1.6 H POC Creatinine Glucose 122 H POC Glucose Hemoglobin A1c 8.5 H Calcium 8.4 L POC WB Ioniz Calcium Direct Bilirubin C-Reactive Protein 24.20 H Albumin 3.0 L Globulin Albumin/Globulin Ratio 0.8 L Procalcitonin 01/20/22 01/20/22 01/20/22 17:20 14:49 14:49 WBC RBC Hgb Hct POC Hct 59.0 H Immature Gran % (Auto) Neut % (Auto) Lymph % (Auto) Lymph # (Auto) [place] # (Auto) Immature Gran # Absolute Neutrophils ESR POC VBG pH 7.44 H POC VBG pCO2 at Temp 40.8 L 38.0 L POC VBG pO2 21 L 22 L POC Venous O2 Sat 34.0 L VBG Lactic Acid 2.1 H 2.7 H POC Sodium 128 L Sodium POC Chloride 90 L Chloride POC BUN 30 H BUN Creatinine POC Creatinine 1.3 H Glucose POC Glucose 287 H Hemoglobin A1c Calcium POC WB Ioniz Calcium 0.97 L Direct Bilirubin C-Reactive Protein Albumin Globulin Albumin/Globulin Ratio Procalcitonin 01/20/22 01/20/22 01/20/22 14:43 14:43 14:43 WBC RBC Hgb Hct POC Hct Immature Gran % (Auto) Neut % (Auto) Lymph % (Auto) Lymph # (Auto) [place] # (Auto) Immature Gran # Absolute Neutrophils ESR POC VBG pH POC VBG pCO2 at Temp POC VBG pO2 POC Venous O2 Sat VBG Lactic Acid POC Sodium Sodium POC Chloride Chloride POC BUN BUN Creatinine POC Creatinine Glucose POC Glucose Hemoglobin A1c Calcium POC WB Ioniz Calcium Direct Bilirubin 0.3 H C-Reactive Protein 22.20 H Albumin Globulin 4.9 H Albumin/Globulin Ratio Procalcitonin 3.20 H 01/20/22 14:43 WBC 17.3 H RBC 6.14 H Hgb 18.4 H Hct 52.5 H POC Hct Immature Gran % (Auto) 0.8 H Neut % (Auto) 84.4 H Lymph % (Auto) 5.7 L Lymph # (Auto) 0.98 L [place] # (Auto) 1.48 H Immature Gran # 0.13 H Absolute Neutrophils 14.62 H ESR POC VBG pH POC VBG pCO2 at Temp POC VBG pO2 POC Venous O2 Sat VBG Lactic Acid POC Sodium Sodium POC Chloride Chloride POC BUN BUN Creatinine POC Creatinine Glucose POC Glucose Hemoglobin A1c Calcium POC WB Ioniz Calcium Direct Bilirubin C-Reactive Protein Albumin Globulin Albumin/Globulin Ratio Procalcitonin Meds: Medications Acetaminophen (Acetaminophen 325 Mg Tablet) 650 mg PO Q6HP PRN; Protocol PRN Reason: Per Pain Protocol/Fever > 101 Albuterol/Ipratropium (Ipratropium/Albuterol 3 Ml Ampul.Neb) 3 ml NEB Q4HRT PRN PRN Reason: Wheezing Aspirin (Aspirin 81 Mg Tab.Chew) 81 mg PO HS [facility] Last Admin: 01/20/22 21:16 Dose: 81 mg Atorvastatin Calcium (Atorvastatin 20 Mg Tablet) 20 mg PO HS [facility] Last Admin: 01/20/22 21:17 Dose: 20 mg Dextrose (Dextrose 50% 50 Ml Vial) 0 ml IV UD PRN PRN Reason: Per Sliding Scale Diagnostic Test (Pha) (Accu-Chek 1 Each Strip) 1 each FS ACHS [facility] Last Admin: 01/21/22 07:31 Dose: 1 each Docusate Sodium (Docusate Sodium 100 Mg Capsule) 100 mg PO BID [facility] Last Admin: 01/21/22 08:40 Dose: Not Given Duloxetine HCl (Duloxetine 30 Mg Capsule) 30 mg PO BID [facility] Last Admin: 01/21/22 07:54 Dose: 30 mg Glucose (Dextrose 31 Gm Oral.Susp) 15 gm PO PRN PRN PRN Reason: Hypoglycemia Sodium Chloride (Sodium Chloride 0.9%) 1,000 mls @ 100 mls/hr IV .Q10H [facility] Last Admin: 01/21/22 05:37 Dose: Not Given Piperacillin Sod/Tazobactam (Sod 3.375 gm/ Dextrose) 50 mls @ 100 mls/hr IV Q6H [facility]; Protocol Last Infusion: 01/21/22 06:10 Dose: Infused Vancomycin HCl 1,500 mg/ (Sodium Chloride) 500 mls @ 333.3 mls/hr IV Q12H [facility] Last Infusion: 01/21/22 07:55 Dose: Infused Insulin Glargine (Insulin Glargine, Human 1 Unit/0.01 Ml) 10 unit SQ [facility] Last Admin: 01/20/22 21:17 Dose: 10 units Insulin Human Lispro (Insulin Lispro 1 Unit/0.01 Ml Unit) 0 unit SQ [facility]; Protocol Last Admin: 01/21/22 07:32 Dose: Not Given Magnesium Oxide (Magnesium Oxide 400 Mg Tablet) 400 mg PO DAILY [facility] Last Admin: 01/21/22 07:54 Dose: 400 mg Meloxicam (Meloxicam 7.5 Mg Tablet) 7.5 mg PO BID [facility] Last Admin: 01/21/22 07:54 Dose: 7.5 mg Ondansetron HCl (Ondansetron 4 Mg/2 Ml Vial) 4 mg IV Q6HP PRN PRN Reason: Nausea And Vomiting Last Admin: 01/20/22 20:01 Dose: 4 mg Senna (Sennosides 1 Tablet) 2 tab PO HS [facility] Last Admin: 01/20/22 21:17 Dose: 2 tab Sodium Chloride (0.9 % Sodium Chloride 10 Ml Syringe) 10 ml IV Q8 [facility] Last Admin: 01/21/22 04:37 Dose: Not Given Trazodone HCl (Trazodone Hcl 50 Mg Tablet) 25 mg PO HSP PRN PRN Reason: Insomnia Vancomycin HCl (Vancomycin Per Pharmacy) 1 order IV UD [facility]; Protocol A/P Assessment and plan (1) Cellulitis of foot, right: Status: Acute (2) Diabetic foot ulcer associated with type 2 diabetes mellitus: Status: Acute (3) Diabetic foot ulcer with osteomyelitis: Status: Acute (4) Stage 1 acute kidney injury: Status: Acute (5) Essential hypertension: Status: Acute (6) Diabetic autonomic neuropathy: Status: Chronic (7) Gram-positive cocci bacteremia: Status: Acute Narrative A/P Narrative: Assessment and Plans: 1. Diabetic foot ulcer with right 4th metatarsal osteomyelitis associated with T2DM and diabetic neuropathy: Inpatient med surg Consult Dr. Sheffield, recs. appreciated for wound care management Consult solar installation foreman Dr. Ledesma, recs. appreciated for potential amputation Serial lactic acid Daily ESR/CRP Wound culture, no growth to date Blood culture-->Gram positive cocci/bacillus in both sets cbc w/ auto diff in the morning to trend WBC MRSA screening Physical therapy NS@100cc/hr Vancomycin Zosyn HgA1c 8.5 Hold oral hypoglycemics Lantus 10 unit HS High dose insulin Lispro SSI AC HS Accu Check AC HS Hypoglycemia protocol Diabetic diet 2. Stage 1 acute kidney injury: Avoid nephrotoxic agents NS@100cc/hr CMP in the morning to trend kidney functions 3. Essential hypertension: Currently borderline low blood pressure Hold diuretics Chlorthalidone from home regimen Hold oral antihypertensives (Amlodipine/Coreg/Lisinopril) from home regimen 4. Gram positive cocci/bacillus bacteremia: Continue empiric antibiotics Vancomycin and Zosyn while monitoring culture results Repeat blood cultures X2 on 01/22 2D echocardiogram GI ppx: not currently indicated DVT ppx: SCDs Code status: Full Prognosis: guarded Disposition: inpatient med surg; PT Time Spent With Patient Time: Total time spent is greater than 50% in coordination of care (as documented) at patient's floor/unit and/or counseling patient: Total time spent with greater than 50% in coordination of care (as documented) at patient's floor/unit and/or counseling patient:: 35 - 50 minutes
--- NOTE | 2022-01-21 09:17 | EKG ---
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
[2022-01-21] MEDS ORDERED: LOPERAMIDE 2 MG CAPSULE PO PRN (10:14)
--- NOTE | 2022-01-21 11:03 | Orthopedic Consult Note ---
HPI Date of Consult Consult Date: 01/21/22 Requesting physician: Serjio Sheffield Primary Care Provider: Kaushik Coy Consult Narrative Patient Information: Note initiated : 01/21/22 at 10:59 am Service Date, if different from initiated Date: [] Patient: Navid Garcia 61 y/o M admitted on 01/20/22 for Weakness. Chief Complaint: [right foot bone infection] Randy has been dealing with wound of the right foot for many years. 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 The amputation site is reulcerating and has an underlying bone infection. Chief complaint: right foot bone infection Reason for consult: right foot bone infection cc:: CC: Saul Gibbs MD [facility] All Active Problems (Updated 01/21/22 @ 11:02 by Freeman Ledesma DPM) Osteomyelitis (Acute) Gram-positive cocci bacteremia (Acute) Essential hypertension (Acute) Stage 1 acute kidney injury (Acute) Diabetic foot ulcer with osteomyelitis (Acute) Diabetic foot ulcer associated with type 2 diabetes mellitus (Acute) Wound of foot (Acute) Wound of left foot (Acute) Sepsis (Acute) Ulcer of foot (Acute) Cellulitis of foot, right (Acute) Acute osteomyelitis of right foot (Acute) Diabetic foot infection (Acute) Osteomyelitis (Acute) Status post full thickness skin graft (Acute) Wound cellulitis after surgery (Acute) Cellulitis (Acute) Phlebitis of right saphenous vein (Acute) Diabetic foot ulcer (Acute) Open wound of right foot (Acute) Diabetes (Acute) Nausea & vomiting (Acute) Myopia (Chronic) Ulcer of foot (Chronic) Hypertropia (Chronic) Macular degeneration (Chronic) Primary open angle glaucoma (Chronic) Senile cataracts of both eyes (Chronic) Regular astigmatism, bilateral (Chronic) Presbyopia (Chronic) Glaucoma (Chronic) Mild non proliferative diabetic retinopathy (Chronic) Diabetic macular edema (Chronic) Nuclear senile cataract (Chronic) Diabetic peripheral neuropathy (Chronic) Vitamin D deficiency (Chronic) Magnesium deficiency (Chronic) Diabetes mellitus type II, controlled (Chronic) Diabetic autonomic neuropathy (Chronic) Obesity (Chronic) Hypertensive disorder (Chronic) Sleep apnea (Chronic) Encounter for screening colonoscopy (Chronic) Medical History (Updated 01/21/22 @ 11:02 by Freeman Ledesma DPM) Diabetes mellitus type II, controlled Diabetic autonomic neuropathy Diabetic macular edema Diabetic peripheral neuropathy Patient denies pain in the right foot. Recommendations: #1. Place PICC line. 2. DC Vanco. 3. Continue Zosyn. 4. Follow-up on Enterobacter susceptibilities. 5. Follow-up on intraoperative cultures for tomorrow's debridement. 6. I would be happy to see him in follow-up in clinic. Weekly labs anticipated to include CBC CMP sed rate and CRP. Antibiotic may be adjusted based on intraoperative specimen obtained tomorrow. Thank you very much For allowing me to be involved in his consultative care. Encounter for screening colonoscopy Glaucoma Hypertensive disorder Hypertropia Macular degeneration Magnesium deficiency Mild non proliferative diabetic retinopathy Myopia Nuclear senile cataract Obesity Osteomyelitis Presbyopia Primary open angle glaucoma Regular astigmatism, bilateral Senile cataracts of both eyes Sleep apnea Ulcer of foot Vitamin D deficiency Surgical History History of surgery 1998-Left knee scope No pertinent past surgical history Family History Brother Diabetes x2 Hypertension x2 Sister Diabetes x3 Hypertension x3 Mother Stroke Father Cancer colon cancer Social History smoking status: Never smoker alcohol intake frequency: does not drink substance use type: does not use MEDS/ALLERGIES Home Medications and Allergies Home Medications Medication Instructions Recorded Confirmed Type amlodipine 10 mg tablet 10 mg PO DAILY 11/02/18 01/20/22 History aspirin 81 mg tablet,delayed 81 mg PO HS 11/02/18 01/20/22 History release carvedilol 3.125 mg tablet 3.125 mg PO BID 11/02/18 01/20/22 History duloxetine 30 mg capsule,delayed 30 mg PO BID 11/02/18 01/20/22 History release lisinopril 40 mg tablet 40 mg PO BID 11/02/18 01/20/22 History magnesium L-lactate 84 mg 84 mg PO DAILY 11/02/18 01/20/22 History tablet,extended release meloxicam 15 mg tablet 7.5 mg PO BID 11/02/18 01/20/22 History rosuvastatin 10 mg tablet 10 mg PO QHS 11/02/18 01/20/22 History chlorthalidone 25 mg tablet 12.5 mg PO DAILY 11/07/18 01/20/22 History metformin 500 mg tablet,extended 500 mg PO BID 11/07/18 01/20/22 History release 24 hr dulaglutide 0.75 mg/0.5 mL 0.75 mg subcut WEEKLY 04/17/20 01/20/22 History subcutaneous pen injector (Trulicity) insulin regular hum U-500 conc 500 0 unit subcut TID 04/17/20 01/20/22 History unit/mL(3 mL) subcut pen (Humulin R U-500 (Conc) Insulin Kwikpen) Allergies Allergy/AdvReac Type Severity Reaction Status Date / Time hydrocodone AdvReac Mild Vomiting Verified 01/20/22 14:27 Physical Examination Narrative Narrative: Narrative: Ankle & Foot right: Ankle appearance: swelling, erythema and other (right foot ulceration of the 4th metatarsal amputation site to bone) A/P Assessment and plan (1) Osteomyelitis: Assessment and plan: osteomyelitis of right foot 4th and 5th metatarsal amputation sites. Plan: Forefoot amputation at the Lisfranc Joint Achilles tendon lengthening right Status: Acute Time Spent With Patient Time: Total time spent is greater than 50% in coordination of care (as documented) at patient's floor/unit and/or counseling patient:
[2022-01-21] MEDS ORDERED: HYDROmorphone 1 MG/ML SYRINGE ONE (16:37)
[2022-01-21] MEDS ORDERED: LIDOCAINE HCL/PF 100 MG/5 ML SYRINGE IV ONE (16:37)
[2022-01-21] MEDS ORDERED: PHENYLephrine 1 MG/10 ML SYRINGE (ANEST) ONE (16:37)
[2022-01-21] MEDS ORDERED: MIDAZOLAM 2 MG/2 ML VIAL ONE (16:37)
[2022-01-21] MEDS ORDERED: KETAMINE 50 MG/ML Syringe (ANEST) IV ONE (16:37)
[2022-01-21] MEDS ORDERED: ePHEDrine 50 MG/5 ML SYRINGE (ANEST) IV ONE (16:37)
[2022-01-21] MEDS ORDERED: fentaNYL 100 MCG/2 ML VIAL IV ONE (16:37)
[2022-01-21] MEDS ORDERED: MAGNESIUM SULFATE 2 GM/50 ML BAG IV ONE (16:37)
[2022-01-21] MEDS ORDERED: ONDANSETRON 4 MG/2 ML VIAL ONE (16:37)
[2022-01-21] MEDS ORDERED: PROPOFOL 200 MG/20 ML VIAL IV ONE (16:37)
[2022-01-21] MEDS ORDERED: DEXAMETHASONE 10 MG/ML VIAL ONE (16:37)
[2022-01-21] MEDS ORDERED: GLYCOPYRROLATE 0.2 MG/ML VIAL IV ONE (16:37)
[2022-01-21] MEDS ORDERED: METOPROLOL TARTRATE 5 MG/5 ML VIAL IV PRN (16:50)
[2022-01-21] MEDS ORDERED: ACETAMINOPHEN 1,000 MG/100 ML BAG IV ONE (16:50)
[2022-01-21] MEDS ORDERED: LACTATED RINGERS 250 ML IV PRN (16:50)
[2022-01-21] MEDS ORDERED: fentaNYL 100 MCG/2 ML VIAL IV PRN (16:50)
[2022-01-21] MEDS ORDERED: HYDROmorphone 0.5 MG/0.5 ML SYRINGE IV PRN (16:50)
[2022-01-21] MEDS ORDERED: ONDANSETRON 4 MG/2 ML VIAL IV PRN (16:50)
[2022-01-21] MEDS ORDERED: IPRATROPIUM/ALBUTEROL 3 ML AMPUL.NEB NEB PRN (16:50)
[2022-01-21] MEDS ORDERED: MEPERIDINE 25 MG/ML VIAL IV PRN (16:50)
[2022-01-21] MEDS ORDERED: NALOXONE HCL 0.4 MG/ML VIAL IV PRN (16:50)
[2022-01-21] MEDS ORDERED: LABETALOL 5 MG/ML ML IV PRN (16:50)
[2022-01-21] MEDS ORDERED: METHOCARBAMOL 1,000 MG/10 ML VIAL IV PRN (16:50)
[2022-01-21] MEDS ORDERED: LACTATED RINGERS 1,000 ML IV SCH (17:00)
[2022-01-21] MEDS ORDERED: VANCOMYCIN 1 GM VIAL TOPICAL SCH (18:00)
--- NOTE | 2022-01-21 18:23 | Brief Operative Note ---
Brief Operative Note Date of procedure: 01/21/22 Pre-op diagnosis: OSTEOMYELITIS RIGHT FOOT Post-op diagnosis: same Procedure: amputation right forefoot at LisFranc joint Open achilles tendon lengthening, right Grafts/Implants: No Anesthesia: GETA Findings: purulent drainage Complications: none Surgeon: Freeman Ledesma Estimated blood loss (cc): 20 Tourniquet Time (Minutes): 78 Specimens Removed/Pathology: other (bone and deep tissues cultures) Condition: stable Disposition: PACU
[2022-01-21] MEDS: SENNOSIDES 1 TABLET PO SCH (20:03)
[2022-01-21] MEDS: INSULIN GLARGINE, HUMAN 1 UNIT/0.01 ML SQ SCH (20:41)
[2022-01-21] MEDS: ASPIRIN 81 MG TAB.CHEW PO SCH (20:48)
[2022-01-21] MEDS: ATORVASTATIN 20 MG TABLET PO SCH (20:49)
[2022-01-22] MEDS: PIPERACILLIN SODIUM/TAZOBACTAM 3.375 GM in DEXTROSE 5% IN WATER 50 ML IV SCH ×5 (00:53→23:47)
[2022-01-22] MEDS: 0.9 % SODIUM CHLORIDE 1,000 ML IV SCH ×3 (03:44→23:48)
[2022-01-22] MEDS: 0.9 % SODIUM CHLORIDE 10 ML SYRINGE IV SCH ×6 (05:58→21:47)
[2022-01-22 06:53] LABS: Basophils # (Auto) 0.01 K/mcL (0.00-0.30); Basophils % (Auto) 0.1 % (0.0-2.0); Eosinophils # (Auto) 0 K/mcL (0.00-0.70); Eosinophils % (Auto) 0 % (0.0-7.0); Hematocrit 44.5 % (40.1-51.0); Lymphocytes # (Auto) 0.61 K/mcL (1.50-4.80); Lymphocytes % (Auto) 4.8 % (15.5-49.0); Mean Cell Volume 85.9 fL (80.0-100.0); Mean Corpuscular HGB Conc 33.7 g/dL (31.0-36.0); Mean Platelet Volume 11.5 fL (8.8-12.5); Monocytes # (Auto) 0.38 K/mcL (0.10-0.90); Neutrophils % (Auto) 91.5 % (38.0-78.0); Platelet Count 192 K/mcL (140-440); RBC 5.18 M/mcL (4.63-6.08); Red Cell Distribution Width 13.3 % (11.5-14.5); WBC 12.6 K/mcL (4.5-11.0)
[2022-01-22 07:24] LABS: Erythrocyte Sedimentation Rate 72 mm/hr (0-20)
[2022-01-22 07:32] LABS: ALT/SGPT 17 U/L (<40); AST/SGOT 26 U/L (<40); Albumin 2.5 gm/dL (3.2-5.2); Albumin/Globulin Ratio 0.7 (1.0-2.3); Alkaline Phosphatase 72 U/L (39-117); Bilirubin,Total 0.4 mg/dL (0.1-1.0); Blood Urea Nitrogen 25 mg/dL (8-23); Calcium 7.6 mg/dL (8.6-10.4); Carbon Dioxide 21 mmol/L (22-30); Chloride 95 mmol/L (96-108); Globulin 3.8 gm/dL (2.2-3.7); Glomerular Filtration Rate 45; Glucose 388 mg/dL (70-105)
[2022-01-22] MEDS: INSULIN LISPRO 1 UNIT/0.01 ML UNIT SQ SCH ×4 (07:35→21:45)
--- NOTE | 2022-01-22 08:17 | Operative Note ---
DATE OF OPERATION: 01/21/2022 DATE OF PROCEDURE: 01/21/2022 PREOPERATIVE DIAGNOSIS: Osteomyelitis, right foot. POSTOPERATIVE DIAGNOSIS: Osteomyelitis, right foot. PROCEDURE: 1. Amputation, right forefoot at the Lisfranc joint. 2: Open Achilles tendon lengthening, right. SURGEON: Freeman Ledesma DPM IMPLANTS: None. ANESTHESIA: GETA. COMPLICATIONS: None. BLOOD LOSS: 20 mL. TOURNIQUET TIME: 70 minutes. SPECIMENS: Deep tissue and bone cultures. CONDITION: Stable. DISPOSITION: PACU. PROCEDURE IN DETAIL: The patient was brought to the operating room and placed on the operating table in supine position. The right lower extremity was scrubbed, prepped and draped in the usual aseptic fashion. General anesthesia was initiated. Esmarch applied. Pneumatic thigh tourniquet inflated to 250 mmHg. PROCEDURE 1: Consistent with a large ulceration plantar to the fourth and fifth metatarsals at previous amputation site, a Lisfranc amputation was performed through a fishmouth incision, which was down to bone. The underlying soft tissues were reflected from the lesser tarsal bones. Continued dissection was performed, a bone sample was taken from the base of the fourth metatarsal region superficial to the ulceration. This was sent for bone culture. Also, deep tissue sample was taken for a soft tissue culture. The forefoot was disarticulated at the Lisfranc joint. The metatarsal cuneiform were disarticulated through the ligamentous junctures and a 3 liter bag of normal saline was used under pulse irrigation, 1 gram of vancomycin powder was packed into the tissues. The ulceration on the plantar flap was excised and sutured closed with 4-0 Vicryl and 4-0 nylon in a horizontal and simple interrupted suture fashion. The two skin flaps were then coapted together utilizing 2-0 and 4-0 nylon. PROCEDURE #2: Open Achilles tendon lengthening, right, through a 3 cm incision on the posterior aspect of the right Achilles tendon and a Z-lengthening procedure was performed with a #15 blade. This reduced the equinus deformity on the forefoot preparatory to his amputation to reduce forefoot ulceration. The area was irrigated with copious amounts of sterile saline and closure performed with 4-0 Vicryl to the deep layer of skin and 4-0 nylon to the superficial layer of skin in a horizontal interrupted suture fashion. Xeroform, 4 x 4 gauze, Kerlix, ABD pad, and Blu wrap were applied. The patient tolerated the procedure and anesthesia well and was transferred to postoperative care unit with vital signs stable. He will be transferred to the floor for continued intravenous antibiotic therapy and treatment. [email or web address] Job ID: [id number] Doc ID: [id number] Freeman Ledesma DPM
[2022-01-22] MEDS: MAGNESIUM OXIDE 400 MG TABLET PO SCH (08:33)
[2022-01-22] MEDS: DULoxetine 30 MG CAPSULE PO SCH ×2 (08:33→21:46)
[2022-01-22] MEDS: MELOXICAM 7.5 MG TABLET PO SCH ×2 (08:33→21:46)
--- NOTE | 2022-01-22 08:51 | Orthopedic Progress Note ---
SUBJECTIVE Subjective Patient information: Note initiated : 01/22/22 at 8:47 am Service Date, if different from initiated Date: [] Patient: Navid Garcia 61 y/o M admitted on 01/20/22 for Right Forefoot Amputation. Chief Complaint: [right foot infection] Interval history: patient is feeling well today, eating breakfast. Never felt sick. The dressings are intact and he has not been on the foot. Constitutional Vitals: Vital Signs Temp Pulse Resp BP Pulse Ox O2 Del Method O2 Flow Rate 97.3 F 54 L 12 102/72 96 2 01/22/22 04:00 01/22/22 07:54 01/22/22 07:54 01/22/22 07:54 01/22/22 07:54 01/22/22 07:54 01/22/22 07:54 Period Temp Pulse Resp BP Sys/Garcia Pulse Ox O2 Del Method O2 Flow Rate Last 24 Hr 97.3 F-99.1 F 54-96 - 74-115/54-78 90-100 CPAP-Simple Mask 2-6 Intake and Output 01/21/22 01/22/22 01/22/22 21:59 05:59 13:59 Intake Total 2850 1720 50 Output Total 320 700 Balance 2530 1020 50 Weight 281 lb Intake & Output: Intake & Output 01/21/22 01/22/22 01/22/22 21:59 05:59 13:59 Intake Total 2850 1720 50 Output Total 320 700 Balance 2530 1020 50 Weight 281 lb Intake: IV 1350 1320 50 Sodium Chloride 0.9% 1,000 ml @ 700 770 100 mls/hr IV .Q10H MAHI Rx#: [id number] Zosyn 3.375 gm In Dextrose 5% 50 50 50 in Water 50 ml @ 100 mls/hr IV Q6H MAHI Rx#:[id number] Vancomycin 1,500 mg In Sodium 500 500 Chloride 0.9% 500 ml @ 333.3 mls/hr IV Q12H MAHI Rx#: [id number] Oral 400 IV - Manual Only 1500 Output: Void Amount 300 700 Estimated Blood Loss 20 Other: Urine Appearance Clear Urine Color Dark Yellow Yellow # Voids 1 # Bowel Movements 0 OBJ DATA Labs CBC & Chem 7: 01/22/22 05:54 01/22/22 05:54 Labs: Abnormal Lab Results 01/22/22 01/22/22 01/21/22 05:54 05:54 05:40 WBC 12.6 H RBC Hgb Hct POC Hct Immature Gran % (Auto) 0.6 H Neut % (Auto) 91.5 H Lymph % (Auto) 4.8 L Lymph # (Auto) 0.61 L [place] # (Auto) Immature Gran # 0.08 H Absolute Neutrophils 11.56 H ESR 72 H POC VBG pH POC VBG pCO2 at Temp POC VBG pO2 POC Venous O2 Sat VBG Lactic Acid POC Sodium Sodium 128 L 130 L POC Chloride Chloride 95 L 93 L Carbon Dioxide 21 L POC BUN BUN 25 H 26 H Creatinine 1.6 H 1.6 H POC Creatinine Glucose 388 H 122 H POC Glucose Hemoglobin A1c Calcium 7.6 L 8.4 L POC WB Ioniz Calcium Direct Bilirubin C-Reactive Protein 23.10 H 24.20 H Albumin 2.5 L 3.0 L Globulin 3.8 H Albumin/Globulin Ratio 0.7 L 0.8 L Procalcitonin 01/21/22 01/20/22 01/20/22 05:40 19:56 17:20 WBC 15.8 H RBC Hgb Hct POC Hct Immature Gran % (Auto) 0.6 H Neut % (Auto) 84.0 H Lymph % (Auto) 7.0 L Lymph # (Auto) 1.11 L [place] # (Auto) 1.27 H Immature Gran # 0.09 H Absolute Neutrophils 13.26 H ESR 26 H POC VBG pH POC VBG pCO2 at Temp 40.8 L POC VBG pO2 21 L POC Venous O2 Sat 34.0 L VBG Lactic Acid 2.3 H 2.1 H POC Sodium Sodium POC Chloride Chloride Carbon Dioxide POC BUN BUN Creatinine POC Creatinine Glucose POC Glucose Hemoglobin A1c 8.5 H Calcium POC WB Ioniz Calcium Direct Bilirubin C-Reactive Protein Albumin Globulin Albumin/Globulin Ratio Procalcitonin 01/20/22 01/20/22 01/20/22 14:49 14:49 14:43 WBC RBC Hgb Hct POC Hct 59.0 H Immature Gran % (Auto) Neut % (Auto) Lymph % (Auto) Lymph # (Auto) [place] # (Auto) Immature Gran # Absolute Neutrophils ESR POC VBG pH 7.44 H POC VBG pCO2 at Temp 38.0 L POC VBG pO2 22 L POC Venous O2 Sat VBG Lactic Acid 2.7 H POC Sodium 128 L Sodium POC Chloride 90 L Chloride Carbon Dioxide POC BUN 30 H BUN Creatinine POC Creatinine 1.3 H Glucose POC Glucose 287 H Hemoglobin A1c Calcium POC WB Ioniz Calcium 0.97 L Direct Bilirubin C-Reactive Protein 22.20 H Albumin Globulin Albumin/Globulin Ratio Procalcitonin 01/20/22 01/20/22 01/20/22 14:43 14:43 14:43 WBC 17.3 H RBC 6.14 H Hgb 18.4 H Hct 52.5 H POC Hct Immature Gran % (Auto) 0.8 H Neut % (Auto) 84.4 H Lymph % (Auto) 5.7 L Lymph # (Auto) 0.98 L [place] # (Auto) 1.48 H Immature Gran # 0.13 H Absolute Neutrophils 14.62 H ESR POC VBG pH POC VBG pCO2 at Temp POC VBG pO2 POC Venous O2 Sat VBG Lactic Acid POC Sodium Sodium POC Chloride Chloride Carbon Dioxide POC BUN BUN Creatinine POC Creatinine Glucose POC Glucose Hemoglobin A1c Calcium POC WB Ioniz Calcium Direct Bilirubin 0.3 H C-Reactive Protein Albumin Globulin 4.9 H Albumin/Globulin Ratio Procalcitonin 3.20 H Meds: Medications Acetaminophen (Acetaminophen 325 Mg Tablet) 650 mg PO Q6HP PRN; Protocol PRN Reason: Per Pain Protocol/Fever > 101 Albuterol/Ipratropium (Ipratropium/Albuterol 3 Ml Ampul.Neb) 3 ml NEB Q4HRT PRN PRN Reason: Wheezing Aspirin (Aspirin 81 Mg Tab.Chew) 81 mg PO [facility] Last Admin: 01/21/22 20:48 Dose: 81 mg Atorvastatin Calcium (Atorvastatin 20 Mg Tablet) 20 mg PO [facility] Last Admin: 01/21/22 20:49 Dose: 20 mg Dextrose (Dextrose 50% 50 Ml Vial) 0 ml IV UD PRN PRN Reason: Per Sliding Scale Diagnostic Test (Pha) (Accu-Chek 1 Each Strip) 1 each FS ACHS [facility] Last Admin: 01/22/22 07:31 Dose: 1 each Docusate Sodium (Docusate Sodium 100 Mg Capsule) 100 mg PO BID [facility] Last Admin: 01/21/22 20:03 Dose: Not Given Duloxetine HCl (Duloxetine 30 Mg Capsule) 30 mg PO BID [facility] Last Admin: 01/22/22 08:33 Dose: 30 mg Glucose (Dextrose 31 Gm Oral.Susp) 15 gm PO PRN PRN PRN Reason: Hypoglycemia Sodium Chloride (Sodium Chloride 0.9%) 1,000 mls @ 100 mls/hr IV .Q10H [facility] Last Admin: 01/22/22 03:44 Dose: 100 mls/hr Piperacillin Sod/Tazobactam (Sod 3.375 gm/ Dextrose) 50 mls @ 100 mls/hr IV Q6H [facility]; Protocol Last Infusion: 01/22/22 06:30 Dose: Infused Vancomycin HCl 1,500 mg/ (Sodium Chloride) 500 mls @ 333.3 mls/hr IV Q12H [facility] Last Infusion: 01/21/22 22:20 Dose: Infused Insulin Glargine (Insulin Glargine, Human 1 Unit/0.01 Ml) 10 unit SQ [facility] Last Admin: 01/21/22 20:41 Dose: 10 units Insulin Human Lispro (Insulin Lispro 1 Unit/0.01 Ml Unit) 0 unit SQ [facility]; Protocol Last Admin: 01/22/22 07:35 Dose: 8 units Loperamide HCl (Loperamide 2 Mg Capsule) 2 mg PO DAILYP PRN PRN Reason: Diarrhea Last Admin: 01/21/22 10:39 Dose: 2 mg Magnesium Oxide (Magnesium Oxide 400 Mg Tablet) 400 mg PO DAILY [facility] Last Admin: 01/22/22 08:33 Dose: 400 mg Meloxicam (Meloxicam 7.5 Mg Tablet) 7.5 mg PO BID [facility] Last Admin: 01/22/22 08:33 Dose: 7.5 mg Ondansetron HCl (Ondansetron 4 Mg/2 Ml Vial) 4 mg IV Q6HP PRN PRN Reason: Nausea And Vomiting Last Admin: 01/20/22 20:01 Dose: 4 mg Senna (Sennosides 1 Tablet) 2 tab PO [facility] Last Admin: 01/21/22 20:03 Dose: Not Given Sodium Chloride (0.9 % Sodium Chloride 10 Ml Syringe) 10 ml IV Q8 [facility] Last Admin: 01/22/22 05:58 Dose: Not Given Sodium Chloride (0.9 % Sodium Chloride 10 Ml Syringe) 10 ml IV Q8 [facility] Last Admin: 01/22/22 05:59 Dose: Not Given Trazodone HCl (Trazodone Hcl 50 Mg Tablet) 25 mg PO HSP PRN PRN Reason: Insomnia Vancomycin HCl (Vancomycin Per Pharmacy) 1 order IV UD [facility]; Protocol A/P Assessment and plan (1) Osteomyelitis: Status: Acute Plan pending surgical cultures dressings changed today continue IV antibiotics Dressings to be changed prior to discharge Continue NWB Narrative A/P Narrative: post right forefoot amputation at the lisfranc joint achilles tendon lengthening right Plan of Treatment: pending surgical cultures dressings changed today continue IV antibiotics Dressings to be changed prior to discharge Continue NWB Time Spent With Patient Time: Total time spent is greater than 50% in coordination of care (as documented) at patient's floor/unit and/or counseling patient:
[2022-01-22] MEDS: DOCUSATE SODIUM 100 MG CAPSULE PO SCH ×2 (08:56→21:46)
[2022-01-22] MEDS: HEPARIN 5,000 UNIT/ML VIAL SQ SCH ×2 (10:39→21:46)
[2022-01-22] MEDS: VANCOMYCIN 1,500 MG in 0.9 % SODIUM CHLORIDE 500 ML IV SCH (13:45)
[2022-01-22] MEDS ORDERED: DEXTROSE 50% 50 ML VIAL IV PRN (14:38)
[2022-01-22] MEDS ORDERED: DEXTROSE 31 GM ORAL.SUSP PO PRN (14:38)
--- NOTE | 2022-01-22 14:49 | Internal Med Progress Note ---
SUBJECTIVE Subjective Patient information: Note initiated : 01/22/22 at 2:38 pm Service Date, if different from initiated Date: [] Patient: Navid Garcia a 61 y/o M admitted on 01/20/22 for Right Forefoot Amputation. Chief Complaint: [] Interval history: Mr. Garcia is a 61 year old M history of type 2 diabetes mellitus with diabetic neuropathy, status post right fourth and fifth told amputations, essential hypertensions, presenting with 2-day history of right foot redness and swelling. He got his right fourth and fifth told surgically amputated 3 and 2 years ago, respectively. He has noticed redness and swelling of his left foot since yesterday. He denies any pain but stated that he could not feel any pain in his feet anyway due to his diabetic neuropathy. He denies any new trauma or injury to the regions. He denies any systemic symptoms such as fever, chills, or diaphoresis. He denies any change in his appetite. Due to the changes he was seen in his right foot, he decided to come to our ED for further evaluations. Vital signs at ED presentation significant for tachycardia and tachypnea. Labs significant for leukocytosis with a WBC 17.3. Serum sodium level 128 with corrected sodium for glucose 132. Glucose level at 287. Lactic acid 2.7, repeat lactic acid 2.1. CRP 22.2, procalcitonin level 3.20. Right foot x-ray showing large soft tissue wound and focal ulcer. It also shows a previous transmetatarsal amputations of the right fourth and fifth metatarsals. Probable right fourth metatarsal osteomyelitis. 01/21: Fever with T-max 38.1 overnight and this morning. Blood culture growing gram- positive cocci/bacillus in both sets. MRSA screening negative. WBC 15.8 this morning. Fasting glucose 122 this morning. Patient's declines any right foot pain but he could not feel his feet anyway due to diabetic neuropathy. Continue empiric antibiotics Vancomycin and Zosyn while monitoring culture results. Repeat blood cultures X2 on 01/22. 2D echocardiogram. Consulting Dr. Ledesma for possible amputation. Consulting Dr. Sheffield for wound care management. Continue to provide insulin Lantus plus Lispro SSI for glycemic coverage. Physical therapy evaluation and treatment. 01/22: s/p amputation of right forefoot at LisFranc joint by Dr. Ledesma on 01/21 evening. Patient tolerated the procedure well without major complications. Afebrile overnight. Fasting glucose 337 this morning. MRSA screening negative. Initial blood culture: S aureus and Strep mitis; wound culture: MSSA and E coli. 2D echocardiogram: did not reveal endocardial vegetations. Patient denies any right foot pain. Denies any fever or chills or sweating. Repeat blood cultures X2 today. D/c Vancomycin, continue Zosyn. NS@100cc/hr. In crease Lantus from 10-->15 unit HS and insulin Lispro SSI from low to high scale for better glycemic coverage. Dressing change as per surgery team. Continue non-weight bearing status. Continue physical therapy evaluation and treatment for placement planning. Constitutional Vitals: Vital Signs Temp Pulse Resp BP Pulse Ox O2 Del Method O2 Flow Rate 36.3 C 70 16 111/71 93 2 01/22/22 12:00 01/22/22 12:00 01/22/22 12:00 01/22/22 12:00 01/22/22 12:00 01/22/22 12:00 01/22/22 12:00 Period Temp Pulse Resp BP Sys/Garcia Pulse Ox O2 Del Method O2 Flow Rate Last 24 Hr 36.3 C-36.6 C 54-80 12-20 74-115/54-78 90-100 CPAP-Simple Mask 2-6 Intake and Output 01/22/22 01/22/22 01/22/22 05:59 13:59 21:59 Intake Total 1720 1330 1150 Output Total 700 701 775 Balance 1020 629 375 Intake & Output: Intake & Output 01/22/22 01/22/22 01/22/22 05:59 13:59 21:59 Intake Total 1720 1330 1150 Output Total 700 701 775 Balance 1020 629 375 Intake: IV 1320 50 Sodium Chloride 0.9% 1,000 ml @ 770 100 mls/hr IV .Q10H [facility] Rx#: [id number] Zosyn 3.375 gm In Dextrose 5% 50 50 in Water 50 ml @ 100 mls/hr IV Q6H [facility] Rx#:[id number] Vancomycin 1,500 mg In Sodium 500 Chloride 0.9% 500 ml @ 333.3 mls/hr IV Q12H [facility] Rx#: [id number] Oral 400 1280 1150 Output: Void Amount 700 700 775 # of times incontinent of urine 1 Other: Meal Breakfast Lunch Percent of Meal Consumed 100% 100% Urine Appearance Clear Clear Urine Color Yellow Dark Yellow Yellow # Bowel Movements 0 Head Head exam: Present atraumatic and normal inspection Eye Eye exam: Present normal appearance ENT ENT exam: Present mucous membranes moist, normal exam and normal external ear exam Neck Neck exam: Present normal inspection Respiratory Respiratory exam: Present normal respiratory exam Cardiovascular Cardiovascular exam: Present normal rate and rhythm GI/Abdominal GI/Abdominal exam: Present normal bowel sounds Extremities Exam Extremities exam: Present full ROM; Absent normal inspection Additional comments: Right lateral forefoot surgically amputated; covered by wound dressing Back Exam Back exam: Present normal inspection Neurological Exam Neurological exam: Present alert and oriented X3 Skin Skin exam: Present intact and warm OBJ DATA Labs CBC & Chem 7: 01/22/22 05:54 01/22/22 05:54 Labs: Abnormal Lab Results 01/22/22 01/22/22 01/22/22 08:23 05:54 05:54 WBC 12.6 H RBC Hgb Hct POC Hct Immature Gran % (Auto) 0.6 H Neut % (Auto) 91.5 H Lymph % (Auto) 4.8 L Lymph # (Auto) 0.61 L Milam # (Auto) Immature Gran # 0.08 H Absolute Neutrophils 11.56 H ESR 72 H POC VBG pH POC VBG pCO2 at Temp POC VBG pO2 POC Venous O2 Sat VBG Lactic Acid POC Sodium Sodium 128 L POC Chloride Chloride 95 L Carbon Dioxide 21 L POC BUN BUN 25 H Creatinine 1.6 H POC Creatinine Glucose 388 H POC Glucose Hemoglobin A1c Calcium 7.6 L POC WB Ioniz Calcium Direct Bilirubin C-Reactive Protein 23.10 H Albumin 2.5 L Globulin 3.8 H Albumin/Globulin Ratio 0.7 L Procalcitonin Vancomycin Trough 20.4 H* 01/21/22 01/21/22 01/20/22 05:40 05:40 19:56 WBC 15.8 H RBC Hgb Hct POC Hct Immature Gran % (Auto) 0.6 H Neut % (Auto) 84.0 H Lymph % (Auto) 7.0 L Lymph # (Auto) 1.11 L Milam # (Auto) 1.27 H Immature Gran # 0.09 H Absolute Neutrophils 13.26 H ESR 26 H POC VBG pH POC VBG pCO2 at Temp POC VBG pO2 POC Venous O2 Sat VBG Lactic Acid 2.3 H POC Sodium Sodium 130 L POC Chloride Chloride 93 L Carbon Dioxide POC BUN BUN 26 H Creatinine 1.6 H POC Creatinine Glucose 122 H POC Glucose Hemoglobin A1c 8.5 H Calcium 8.4 L POC WB Ioniz Calcium Direct Bilirubin C-Reactive Protein 24.20 H Albumin 3.0 L Globulin Albumin/Globulin Ratio 0.8 L Procalcitonin Vancomycin Trough 01/20/22 01/20/22 01/20/22 17:20 14:49 14:49 WBC RBC Hgb Hct POC Hct 59.0 H Immature Gran % (Auto) Neut % (Auto) Lymph % (Auto) Lymph # (Auto) Milam # (Auto) Immature Gran # Absolute Neutrophils ESR POC VBG pH 7.44 H POC VBG pCO2 at Temp 40.8 L 38.0 L POC VBG pO2 21 L 22 L POC Venous O2 Sat 34.0 L VBG Lactic Acid 2.1 H 2.7 H POC Sodium 128 L Sodium POC Chloride 90 L Chloride Carbon Dioxide POC BUN 30 H BUN Creatinine POC Creatinine 1.3 H Glucose POC Glucose 287 H Hemoglobin A1c Calcium POC WB Ioniz Calcium 0.97 L Direct Bilirubin C-Reactive Protein Albumin Globulin Albumin/Globulin Ratio Procalcitonin Vancomycin Trough 01/20/22 01/20/22 01/20/22 14:43 14:43 14:43 WBC RBC Hgb Hct POC Hct Immature Gran % (Auto) Neut % (Auto) Lymph % (Auto) Lymph # (Auto) Milam # (Auto) Immature Gran # Absolute Neutrophils ESR POC VBG pH POC VBG pCO2 at Temp POC VBG pO2 POC Venous O2 Sat VBG Lactic Acid POC Sodium Sodium POC Chloride Chloride Carbon Dioxide POC BUN BUN Creatinine POC Creatinine Glucose POC Glucose Hemoglobin A1c Calcium POC WB Ioniz Calcium Direct Bilirubin 0.3 H C-Reactive Protein 22.20 H Albumin Globulin 4.9 H Albumin/Globulin Ratio Procalcitonin 3.20 H Vancomycin Trough 01/20/22 14:43 WBC 17.3 H RBC 6.14 H Hgb 18.4 H Hct 52.5 H POC Hct Immature Gran % (Auto) 0.8 H Neut % (Auto) 84.4 H Lymph % (Auto) 5.7 L Lymph # (Auto) 0.98 L Milam # (Auto) 1.48 H Immature Gran # 0.13 H Absolute Neutrophils 14.62 H ESR POC VBG pH POC VBG pCO2 at Temp POC VBG pO2 POC Venous O2 Sat VBG Lactic Acid POC Sodium Sodium POC Chloride Chloride Carbon Dioxide POC BUN BUN Creatinine POC Creatinine Glucose POC Glucose Hemoglobin A1c Calcium POC WB Ioniz Calcium Direct Bilirubin C-Reactive Protein Albumin Globulin Albumin/Globulin Ratio Procalcitonin Vancomycin Trough Meds: Medications Acetaminophen (Acetaminophen 325 Mg Tablet) 650 mg PO Q6HP PRN; Protocol PRN Reason: Per Pain Protocol/Fever > 101 Albuterol/Ipratropium (Ipratropium/Albuterol 3 Ml Ampul.Neb) 3 ml NEB Q4HRT PRN PRN Reason: Wheezing Aspirin (Aspirin 81 Mg Tab.Chew) 81 mg PO HS [facility] Last Admin: 01/21/22 20:48 Dose: 81 mg Atorvastatin Calcium (Atorvastatin 20 Mg Tablet) 20 mg PO HS [facility] Last Admin: 01/21/22 20:49 Dose: 20 mg Dextrose (Dextrose 50% 50 Ml Vial) 0 ml IV UD PRN PRN Reason: Per Sliding Scale Diagnostic Test (Pha) (Accu-Chek 1 Each Strip) 1 each FS ACHS [facility] Last Admin: 01/22/22 11:59 Dose: 1 each Docusate Sodium (Docusate Sodium 100 Mg Capsule) 100 mg PO BID [facility] Last Admin: 01/22/22 08:56 Dose: Not Given Duloxetine HCl (Duloxetine 30 Mg Capsule) 30 mg PO BID [facility] Last Admin: 01/22/22 08:33 Dose: 30 mg Glucose (Dextrose 31 Gm Oral.Susp) 15 gm PO PRN PRN PRN Reason: Hypoglycemia Heparin Sodium (Porcine) (Heparin 5,000 Unit/Ml Vial) 5,000 unit SQ Q12 [facility] Last Admin: 01/22/22 10:39 Dose: 5,000 unit Sodium Chloride (Sodium Chloride 0.9%) 1,000 mls @ 100 mls/hr IV .Q10H [facility] Last Admin: 01/22/22 03:44 Dose: 100 mls/hr Piperacillin Sod/Tazobactam (Sod 3.375 gm/ Dextrose) 50 mls @ 100 mls/hr IV Q6H [facility]; Protocol Last Admin: 01/22/22 12:47 Dose: 100 mls/hr Insulin Glargine (Insulin Glargine, Human 1 Unit/0.01 Ml) 15 unit SQ [facility] Loperamide HCl (Loperamide 2 Mg Capsule) 2 mg PO DAILYP PRN PRN Reason: Diarrhea Last Admin: 01/21/22 10:39 Dose: 2 mg Magnesium Oxide (Magnesium Oxide 400 Mg Tablet) 400 mg PO DAILY [facility] Last Admin: 01/22/22 08:33 Dose: 400 mg Meloxicam (Meloxicam 7.5 Mg Tablet) 7.5 mg PO BID [facility] Last Admin: 01/22/22 08:33 Dose: 7.5 mg Ondansetron HCl (Ondansetron 4 Mg/2 Ml Vial) 4 mg IV Q6HP PRN PRN Reason: Nausea And Vomiting Last Admin: 01/20/22 20:01 Dose: 4 mg Senna (Sennosides 1 Tablet) 2 tab PO HS [facility] Last Admin: 01/21/22 20:03 Dose: Not Given Sodium Chloride (0.9 % Sodium Chloride 10 Ml Syringe) 10 ml IV Q8 [facility] Last Admin: 01/22/22 05:58 Dose: Not Given Sodium Chloride (0.9 % Sodium Chloride 10 Ml Syringe) 10 ml IV Q8 [facility] Last Admin: 01/22/22 05:59 Dose: Not Given Trazodone HCl (Trazodone Hcl 50 Mg Tablet) 25 mg PO HSP PRN PRN Reason: Insomnia A/P Assessment and plan (1) Cellulitis of foot, right: Status: Acute (2) Diabetic foot ulcer associated with type 2 diabetes mellitus: Status: Acute (3) Diabetic foot ulcer with osteomyelitis: Status: Acute (4) Stage 1 acute kidney injury: Status: Acute (5) Essential hypertension: Status: Acute (6) Diabetic autonomic neuropathy: Status: Chronic (7) Gram-positive cocci bacteremia: Status: Acute Narrative A/P Narrative: Assessment and Plans: 1. Diabetic foot ulcer with right 4th metatarsal osteomyelitis associated with T2DM and diabetic neuropathy: Inpatient med surg Consult Dr. Sheffield, recs. appreciated for wound care management s/p amputation of right forefoot at LisFranc joint by Dr. Ledesma on 01/21 evening Serial lactic acid Daily ESR/CRP MRSA screening negative Initial blood culture: S aureus and Strep mitis Wound culture: MSSA and E coli 2D echocardiogram: did not reveal endocardial vegetations cbc w/ auto diff in the morning to trend WBC Physical therapy NS@100cc/hr d/c Vancomycin Zosyn Non weight bearing status right foot HgA1c 8.5 Hold oral hypoglycemics Lantus 10-->15 unit HS for better glycemic coverage High dose insulin Lispro SSI AC HS for better glycemic coverage Accu Check AC HS Hypoglycemia protocol Diabetic diet 2. Stage 1 acute kidney injury: Avoid nephrotoxic agents NS@100cc/hr CMP in the morning to trend kidney functions 3. Essential hypertension: Currently normotensive Hold diuretics Chlorthalidone from home regimen Resume Amlodipine/Coreg Continue to hold Lisinopril for acute kidney injury 4. Gram positive cocci/bacillus bacteremia: Initial blood culture: S aureus and Strep mitis Repeat blood cultures X2 on 01/22 2D echocardiogram did not reveal any endocardial vegetations d/c Vancomycin Continue Zosyn GI ppx: not currently indicated DVT ppx: SCDs Code status: Full Prognosis: guarded Disposition: inpatient med surg; PT Plan of Treatment: pending surgical cultures dressings changed today continue IV antibiotics Dressings to be changed prior to discharge Continue NWB Time Spent With Patient Time: Total time spent is greater than 50% in coordination of care (as documented) at patient's floor/unit and/or counseling patient: Total time spent with greater than 50% in coordination of care (as documented) at patient's floor/unit and/or counseling patient:: 35 - 50 minutes
[2022-01-22] MEDS: CARVEDILOL 3.125 MG TABLET PO SCH (16:48)
[2022-01-22] MEDS ORDERED: VANCOMYCIN 1,250 MG in 0.9 % SODIUM CHLORIDE 500 ML IV SCH (21:00)
[2022-01-22] MEDS: INSULIN GLARGINE, HUMAN 1 UNIT/0.01 ML SQ SCH (21:45)
[2022-01-22] MEDS: ATORVASTATIN 20 MG TABLET PO SCH (21:46)
[2022-01-22] MEDS: ASPIRIN 81 MG TAB.CHEW PO SCH (21:46)
[2022-01-22] MEDS: SENNOSIDES 1 TABLET PO SCH (21:47)
[2022-01-23] MEDS: 0.9 % SODIUM CHLORIDE 1,000 ML IV SCH ×2 (02:50→07:36)
[2022-01-23] MEDS: 0.9 % SODIUM CHLORIDE 10 ML SYRINGE IV SCH ×6 (05:10→21:19)
[2022-01-23] MEDS: PIPERACILLIN SODIUM/TAZOBACTAM 3.375 GM in DEXTROSE 5% IN WATER 50 ML IV SCH ×3 (05:10→18:20)
[2022-01-23 07:13] LABS: Basophils # (Auto) 0.03 K/mcL (0.00-0.30); Basophils % (Auto) 0.2 % (0.0-2.0); Eosinophils # (Auto) 0.01 K/mcL (0.00-0.70); Eosinophils % (Auto) 0.1 % (0.0-7.0); Hematocrit 43.1 % (40.1-51.0); Hemoglobin 14.7 g/dL (13.7-17.5); Lymphocytes # (Auto) 1.19 K/mcL (1.50-4.80); Lymphocytes % (Auto) 6.2 % (15.5-49.0); Mean Corpuscular HGB Conc 34.1 g/dL (31.0-36.0); Mean Platelet Volume 12.6 fL (8.8-12.5); Monocytes # (Auto) 0.78 K/mcL (0.10-0.90); Neutrophils % (Auto) 88.9 % (38.0-78.0); Platelet Count 193 K/mcL (140-440); RBC 5.07 M/mcL (4.63-6.08); Red Cell Distribution Width 13.1 % (11.5-14.5); WBC 19.3 K/mcL (4.5-11.0)
[2022-01-23] MEDS: CARVEDILOL 3.125 MG TABLET PO SCH ×2 (07:35→17:10)
[2022-01-23] MEDS: INSULIN LISPRO 1 UNIT/0.01 ML UNIT SQ SCH ×2 (07:36→12:09)
[2022-01-23 07:37] LABS: Erythrocyte Sedimentation Rate 45 mm/hr (0-20)
[2022-01-23] MEDS: amLODIPine 10 MG TABLET PO SCH (09:04)
[2022-01-23] MEDS: MAGNESIUM OXIDE 400 MG TABLET PO SCH (09:04)
[2022-01-23] MEDS: HEPARIN 5,000 UNIT/ML VIAL SQ SCH ×2 (09:04→21:17)
[2022-01-23] MEDS: DOCUSATE SODIUM 100 MG CAPSULE PO SCH ×2 (09:04→21:17)
[2022-01-23] MEDS: MELOXICAM 7.5 MG TABLET PO SCH ×2 (09:04→21:18)
[2022-01-23] MEDS: DULoxetine 30 MG CAPSULE PO SCH ×2 (09:04→21:18)
[2022-01-23 09:29] LABS: ALT/SGPT 6 U/L (<40); AST/SGOT 14 U/L (<40); Albumin 2.9 gm/dL (3.2-5.2); Albumin/Globulin Ratio 0.9 (1.0-2.3); Alkaline Phosphatase 34 U/L (39-117); Bilirubin,Total 0.3 mg/dL (0.1-1.0); Blood Urea Nitrogen 15 mg/dL (8-23); Calcium 8.4 mg/dL (8.6-10.4); Carbon Dioxide 25 mmol/L (22-30); Chloride 116 mmol/L (96-108); Globulin 3.2 gm/dL (2.2-3.7); Glomerular Filtration Rate 96; Glucose 118 mg/dL (70-105)
[2022-01-23] MEDS ORDERED: INSULIN REGULAR, HUMAN 1 UNIT/0.01 ML UNIT SQ SCH (12:00)
--- NOTE | 2022-01-23 12:49 | Internal Med Progress Note ---
SUBJECTIVE Subjective Patient information: Note initiated : 01/23/22 at 12:46 pm Service Date, if different from initiated Date: [] Patient: Navid Garcia a 61 y/o M admitted on 01/20/22 for Right Forefoot Amputation. Chief Complaint: [] Interval history: Mr. Garcia is a 61 year old M history of type 2 diabetes mellitus with diabetic neuropathy, status post right fourth and fifth told amputations, essential hypertensions, presenting with 2-day history of right foot redness and swelling. He got his right fourth and fifth told surgically amputated 3 and 2 years ago, respectively. He has noticed redness and swelling of his left foot since yesterday. He denies any pain but stated that he could not feel any pain in his feet anyway due to his diabetic neuropathy. He denies any new trauma or injury to the regions. He denies any systemic symptoms such as fever, chills, or diaphoresis. He denies any change in his appetite. Due to the changes he was seen in his right foot, he decided to come to our ED for further evaluations. Vital signs at ED presentation significant for tachycardia and tachypnea. Labs significant for leukocytosis with a WBC 17.3. Serum sodium level 128 with corrected sodium for glucose 132. Glucose level at 287. Lactic acid 2.7, repeat lactic acid 2.1. CRP 22.2, procalcitonin level 3.20. Right foot x-ray showing large soft tissue wound and focal ulcer. It also shows a previous transmetatarsal amputations of the right fourth and fifth metatarsals. Probable right fourth metatarsal osteomyelitis. 01/21: Fever with T-max 38.1 overnight and this morning. Blood culture growing gram- positive cocci/bacillus in both sets. MRSA screening negative. WBC 15.8 this morning. Fasting glucose 122 this morning. Patient's declines any right foot pain but he could not feel his feet anyway due to diabetic neuropathy. Continue empiric antibiotics Vancomycin and Zosyn while monitoring culture results. Repeat blood cultures X2 on 01/22. 2D echocardiogram. Consulting Dr. Ledesma for possible amputation. Consulting Dr. Sheffield for wound care management. Continue to provide insulin Lantus plus Lispro SSI for glycemic coverage. Physical therapy evaluation and treatment. 01/22: s/p amputation of right forefoot at LisFranc joint by Dr. Ledesma on 01/21 evening. Patient tolerated the procedure well without major complications. Afebrile overnight. Fasting glucose 337 this morning. MRSA screening negative. Initial blood culture: S aureus and Strep mitis; wound culture: MSSA and E coli. 2D echocardiogram: did not reveal endocardial vegetations. Patient denies any right foot pain. Denies any fever or chills or sweating. Repeat blood cultures X2 today. D/c Vancomycin, continue Zosyn. NS@100cc/hr. I ncrease Lantus from 10-->15 unit HS and insulin Lispro SSI from low to high scale for better glycemic coverage. Dressing change as per surgery team. Continue non-weight bearing status. Continue physical therapy evaluation and treatment for placement planning. 01/23: Afebrile overnight. Fasting glucose 281 this morning. Initial blood culture: MSSA and Strep mitis; wound culture: MSSA and E coli. Repeat blood culture no growth to date. Patient denies any right foot pain. Denies any fever or chills or sweating. Constitutional Vitals: Vital Signs Temp Pulse Resp BP Pulse Ox O2 Del Method O2 Flow Rate 36.9 C 70 14 146/84 96 2 01/23/22 12:00 01/23/22 12:00 01/23/22 12:00 01/23/22 12:00 01/23/22 12:00 01/23/22 12:00 01/22/22 23:48 Period Temp Pulse Resp BP Sys/Garcia Pulse Ox O2 Del Method O2 Flow Rate Last 24 Hr 35.9 C-36.9 C 66-71 14-20 117-146/74-91 96-98 CPAP-Room Air 2-2 Intake and Output 01/22/22 01/23/22 01/23/22 21:59 05:59 13:59 Intake Total 1999 1899 50 Output Total 2024 850 1100 Balance -25 1050 -1050 Weight 139.706 kg Intake & Output: Intake & Output 01/22/22 01/23/22 01/23/22 21:59 05:59 13:59 Intake Total 1999 1899 50 Output Total 2024 850 1100 Balance -25 1050 -1050 Weight 139.706 kg Intake: IV 50 1100 50 Sodium Chloride 0.9% 1,000 ml @ 1000 100 mls/hr IV .Q10H [facility] Rx#: [id number] Zosyn 3.375 gm In Dextrose 5% 50 100 50 in Water 50 ml @ 100 mls/hr IV Q6H [facility] Rx#:[id number] Oral 1950 800 Output: Void Amount 2024 Other: Meal Lunch Breakfast Percent of Meal Consumed 100% 100% Urine Appearance Clear Clear Clear Urine Color Yellow Yellow Yellow Urine Odor Normal Head Head exam: Present atraumatic and normal inspection Eye Eye exam: Present normal appearance ENT ENT exam: Present mucous membranes moist, normal exam and normal external ear exam Neck Neck exam: Present normal inspection Respiratory Respiratory exam: Present normal respiratory exam Cardiovascular Cardiovascular exam: Present normal rate and rhythm GI/Abdominal GI/Abdominal exam: Present normal bowel sounds Extremities Exam Extremities exam: Present full ROM; Absent normal inspection Additional comments: Right forefoot covered by surgical dressing, no oozing of blood Back Exam Back exam: Present normal inspection Neurological Exam Neurological exam: Present alert and oriented X3 Skin Skin exam: Present intact and warm OBJ DATA Labs CBC & Chem 7: 01/23/22 06:00 01/23/22 07:49 Labs: Abnormal Lab Results 01/23/22 01/23/22 01/22/22 07:49 06:00 08:23 WBC 19.3 H RBC Hgb Hct POC Hct MPV 12.6 H Immature Gran % (Auto) 0.6 H Neut % (Auto) 88.9 H Lymph % (Auto) 6.2 L Lymph # (Auto) 1.19 L [place] # (Auto) Immature Gran # 0.12 H Absolute Neutrophils 17.14 H ESR 45 H POC VBG pH POC VBG pCO2 at Temp POC VBG pO2 POC Venous O2 Sat VBG Lactic Acid POC Sodium Sodium 148 H POC Chloride Chloride 116 H Carbon Dioxide Anion Gap 7.0 L POC BUN BUN Creatinine POC Creatinine Glucose 118 H POC Glucose Hemoglobin A1c Calcium 8.4 L POC WB Ioniz Calcium Direct Bilirubin Alkaline Phosphatase 34 L C-Reactive Protein 2.10 H Albumin 2.9 L Globulin Albumin/Globulin Ratio 0.9 L Procalcitonin Vancomycin Trough 20.4 H* 01/22/22 01/22/22 01/21/22 05:54 05:54 05:40 WBC 12.6 H RBC Hgb Hct POC Hct MPV Immature Gran % (Auto) 0.6 H Neut % (Auto) 91.5 H Lymph % (Auto) 4.8 L Lymph # (Auto) 0.61 L [place] # (Auto) Immature Gran # 0.08 H Absolute Neutrophils 11.56 H ESR 72 H POC VBG pH POC VBG pCO2 at Temp POC VBG pO2 POC Venous O2 Sat VBG Lactic Acid POC Sodium Sodium 128 L 130 L POC Chloride Chloride 95 L 93 L Carbon Dioxide 21 L Anion Gap POC BUN BUN 25 H 26 H Creatinine 1.6 H 1.6 H POC Creatinine Glucose 388 H 122 H POC Glucose Hemoglobin A1c Calcium 7.6 L 8.4 L POC WB Ioniz Calcium Direct Bilirubin Alkaline Phosphatase C-Reactive Protein 23.10 H 24.20 H Albumin 2.5 L 3.0 L Globulin 3.8 H Albumin/Globulin Ratio 0.7 L 0.8 L Procalcitonin Vancomycin Trough 01/21/22 01/20/22 01/20/22 05:40 19:56 17:20 WBC 15.8 H RBC Hgb Hct POC Hct MPV Immature Gran % (Auto) 0.6 H Neut % (Auto) 84.0 H Lymph % (Auto) 7.0 L Lymph # (Auto) 1.11 L [place] # (Auto) 1.27 H Immature Gran # 0.09 H Absolute Neutrophils 13.26 H ESR 26 H POC VBG pH POC VBG pCO2 at Temp 40.8 L POC VBG pO2 21 L POC Venous O2 Sat 34.0 L VBG Lactic Acid 2.3 H 2.1 H POC Sodium Sodium POC Chloride Chloride Carbon Dioxide Anion Gap POC BUN BUN Creatinine POC Creatinine Glucose POC Glucose Hemoglobin A1c 8.5 H Calcium POC WB Ioniz Calcium Direct Bilirubin Alkaline Phosphatase C-Reactive Protein Albumin Globulin Albumin/Globulin Ratio Procalcitonin Vancomycin Trough 01/20/22 01/20/22 01/20/22 14:49 14:49 14:43 WBC RBC Hgb Hct POC Hct 59.0 H MPV Immature Gran % (Auto) Neut % (Auto) Lymph % (Auto) Lymph # (Auto) [place] # (Auto) Immature Gran # Absolute Neutrophils ESR POC VBG pH 7.44 H POC VBG pCO2 at Temp 38.0 L POC VBG pO2 22 L POC Venous O2 Sat VBG Lactic Acid 2.7 H POC Sodium 128 L Sodium POC Chloride 90 L Chloride Carbon Dioxide Anion Gap POC BUN 30 H BUN Creatinine POC Creatinine 1.3 H Glucose POC Glucose 287 H Hemoglobin A1c Calcium POC WB Ioniz Calcium 0.97 L Direct Bilirubin Alkaline Phosphatase C-Reactive Protein 22.20 H Albumin Globulin Albumin/Globulin Ratio Procalcitonin Vancomycin Trough 01/20/22 01/20/22 01/20/22 14:43 14:43 14:43 WBC 17.3 H RBC 6.14 H Hgb 18.4 H Hct 52.5 H POC Hct MPV Immature Gran % (Auto) 0.8 H Neut % (Auto) 84.4 H Lymph % (Auto) 5.7 L Lymph # (Auto) 0.98 L [place] # (Auto) 1.48 H Immature Gran # 0.13 H Absolute Neutrophils 14.62 H ESR POC VBG pH POC VBG pCO2 at Temp POC VBG pO2 POC Venous O2 Sat VBG Lactic Acid POC Sodium Sodium POC Chloride Chloride Carbon Dioxide Anion Gap POC BUN BUN Creatinine POC Creatinine Glucose POC Glucose Hemoglobin A1c Calcium POC WB Ioniz Calcium Direct Bilirubin 0.3 H Alkaline Phosphatase C-Reactive Protein Albumin Globulin 4.9 H Albumin/Globulin Ratio Procalcitonin 3.20 H Vancomycin Trough Meds: Medications Acetaminophen (Acetaminophen 325 Mg Tablet) 650 mg PO Q6HP PRN; Protocol PRN Reason: Per Pain Protocol/Fever > 101 Albuterol/Ipratropium (Ipratropium/Albuterol 3 Ml Ampul.Neb) 3 ml NEB Q4HRT PRN PRN Reason: Wheezing Amlodipine Besylate (Amlodipine 10 Mg Tablet) 10 mg PO DAILY [facility] Last Admin: 01/23/22 09:04 Dose: 10 mg Aspirin (Aspirin 81 Mg Tab.Chew) 81 mg PO HS [facility] Last Admin: 01/22/22 21:46 Dose: 81 mg Atorvastatin Calcium (Atorvastatin 20 Mg Tablet) 20 mg PO HS [facility] Last Admin: 01/22/22 21:46 Dose: 20 mg Carvedilol (Carvedilol 3.125 Mg Tablet) 3.125 mg PO BIDCC [facility] Last Admin: 01/23/22 07:35 Dose: 3.125 mg Dextrose (Dextrose 50% 50 Ml Vial) 0 ml IV UD PRN PRN Reason: Per Sliding Scale Dextrose (Dextrose 50% 50 Ml Vial) 0 ml IV UD PRN PRN Reason: Per Sliding Scale Diagnostic Test (Pha) (Accu-Chek 1 Each Strip) 1 each FS ACHS [facility] Last Admin: 01/23/22 11:41 Dose: 1 each Docusate Sodium (Docusate Sodium 100 Mg Capsule) 100 mg PO BID [facility] Last Admin: 01/23/22 09:04 Dose: 100 mg Duloxetine HCl (Duloxetine 30 Mg Capsule) 30 mg PO BID [facility] Last Admin: 01/23/22 09:04 Dose: 30 mg Glucose (Dextrose 31 Gm Oral.Susp) 15 gm PO PRN PRN PRN Reason: Hypoglycemia Glucose (Dextrose 31 Gm Oral.Susp) 15 gm PO PRN PRN PRN Reason: Hypoglycemia Heparin Sodium (Porcine) (Heparin 5,000 Unit/Ml Vial) 5,000 unit SQ Q12 [facility] Last Admin: 01/23/22 09:04 Dose: 5,000 unit Sodium Chloride (Sodium Chloride 0.9%) 1,000 mls @ 100 mls/hr IV .Q10H [facility] Last Admin: 01/23/22 07:36 Dose: Not Given Piperacillin Sod/Tazobactam (Sod 3.375 gm/ Dextrose) 50 mls @ 100 mls/hr IV Q6H [facility]; Protocol Last Infusion: 01/23/22 12:23 Dose: Infused Insulin Glargine (Insulin Glargine, Human 1 Unit/0.01 Ml) 15 unit SQ HS [facility] Last Admin: 01/22/22 21:45 Dose: 15 units Insulin Human Lispro (Insulin Lispro 1 Unit/0.01 Ml Unit) 0 unit SQ [facility]; Protocol Last Admin: 01/23/22 12:09 Dose: 9 units Loperamide HCl (Loperamide 2 Mg Capsule) 2 mg PO DAILYP PRN PRN Reason: Diarrhea Last Admin: 01/21/22 10:39 Dose: 2 mg Magnesium Oxide (Magnesium Oxide 400 Mg Tablet) 400 mg PO DAILY [facility] Last Admin: 01/23/22 09:04 Dose: 400 mg Meloxicam (Meloxicam 7.5 Mg Tablet) 7.5 mg PO BID [facility] Last Admin: 01/23/22 09:04 Dose: 7.5 mg Non-Formulary Medication (Insulin Regular Hum U-500 Conc [Humulin R U-500 (Conc) Kwikpen]) 0 unit SUB-Q TID [facility] Ondansetron HCl (Ondansetron 4 Mg/2 Ml Vial) 4 mg IV Q6HP PRN PRN Reason: Nausea And Vomiting Last Admin: 01/20/22 20:01 Dose: 4 mg Senna (Sennosides 1 Tablet) 2 tab PO HS [facility] Last Admin: 01/22/22 21:47 Dose: Not Given Sodium Chloride (0.9 % Sodium Chloride 10 Ml Syringe) 10 ml IV Q8 [facility] Last Admin: 01/23/22 05:10 Dose: Not Given Sodium Chloride (0.9 % Sodium Chloride 10 Ml Syringe) 10 ml IV Q8 [facility] Last Admin: 01/23/22 05:11 Dose: 10 ml Trazodone HCl (Trazodone Hcl 50 Mg Tablet) 25 mg PO HSP PRN PRN Reason: Insomnia A/P Assessment and plan (1) Cellulitis of foot, right: Status: Acute (2) Diabetic foot ulcer associated with type 2 diabetes mellitus: Status: Acute (3) Diabetic foot ulcer with osteomyelitis: Status: Acute (4) Stage 1 acute kidney injury: Status: Acute (5) Essential hypertension: Status: Acute (6) Diabetic autonomic neuropathy: Status: Chronic (7) Gram-positive cocci bacteremia: Status: Acute Narrative A/P Narrative: Assessment and Plans: 1. Diabetic foot ulcer with right 4th metatarsal osteomyelitis associated with T2DM and diabetic neuropathy: Inpatient med surg Consult Dr. Sheffield, recs. appreciated for wound care management s/p amputation of right forefoot at LisFranc joint by Dr. Ledesma on 01/21 evening Serial lactic acid Daily ESR/CRP Initial blood culture: MSSA and Strep mitis Wound culture: MSSA and E coli 2D echocardiogram: did not reveal endocardial vegetations cbc w/ auto diff in the morning to trend WBC Physical therapy Saline lock Continue Zosyn Non weight bearing status right foot Wound care/dressing change as per Dr. Ledesma HgA1c 8.5 Hold oral hypoglycemics Lantus 15 unit HS for better glycemic coverage Pre-meal insulin TID AC from home regimen Accu Check AC HS Hypoglycemia protocol Diabetic diet 2. Stage 1 acute kidney injury: Avoid nephrotoxic agents Kidney functions back to baseline, saline lock CMP in the morning to trend kidney functions 3. Essential hypertension: Currently normotensive Resume Chlorthalidone Resume Amlodipine/Coreg/Lisinopril 4. Gram positive cocci/bacillus bacteremia: Initial blood culture: MSSA and Strep mitis Repeat blood cultures X2 on 01/22, no growth to date 2D echocardiogram did not reveal any endocardial vegetations Continue Zosyn GI ppx: not currently indicated DVT ppx: SCDs Code status: Full Prognosis: guarded Disposition: inpatient med surg; PT Plan of Treatment: pending surgical cultures dressings changed today continue IV antibiotics Dressings to be changed prior to discharge Continue NWB Time Spent With Patient Time: Total time spent is greater than 50% in coordination of care (as documented) at patient's floor/unit and/or counseling patient: Total time spent with greater than 50% in coordination of care (as documented) at patient's floor/unit and/or counseling patient:: 35 - 50 minutes
[2022-01-23] MEDS: INSULIN REGULAR, HUMAN 1 UNIT/0.01 ML UNIT SQ SCH (17:10)
[2022-01-23] MEDS: INSULIN GLARGINE, HUMAN 1 UNIT/0.01 ML SQ SCH ×2 (21:17→21:25)
[2022-01-23] MEDS: SENNOSIDES 1 TABLET PO SCH (21:17)
[2022-01-23] MEDS: ASPIRIN 81 MG TAB.CHEW PO SCH (21:17)
[2022-01-23] MEDS: ATORVASTATIN 20 MG TABLET PO SCH (21:18)
[2022-01-23] MEDS: LISINOPRIL 20 MG TABLET PO SCH (21:18)
[2022-01-24] MEDS: PIPERACILLIN SODIUM/TAZOBACTAM 3.375 GM in DEXTROSE 5% IN WATER 50 ML IV SCH ×4 (01:10→17:39)
[2022-01-24] MEDS: 0.9 % SODIUM CHLORIDE 10 ML SYRINGE IV SCH ×5 (05:59→21:16)
[2022-01-24 07:24] LABS: Basophils # (Auto) 0.04 K/mcL (0.00-0.30); Basophils % (Auto) 0.4 % (0.0-2.0); Eosinophils # (Auto) 0.17 K/mcL (0.00-0.70); Eosinophils % (Auto) 1.6 % (0.0-7.0); Hematocrit 42.3 % (40.1-51.0); Hemoglobin 14.4 g/dL (13.7-17.5); Lymphocytes # (Auto) 2.17 K/mcL (1.50-4.80); Lymphocytes % (Auto) 20.2 % (15.5-49.0); Mean Cell Volume 86.9 fL (80.0-100.0); Mean Platelet Volume 11.5 fL (8.8-12.5); Monocytes # (Auto) 0.93 K/mcL (0.10-0.90); Monocytes % (Auto) 8.6 % (1.0-12.0); Neutrophils % (Auto) 68.5 % (38.0-78.0); Platelet Count 250 K/mcL (140-440); RBC 4.87 M/mcL (4.63-6.08); Red Cell Distribution Width 13.2 % (11.5-14.5); WBC 10.8 K/mcL (4.5-11.0)
[2022-01-24 07:35] LABS: Erythrocyte Sedimentation Rate 35 mm/hr (0-20)
[2022-01-24] MEDS: CARVEDILOL 3.125 MG TABLET PO SCH ×2 (07:49→16:50)
[2022-01-24] MEDS: INSULIN REGULAR, HUMAN 1 UNIT/0.01 ML UNIT SQ SCH ×3 (07:50→16:50)
[2022-01-24 08:18] LABS: ALT/SGPT 33 U/L (<40); AST/SGOT 53 U/L (<40); Albumin 2.8 gm/dL (3.2-5.2); Albumin/Globulin Ratio 0.9 (1.0-2.3); Alkaline Phosphatase 67 U/L (39-117); Bilirubin,Total 0.2 mg/dL (0.1-1.0); Blood Urea Nitrogen 22 mg/dL (8-23); Calcium 8.4 mg/dL (8.6-10.4); Carbon Dioxide 25 mmol/L (22-30); Chloride 101 mmol/L (96-108); Glomerular Filtration Rate 71; Glucose 143 mg/dL (70-105)
[2022-01-24] MEDS: DOCUSATE SODIUM 100 MG CAPSULE PO SCH ×2 (08:27→21:13)
[2022-01-24] MEDS: LISINOPRIL 20 MG TABLET PO SCH ×2 (08:27→21:12)
[2022-01-24] MEDS: amLODIPine 10 MG TABLET PO SCH (08:28)
[2022-01-24] MEDS: DULoxetine 30 MG CAPSULE PO SCH ×2 (08:28→21:12)
[2022-01-24] MEDS: HEPARIN 5,000 UNIT/ML VIAL SQ SCH ×2 (08:28→21:13)
[2022-01-24] MEDS: MELOXICAM 7.5 MG TABLET PO SCH ×2 (08:28→21:15)
[2022-01-24] MEDS: CHLORTHALIDONE 25 MG TABLET PO SCH (08:28)
[2022-01-24] MEDS: MAGNESIUM OXIDE 400 MG TABLET PO SCH (08:28)
--- NOTE | 2022-01-24 10:39 | Internal Med Progress Note ---
SUBJECTIVE Subjective Patient information: Note initiated : 01/24/22 at 10:37 am Service Date, if different from initiated Date: [] Patient: Navid Garcia 61 y/o M admitted on 01/20/22 for Right Forefoot Amputation. Chief Complaint: [] Interval history: Mr. Garcia is a 61 year old M history of type 2 diabetes mellitus with diabetic neuropathy, status post right fourth and fifth told amputations, essential hypertensions, presenting with 2-day history of right foot redness and swelling. He got his right fourth and fifth told surgically amputated 3 and 2 years ago, respectively. He has noticed redness and swelling of his left foot since yesterday. He denies any pain but stated that he could not feel any pain in his feet anyway due to his diabetic neuropathy. He denies any new trauma or injury to the regions. He denies any systemic symptoms such as fever, chills, or diaphoresis. He denies any change in his appetite. Due to the changes he was seen in his right foot, he decided to come to our ED for further evaluations. Vital signs at ED presentation significant for tachycardia and tachypnea. Labs significant for leukocytosis with a WBC 17.3. Serum sodium level 128 with corrected sodium for glucose 132. Glucose level at 287. Lactic acid 2.7, repeat lactic acid 2.1. CRP 22.2, procalcitonin level 3.20. Right foot x-ray showing large soft tissue wound and focal ulcer. It also shows a previous transmetatarsal amputations of the right fourth and fifth metatarsals. Probable right fourth metatarsal osteomyelitis. 01/21: Fever with T-max 38.1 overnight and this morning. Blood culture growing gram- positive cocci/bacillus in both sets. MRSA screening negative. WBC 15.8 this morning. Fasting glucose 122 this morning. Patient's declines any right foot pain but he could not feel his feet anyway due to diabetic neuropathy. Continue empiric antibiotics Vancomycin and Zosyn while monitoring culture results. Repeat blood cultures X2 on 01/22. 2D echocardiogram. Consulting Dr. Ledesma for possible amputation. Consulting Dr. Sheffield for wound care management. Continue to provide insulin Lantus plus Lispro SSI for glycemic coverage. Physical therapy evaluation and treatment. 01/22: s/p amputation of right forefoot at LisFranc joint by Dr. Ledesma on 01/21 evening. Patient tolerated the procedure well without major complications. Afebrile overnight. Fasting glucose 337 this morning. MRSA screening negative. Initial blood culture: S aureus and Strep mitis; wound culture: MSSA and E coli. 2D echocardiogram: did not reveal endocardial vegetations. Patient denies any right foot pain. Denies any fever or chills or sweating. Repeat blood cultures X2 today. D/c Vancomycin, continue Zosyn. NS@100cc/hr. I ncrease Lantus from 10-->15 unit HS and insulin Lispro SSI from low to high scale for better glycemic coverage. Dressing change as per surgery team. Continue non-weight bearing status. Continue physical therapy evaluation and treatment for placement planning. 01/23: Afebrile overnight. Fasting glucose 281 this morning. Initial blood culture: MSSA and Strep mitis; wound culture: MSSA and E coli. Repeat blood culture no growth to date. Patient denies any right foot pain. Denies any fever or chills or sweating. 01/24: Afebrile overnight. Fasting glucose 121 this morning. Initial blood culture: MSSA and Strep mitis; wound culture: MSSA and E coli. Repeat blood culture no growth to date. Patient denies any right foot pain. Denies any fever or chills or sweating. Continue Zosyn. Saline locked. Continue Lantus 15 unit HS and meal time insulin TID AC for glycemic control. Continue to monitor repeat blood culture results. Dressing change and post-surgical management as per surgery team. Continue non- weight bearing status. Continue physical therapy evaluation and treatment for placement planning. Constitutional Vitals: Vital Signs Temp Pulse Resp BP Pulse Ox O2 Del Method O2 Flow Rate 36.4 C 75 16 154/94 98 2 01/24/22 07:44 01/24/22 06:00 01/24/22 07:44 01/24/22 07:44 01/24/22 07:44 01/24/22 07:44 01/22/22 23:48 Period Temp Pulse Resp BP Sys/Garcia Pulse Ox O2 Del Method O2 Flow Rate Last 24 Hr 36.4 C-37.1 C 70-77 14-20 123-155/84-95 93-98 Room Air-Room Air, CPAP Intake and Output 01/23/22 01/24/2222 21:59 05:59 13:59 Intake Total 9912 544 6178 Output Total 2200 2300 1500 Balance -1190 -1450 150 Weight 136.894 kg Intake & Output: Intake & Output 01/23/22 01/24/22 01/24/22 21:59 05:59 13:59 Intake Total 5915 756 3850 Output Total 2200 2300 1500 Balance -1190 -1450 150 Weight 136.894 kg Intake: IV 50 50 50 Zosyn 3.375 gm In Dextrose 5% 50 50 50 in Water 50 ml @ 100 mls/hr IV Q6H [facility] Rx#:[id number] Oral [id number] Output: Void Amount 2200 2300 1500 Other: Meal Dinner Breakfast Percent of Meal Consumed 100% 100% Feeding Ability Assist with Tray Set Up Urine Appearance Clear Clear Clear Urine Color Pale Pale Yellow # Bowel Movements 0 Head Head exam: Present atraumatic and normal inspection Eye Eye exam: Present normal appearance ENT ENT exam: Present mucous membranes moist, normal exam and normal external ear exam Neck Neck exam: Present normal inspection Respiratory Respiratory exam: Present normal respiratory exam Cardiovascular Cardiovascular exam: Present normal rate and rhythm GI/Abdominal GI/Abdominal exam: Present normal bowel sounds Extremities Exam Extremities exam: Present full ROM; Absent normal inspection Additional comments: Right foreforet surgically amputated and covered by surgical dressing Back Exam Back exam: Present normal inspection Neurological Exam Neurological exam: Present alert and oriented X3 Skin Skin exam: Present intact and warm OBJ DATA Labs CBC & Chem 7: 01/24/22 05:38 01/24/22 05:38 Labs: Abnormal Lab Results 01/24/22 01/24/22 01/23/22 05:38 05:38 07:49 WBC MPV Immature Gran % (Auto) 0.7 H Neut % (Auto) Lymph % (Auto) Lymph # (Auto) [place] # (Auto) 0.93 H Immature Gran # 0.07 H Absolute Neutrophils ESR 35 H Sodium 148 H Chloride 116 H Carbon Dioxide Anion Gap 7.0 L BUN Creatinine Glucose 143 H 118 H Calcium 8.4 L 8.4 L AST 53 H Alkaline Phosphatase 34 L C-Reactive Protein 7.00 H 2.10 H Total Protein 5.8 L Albumin 2.8 L 2.9 L Globulin Albumin/Globulin Ratio 0.9 L 0.9 L Vancomycin Trough 01/23/22 01/22/22 01/22/22 06:00 08:23 05:54 WBC 19.3 H MPV 12.6 H Immature Gran % (Auto) 0.6 H Neut % (Auto) 88.9 H Lymph % (Auto) 6.2 L Lymph # (Auto) 1.19 L [place] # (Auto) Immature Gran # 0.12 H Absolute Neutrophils 17.14 H ESR 45 H Sodium 128 L Chloride 95 L Carbon Dioxide 21 L Anion Gap BUN 25 H Creatinine 1.6 H Glucose 388 H Calcium 7.6 L AST Alkaline Phosphatase C-Reactive Protein 23.10 H Total Protein Albumin 2.5 L Globulin 3.8 H Albumin/Globulin Ratio 0.7 L Vancomycin Trough 20.4 H* 01/22/22 05:54 WBC 12.6 H MPV Immature Gran % (Auto) 0.6 H Neut % (Auto) 91.5 H Lymph % (Auto) 4.8 L Lymph # (Auto) 0.61 L [place] # (Auto) Immature Gran # 0.08 H Absolute Neutrophils 11.56 H ESR 72 H Sodium Chloride Carbon Dioxide Anion Gap BUN Creatinine Glucose Calcium AST Alkaline Phosphatase C-Reactive Protein Total Protein Albumin Globulin Albumin/Globulin Ratio Vancomycin Trough Meds: Medications Acetaminophen (Acetaminophen 325 Mg Tablet) 650 mg PO Q6HP PRN; Protocol PRN Reason: Per Pain Protocol/Fever > 101 Albuterol/Ipratropium (Ipratropium/Albuterol 3 Ml Ampul.Neb) 3 ml NEB Q4HRT PRN PRN Reason: Wheezing Amlodipine Besylate (Amlodipine 10 Mg Tablet) 10 mg PO DAILY [facility] Last Admin: 01/24/22 08:28 Dose: 10 mg Aspirin (Aspirin 81 Mg Tab.Chew) 81 mg PO HS [facility] Last Admin: 01/23/22 21:17 Dose: 81 mg Atorvastatin Calcium (Atorvastatin 20 Mg Tablet) 20 mg PO HS [facility] Last Admin: 01/23/22 21:18 Dose: 20 mg Carvedilol (Carvedilol 3.125 Mg Tablet) 3.125 mg PO BIDCC [facility] Last Admin: 01/24/22 07:49 Dose: 3.125 mg Chlorthalidone (Chlorthalidone 25 Mg Tablet) 12.5 mg PO DAILY [facility] Last Admin: 01/24/22 08:28 Dose: 12.5 mg Dextrose (Dextrose 50% 50 Ml Vial) 0 ml IV UD PRN PRN Reason: Per Sliding Scale Dextrose (Dextrose 50% 50 Ml Vial) 0 ml IV UD PRN PRN Reason: Per Sliding Scale Diagnostic Test (Pha) (Accu-Chek 1 Each Strip) 1 each FS ACHS [facility] Last Admin: 01/24/22 07:46 Dose: 1 each Docusate Sodium (Docusate Sodium 100 Mg Capsule) 100 mg PO BID [facility] Last Admin: 01/24/22 08:27 Dose: 100 mg Duloxetine HCl (Duloxetine 30 Mg Capsule) 30 mg PO BID [facility] Last Admin: 01/24/22 08:28 Dose: 30 mg Glucose (Dextrose 31 Gm Oral.Susp) 15 gm PO PRN PRN PRN Reason: Hypoglycemia Glucose (Dextrose 31 Gm Oral.Susp) 15 gm PO PRN PRN PRN Reason: Hypoglycemia Heparin Sodium (Porcine) (Heparin 5,000 Unit/Ml Vial) 5,000 unit SQ Q12 [facility] Last Admin: 01/24/22 08:28 Dose: 5,000 unit Piperacillin Sod/Tazobactam (Sod 3.375 gm/ Dextrose) 50 mls @ 100 mls/hr IV Q6H [facility]; Protocol Last Infusion: 01/24/22 06:47 Dose: Infused Insulin Glargine (Insulin Glargine, Human 1 Unit/0.01 Ml) 15 unit SQ HS [facility] Last Admin: 01/23/22 21:25 Dose: 15 units Insulin Human Regular (Insulin Regular, Human 1 Unit/0.01 Ml Unit) 0 unit SQ TIDCC [facility] Last Admin: 01/24/22 07:50 Dose: 30 units Lisinopril (Lisinopril 20 Mg Tablet) 40 mg PO BID [facility] Last Admin: 01/24/22 08:27 Dose: 40 mg Loperamide HCl (Loperamide 2 Mg Capsule) 2 mg PO DAILYP PRN PRN Reason: Diarrhea Last Admin: 01/21/22 10:39 Dose: 2 mg Magnesium Oxide (Magnesium Oxide 400 Mg Tablet) 400 mg PO DAILY [facility] Last Admin: 01/24/22 08:28 Dose: 400 mg Meloxicam (Meloxicam 7.5 Mg Tablet) 7.5 mg PO BID [facility] Last Admin: 01/24/22 08:28 Dose: 7.5 mg Ondansetron HCl (Ondansetron 4 Mg/2 Ml Vial) 4 mg IV Q6HP PRN PRN Reason: Nausea And Vomiting Last Admin: 01/20/22 20:01 Dose: 4 mg Senna (Sennosides 1 Tablet) 2 tab PO HS [facility] Last Admin: 01/23/22 21:17 Dose: 2 tab Sodium Chloride (0.9 % Sodium Chloride 10 Ml Syringe) 10 ml IV Q8 [facility] Last Admin: 01/24/22 05:59 Dose: 10 ml Sodium Chloride (0.9 % Sodium Chloride 10 Ml Syringe) 10 ml IV Q8 [facility] Last Admin: 01/24/22 05:59 Dose: 10 ml Trazodone HCl (Trazodone Hcl 50 Mg Tablet) 25 mg PO HSP PRN PRN Reason: Insomnia A/P Assessment and plan (1) Cellulitis of foot, right: Status: Acute (2) Diabetic foot ulcer associated with type 2 diabetes mellitus: Status: Acute (3) Diabetic foot ulcer with osteomyelitis: Status: Acute (4) Stage 1 acute kidney injury: Status: Acute (5) Essential hypertension: Status: Acute (6) Diabetic autonomic neuropathy: Status: Chronic (7) Gram-positive cocci bacteremia: Status: Acute Narrative A/P Narrative: Assessment and Plans: 1. Diabetic foot ulcer with right 4th metatarsal osteomyelitis associated with T2DM and diabetic neuropathy: Inpatient med surg Consult Dr. Sheffield, recs. appreciated for wound care management s/p amputation of right forefoot at LisFranc joint by Dr. Ledesma on 01/21 evening Serial lactic acid Daily ESR/CRP Initial blood culture: MSSA and Strep mitis Wound culture: MSSA and E coli Repeat blood culture from 01/22, no growth to date 2D echocardiogram: did not reveal endocardial vegetations cbc w/ auto diff in the morning to trend WBC Physical therapy Saline lock Continue Zosyn Non weight bearing status right foot Wound care/dressing change as per Dr. Ledesma HgA1c 8.5 Hold oral hypoglycemics Lantus 15 unit HS for better glycemic coverage Pre-meal insulin TID AC from home regimen Accu Check AC HS Hypoglycemia protocol Diabetic diet 2. Stage 1 acute kidney injury: Avoid nephrotoxic agents Kidney functions back to baseline, saline lock CMP in the morning to trend kidney functions 3. Essential hypertension: Currently normotensive Resume Chlorthalidone Resume Amlodipine/Coreg/Lisinopril 4. Gram positive cocci/bacillus bacteremia: Initial blood culture: MSSA and Strep mitis Repeat blood cultures X2 on 01/22, no growth to date 2D echocardiogram did not reveal any endocardial vegetations Continue Zosyn GI ppx: not currently indicated DVT ppx: SCDs Code status: Full Prognosis: Stable Disposition: inpatient med surg; PT Plan of Treatment: pending surgical cultures dressings changed today continue IV antibiotics Dressings to be changed prior to discharge Continue NWB Time Spent With Patient Time: Total time spent is greater than 50% in coordination of care (as documented) at patient's floor/unit and/or counseling patient: Total time spent with greater than 50% in coordination of care (as documented) at patient's floor/unit and/or counseling patient:: 35 - 50 minutes
[2022-01-24] MEDS: PREGABALIN 25 MG CAPSULE PO SCH (21:12)
[2022-01-24] MEDS: ASPIRIN 81 MG TAB.CHEW PO SCH (21:12)
[2022-01-24] MEDS: INSULIN GLARGINE, HUMAN 1 UNIT/0.01 ML SQ SCH (21:13)
[2022-01-24] MEDS: ATORVASTATIN 20 MG TABLET PO SCH (21:13)
[2022-01-24] MEDS: SENNOSIDES 1 TABLET PO SCH (21:13)
[2022-01-25] MEDS: PIPERACILLIN SODIUM/TAZOBACTAM 3.375 GM in DEXTROSE 5% IN WATER 50 ML IV SCH ×4 (00:46→17:46)
[2022-01-25] MEDS: 0.9 % SODIUM CHLORIDE 10 ML SYRINGE IV SCH ×8 (00:47→22:07)
[2022-01-25 07:01] LABS: Basophils # (Auto) 0.06 K/mcL (0.00-0.30); Basophils % (Auto) 0.6 % (0.0-2.0); Eosinophils # (Auto) 0.25 K/mcL (0.00-0.70); Eosinophils % (Auto) 2.4 % (0.0-7.0); Hematocrit 42.2 % (40.1-51.0); Hemoglobin 14.3 g/dL (13.7-17.5); Lymphocytes # (Auto) 1.95 K/mcL (1.50-4.80); Lymphocytes % (Auto) 18.4 % (15.5-49.0); Mean Cell Volume 85.6 fL (80.0-100.0); Mean Corpuscular HGB Conc 33.9 g/dL (31.0-36.0); Mean Platelet Volume 11.8 fL (8.8-12.5); Monocytes # (Auto) 0.91 K/mcL (0.10-0.90); Monocytes % (Auto) 8.6 % (1.0-12.0); Neutrophils % (Auto) 66.9 % (38.0-78.0); Platelet Count 294 K/mcL (140-440); RBC 4.93 M/mcL (4.63-6.08); Red Cell Distribution Width 13.3 % (11.5-14.5); WBC 10.6 K/mcL (4.5-11.0)
[2022-01-25] MEDS: INSULIN REGULAR, HUMAN 1 UNIT/0.01 ML UNIT SQ SCH ×3 (07:31→17:36)
[2022-01-25] MEDS: CARVEDILOL 3.125 MG TABLET PO SCH ×2 (07:31→17:45)
[2022-01-25 07:41] LABS: ALT/SGPT 73 U/L (<40); AST/SGOT 103 U/L (<40); Albumin 2.5 gm/dL (3.2-5.2); Albumin/Globulin Ratio 0.6 (1.0-2.3); Alkaline Phosphatase 70 U/L (39-117); Bilirubin,Total 0.3 mg/dL (0.1-1.0); Blood Urea Nitrogen 17 mg/dL (8-23); Calcium 8.8 mg/dL (8.6-10.4); Carbon Dioxide 28 mmol/L (22-30); Chloride 98 mmol/L (96-108); Globulin 3.9 gm/dL (2.2-3.7); Glomerular Filtration Rate 71; Glucose 267 mg/dL (70-105)
[2022-01-25 07:42] LABS: Erythrocyte Sedimentation Rate 61 mm/hr (0-20)
[2022-01-25] MEDS: DOCUSATE SODIUM 100 MG CAPSULE PO SCH ×2 (08:12→22:05)
[2022-01-25] MEDS: HEPARIN 5,000 UNIT/ML VIAL SQ SCH ×2 (08:12→22:04)
[2022-01-25] MEDS: amLODIPine 10 MG TABLET PO SCH (08:12)
[2022-01-25] MEDS: CHLORTHALIDONE 25 MG TABLET PO SCH (08:13)
[2022-01-25] MEDS: DULoxetine 30 MG CAPSULE PO SCH ×2 (08:13→22:05)
[2022-01-25] MEDS: MELOXICAM 7.5 MG TABLET PO SCH ×2 (08:13→22:05)
[2022-01-25] MEDS: LISINOPRIL 20 MG TABLET PO SCH ×2 (08:13→22:05)
[2022-01-25] MEDS: PREGABALIN 25 MG CAPSULE PO SCH ×2 (08:13→22:06)
[2022-01-25] MEDS: MAGNESIUM OXIDE 400 MG TABLET PO SCH (08:13)
--- NOTE | 2022-01-25 11:51 | Internal Med Progress Note ---
SUBJECTIVE Subjective Patient information: Note initiated : 01/25/22 at 11:47 am Service Date, if different from initiated Date: [] Patient: Navid Garcia 61 y/o M admitted on 01/20/22 for Right Forefoot Amputation. Chief Complaint: [] Interval history: Mr. Garcia is a 61 year old M history of type 2 diabetes mellitus with diabetic neuropathy, status post right fourth and fifth told amputations, essential hypertensions, presenting with 2-day history of right foot redness and swelling. He got his right fourth and fifth told surgically amputated 3 and 2 years ago, respectively. He has noticed redness and swelling of his left foot since yesterday. He denies any pain but stated that he could not feel any pain in his feet anyway due to his diabetic neuropathy. He denies any new trauma or injury to the regions. He denies any systemic symptoms such as fever, chills, or diaphoresis. He denies any change in his appetite. Due to the changes he was seen in his right foot, he decided to come to our ED for further evaluations. Vital signs at ED presentation significant for tachycardia and tachypnea. Labs significant for leukocytosis with a WBC 17.3. Serum sodium level 128 with corrected sodium for glucose 132. Glucose level at 287. Lactic acid 2.7, repeat lactic acid 2.1. CRP 22.2, procalcitonin level 3.20. Right foot x-ray showing large soft tissue wound and focal ulcer. It also shows a previous transmetatarsal amputations of the right fourth and fifth metatarsals. Probable right fourth metatarsal osteomyelitis. 01/21: Fever with T-max 38.1 overnight and this morning. Blood culture growing gram- positive cocci/bacillus in both sets. MRSA screening negative. WBC 15.8 this morning. Fasting glucose 122 this morning. Patient's declines any right foot pain but he could not feel his feet anyway due to diabetic neuropathy. Continue empiric antibiotics Vancomycin and Zosyn while monitoring culture results. Repeat blood cultures X2 on 01/22. 2D echocardiogram. Consulting Dr. Ledesma for possible amputation. Consulting Dr. Sheffield for wound care management. Continue to provide insulin Lantus plus Lispro SSI for glycemic coverage. Physical therapy evaluation and treatment. 01/22: s/p amputation of right forefoot at [facility] joint by Dr. Ledesma on 01/21 evening. Patient tolerated the procedure well without major complications. Afebrile overnight. Fasting glucose 337 this morning. MRSA screening negative. Initial blood culture: S aureus and Strep mitis; wound culture: MSSA and E coli. 2D echocardiogram: did not reveal endocardial vegetations. Patient denies any right foot pain. Denies any fever or chills or sweating. Repeat blood cultures X2 today. D/c Vancomycin, continue Zosyn. NS@100cc/hr. I ncrease Lantus from 10-->15 unit HS and insulin Lispro SSI from low to high scale for better glycemic coverage. Dressing change as per surgery team. Continue non-weight bearing status. Continue physical therapy evaluation and treatment for placement planning. 01/23: Afebrile overnight. Fasting glucose 281 this morning. Initial blood culture: MSSA and Strep mitis; wound culture: MSSA and E coli. Repeat blood culture no growth to date. Patient denies any right foot pain. Denies any fever or chills or sweating. 01/24: Afebrile overnight. Fasting glucose 121 this morning. Initial blood culture: MSSA and Strep mitis; wound culture: MSSA and E coli. Repeat blood culture no growth to date. Patient denies any right foot pain. Denies any fever or chills or sweating. Continue Zosyn. Saline locked. Continue Lantus 15 unit HS and meal time insulin TID AC for glycemic control. Continue to monitor repeat blood culture results. Dressing change and post-surgical management as per surgery team. Continue non- weight bearing status. Continue physical therapy evaluation and treatment for placement planning. 01/25: Afebrile overnight. Hypoglycemia episode with BS 46 last night at 0930. Fasting BS this morning 269. Repeat blood culture no growth today. Patient denies any pain of his right foot. He denies any fever chills or diaphoresis. Continue Zosyn. Saline locked. Continue Lantus 15 unit HS and meal time insulin TID AC for glycemic control. Continue to monitor repeat blood culture results. Dressing change and post-surgical management as per surgery team. Continue non- weight bearing status. Continue physical therapy evaluation and treatment for placement planning. Constitutional Vitals: Vital Signs Temp Pulse Resp BP Pulse Ox O2 Del Method O2 Flow Rate 36.9 C 89 16 155/90 100 2 01/25/22 11:21 01/25/22 11:21 01/25/22 11:21 01/25/22 11:21 01/25/22 11:21 01/25/22 11:21 01/22/22 23:48 Period Temp Pulse Resp BP Sys/Garcia Pulse Ox O2 Del Method O2 Flow Rate Last 24 Hr 36.7 C-36.9 C 76-97 16-18 148-158/88-98 93-100 Room Air-Room Air Intake and Output 01/24/22 01/25/22 01/25/22 21:59 05:59 13:59 Intake Total 2380 1400 Output Total 2275 4350 650 Balance -2274 750 Weight 129.455 kg Intake & Output: Intake & Output 01/24/22 01/25/22 01/25/22 21:59 05:59 13:59 Intake Total 2380 1400 Output Total 2275 4350 650 Balance -2274 750 Weight 129.455 kg Intake: Nourishment/Supplement quantity 480 (ml) IV 100 50 Zosyn 3.375 gm In Dextrose 5% 100 50 in Water 50 ml @ 100 mls/hr IV Q6H [facility] Rx#:[id number] Oral 1800 1350 Output: Void Amount 2270 4350 650 Other: Meal Dinner Nourishment/Supplement Breakfast Percent of Meal Consumed 100% 100% 100% Feeding Ability Independent Nourishment/Supplement name ensure plus Urine Appearance Clear Clear Clear Urine Color Yellow Yellow Yellow Urine Odor Normal Head Head exam: Present atraumatic and normal inspection Eye Eye exam: Present normal appearance ENT ENT exam: Present mucous membranes moist, normal exam and normal external ear exam Neck Neck exam: Present normal inspection Respiratory Respiratory exam: Present normal respiratory exam Cardiovascular Cardiovascular exam: Present normal rate and rhythm GI/Abdominal GI/Abdominal exam: Present normal bowel sounds Extremities Exam Extremities exam: Present full ROM; Absent normal inspection Additional comments: Right foot covered by surgical dressing Back Exam Back exam: Present normal inspection Neurological Exam Neurological exam: Present alert and oriented X3 Skin Skin exam: Present intact and warm OBJ DATA Labs CBC & Chem 7: 01/25/22 05:58 01/25/22 05:58 Labs: Abnormal Lab Results 01/25/22 01/25/22 01/24/22 05:58 05:58 05:38 WBC MPV Immature Gran % (Auto) 3.1 H Neut % (Auto) Lymph % (Auto) Lymph # (Auto) [place] # (Auto) 0.91 H Immature Gran # 0.33 H Absolute Neutrophils ESR 61 H Sodium Chloride Anion Gap Glucose 267 H 143 H Calcium 8.4 L AST 103 H 53 H ALT 73 H Alkaline Phosphatase C-Reactive Protein 7.30 H 7.00 H Total Protein 5.8 L Albumin 2.5 L 2.8 L Globulin 3.9 H Albumin/Globulin Ratio 0.6 L 0.9 L 01/24/22 01/23/22 01/23/22 05:38 07:49 06:00 WBC 19.3 H MPV 12.6 H Immature Gran % (Auto) 0.7 H 0.6 H Neut % (Auto) 88.9 H Lymph % (Auto) 6.2 L Lymph # (Auto) 1.19 L [place] # (Auto) 0.93 H Immature Gran # 0.07 H 0.12 H Absolute Neutrophils 17.14 H ESR 35 H 45 H Sodium 148 H Chloride 116 H Anion Gap 7.0 L Glucose 118 H Calcium 8.4 L AST ALT Alkaline Phosphatase 34 L C-Reactive Protein 2.10 H Total Protein Albumin 2.9 L Globulin Albumin/Globulin Ratio 0.9 L Meds: Medications Acetaminophen (Acetaminophen 325 Mg Tablet) 650 mg PO Q6HP PRN; Protocol PRN Reason: Per Pain Protocol/Fever > 101 Albuterol/Ipratropium (Ipratropium/Albuterol 3 Ml Ampul.Neb) 3 ml NEB Q4HRT PRN PRN Reason: Wheezing Amlodipine Besylate (Amlodipine 10 Mg Tablet) 10 mg PO DAILY [facility] Last Admin: 01/25/22 08:12 Dose: 10 mg Aspirin (Aspirin 81 Mg Tab.Chew) 81 mg PO HS [facility] Last Admin: 01/24/22 21:12 Dose: 81 mg Atorvastatin Calcium (Atorvastatin 20 Mg Tablet) 20 mg PO HS [facility] Last Admin: 01/24/22 21:13 Dose: 20 mg Carvedilol (Carvedilol 3.125 Mg Tablet) 3.125 mg PO BIDCC [facility] Last Admin: 01/25/22 07:31 Dose: 3.125 mg Chlorthalidone (Chlorthalidone 25 Mg Tablet) 12.5 mg PO DAILY [facility] Last Admin: 01/25/22 08:13 Dose: 12.5 mg Dextrose (Dextrose 50% 50 Ml Vial) 0 ml IV UD PRN PRN Reason: Per Sliding Scale Dextrose (Dextrose 50% 50 Ml Vial) 0 ml IV UD PRN PRN Reason: Per Sliding Scale Diagnostic Test (Pha) (Accu-Chek 1 Each Strip) 1 each FS ACHS [facility] Last Admin: 01/25/22 11:44 Dose: 1 each Docusate Sodium (Docusate Sodium 100 Mg Capsule) 100 mg PO BID [facility] Last Admin: 01/25/22 08:12 Dose: 100 mg Duloxetine HCl (Duloxetine 30 Mg Capsule) 30 mg PO BID [facility] Last Admin: 01/25/22 08:13 Dose: 30 mg Glucose (Dextrose 31 Gm Oral.Susp) 15 gm PO PRN PRN PRN Reason: Hypoglycemia Glucose (Dextrose 31 Gm Oral.Susp) 15 gm PO PRN PRN PRN Reason: Hypoglycemia Heparin Sodium (Porcine) (Heparin 5,000 Unit/Ml Vial) 5,000 unit SQ Q12 [facility] Last Admin: 01/25/22 08:12 Dose: 5,000 unit Piperacillin Sod/Tazobactam (Sod 3.375 gm/ Dextrose) 50 mls @ 100 mls/hr IV Q6H [facility]; Protocol Last Infusion: 01/25/22 06:30 Dose: Infused Insulin Glargine (Insulin Glargine, Human 1 Unit/0.01 Ml) 15 unit SQ HS [facility] Last Admin: 01/24/22 21:13 Dose: 15 units Insulin Human Regular (Insulin Regular, Human 1 Unit/0.01 Ml Unit) 0 unit SQ TIDCC [facility] Last Admin: 01/25/22 07:31 Dose: 45 units Lisinopril (Lisinopril 20 Mg Tablet) 40 mg PO BID [facility] Last Admin: 01/25/22 08:13 Dose: 40 mg Loperamide HCl (Loperamide 2 Mg Capsule) 2 mg PO DAILYP PRN PRN Reason: Diarrhea Last Admin: 01/21/22 10:39 Dose: 2 mg Magnesium Oxide (Magnesium Oxide 400 Mg Tablet) 400 mg PO DAILY [facility] Last Admin: 01/25/22 08:13 Dose: 400 mg Meloxicam (Meloxicam 7.5 Mg Tablet) 7.5 mg PO BID [facility] Last Admin: 01/25/22 08:13 Dose: 7.5 mg Ondansetron HCl (Ondansetron 4 Mg/2 Ml Vial) 4 mg IV Q6HP PRN PRN Reason: Nausea And Vomiting Last Admin: 01/20/22 20:01 Dose: 4 mg Pregabalin (Pregabalin 25 Mg Capsule) 50 mg PO BID [facility] Last Admin: 01/25/22 08:13 Dose: 50 mg Senna (Sennosides 1 Tablet) 2 tab PO HS [facility] Last Admin: 01/24/22 21:13 Dose: 2 tab Sodium Chloride (0.9 % Sodium Chloride 10 Ml Syringe) 10 ml IV Q8 [facility] Last Admin: 01/25/22 05:35 Dose: 10 ml Sodium Chloride (0.9 % Sodium Chloride 10 Ml Syringe) 10 ml IV Q8 [facility] Last Admin: 01/25/22 05:36 Dose: 10 ml Trazodone HCl (Trazodone Hcl 50 Mg Tablet) 25 mg PO HSP PRN PRN Reason: Insomnia A/P Assessment and plan (1) Cellulitis of foot, right: Status: Acute (2) Diabetic foot ulcer associated with type 2 diabetes mellitus: Status: Acute (3) Diabetic foot ulcer with osteomyelitis: Status: Acute (4) Stage 1 acute kidney injury: Status: Acute (5) Essential hypertension: Status: Acute (6) Diabetic autonomic neuropathy: Status: Chronic (7) Gram-positive cocci bacteremia: Status: Acute Narrative A/P Narrative: Assessment and Plans: 1. Diabetic foot ulcer with right 4th metatarsal osteomyelitis associated with T2DM and diabetic neuropathy: Inpatient med surg Consult Dr. Sheffield, recs. appreciated for wound care management [facility]/21 evening Serial lactic acid Daily ESR/CRP Initial blood culture: MSSA and Strep mitis Wound culture: MSSA and E coli Repeat blood culture from 01/22, no growth to date 2D echocardiogram: did not reveal endocardial vegetations cbc w/ auto diff in the morning to trend WBC Physical therapy Saline lock Continue Zosyn Non weight bearing status right foot Wound care/dressing change as per Dr. Ledesma HgA1c 8.5 Hold oral hypoglycemics Lantus 15 unit HS for better glycemic coverage Pre-meal insulin TID AC from home regimen Accu Check AC HS Hypoglycemia protocol Diabetic diet 2. Stage 1 acute kidney injury: Avoid nephrotoxic agents Kidney functions back to baseline, saline lock CMP in the morning to trend kidney functions 3. Essential hypertension: Currently normotensive Resume Chlorthalidone Resume Amlodipine/Coreg/Lisinopril 4. Gram positive cocci/bacillus bacteremia: Initial blood culture: MSSA and Strep mitis Repeat blood cultures X2 on 01/22, no growth to date 2D echocardiogram did not reveal any endocardial vegetations Continue Zosyn GI ppx: not currently indicated DVT ppx: SCDs Code status: Full Prognosis: Stable Disposition: inpatient med surg; PT Plan of Treatment: pending surgical cultures dressings changed today continue IV antibiotics Dressings to be changed prior to discharge Continue NWB Time Spent With Patient Time: Total time spent is greater than 50% in coordination of care (as documented) at patient's floor/unit and/or counseling patient: Total time spent with greater than 50% in coordination of care (as documented) at patient's floor/unit and/or counseling patient:: 25 - 35 minutes
--- NOTE | 2022-01-25 14:28 | Orthopedic Progress Note ---
SUBJECTIVE Subjective Patient information: Note initiated : 01/25/22 at 2:23 pm Service Date, if different from initiated Date: [] Patient: Navid Garcia 61 y/o M admitted on 01/20/22 for Right Forefoot Amputation. Chief Complaint: [right foot infection] Interval history: Patient has had some drainage and has had the dressings changed every other day. The foot as been elevated for the duration of his time in bed. No noticeable systemic symptoms such as fever. Constitutional Vitals: Vital Signs Temp Pulse Resp BP Pulse Ox O2 Del Method O2 Flow Rate 98.4 F 89 16 155/90 100 2 01/25/22 11:21 01/25/22 11:21 01/25/22 11:21 01/25/22 11:21 01/25/22 11:21 01/25/22 11:21 01/22/22 23:48 Period Temp Pulse Resp BP Sys/Garcia Pulse Ox O2 Del Method O2 Flow Rate Last 24 Hr 98.1 F-98.4 F 76-97 16-18 148-158/88-98 93-100 Room Air-Room Air Intake and Output 01/25/22 01/25/22 01/25/22 05:59 13:59 21:59 Intake Total 2380 1450 Output Total 4350 650 Balance -1970 800 Weight 285 lb 6.4 oz Patient Weight 01/26/22 05:59 Weight 285 lb 6.4 oz Intake & Output: Intake & Output 01/25/22 01/25/22 01/25/22 05:59 13:59 21:59 Intake Total 2380 1450 Output Total 4350 650 Balance -1970 800 Weight 285 lb 6.4 oz Intake: Nourishment/Supplement quantity 480 (ml) IV 100 100 Zosyn 3.375 gm In Dextrose 5% 100 100 in Water 50 ml @ 100 mls/hr IV Q6H [facility] Rx#:[id number] Oral 1800 1350 Output: Void Amount 4350 650 Other: Meal Nourishment/Supplement Breakfast Percent of Meal Consumed 100% 100% Feeding Ability Independent Nourishment/Supplement name ensure plus Urine Appearance Clear Clear Urine Color Yellow Yellow Urine Odor Normal Skin Additional comments: Right foot post amptuation: suture intact, no dehiscence. Moderate lateral drainage of serous fluid. OBJ DATA Labs CBC & Chem 7: 01/25/22 05:58 01/25/22 05:58 Labs: Abnormal Lab Results 01/25/22 01/25/22 01/24/22 05:58 05:58 05:38 WBC MPV Immature Gran % (Auto) 3.1 H Neut % (Auto) Lymph % (Auto) Lymph # (Auto) [place] # (Auto) 0.91 H Immature Gran # 0.33 H Absolute Neutrophils ESR 61 H Sodium Chloride Anion Gap Glucose 267 H 143 H Calcium 8.4 L AST 103 H 53 H ALT 73 H Alkaline Phosphatase C-Reactive Protein 7.30 H 7.00 H Total Protein 5.8 L Albumin 2.5 L 2.8 L Globulin 3.9 H Albumin/Globulin Ratio 0.6 L 0.9 L 01/24/22 01/23/22 01/23/22 05:38 07:49 06:00 WBC 19.3 H MPV 12.6 H Immature Gran % (Auto) 0.7 H 0.6 H Neut % (Auto) 88.9 H Lymph % (Auto) 6.2 L Lymph # (Auto) 1.19 L [place] # (Auto) 0.93 H Immature Gran # 0.07 H 0.12 H Absolute Neutrophils 17.14 H ESR 35 H 45 H Sodium 148 H Chloride 116 H Anion Gap 7.0 L Glucose 118 H Calcium 8.4 L AST ALT Alkaline Phosphatase 34 L C-Reactive Protein 2.10 H Total Protein Albumin 2.9 L Globulin Albumin/Globulin Ratio 0.9 L Meds: Medications Acetaminophen (Acetaminophen 325 Mg Tablet) 650 mg PO Q6HP PRN; Protocol PRN Reason: Per Pain Protocol/Fever > 101 Albuterol/Ipratropium (Ipratropium/Albuterol 3 Ml Ampul.Neb) 3 ml NEB Q4HRT PRN PRN Reason: Wheezing Amlodipine Besylate (Amlodipine 10 Mg Tablet) 10 mg PO DAILY [facility] Last Admin: 01/25/22 08:12 Dose: 10 mg Aspirin (Aspirin 81 Mg Tab.Chew) 81 mg PO HS [facility] Last Admin: 01/24/22 21:12 Dose: 81 mg Atorvastatin Calcium (Atorvastatin 20 Mg Tablet) 20 mg PO HS [facility] Last Admin: 01/24/22 21:13 Dose: 20 mg Carvedilol ([facility] 3.125 Mg [facility]t) [facility] Last Admin: 01/25/22 07:31 Dose: 3.125 mg Chlorthalidone (Chlorthalidone 25 Mg Tablet) 12.5 mg PO DAILY [facility] Last Admin: 01/25/22 08:13 Dose: 12.5 mg Dextrose (Dextrose 50% 50 Ml Vial) 0 ml IV UD PRN PRN Reason: Per Sliding Scale Dextrose (Dextrose 50% 50 Ml Vial) 0 ml IV UD PRN PRN Reason: Per Sliding Scale Diagnostic Test (Pha) (Accu-Chek 1 Each Strip) 1 each FS ACHS [facility] Last Admin: 01/25/22 11:44 Dose: 1 each Docusate Sodium (Docusate Sodium 100 Mg Capsule) 100 mg PO BID [facility] Last Admin: 01/25/22 08:12 Dose: 100 mg Duloxetine HCl (Duloxetine 30 Mg Capsule) 30 mg PO BID [facility] Last Admin: 01/25/22 08:13 Dose: 30 mg Glucose (Dextrose 31 Gm Oral.Susp) 15 gm PO PRN PRN PRN Reason: Hypoglycemia Glucose (Dextrose 31 Gm Oral.Susp) 15 gm PO PRN PRN PRN Reason: Hypoglycemia Heparin Sodium (Porcine) (Heparin 5,000 Unit/Ml Vial) 5,000 unit SQ Q12 [facility] Last Admin: 01/25/22 08:12 Dose: 5,000 unit Piperacillin Sod/Tazobactam (Sod 3.375 gm/ Dextrose) 50 mls @ 100 mls/hr IV Q6H [facility]; Protocol Last Infusion: 01/25/22 12:58 Dose: Infused Insulin Glargine (Insulin Glargine, Human 1 Unit/0.01 Ml) 15 unit SQ HS [facility] Last Admin: 01/24/22 21:13 Dose: 15 units Insulin Human Regular (Insulin Regular, Human 1 Unit/0.01 Ml Unit) 0 unit SQ TIDCC [facility] Last Admin: 01/25/22 11:49 Dose: 40 units Lisinopril (Lisinopril 20 Mg Tablet) 40 mg PO BID [facility] Last Admin: 01/25/22 08:13 Dose: 40 mg Loperamide HCl (Loperamide 2 Mg Capsule) 2 mg PO DAILYP PRN PRN Reason: Diarrhea Last Admin: 01/21/22 10:39 Dose: 2 mg Magnesium Oxide (Magnesium Oxide 400 Mg Tablet) 400 mg PO DAILY [facility] Last Admin: 01/25/22 08:13 Dose: 400 mg Meloxicam (Meloxicam 7.5 Mg Tablet) 7.5 mg PO BID [facility] Last Admin: 01/25/22 08:13 Dose: 7.5 mg Ondansetron HCl (Ondansetron 4 Mg/2 Ml Vial) 4 mg IV Q6HP PRN PRN Reason: Nausea And Vomiting Last Admin: 01/20/22 20:01 Dose: 4 mg Pregabalin (Pregabalin 25 Mg Capsule) 50 mg PO BID [facility] Last Admin: 01/25/22 08:13 Dose: 50 mg Senna (Sennosides 1 Tablet) 2 tab PO HS [facility] Last Admin: 01/24/22 21:13 Dose: 2 tab Sodium Chloride (0.9 % Sodium Chloride 10 Ml Syringe) 10 ml IV Q8 [facility] Last Admin: 01/25/22 05:35 Dose: 10 ml Sodium Chloride (0.9 % Sodium Chloride 10 Ml Syringe) 10 ml IV Q8 [facility] Last Admin: 01/25/22 05:36 Dose: 10 ml Trazodone HCl (Trazodone Hcl 50 Mg Tablet) 25 mg PO HSP PRN PRN Reason: Insomnia A/P Narrative Plan of Treatment: Dressings changed today: adaptic, 4x4 gauze, kerlix. Continue to change every 48 hours after discharge Patient may discharge today to follow-up in clinic within 10 days of discharge Proceed with oral antibiotics at discharge: Bactrim DS q12h 4 weeks Continue NWB Time Spent With Patient Time: Total time spent is greater than 50% in coordination of care (as documented) at patient's floor/unit and/or counseling patient:
--- NOTE | 2022-01-25 14:44 | Discharge Summary ---
Discharge Provider Provider IMPORTANT FOLLOW-UP INFORMATION FOR PCP: Patient information: Note initiated : 01/25/22 at 2:41 pm Service Date, if different from initiated Date: [] Patient: Navid Garcia 61 y/o M admitted on 01/20/22 for Right Forefoot Amputation. Chief Complaint: [] Date of admission: 01/20/22 18:56 Discharge date: 01/25/22 Primary care physician: Kaushik Coy Attending physician on admission: Saul Gibbs Consults: 01/20/22 Consult to Physician [CONS] Stat Comment: Consulting Provider: Saul Gibbs Reason For Exam: Physician to Consult 01/20/22 19:36 Consult to Physician [CONS] Routine Comment: Consulting Provider: Serjio Sheffield Reason For Exam: Physician to Consult Consult to Physician [CONS] Routine Comment: Consulting Provider: Freeman Ledesma Reason For Exam: Physician to Consult Attending physician on discharge: Saul Ariza Pui COURSE Hospital Course Hospital course: Mr. Garcia is a 61 year old M history of type 2 diabetes mellitus with diabetic neuropathy, status post right fourth and fifth told amputations, essential hypertensions, presenting with 2-day history of right foot redness and swelling. He got his right fourth and fifth told surgically amputated 3 and 2 years ago, respectively. He has noticed redness and swelling of his left foot since yesterday. He denies any pain but stated that he could not feel any pain in his feet anyway due to his diabetic neuropathy. He denies any new trauma or injury to the regions. He denies any systemic symptoms such as fever, chills, or diaphoresis. He denies any change in his appetite. Due to the changes he was seen in his right foot, he decided to come to our ED for further evaluations. Vital signs at ED presentation significant for tachycardia and tachypnea. Labs significant for leukocytosis with a WBC 17.3. Serum sodium level 128 with corrected sodium for glucose 132. Glucose level at 287. Lactic acid 2.7, repeat lactic acid 2.1. CRP 22.2, procalcitonin level 3.20. Right foot x-ray showing large soft tissue wound and focal ulcer. It also shows a previous transmetatarsal amputations of the right fourth and fifth metatarsals. Probable right fourth metatarsal osteomyelitis. 01/21: Fever with T-max 38.1 overnight and this morning. Blood culture growing gram- positive cocci/bacillus in both sets. MRSA screening negative. WBC 15.8 this morning. Fasting glucose 122 this morning. Patient's declines any right foot pain but he could not feel his feet anyway due to diabetic neuropathy. Continue empiric antibiotics Vancomycin and Zosyn while monitoring culture results. Repeat blood cultures X2 on 01/22. 2D echocardiogram. Consulting Dr. Ledesma for possible amputation. Consulting Dr. Sheffield for wound care management. Continue to provide insulin Lantus plus Lispro SSI for glycemic coverage. Physical therapy evaluation and treatment. 01/22: s/p amputation of right forefoot at LisFranc joint by Dr. Ledesma on 01/21 evening. Patient tolerated the procedure well without major complications. Afebrile overnight. Fasting glucose 337 this morning. MRSA screening negative. Initial blood culture: S aureus and Strep mitis; wound culture: MSSA and E coli. 2D echocardiogram: did not reveal endocardial vegetations. Patient denies any right foot pain. Denies any fever or chills or sweating. Repeat blood cultures X2 today. D/c Vancomycin, continue Zosyn. NS@100cc/hr. Increase Lantus from 10-->15 unit HS and insulin Lispro SSI from low to high scale for better glycemic coverage. Dressing change as per surgery team. Continue non-weight bearing status. Continue physical therapy evaluation and treatment for placement planning. 01/23: Afebrile overnight. Fasting glucose 281 this morning. Initial blood culture: MSSA and Strep mitis; wound culture: MSSA and E coli. Repeat blood culture no growth to date. Patient denies any right foot pain. Denies any fever or chills or sweating. 01/24: Afebrile overnight. Fasting glucose 121 this morning. Initial blood culture: MSSA and Strep mitis; wound culture: MSSA and E coli. Repeat blood culture no growth to date. Patient denies any right foot pain. Denies any fever or chills or sweating. Continue Zosyn. Saline locked. Continue Lantus 15 unit HS and meal time insulin TID AC for glycemic control. Continue to monitor repeat blood culture results. Dressing change and post-surgical management as per surgery team. Continue non- weight bearing status. Continue physical therapy evaluation and treatment for placement planning. 01/25: Discharged home with family support. Discharge diagnosis: diabetic foot ulcer with osteomyelitis, right foot. Time Spent with Patient Time attestation: Total time spent providing and/or coordinating discharge services: Time spent: Less than 30 minutes EXAM Constitutional Vitals: Temp Pulse Resp BP Pulse Ox O2 Del Method O2 Flow Rate 36.9 C 89 16 155/90 100 2 01/25/22 11:21 01/25/22 11:21 01/25/22 11:21 01/25/22 11:21 01/25/22 11:21 01/25/22 11:21 01/22/22 23:48 General appearance: cooperative and no acute distress Head Head exam: Present atraumatic and normocephalic Eye Eye exam: Present EOMI and PERRL ENT ENT exam: Present mucous membranes moist, normal exam and normal external ear exam Neck Neck exam: Present normal inspection; Absent lymphadenopathy, tenderness or thyromegaly Respiratory Respiratory exam: Absent accessory muscle use, respiratory distress or wheezes Cardiovascular Cardiovascular exam: Present normal rate and rhythm; Absent JVD GI/Abdominal GI/Abdominal exam: Present normal bowel sounds and soft; Absent organomegaly or tenderness Rectal Rectal exam: Present deferred Extremities Exam Extremities exam: Present full ROM and normal capillary refill; Absent normal inspection or tenderness Additional comments: Right forefoot covered by surgical dressing; right 4th 5th toes surgically amputated at LisFranc joint. Neurological Exam Neurological exam: Present alert, CN II-XII intact and oriented X3; Absent motor sensory deficit Psychiatric Psychiatric exam: Present normal affect and normal mood; Absent anxious or depressed Skin Skin exam: Present dry and intact Discharge Data Data Completed and Pending Labs on day of discharge: Labs from last 24 hours 01/25/22 01/25/22 05:58 05:58 WBC 10.6 RBC 4.93 Hgb 14.3 Hct 42.2 MCV 85.6 MCH 29.0 MCHC 33.9 RDW 13.3 Plt Count 294 MPV 11.8 Immature Gran % (Auto) 3.1 H Neut % (Auto) 66.9 Lymph % (Auto) 18.4 [place] % (Auto) 8.6 Eos % (Auto) 2.4 Baso % (Auto) 0.6 Lymph # (Auto) 1.95 [place] # (Auto) 0.91 H Eos # (Auto) 0.25 Baso # (Auto) 0.06 Immature Gran # 0.33 H Absolute Neutrophils 7.11 ESR 61 H Sodium 136 Potassium 3.5 Chloride 98 Carbon Dioxide 28 Anion Gap 10.0 BUN 17 Creatinine 1.1 GFR Calculation 71 Glucose 267 H Calcium 8.8 Total Bilirubin 0.3 AST 103 H ALT 73 H Alkaline Phosphatase 70 C-Reactive Protein 7.30 H Total Protein 6.4 Albumin 2.5 L Globulin 3.9 H Albumin/Globulin Ratio 0.6 L Preliminary micro results at discharge 01/22/22 06:01 Blood Culture - Preliminary Blood 01/22/22 05:54 Blood Culture - Preliminary Blood Discharge Plan Patient/Caregiver Discharge Instructions Activity: non-weight bearing Diet: Consistent Carbohydrate Prescriptions: New sulfamethoxazole-trimethoprim [Bactrim DS] 800-160 mg tablet 1 tab PO BID Qty: 20 0RF Continued amlodipine 10 mg tablet 10 mg PO DAILY aspirin 81 mg tablet,delayed release (DR/EC) 81 mg PO HS carvedilol 3.125 mg tablet 3.125 mg PO BID duloxetine 30 mg capsule,delayed release(DR/EC) 30 mg PO BID magnesium L-lactate 84 mg tablet extended release 84 mg PO DAILY meloxicam 15 mg tablet 15 mg PO QDAY rosuvastatin 10 mg tablet 10 mg PO QHS chlorthalidone 25 mg tablet 12.5 mg PO DAILY metformin 500 mg tablet extended release 24 hr 500 mg PO BID Trulicity 0.75 mg/0.5 mL Pen Injector 0.75 mg SUBCUT WEEKLY Rx Instructions: Taken on Tuesday Humulin R U-500 (Conc) Kwikpen 500 unit/mL (3 mL) Insulin Pen 0 unit SUBCUT TID Rx Instructions: SLIDING SCALE 71-130 40 units 131-180 45 units 181-230 50 units 231-280 55 units 281-330 60 units 330 greater call pregabalin 50 mg Capsule 50 mg PO BID Ozempic 1 mg/dose (4 mg/3 mL) Pen Injector 1 mg SUBCUT ONCE Discontinued lisinopril 40 mg tablet 40 mg PO BID Follow Up Plan Follow up with: Freeman Ledesma DPM [Physician] - Kaushik Coy MD [Primary Care Provider] - Patient Disposition: Home, Self-Care Plan of Treatment: Dressings changed today: adaptic, 4x4 gauze, kerlix. Continue to change every 48 hours after discharge Patient may discharge today to follow-up in clinic within 10 days of discharge Proceed with oral antibiotics at discharge: Bactrim DS q12h 4 weeks Continue NWB Prognosis: Fair Rehab Potential: Good I certify that the patient requires SNF services: No Overall status at discharge: patient is progressing back to baseline Discharge Orders: Discharge Order (Routine); Ordered 01/25/22 Ordered By: Saul Gibbs
[2022-01-25] MEDS: INSULIN GLARGINE, HUMAN 1 UNIT/0.01 ML SQ SCH ×2 (17:32→22:06)
[2022-01-25] MEDS: SENNOSIDES 1 TABLET PO SCH (22:05)
[2022-01-25] MEDS: ATORVASTATIN 20 MG TABLET PO SCH (22:05)
[2022-01-25] MEDS: ASPIRIN 81 MG TAB.CHEW PO SCH (22:05)
[2022-01-26] MEDS: PIPERACILLIN SODIUM/TAZOBACTAM 3.375 GM in DEXTROSE 5% IN WATER 50 ML IV SCH ×5 (00:28→23:56)
[2022-01-26] MEDS: 0.9 % SODIUM CHLORIDE 10 ML SYRINGE IV SCH ×6 (06:26→20:49)
[2022-01-26 07:23] LABS: Basophils # (Auto) 0.11 K/mcL (0.00-0.30); Basophils % (Auto) 0.8 % (0.0-2.0); Eosinophils # (Auto) 0.34 K/mcL (0.00-0.70); Eosinophils % (Auto) 2.5 % (0.0-7.0); Hematocrit 44.6 % (40.1-51.0); Hemoglobin 15.4 g/dL (13.7-17.5); Lymphocytes # (Auto) 2.12 K/mcL (1.50-4.80); Lymphocytes % (Auto) 15.8 % (15.5-49.0); Mean Cell Volume 85.8 fL (80.0-100.0); Mean Corpuscular HGB Conc 34.5 g/dL (31.0-36.0); Mean Platelet Volume 11.5 fL (8.8-12.5); Monocytes # (Auto) 0.95 K/mcL (0.10-0.90); Monocytes % (Auto) 7.1 % (1.0-12.0); Platelet Count 329 K/mcL (140-440); Red Cell Distribution Width 13.6 % (11.5-14.5); WBC 13.4 K/mcL (4.5-11.0)
[2022-01-26] MEDS: INSULIN REGULAR, HUMAN 1 UNIT/0.01 ML UNIT SQ SCH ×3 (07:24→16:58)
[2022-01-26] MEDS: CARVEDILOL 3.125 MG TABLET PO SCH ×2 (07:24→16:59)
[2022-01-26 07:32] LABS: Erythrocyte Sedimentation Rate 77 mm/hr (0-20)
[2022-01-26 07:42] LABS: ALT/SGPT 68 U/L (<40); AST/SGOT 60 U/L (<40); Albumin 2.9 gm/dL (3.2-5.2); Albumin/Globulin Ratio 0.7 (1.0-2.3); Alkaline Phosphatase 68 U/L (39-117); Bilirubin,Total 0.5 mg/dL (0.1-1.0); Blood Urea Nitrogen 15 mg/dL (8-23); Calcium 9.2 mg/dL (8.6-10.4); Carbon Dioxide 29 mmol/L (22-30); Chloride 97 mmol/L (96-108); Globulin 4.2 gm/dL (2.2-3.7); Glomerular Filtration Rate 91; Glucose 189 mg/dL (70-105)
[2022-01-26] MEDS: HEPARIN 5,000 UNIT/ML VIAL SQ SCH ×2 (08:54→20:48)
[2022-01-26] MEDS: DULoxetine 30 MG CAPSULE PO SCH ×2 (08:54→20:47)
[2022-01-26] MEDS: CHLORTHALIDONE 25 MG TABLET PO SCH (08:54)
[2022-01-26] MEDS: DOCUSATE SODIUM 100 MG CAPSULE PO SCH ×2 (08:55→20:47)
[2022-01-26] MEDS: MELOXICAM 7.5 MG TABLET PO SCH ×2 (08:55→20:47)
[2022-01-26] MEDS: PREGABALIN 25 MG CAPSULE PO SCH ×2 (08:55→20:48)
[2022-01-26] MEDS: amLODIPine 10 MG TABLET PO SCH (08:55)
[2022-01-26] MEDS: MAGNESIUM OXIDE 400 MG TABLET PO SCH (08:55)
[2022-01-26] MEDS: LISINOPRIL 20 MG TABLET PO SCH ×2 (08:55→20:48)
--- NOTE | 2022-01-26 10:03 | Discharge Summary ---
Discharge Provider Provider IMPORTANT FOLLOW-UP INFORMATION FOR PCP: Patient information: Note initiated : 01/26/22 at 10:01 am Service Date, if different from initiated Date: [] Patient: Navid Garcia 61 y/o M admitted on 01/20/22 for Right Forefoot Amputation. Chief Complaint: [] Date of admission: 01/20/22 18:56 Discharge date: 01/26/22 Primary care physician: Kaushik Coy Attending physician on admission: Saul Gibbs Consults: 01/20/22 Consult to Physician [CONS] Stat Comment: Consulting Provider: Saul Gibbs Reason For Exam: Physician to Consult 01/20/22 19:36 Consult to Physician [CONS] Routine Comment: Consulting Provider: Serjio Sheffield Reason For Exam: Physician to Consult Consult to Physician [CONS] Routine Comment: Consulting Provider: Freeman Ledesma Reason For Exam: Physician to Consult 01/26/22 08:15 Consult to Physician [CONS] Routine Comment: snf referral Consulting Provider: [facility] Reason For Exam: Physician to Consult Attending physician on discharge: Saul Monroyi COURSE Hospital Course Hospital course: Mr. Garcia is a 61 year old M history of type 2 diabetes mellitus with diabetic neuropathy, status post right fourth and fifth told amputations, essential hypertensions, presenting with 2-day history of right foot redness and swelling. He got his right fourth and fifth told surgically amputated 3 and 2 years ago, respectively. He has noticed redness and swelling of his left foot since yesterday. He denies any pain but stated that he could not feel any pain in his feet anyway due to his diabetic neuropathy. He denies any new trauma or injury to the regions. He denies any systemic symptoms such as fever, chills, or diaphoresis. He denies any change in his appetite. Due to the changes he was seen in his right foot, he decided to come to our ED for further evaluations. Vital signs at ED presentation significant for tachycardia and tachypnea. Labs significant for leukocytosis with a WBC 17.3. Serum sodium level 128 with corrected sodium for glucose 132. Glucose level at 287. Lactic acid 2.7, repeat lactic acid 2.1. CRP 22.2, procalcitonin level 3.20. Right foot x-ray showing large soft tissue wound and focal ulcer. It also shows a previous transmetatarsal amputations of the right fourth and fifth metatarsals. Probable right fourth metatarsal osteomyelitis. 01/21: Fever with T-max 38.1 overnight and this morning. Blood culture growing gram- positive cocci/bacillus in both sets. MRSA screening negative. WBC 15.8 this morning. Fasting glucose 122 this morning. Patient's declines any right foot pain but he could not feel his feet anyway due to diabetic neuropathy. Continue empiric antibiotics Vancomycin and Zosyn while monitoring culture results. Repeat blood cultures X2 on 01/22. 2D echocardiogram. Consulting Dr. Ledesma for possible amputation. Consulting Dr. Sheffield for wound care management. Continue to provide insulin Lantus plus Lispro SSI for glycemic coverage. Physical therapy evaluation and treatment. 01/22: s/p amputation of right forefoot at LisFranc joint by Dr. Ledesma on 01/21 evening. Patient tolerated the procedure well without major complications. Afebrile overnight. Fasting glucose 337 this morning. MRSA screening negative. Initial blood culture: S aureus and Strep mitis; wound culture: MSSA and E coli. 2D echocardiogram: did not reveal endocardial vegetations. Patient denies any right foot pain. Denies any fever or chills or sweating. Repeat blood cultures X2 today. D/c Vancomycin, continue Zosyn. NS@100cc/hr. Increase Lantus from 10-->15 unit HS and insulin Lispro SSI from low to high scale for better glycemic coverage. Dressing change as per surgery team. Continue non-weight bearing status. Continue physical therapy evaluation and treatment for placement planning. 01/23: Afebrile overnight. Fasting glucose 281 this morning. Initial blood culture: MSSA and Strep mitis; wound culture: MSSA and E coli. Repeat blood culture no growth to date. Patient denies any right foot pain. Denies any fever or chills or sweating. 01/24: Afebrile overnight. Fasting glucose 121 this morning. Initial blood culture: MSSA and Strep mitis; wound culture: MSSA and E coli. Repeat blood culture no growth to date. Patient denies any right foot pain. Denies any fever or chills or sweating. Continue Zosyn. Saline locked. Continue Lantus 15 unit HS and meal time insulin TID AC for glycemic control. Continue to monitor repeat blood culture results. Dressing change and post-surgical management as per surgery team. Continue non- weight bearing status. Continue physical therapy evaluation and treatment for placement planning. 01/25: Afebrile overnight. Hypoglycemia episode with BS 46 last night at 0930. Fasting BS this morning 269. Repeat blood culture no growth today. Patient denies any pain of his right foot. He denies any fever chills or diaphoresis. Continue Zosyn. Saline locked. Continue Lantus 15 unit HS and meal time insulin TID AC for glycemic control. Continue to monitor repeat blood culture results. Dressing change and post-surgical management as per surgery team. Continue non- weight bearing status. Continue physical therapy evaluation and treatment for placement planning. 01/26: Discharged home with family support. Discharge diagnosis: diabetic foot ulcer with osteomyelitis, right foot. Time Spent with Patient Time attestation: Total time spent providing and/or coordinating discharge services: Time spent: Greater than 30 minutes EXAM Constitutional Vitals: Temp Pulse Resp BP Pulse Ox O2 Del Method O2 Flow Rate 36.8 C 88 21 134/84 96 2 01/26/22 08:00 01/26/22 08:00 01/26/22 08:00 01/26/22 08:00 01/26/22 08:00 01/26/22 08:00 01/22/22 23:48 General appearance: cooperative and no acute distress Head Head exam: Present atraumatic and normocephalic Eye Eye exam: Present EOMI and PERRL ENT ENT exam: Present mucous membranes moist, normal exam and normal external ear exam Neck Neck exam: Present normal inspection; Absent lymphadenopathy, tenderness or thyromegaly Respiratory Respiratory exam: Absent accessory muscle use, respiratory distress or wheezes Cardiovascular Cardiovascular exam: Present normal rate and rhythm; Absent JVD GI/Abdominal GI/Abdominal exam: Present normal bowel sounds and soft; Absent organomegaly or tenderness Rectal Rectal exam: Present deferred Extremities Exam Extremities exam: Present full ROM and normal capillary refill; Absent normal inspection or tenderness Additional comments: Right forefoot covered by surgical dressing; right 4th 5th toes surgically amputated at LisFranc joint. Neurological Exam Neurological exam: Present alert, CN II-XII intact and oriented X3; Absent motor sensory deficit Psychiatric Psychiatric exam: Present normal affect and normal mood; Absent anxious or depressed Skin Skin exam: Present dry and intact Discharge Data Data Completed and Pending Labs on day of discharge: Labs from last 24 hours 01/26/22 01/26/22 06:00 06:00 WBC 13.4 H RBC 5.20 Hgb 15.4 Hct 44.6 MCV 85.8 MCH 29.6 MCHC 34.5 RDW 13.6 Plt Count 329 MPV 11.5 Immature Gran % (Auto) 4.8 H Neut % (Auto) 69.0 Lymph % (Auto) 15.8 [place] % (Auto) 7.1 Eos % (Auto) 2.5 Baso % (Auto) 0.8 Lymph # (Auto) 2.12 [place] # (Auto) 0.95 H Eos # (Auto) 0.34 Baso # (Auto) 0.11 Immature Gran # 0.65 H Absolute Neutrophils 9.26 H ESR 77 H Sodium 138 Potassium 3.6 Chloride 97 Carbon Dioxide 29 Anion Gap 12.0 BUN 15 Creatinine 0.9 GFR Calculation 91 Glucose 189 H Calcium 9.2 Total Bilirubin 0.5 AST 60 H ALT 68 H Alkaline Phosphatase 68 C-Reactive Protein 7.10 H Total Protein 7.1 Albumin 2.9 L Globulin 4.2 H Albumin/Globulin Ratio 0.7 L Preliminary micro results at discharge 01/22/22 06:01 Blood Culture - Preliminary Blood 01/22/22 05:54 Blood Culture - Preliminary Blood Discharge Plan Patient/Caregiver Discharge Instructions Activity: non-weight bearing Diet: Consistent Carbohydrate Instructions: Sulfamethoxazole/Trimethoprim (By mouth), Osteomyelitis (DC) Activity Restrictions/Additional Instructions: Resume consistent carbohydrate diet as tolerated. Take all meals up in chair, sitting at 90 degrees, to prevent aspiration. Increase activity as tolerated. Non-weight bearing on operative side. Continue fall precautions. Change your dressing every 48 hours. Use Adaptic, 4x4 gauze, Kerlix, and cover with 4" NAHOMI wrap. Take all medication as directed. Your prescription is with your discharge paperwork. Your medication was electronically transmitted to [facility]. Take your prescription, insurance cards, and photo ID to picker your medication. Return to ER for fever, chills, uncontrolled pain, inability to urinate or have a bowel movement, nausea and/or vomiting, swelling, redness, signs of infection, shortness of breath, chest pain, return of symptoms, or other acute symptom. This discharge packet is provided to you to help keep you informed about your care. We want to ensure you get everything you need when you go home. You will also be receiving a call from us in a few days to follow up with you and see how you are doing since your discharge. This gives us a chance to listen to any concerns you maybe experiencing since you were discharged or any additional needs you may have, as well as providing us feedback on your care experience. We strive to always provide excellent care and thank you for your feedback and for choosing [facility]. Prescriptions: New sulfamethoxazole-trimethoprim [Bactrim DS] 800-160 mg tablet 1 tab PO BID Qty: 20 0RF Continued amlodipine 10 mg tablet 10 mg PO DAILY aspirin 81 mg tablet,delayed release (DR/EC) 81 mg PO HS carvedilol 3.125 mg tablet 3.125 mg PO BID duloxetine 30 mg capsule,delayed release(DR/EC) 30 mg PO BID magnesium L-lactate 84 mg tablet extended release 84 mg PO DAILY meloxicam 15 mg tablet 15 mg PO QDAY rosuvastatin 10 mg tablet 10 mg PO QHS chlorthalidone 25 mg tablet 12.5 mg PO DAILY metformin 500 mg tablet extended release 24 hr 500 mg PO BID Trulicity 0.75 mg/0.5 mL Pen Injector 0.75 mg SUBCUT WEEKLY Rx Instructions: Taken on Tuesday Humulin R U-500 (Conc) Kwikpen 500 unit/mL (3 mL) Insulin Pen 0 unit SUBCUT TID Rx Instructions: SLIDING SCALE 71-130 40 units 131-180 45 units 181-230 50 units 231-280 55 units 281-330 60 units 330 greater call pregabalin 50 mg Capsule 50 mg PO BID Ozempic 1 mg/dose (4 mg/3 mL) Pen Injector 1 mg SUBCUT ONCE Discontinued lisinopril 40 mg tablet 40 mg PO BID Follow Up Plan Follow up with: Freeman Ledesma DPM [Physician] - 02/04/22 10:20 am Kaushik Coy MD [Primary Care Provider] - (Follow-up as needed. Contact the office to schedule.) Patient Disposition: Home, Self-Care Plan of Treatment: Dressings changed today: adaptic, 4x4 gauze, kerlix. Continue to change every 48 hours after discharge Patient may discharge today to follow-up in clinic within 10 days of discharge Proceed with oral antibiotics at discharge: Bactrim DS q12h 4 weeks Continue NWB Prognosis: Fair Rehab Potential: Good I certify that the patient requires SNF services: No Overall status at discharge: patient is progressing back to baseline Discharge Orders: Discharge Order (Routine); Ordered 01/26/22 Ordered By: Saul Gibbs
--- NOTE | 2022-01-26 14:20 | Internal Med Progress Note ---
SUBJECTIVE Subjective Patient information: Note initiated : 01/26/22 at 2:09 pm Service Date, if different from initiated Date: [] Patient: Navid Garcia 61 y/o M admitted on 01/20/22 for Right Forefoot Amputation. Chief Complaint: [] Interval history: Mr. Garcia is a 61 year old M history of type 2 diabetes mellitus with diabetic neuropathy, status post right fourth and fifth told amputations, essential hypertensions, presenting with 2-day history of right foot redness and swelling. He got his right fourth and fifth told surgically amputated 3 and 2 years ago, respectively. He has noticed redness and swelling of his left foot since yesterday. He denies any pain but stated that he could not feel any pain in his feet anyway due to his diabetic neuropathy. He denies any new trauma or injury to the regions. He denies any systemic symptoms such as fever, chills, or diaphoresis. He denies any change in his appetite. Due to the changes he was seen in his right foot, he decided to come to our ED for further evaluations. Vital signs at ED presentation significant for tachycardia and tachypnea. Labs significant for leukocytosis with a WBC 17.3. Serum sodium level 128 with corrected sodium for glucose 132. Glucose level at 287. Lactic acid 2.7, repeat lactic acid 2.1. CRP 22.2, procalcitonin level 3.20. Right foot x-ray showing large soft tissue wound and focal ulcer. It also shows a previous transmetatarsal amputations of the right fourth and fifth metatarsals. Probable right fourth metatarsal osteomyelitis. 01/21: Fever with T-max 38.1 overnight and this morning. Blood culture growing gram- positive cocci/bacillus in both sets. MRSA screening negative. WBC 15.8 this morning. Fasting glucose 122 this morning. Patient's declines any right foot pain but he could not feel his feet anyway due to diabetic neuropathy. Continue empiric antibiotics Vancomycin and Zosyn while monitoring culture results. Repeat blood cultures X2 on 01/22. 2D echocardiogram. Consulting Dr. Ledesma for possible amputation. Consulting Dr. Sheffield for wound care management. Continue to provide insulin Lantus plus Lispro SSI for glycemic coverage. Physical therapy evaluation and treatment. 01/22: s/p amputation of right forefoot at LisFranc joint by Dr. Ledesma on 01/21 evening. Patient tolerated the procedure well without major complications. Afebrile overnight. Fasting glucose 337 this morning. MRSA screening negative. Initial blood culture: S aureus and Strep mitis; wound culture: MSSA and E coli. 2D echocardiogram: did not reveal endocardial vegetations. Patient denies any right foot pain. Denies any fever or chills or sweating. Repeat blood cultures X2 today. D/c Vancomycin, continue Zosyn. NS@100cc/hr. In crease Lantus from 10-->15 unit HS and insulin Lispro SSI from low to high scale for better glycemic coverage. Dressing change as per surgery team. Continue non-weight bearing status. Continue physical therapy evaluation and treatment for placement planning. 01/23: Afebrile overnight. Fasting glucose 281 this morning. Initial blood culture: MSSA and Strep mitis; wound culture: MSSA and E coli. Repeat blood culture no growth to date. Patient denies any right foot pain. Denies any fever or chills or sweating. 01/24: Afebrile overnight. Fasting glucose 121 this morning. Initial blood culture: MSSA and Strep mitis; wound culture: MSSA and E coli. Repeat blood culture no growth to date. Patient denies any right foot pain. Denies any fever or chills or sweating. Continue Zosyn. Saline locked. Continue Lantus 15 unit HS and meal time insulin TID AC for glycemic control. Continue to monitor repeat blood culture results. Dressing change and post-surgical management as per surgery team. Continue non- weight bearing status. Continue physical therapy evaluation and treatment for placement planning. 01/25: Afebrile overnight. Hypoglycemia episode with BS 46 last night at 0930. Fasting BS this morning 269. Repeat blood culture no growth today. Patient denies any pain of his right foot. He denies any fever chills or diaphoresis. Continue Zosyn. Saline locked. Continue Lantus 15 unit HS and meal time insulin TID AC for glycemic control. Continue to monitor repeat blood culture results. Dressing change and post-surgical management as per surgery team. Continue non- weight bearing status. Continue physical therapy evaluation and treatment for placement planning. 01/27 Constitutional Vitals: Vital Signs Temp Pulse Resp BP Pulse Ox O2 Del Method O2 Flow Rate 98.4 F 72 21 125/81 98 2 01/26/22 12:00 01/26/22 12:00 01/26/22 12:00 01/26/22 12:00 01/26/22 12:00 01/26/22 12:00 01/22/22 23:48 Period Temp Pulse Resp BP Sys/Garcia Pulse Ox O2 Del Method O2 Flow Rate Last 24 Hr 96.6 F-98.8 F 72-88 16-21 125-159/81-93 95-98 CPAP-Room Air, CPAP Intake and Output 01/26/22 01/26/22 01/26/22 05:59 13:59 21:59 Intake Total 350 850 Output Total 1650 1300 Balance -1300 -450 Weight 129.228 kg Intake & Output: Intake & Output 01/26/22 01/26/22 01/26/22 05:59 13:59 21:59 Intake Total 350 850 Output Total 1650 1300 Balance -1300 -450 Weight 129.228 kg Intake: IV 50 50 Zosyn 3.375 gm In Dextrose 5% 50 50 in Water 50 ml @ 100 mls/hr IV Q6H [facility] Rx#:[id number] Oral 300 800 Output: Void Amount 1650 1300 Other: Meal Breakfast Percent of Meal Consumed 100% Feeding Ability Independent Urine Appearance Clear Urine Color Yellow Exam: General: Alert, Awake, No acute Distress Eyes/N/T: EOMI, Head/Neck: neck supple, CV: RRR, No murmurs, Pulm: Clear b/l, no wheezing/rhonchi/rales Abd: soft, nontender, +BS x4 Ext: no clubbing/cyanosis/edema. Right foot in surgical dressings. Neuro: Alert, no focal deficits, moves all extremities, Skin: warm/dry OBJ DATA Labs CBC & Chem 7: 01/26/22 06:00 01/26/22 06:00 Labs: Abnormal Lab Results 01/26/22 01/26/22 01/25/22 06:00 06:00 05:58 WBC 13.4 H Immature Gran % (Auto) 4.8 H [place] # (Auto) 0.95 H Immature Gran # 0.65 H Absolute Neutrophils 9.26 H ESR 77 H Glucose 189 H 267 H Calcium AST 60 H 103 H ALT 68 H 73 H C-Reactive Protein 7.10 H 7.30 H Total Protein Albumin 2.9 L 2.5 L Globulin 4.2 H 3.9 H Albumin/Globulin Ratio 0.7 L 0.6 L 01/25/22 01/24/22 01/24/22 05:58 05:38 05:38 WBC Immature Gran % (Auto) 3.1 H 0.7 H [place] # (Auto) 0.91 H 0.93 H Immature Gran # 0.33 H 0.07 H Absolute Neutrophils ESR 61 H 35 H Glucose 143 H Calcium 8.4 L AST 53 H ALT C-Reactive Protein 7.00 H Total Protein 5.8 L Albumin 2.8 L Globulin Albumin/Globulin Ratio 0.9 L Meds: Medications Acetaminophen (Acetaminophen 325 Mg Tablet) 650 mg PO Q6HP PRN; Protocol PRN Reason: Per Pain Protocol/Fever > 101 Albuterol/Ipratropium (Ipratropium/Albuterol 3 Ml Ampul.Neb) 3 ml NEB Q4HRT PRN PRN Reason: Wheezing Amlodipine Besylate (Amlodipine 10 Mg Tablet) 10 mg PO DAILY [facility] Last Admin: 01/26/22 08:55 Dose: 10 mg Aspirin (Aspirin 81 Mg Tab.Chew) 81 mg PO HS [facility] Last Admin: 01/25/22 22:05 Dose: 81 mg Atorvastatin Calcium (Atorvastatin 20 Mg Tablet) 20 mg PO HS [facility] Last Admin: 01/25/22 22:05 Dose: 20 mg Carvedilol (Carvedilol 3.125 Mg Tablet) 3.125 mg PO BIDCC [facility] Last Admin: 01/26/22 07:24 Dose: 3.125 mg Chlorthalidone (Chlorthalidone 25 Mg Tablet) 12.5 mg PO DAILY [facility] Last Admin: 01/26/22 08:54 Dose: 12.5 mg Dextrose (Dextrose 50% 50 Ml Vial) 0 ml IV UD PRN PRN Reason: Per Sliding Scale Dextrose (Dextrose 50% 50 Ml Vial) 0 ml IV UD PRN PRN Reason: Per Sliding Scale Diagnostic Test (Pha) (Accu-Chek 1 Each Strip) 1 each FS ACHS [facility] Last Admin: 01/26/22 11:47 Dose: 1 each Docusate Sodium (Docusate Sodium 100 Mg Capsule) 100 mg PO BID [facility] Last Admin: 01/26/22 08:55 Dose: 100 mg Duloxetine HCl (Duloxetine 30 Mg Capsule) 30 mg PO BID [facility] Last Admin: 01/26/22 08:54 Dose: 30 mg Glucose (Dextrose 31 Gm Oral.Susp) 15 gm PO PRN PRN PRN Reason: Hypoglycemia Glucose (Dextrose 31 Gm Oral.Susp) 15 gm PO PRN PRN PRN Reason: Hypoglycemia Heparin Sodium (Porcine) (Heparin 5,000 Unit/Ml Vial) 5,000 unit SQ Q12 [facility] Last Admin: 01/26/22 08:54 Dose: 5,000 unit Piperacillin Sod/Tazobactam (Sod 3.375 gm/ Dextrose) 50 mls @ 100 mls/hr IV Q6H [facility]; Protocol Last Admin: 01/26/22 11:46 Dose: 100 mls/hr Insulin Glargine (Insulin Glargine, Human 1 Unit/0.01 Ml) 15 unit SQ [facility] Last Admin: 01/25/22 22:06 Dose: Not Given Insulin Human Regular (Insulin Regular, Human 1 Unit/0.01 Ml Unit) 0 unit SQ TIDCC [facility] Last Admin: 01/26/22 11:49 Dose: 40 units Lisinopril (Lisinopril 20 Mg Tablet) 40 mg PO BID [facility] Last Admin: 01/26/22 08:55 Dose: 40 mg Loperamide HCl (Loperamide 2 Mg Capsule) 2 mg PO DAILYP PRN PRN Reason: Diarrhea Last Admin: 01/21/22 10:39 Dose: 2 mg Magnesium Oxide (Magnesium Oxide 400 Mg Tablet) 400 mg PO DAILY [facility] Last Admin: 01/26/22 08:55 Dose: 400 mg Meloxicam (Meloxicam 7.5 Mg Tablet) 7.5 mg PO BID [facility] Last Admin: 01/26/22 08:55 Dose: 7.5 mg Ondansetron HCl (Ondansetron 4 Mg/2 Ml Vial) 4 mg IV Q6HP PRN PRN Reason: Nausea And Vomiting Last Admin: 01/20/22 20:01 Dose: 4 mg Pregabalin (Pregabalin 25 Mg Capsule) 50 mg PO BID [facility] Last Admin: 01/26/22 08:55 Dose: 50 mg Senna (Sennosides 1 Tablet) 2 tab PO HS [facility] Last Admin: 01/25/22 22:05 Dose: 2 tab Sodium Chloride (0.9 % Sodium Chloride 10 Ml Syringe) 10 ml IV Q8 [facility] Last Admin: 01/26/22 06:26 Dose: 10 ml Sodium Chloride (0.9 % Sodium Chloride 10 Ml Syringe) 10 ml IV Q8 [facility] Last Admin: 01/26/22 06:26 Dose: Not Given Trazodone HCl (Trazodone Hcl 50 Mg Tablet) 25 mg PO HSP PRN PRN Reason: Insomnia A/P Narrative A/P Narrative: A: *Diabetic foot ulcer w/Right 4th metatarsal osteomyelitis associated with T2DM/diabetic neuropathy: s/p forefoot amputat (01/21) -Wound cx w/MSSA & E.coli *Bacteremia(Streptococcus mitis & MSSA & E.coli): -echo no vegetations -repeat BC neg *JYOTHI on CKD II: *DM w/neuropathy: A1c 8.5 *HTN: *Obesity: BMI 37 P: -Dr Alamo/Nettie following -Wound care/dressing change as per Dr. Ledesma -Continue Zosyn, 2-week course of IV dabx given removal of focus -Hold oral hypoglycemics, Lantus 15 qHS, aspart tidac -resume Chlorthalidone/Amlodipine/Coreg/Lisinopril -pt/ot -ppx: heparin Plan of Treatment: Dressings changed today: adaptic, 4x4 gauze, kerlix. Continue to change every 48 hours after discharge Patient may discharge today to follow-up in clinic within 10 days of discharge Proceed with oral antibiotics at discharge: Bactrim DS q12h 4 weeks Continue NWB Time Spent With Patient Time: Total time spent is greater than 50% in coordination of care (as documented) at patient's floor/unit and/or counseling patient:
[2022-01-26] MEDS: ASPIRIN 81 MG TAB.CHEW PO SCH (20:47)
[2022-01-26] MEDS: INSULIN GLARGINE, HUMAN 1 UNIT/0.01 ML SQ SCH (20:48)
[2022-01-26] MEDS: ATORVASTATIN 20 MG TABLET PO SCH (20:48)
[2022-01-26] MEDS: SENNOSIDES 1 TABLET PO SCH (20:48)
[2022-01-27] MEDS: 0.9 % SODIUM CHLORIDE 10 ML SYRINGE IV SCH ×4 (05:44→23:55)
[2022-01-27] MEDS: PIPERACILLIN SODIUM/TAZOBACTAM 3.375 GM in DEXTROSE 5% IN WATER 50 ML IV SCH ×4 (05:44→23:52)
[2022-01-27 06:45] LABS: Hematocrit 44.5 % (40.1-51.0); Hemoglobin 15.2 g/dL (13.7-17.5); Mean Cell Volume 86.9 fL (80.0-100.0); Mean Corpuscular HGB Conc 34.2 g/dL (31.0-36.0); Platelet Count 376 K/mcL (140-440); RBC 5.12 M/mcL (4.63-6.08); Red Cell Distribution Width 13.8 % (11.5-14.5); WBC 14.3 K/mcL (4.5-11.0)
[2022-01-27] MEDS: INSULIN REGULAR, HUMAN 1 UNIT/0.01 ML UNIT SQ SCH ×3 (07:17→16:55)
[2022-01-27] MEDS: CARVEDILOL 3.125 MG TABLET PO SCH ×2 (07:21→16:59)
--- NOTE | 2022-01-27 07:25 | Internal Med Progress Note ---
SUBJECTIVE Subjective Patient information: Note initiated : 01/27/22 at 7:22 am Service Date, if different from initiated Date: [] Patient: Navid Garcia 61 y/o M admitted on 01/20/22 for Right Forefoot Amputation. Chief Complaint: [] Interval history: Mr. Garcia is a 61 year old M history of type 2 diabetes mellitus with diabetic neuropathy, status post right fourth and fifth told amputations, essential hypertensions, presenting with 2-day history of right foot redness and swelling. He got his right fourth and fifth told surgically amputated 3 and 2 years ago, respectively. He has noticed redness and swelling of his left foot since yesterday. He denies any pain but stated that he could not feel any pain in his feet anyway due to his diabetic neuropathy. He denies any new trauma or injury to the regions. He denies any systemic symptoms such as fever, chills, or diaphoresis. He denies any change in his appetite. Due to the changes he was seen in his right foot, he decided to come to our ED for further evaluations. Vital signs at ED presentation significant for tachycardia and tachypnea. Labs significant for leukocytosis with a WBC 17.3. Serum sodium level 128 with corrected sodium for glucose 132. Glucose level at 287. Lactic acid 2.7, repeat lactic acid 2.1. CRP 22.2, procalcitonin level 3.20. Right foot x-ray showing large soft tissue wound and focal ulcer. It also shows a previous transmetatarsal amputations of the right fourth and fifth metatarsals. Probable right fourth metatarsal osteomyelitis. 01/21: Fever with T-max 38.1 overnight and this morning. Blood culture growing gram- positive cocci/bacillus in both sets. MRSA screening negative. WBC 15.8 this morning. Fasting glucose 122 this morning. Patient's declines any right foot pain but he could not feel his feet anyway due to diabetic neuropathy. Continue empiric antibiotics Vancomycin and Zosyn while monitoring culture results. Repeat blood cultures X2 on 01/22. 2D echocardiogram. Consulting Dr. Ledesma for possible amputation. Consulting Dr. Sheffield for wound care management. Continue to provide insulin Lantus plus Lispro SSI for glycemic coverage. Physical therapy evaluation and treatment. 01/22: s/p amputation of right forefoot at LisFranc joint by Dr. Ledesma on 01/21 evening. Patient tolerated the procedure well without major complications. Afebrile overnight. Fasting glucose 337 this morning. MRSA screening negative. Initial blood culture: S aureus and Strep mitis; wound culture: MSSA and E coli. 2D echocardiogram: did not reveal endocardial vegetations. Patient denies any right foot pain. Denies any fever or chills or sweating. Repeat blood cultures X2 today. D/c Vancomycin, continue Zosyn. NS@100cc/hr. In crease Lantus from 10-->15 unit HS and insulin Lispro SSI from low to high scale for better glycemic coverage. Dressing change as per surgery team. Continue non-weight bearing status. Continue physical therapy evaluation and treatment for placement planning. 01/23: Afebrile overnight. Fasting glucose 281 this morning. Initial blood culture: MSSA and Strep mitis; wound culture: MSSA and E coli. Repeat blood culture no growth to date. Patient denies any right foot pain. Denies any fever or chills or sweating. 01/24: Afebrile overnight. Fasting glucose 121 this morning. Initial blood culture: MSSA and Strep mitis; wound culture: MSSA and E coli. Repeat blood culture no growth to date. Patient denies any right foot pain. Denies any fever or chills or sweating. Continue Zosyn. Saline locked. Continue Lantus 15 unit HS and meal time insulin TID AC for glycemic control. Continue to monitor repeat blood culture results. Dressing change and post-surgical management as per surgery team. Continue non- weight bearing status. Continue physical therapy evaluation and treatment for placement planning. 01/25: Afebrile overnight. Hypoglycemia episode with BS 46 last night at 0930. Fasting BS this morning 269. Repeat blood culture no growth today. Patient denies any pain of his right foot. He denies any fever chills or diaphoresis. Continue Zosyn. Saline locked. Continue Lantus 15 unit HS and meal time insulin TID AC for glycemic control. Continue to monitor repeat blood culture results. Dressing change and post-surgical management as per surgery team. Continue non- weight bearing status. Continue physical therapy evaluation and treatment for placement planning. 01/27 No overnight event or new complaints. Wound looks good today per the pictures he showed me. His white blood cell count did increase today and yesterday. No bandemia. Hello and ESR still high. Pending imaging. Review of Systems: denies headache/fever/chills/nausea/vomiting/chest or abdominal pain/cough /dyspnea/diarrhea. Otherwise see above. Constitutional Vitals: Vital Signs Temp Pulse Resp BP Pulse Ox O2 Del Method O2 Flow Rate 98.6 F 76 22 136/88 98 2 01/27/22 07:10 01/27/22 07:10 01/27/22 07:10 01/27/22 07:10 01/27/22 07:10 01/27/22 07:10 01/22/22 23:48 Period Temp Pulse Resp BP Sys/Garcia Pulse Ox O2 Del Method O2 Flow Rate Last 24 Hr 96.9 F-98.6 F 70-88 21-24 93-147/69-89 95-98 CPAP-Room Air, CPAP Intake and Output 01/26/22 01/27/22 01/27/22 21:59 05:59 13:59 Intake Total 1890 250 Output Total 2150 2150 Balance -260 -1900 Weight 129.41 kg Intake & Output: Intake & Output 01/26/22 01/27/22 01/27/22 21:59 05:59 13:59 Intake Total 1890 250 Output Total 2150 2150 Balance -260 -1900 Weight 129.41 kg Intake: IV 50 50 Zosyn 3.375 gm In Dextrose 5% 50 50 in Water 50 ml @ 100 mls/hr IV Q6H [facility] Rx#:[id number] Oral 1840 200 Output: Void Amount 2150 2150 Other: Meal Dinner Percent of Meal Consumed 100% Urine Appearance Clear Clear Urine Color Yellow Yellow Exam: General: Alert, Awake, No acute Distress Eyes/N/T: EOMI, Head/Neck: neck supple, CV: RRR, No murmurs, Pulm: Clear b/l, no wheezing/rhonchi/rales Abd: soft, nontender, +BS x4 Ext: no clubbing/cyanosis/edema. Right foot in dressings Neuro: Alert, no focal deficits, moves all extremities, Skin: warm/dry OBJ DATA Labs CBC & Chem 7: 01/27/22 05:30 01/27/22 05:30 Labs: Abnormal Lab Results 01/27/22 01/27/22 01/26/22 05:30 05:30 06:00 WBC 14.3 H Immature Gran % (Auto) [place] # (Auto) Immature Gran # Absolute Neutrophils ESR 88 H Glucose 189 H Calcium AST 60 H ALT 68 H C-Reactive Protein 7.10 H Total Protein Albumin 2.9 L Globulin 4.2 H Albumin/Globulin Ratio 0.7 L 01/26/22 01/25/22 01/25/22 06:00 05:58 05:58 WBC 13.4 H Immature Gran % (Auto) 4.8 H 3.1 H [place] # (Auto) 0.95 H 0.91 H Immature Gran # 0.65 H 0.33 H Absolute Neutrophils 9.26 H ESR 77 H 61 H Glucose 267 H Calcium AST 103 H ALT 73 H C-Reactive Protein 7.30 H Total Protein Albumin 2.5 L Globulin 3.9 H Albumin/Globulin Ratio 0.6 L 01/24/22 01/24/22 05:38 05:38 WBC Immature Gran % (Auto) 0.7 H [place] # (Auto) 0.93 H Immature Gran # 0.07 H Absolute Neutrophils ESR 35 H Glucose 143 H Calcium 8.4 L AST 53 H ALT C-Reactive Protein 7.00 H Total Protein 5.8 L Albumin 2.8 L Globulin Albumin/Globulin Ratio 0.9 L Meds: Medications Acetaminophen (Acetaminophen 325 Mg Tablet) 650 mg PO Q6HP PRN; Protocol PRN Reason: Per Pain Protocol/Fever > 101 Albuterol/Ipratropium (Ipratropium/Albuterol 3 Ml Ampul.Neb) 3 ml NEB Q4HRT PRN PRN Reason: Wheezing Amlodipine Besylate (Amlodipine 10 Mg Tablet) 10 mg PO DAILY [facility] Last Admin: 01/26/22 08:55 Dose: 10 mg Aspirin (Aspirin 81 Mg Tab.Chew) 81 mg PO HS [facility] Last Admin: 01/26/22 20:47 Dose: 81 mg Atorvastatin Calcium (Atorvastatin 20 Mg Tablet) 20 mg PO HS [facility] Last Admin: 01/26/22 20:48 Dose: 20 mg Carvedilol (Carvedilol 3.125 Mg Tablet) 3.125 mg PO BIDCC [facility] Last Admin: 01/27/22 07:21 Dose: 3.125 mg Chlorthalidone (Chlorthalidone 25 Mg Tablet) 12.5 mg PO DAILY [facility] Last Admin: 01/26/22 08:54 Dose: 12.5 mg Dextrose (Dextrose 50% 50 Ml Vial) 0 ml IV UD PRN PRN Reason: Per Sliding Scale Dextrose (Dextrose 50% 50 Ml Vial) 0 ml IV UD PRN PRN Reason: Per Sliding Scale Diagnostic Test (Pha) (Accu-Chek 1 Each Strip) 1 each FS ACHS [facility] Last Admin: 01/27/22 07:16 Dose: 1 each Docusate Sodium (Docusate Sodium 100 Mg Capsule) 100 mg PO BID [facility] Last Admin: 01/26/22 20:47 Dose: Not Given Duloxetine HCl (Duloxetine 30 Mg Capsule) 30 mg PO BID [facility] Last Admin: 01/26/22 20:47 Dose: 30 mg Glucose (Dextrose 31 Gm Oral.Susp) 15 gm PO PRN PRN PRN Reason: Hypoglycemia Glucose (Dextrose 31 Gm Oral.Susp) 15 gm PO PRN PRN PRN Reason: Hypoglycemia Heparin Sodium (Porcine) (Heparin 5,000 Unit/Ml Vial) 5,000 unit SQ Q12 [facility] Last Admin: 01/26/22 20:48 Dose: 5,000 unit Piperacillin Sod/Tazobactam (Sod 3.375 gm/ Dextrose) 50 mls @ 100 mls/hr IV Q6H [facility]; Protocol Last Admin: 01/27/22 05:44 Dose: 100 mls/hr Insulin Glargine (Insulin Glargine, Human 1 Unit/0.01 Ml) 15 unit SQ HS [facility] Last Admin: 01/26/22 20:48 Dose: Not Given Insulin Human Regular (Insulin Regular, Human 1 Unit/0.01 Ml Unit) 0 unit SQ TIDCC [facility] Last Admin: 01/27/22 07:17 Dose: 35 units Lisinopril (Lisinopril 20 Mg Tablet) 40 mg PO BID [facility] Last Admin: 01/26/22 20:48 Dose: 40 mg Loperamide HCl (Loperamide 2 Mg Capsule) 2 mg PO DAILYP PRN PRN Reason: Diarrhea Last Admin: 01/21/22 10:39 Dose: 2 mg Magnesium Oxide (Magnesium Oxide 400 Mg Tablet) 400 mg PO DAILY [facility] Last Admin: 01/26/22 08:55 Dose: 400 mg Meloxicam (Meloxicam 7.5 Mg Tablet) 7.5 mg PO BID [facility] Last Admin: 01/26/22 20:47 Dose: 7.5 mg Ondansetron HCl (Ondansetron 4 Mg/2 Ml Vial) 4 mg IV Q6HP PRN PRN Reason: Nausea And Vomiting Last Admin: 01/20/22 20:01 Dose: 4 mg Pregabalin (Pregabalin 25 Mg Capsule) 50 mg PO BID [facility] Last Admin: 01/26/22 20:48 Dose: 50 mg Senna (Sennosides 1 Tablet) 2 tab PO HS [facility] Last Admin: 01/26/22 20:48 Dose: Not Given Sodium Chloride (0.9 % Sodium Chloride 10 Ml Syringe) 10 ml IV Q8 [facility] Last Admin: 01/27/22 05:44 Dose: 10 ml Sodium Chloride (0.9 % Sodium Chloride 10 Ml Syringe) 10 ml IV Q8 [facility] Last Admin: 01/27/22 05:44 Dose: Not Given Trazodone HCl (Trazodone Hcl 50 Mg Tablet) 25 mg PO HSP PRN PRN Reason: Insomnia A/P Narrative A/P Narrative: A: *Diabetic foot ulcer w/Right 4th metatarsal osteomyelitis associated with T2DM/diabetic neuropathy: s/p forefoot amputat (01/21) -Wound cx w/MSSA & E.coli -increasing leukocytosis *Bacteremia(Streptococcus mitis & MSSA & E.coli): -echo no vegetations -repeat BC neg *JYOHTI on CKD II: *DM w/neuropathy: A1c 8.5 *HTN: *Obesity: BMI 37 P: -CT foot/ankle -f/u CBC -Dr Alaom/Nettie following -Wound care/dressing change as per Dr. Ledesma -Continue Zosyn, 2-week course of IV abx given removal of focus -Hold oral hypoglycemics, Lantus 15 qHS, aspart tidac -resume Chlorthalidone/Amlodipine/Coreg/Lisinopril -pt/ot -ppx: heparin Time Spent With Patient Time: Total time spent is greater than 50% in coordination of care (as documented) at patient's floor/unit and/or counseling patient: Total time spent with greater than 50% in coordination of care (as documented) at patient's floor/unit and/or counseling patient:: 35 - 50 minutes
[2022-01-27 07:29] LABS: ALT/SGPT 52 U/L (<40); AST/SGOT 37 U/L (<40); Albumin/Globulin Ratio 0.7 (1.0-2.3); Alkaline Phosphatase 66 U/L (39-117); Bilirubin,Direct < 0.2 mg/dL (0-0.3); Bilirubin,Total 0.6 mg/dL (0.1-1.0); Blood Urea Nitrogen 22 mg/dL (8-23); Calcium 9.4 mg/dL (8.6-10.4); Carbon Dioxide 31 mmol/L (22-30); Chloride 96 mmol/L (96-108); Globulin 4.5 gm/dL (2.2-3.7); Glomerular Filtration Rate 71; Glucose 99 mg/dL (70-105); Lactate Dehydrogenase 200 U/L (135-225); Phosphorous 3.7 mg/dL (2.5-4.5); Triglycerides 97 mg/dL (<150); Uric Acid 3.7 mg/dL (2.5-8.0)
[2022-01-27 07:31] LABS: Band Neutrophils % 1 % (0-10); Basophils % (Manual) 1 % (0-2); Eosinophils % (Manual) 3 % (0-7); Lymphocytes % 16 % (15-49); Monocytes % (Manual) 8 % (1-12); Platelet Estimate NORMAL (Normal); RBC Morphology NORMAL (Normal); Segmented Neutrophils % 71 % (38-78)
[2022-01-27] MEDS ORDERED: IOPAMIDOL 100 ML BOTTLE IV ONE (08:05)
[2022-01-27] MEDS: CHLORTHALIDONE 25 MG TABLET PO SCH (08:56)
[2022-01-27] MEDS: LISINOPRIL 20 MG TABLET PO SCH ×2 (08:56→21:59)
[2022-01-27] MEDS: MAGNESIUM OXIDE 400 MG TABLET PO SCH (08:56)
[2022-01-27] MEDS: HEPARIN 5,000 UNIT/ML VIAL SQ SCH ×2 (08:56→21:59)
[2022-01-27] MEDS: MELOXICAM 7.5 MG TABLET PO SCH ×2 (08:56→21:59)
[2022-01-27] MEDS: PREGABALIN 25 MG CAPSULE PO SCH ×2 (08:57→21:59)
[2022-01-27] MEDS: amLODIPine 10 MG TABLET PO SCH (08:57)
[2022-01-27] MEDS: DULoxetine 30 MG CAPSULE PO SCH ×2 (08:57→21:59)
[2022-01-27] MEDS: DOCUSATE SODIUM 100 MG CAPSULE PO SCH ×2 (08:57→21:50)
--- NOTE | 2022-01-27 12:00 | Cat Scan Report ---
CLINICAL INFORMATION: Transmetatarsal amputation. Cellulitis. Examination for osseous myelitis an abscess COMPARISON: None. TECHNIQUE: 0.625 mm helical slices were obtained from the proximal one third of the calf through the hindfoot and midfoot. And following reconstruction, 2.5 mm sagittal, coronal and axial reformations were then processed. The exam was reviewed at bone and soft tissue windows. The exam was performed using radiation dose optimization techniques including, but not limited to, automated exposure control, adjustment of the mA and/or kV according to patient size and use of iterative reconstruction technique. FINDINGS: There is moderate cellulitis throughout the foot and ankle. Over the transmetatarsal stump, there is marked myositis, fasciitis and cellulitis with small amounts of gas in the subcutaneous soft tissues. No evidence of discrete soft tissue abscess. No evidence of osteomyelitis. Small remote avulsion fracture off the tip of medial malleolus appreciated. There is calcification at the Achilles and plantar tendon insertions. IMPRESSION: 1. Moderate fasciitis, myositis and cellulitis over the transmetatarsal stump with small amount of gas in the subcutaneous soft tissues. No evidence of soft tissue abscess. No evidence of osteomyelitis. Interpreted and Authenticated by: Smith Faye 01/27/22
--- NOTE | 2022-01-27 13:25 | Discharge Summary ---
Discharge Provider Provider IMPORTANT FOLLOW-UP INFORMATION FOR PCP: Patient information: Note initiated : 01/27/22 at 1:23 pm Service Date, if different from initiated Date: [] Patient: Navid Garcia 61 y/o M admitted on 01/20/22 for Right Forefoot Amputation. Chief Complaint: [] Date of admission: 01/20/22 18:56 Discharge date: 01/28/22 Primary care physician: Kaushik Coy Consults: 01/20/22 Consult to Physician [CONS] Stat Comment: Consulting Provider: Saul Gibbs Reason For Exam: Physician to Consult 01/20/22 19:36 Consult to Physician [CONS] Routine Comment: Consulting Provider: Serjio Sheffield Reason For Exam: Physician to Consult Consult to Physician [CONS] Routine Comment: Consulting Provider: Freeman Ledesma Reason For Exam: Physician to Consult 01/26/22 08:15 Consult to Physician [CONS] Routine Comment: snf referral Consulting Provider: [facility] Reason For Exam: Physician to Consult COURSE Hospital Course Hospital course: Interval history: Mr. Garcia is a 61 year old M history of type 2 diabetes mellitus with diabetic neuropathy, status post right fourth and fifth told amputations, essential hypertensions, presenting with 2-day history of right foot redness and swelling. He got his right fourth and fifth told surgically amputated 3 and 2 years ago, respectively. He has noticed redness and swelling of his left foot since yesterday. He denies any pain but stated that he could not feel any pain in his feet anyway due to his diabetic neuropathy. He denies any new trauma or injury to the regions. He denies any systemic symptoms such as fever, chills, or diaphoresis. He denies any change in his appetite. Due to the changes he was seen in his right foot, he decided to come to our ED for further evalua tions. Vital signs at ED presentation significant for tachycardia and tachypnea. Labs significant for leukocytosis with a WBC 17.3. Serum sodium level 128 with corrected sodium for glucose 132. Glucose level at 287. Lactic acid 2.7, repeat lactic acid 2.1. CRP 22.2, procalcitonin level 3.20. Right foot x-ray showing large soft tissue wound and focal ulcer. It also shows a previous transmetatarsal amputations of the right fourth and fifth metatarsals. Probable right fourth metatarsal osteomyelitis. 01/21: Fever with T-max 38.1 overnight and this morning. Blood culture growing gram-positive cocci/bacillus in both sets. MRSA screening negative. WBC 15.8 this morning. Fasting glucose 122 this morning. Patient's declines any right foot pain but he could not feel his feet anyway due to diabetic neuropathy. Continue empiric antibiotics Vancomycin and Zosyn while monitoring culture results. Repeat blood cultures X2 on 01/22. 2D echocardiogram. Consulting Dr. Ledesma for possible amputation. Consulting Dr. Sheffield for wound care management. Continue to provide insulin Lantus plus Lispro SSI for glycemic coverage. Physical therapy evaluation and treatment. 01/22: s/p amputation of right forefoot at LisFranc joint by Dr. Ledesma on 01/21 evening. Patient tolerated the procedure well without major complications. Afebrile overnight. Fasting glucose 337 this morning. MRSA screening negative. Initial blood culture: S aureus and Strep mitis; wound culture: MSSA and E coli. 2D echocardiogram: did not reveal endocardial vegetations. Patient denies any right foot pain. Denies any fever or chills or sweating. Repeat blood cultures X2 today. D/c Vancomycin, continue Zosyn. NS@100cc/hr. Increase Lantus from 10-->15 unit HS and insulin Lispro SSI from low to high scale for better glycemic coverage. Dressing change as per surgery team. Continue non-weight bearing status. Continue physical therapy evaluation and treatment for placement planning. 01/23: Afebrile overnight. Fasting glucose 281 this morning. Initial blood culture: MSSA and Strep mitis; wound culture: MSSA and E coli. Repeat blood culture no growth to date. Patient denies any right foot pain. Denies any fever or chills or sweating. 01/24: Afebrile overnight. Fasting glucose 121 this morning. Initial blood culture: MSSA and Strep mitis; wound culture: MSSA and E coli. Repeat blood culture no growth to date. Patient denies any right foot pain. Denies any fever or chills or sweating. Continue Zosyn. Saline locked. Continue Lantus 15 unit HS and meal time insulin TID AC for glycemic control. Continue to monitor repeat blood culture results. Dressing change and post-surgical management as per surgery team. Continue non- weight bearing status. Continue physical therapy evaluation and treatment for pl acement planning. 01/25: Afebrile overnight. Hypoglycemia episode with BS 46 last night at 0930. Fasting BS this morning 269. Repeat blood culture no growth today. Patient denies any pain of his right foot. He denies any fever chills or diaphoresis. Continue Zosyn. Saline locked. Continue Lantus 15 unit HS and meal time insulin TID AC for glycemic control. Continue to monitor repeat blood culture results. Dressing change and post-surgical management as per surgery team. Continue non- weight bearing status. Continue physical therapy evaluation and treatment for placement planning. 01/27 No overnight event or new complaints. Wound looks good today per the pictures he showed me. His white blood cell count did increase today and yesterday. No bandemia. Hello and ESR still high. Pending imaging. 01/28 Patient doing well. Leukocytosis improved. CT no abscess on the foot. For discharge. A: *Diabetic foot ulcer w/Right 4th metatarsal osteomyelitis associated with T2DM/diabetic neuropathy: s/p forefoot amputat (01/21) -Wound cx w/MSSA & E.coli -increasing leukocytosis *Bacteremia(Streptococcus mitis & MSSA & E.coli): -echo no vegetations -repeat BC neg *JYOTHI on CKD II: *DM w/neuropathy: A1c 8.5 *HTN: *Obesity: BMI 37 P: -Dr Alamo/Nettie following -Wound care/dressing change as per Dr. Ledesma -2-week course of IV abx for MSSA bacteremia then defer further abx to podiatry Discharge diagnosis: Diabetic foot infection with osteomyelitis MSSA and E. coli bacteremia Secondary discharge diagnosis: JYOTHI on chronic kidney disease diabetes with neuropathy hypertension obesity Time Spent with Patient Time attestation: Total time spent providing and/or coordinating discharge services: Time spent: Greater than 30 minutes EXAM Constitutional Vitals: Temp Pulse Resp BP Pulse Ox O2 Del Method O2 Flow Rate 98.6 F 76 22 136/88 98 2 01/27/22 07:10 01/27/22 07:10 01/27/22 07:10 01/27/22 07:10 01/27/22 08:00 01/27/22 08:00 01/22/22 23:48 Discharge Data Data Completed and Pending Labs on day of discharge: Labs from last 24 hours 01/27/22 01/27/22 01/27/22 05:30 05:30 05:30 WBC 14.3 H RBC 5.12 Hgb 15.2 Hct 44.5 MCV 86.9 MCH 29.7 MCHC 34.2 RDW 13.8 Plt Count 376 MPV 11.0 Seg Neutrophils % 71 Band Neutrophils % 1 Lymphocytes % 16 Monocytes % (Manual) 8 Eosinophils % (Manual) 3 Basophils % (Manual) 1 Platelet Estimate Normal RBC Morphology Normal ESR Sodium 138 Potassium 3.8 Chloride 96 Carbon Dioxide 31 H Anion Gap 11.0 BUN 22 Creatinine 1.1 GFR Calculation 71 Glucose 99 Uric Acid 3.7 Calcium 9.4 Phosphorus 3.7 Magnesium 1.9 Total Bilirubin 0.6 Direct Bilirubin < 0.2 GGT 13 AST 37 ALT 52 H Alkaline Phosphatase 66 Lactate Dehydrogenase 200 C-Reactive Protein 6.70 H Total Protein 7.5 Albumin 3.0 L Globulin 4.5 H Albumin/Globulin Ratio 0.7 L Triglycerides 97 01/27/22 05:30 WBC RBC Hgb Hct MCV MCH MCHC RDW Plt Count MPV Seg Neutrophils % Band Neutrophils % Lymphocytes % Monocytes % (Manual) Eosinophils % (Manual) Basophils % (Manual) Platelet Estimate RBC Morphology ESR 88 H Sodium Potassium Chloride Carbon Dioxide Anion Gap BUN Creatinine GFR Calculation Glucose Uric Acid Calcium Phosphorus Magnesium Total Bilirubin Direct Bilirubin GGT AST ALT Alkaline Phosphatase Lactate Dehydrogenase C-Reactive Protein Total Protein Albumin Globulin Albumin/Globulin Ratio Triglycerides Discharge Plan Patient/Caregiver Discharge Instructions Activity: increase activity as tolerated and non-weight bearing Diet: Consistent Carbohydrate Instructions: Osteomyelitis (DC) Activity Restrictions/Additional Instructions: Resume consistent carbohydrate diet as tolerated. Take all meals up in chair, sitting at 90 degrees, to prevent aspiration. Increase activity as tolerated. Non-weight bearing on operative side. Continue fall precautions. Change your dressing every 48 hours. Use Adaptic, 4x4 gauze, Kerlix, and cover with 4" NAHOMI wrap. Take all medication as directed. Your prescription is with your discharge paperwork. Your medication was electronically transmitted to [facility]. Take your prescription, insurance cards, and photo ID to pick remover your medica tion. Return to ER for fever, chills, uncontrolled pain, inability to urinate or have a bowel movement, nausea and/or vomiting, swelling, redness, signs of infection, shortness of breath, chest pain, return of symptoms, or other acute symptom. This discharge packet is provided to you to help keep you informed about your care. We want to ensure you get everything you need when you go home. You will also be receiving a call from us in a few days to follow up with you and see how you are doing since your discharge. This gives us a chance to listen to any concerns you maybe experiencing since you were discharged or any additional needs you may have, as well as providing us feedback on your care experience. We strive to always provide excellent care and thank you for your feedback and for choosing [facility]. Prescriptions: New lisinopril 20 mg Tablet 40 mg PO BID Qty: 1 0RF cefazolin 2 gram recon soln 2 g IV Q8H Qty: 24 0RF Continued amlodipine 10 mg tablet 10 mg PO DAILY aspirin 81 mg tablet,delayed release (DR/EC) 81 mg PO HS carvedilol 3.125 mg tablet 3.125 mg PO BID duloxetine 30 mg capsule,delayed release(DR/EC) 30 mg PO BID magnesium L-lactate 84 mg tablet extended release 84 mg PO DAILY meloxicam 15 mg tablet 15 mg PO QDAY rosuvastatin 10 mg tablet 10 mg PO QHS chlorthalidone 25 mg tablet 12.5 mg PO DAILY metformin 500 mg tablet extended release 24 hr 500 mg PO BID Trulicity 0.75 mg/0.5 mL Pen Injector 0.75 mg SUBCUT WEEKLY Rx Instructions: Taken on Tuesday Humulin R U-500 (Conc) Kwikpen 500 unit/mL (3 mL) Insulin Pen 0 unit SUBCUT TID Rx Instructions: SLIDING SCALE 71-130 40 units 131-180 45 units 181-230 50 units 231-280 55 units 281-330 60 units 330 greater call pregabalin 50 mg Capsule 50 mg PO BID Ozempic 1 mg/dose (4 mg/3 mL) Pen Injector 1 mg SUBCUT ONCE Discontinued lisinopril 40 mg tablet 40 mg PO BID Follow Up Plan Follow up with: Freeman Ledesma DPM [Physician] - 02/04/22 10:20 am Kaushik Coy MD [Primary Care Provider] - (Follow-up as needed. Contact the office to schedule.) Patient Disposition: Xfer SNF Prognosis: Fair Rehab Potential: Fair I certify that the patient requires SNF services: Yes Overall status at discharge: patient is progressing back to baseline Discharge Orders: Discharge Order (Routine); Ordered 01/28/22 Ordered By: Denny Lu
[2022-01-27] MEDS: SENNOSIDES 1 TABLET PO SCH (21:50)
[2022-01-27] MEDS: INSULIN GLARGINE, HUMAN 1 UNIT/0.01 ML SQ SCH (21:51)
[2022-01-27] MEDS: ASPIRIN 81 MG TAB.CHEW PO SCH (21:59)
[2022-01-27] MEDS: ATORVASTATIN 20 MG TABLET PO SCH (21:59)
[2022-01-28] MEDS: 0.9 % SODIUM CHLORIDE 10 ML SYRINGE IV SCH (05:59)
[2022-01-28] MEDS: PIPERACILLIN SODIUM/TAZOBACTAM 3.375 GM in DEXTROSE 5% IN WATER 50 ML IV SCH ×2 (05:59→11:31)
[2022-01-28 07:31] LABS: Basophils # (Auto) 0.08 K/mcL (0.00-0.30); Basophils % (Auto) 0.7 % (0.0-2.0); Eosinophils # (Auto) 0.35 K/mcL (0.00-0.70); Eosinophils % (Auto) 2.9 % (0.0-7.0); Hematocrit 46.4 % (40.1-51.0); Lymphocytes # (Auto) 2.21 K/mcL (1.50-4.80); Lymphocytes % (Auto) 18.6 % (15.5-49.0); Mean Cell Volume 89.4 fL (80.0-100.0); Mean Corpuscular HGB Conc 32.3 g/dL (31.0-36.0); Mean Platelet Volume 10.5 fL (8.8-12.5); Monocytes # (Auto) 1.11 K/mcL (0.10-0.90); Monocytes % (Auto) 9.3 % (1.0-12.0); Platelet Count 400 K/mcL (140-440); RBC 5.19 M/mcL (4.63-6.08); Red Cell Distribution Width 14.1 % (11.5-14.5); WBC 11.9 K/mcL (4.5-11.0)
[2022-01-28] MEDS: CARVEDILOL 3.125 MG TABLET PO SCH (08:06)
[2022-01-28] MEDS: INSULIN REGULAR, HUMAN 1 UNIT/0.01 ML UNIT SQ SCH ×2 (08:07→11:31)
[2022-01-28] MEDS: CHLORTHALIDONE 25 MG TABLET PO SCH (09:39)
[2022-01-28] MEDS: amLODIPine 10 MG TABLET PO SCH (09:39)
[2022-01-28] MEDS: PREGABALIN 25 MG CAPSULE PO SCH (09:40)
[2022-01-28] MEDS: MAGNESIUM OXIDE 400 MG TABLET PO SCH (09:40)
[2022-01-28] MEDS: LISINOPRIL 20 MG TABLET PO SCH (09:40)
[2022-01-28] MEDS: MELOXICAM 7.5 MG TABLET PO SCH (09:40)
[2022-01-28] MEDS: DULoxetine 30 MG CAPSULE PO SCH (09:40)
[2022-01-28] MEDS: HEPARIN 5,000 UNIT/ML VIAL SQ SCH (09:44)
[2022-01-28] MEDS: DOCUSATE SODIUM 100 MG CAPSULE PO SCH (09:44)
== END 2022-01-28 11:00 | DRG 475 ==
LOC: ED 14:21 → MEDSUR 18:56
PROVIDERS: ADMIT Internal Medicine; ATTEND Internal Medicine